=== PATIENT | female | born 1955 | race Hispanic/Latino ===

== ENCOUNTER 2017-06-04 07:06 | Emergency (ER) | payer MEDICAID, OTHER ==
[2017-06-04 07:12] VITALS: BMI 25.2
[2017-06-04 07:18] VITALS: BP 164/97; PULSE 54; RESP 18; TEMP 97.4; O2SAT 95
--- NOTE | 2017-06-04 09:49 | ED PDOC ---
Arrival/HPI - General Chief Complaint: ENT Problem Time Seen by Provider: 06/04/17 07:25 Historian: Patient - History of Present Illness Narrative History of Present Illness (Text): 06/04/17 09:41 A 61 year old female, whose past medical history includes diabetes, hypertension, hypercholesterolemia, HIV, optic tumor removed in 2003, and right glass eye, presents to the emergency department complaining of sinus infection. Patient reports she has sinus infection every year in the beginning of winter. Patient denies any fever, cough, chest pain, shortness of breath, or any other complaints. 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) - Renal Hx Renal Disorder: No - Endocrine/Metabolic Hx Endocrine Disorders: Yes Hx Diabetes Mellitus Type 2: Yes - Hematological/Oncological Hx Blood Disorders: Yes Other/Comment: HIV Dx'ed 1997 - Integumentary Hx Dermatological Disorder: No - Musculoskeletal/Rheumatological Hx Musculoskeletal Disorders: No - Gastrointestinal Hx Gastrointestinal Disorders: No - Genitourinary/Gynecological Hx Genitourinary Disorders: No - Psychiatric Hx Psychophysiologic Disorder: No Hx Substance Use: No - Surgical History Hx Cholecystectomy: Yes Hx Eye Surgery: Yes (right prosthetic eye) Hx Tubal Ligation: Yes - Anesthesia Hx Anesthesia: Yes Hx Anesthesia Reactions: No Hx Malignant Hyperthermia: No Family/Social History - Physician Review Nursing Documentation Reviewed: Yes Family/Social History: No Known Family HX Smoking Status: Heavy Smoker > 10 Cigarettes Daily Hx Alcohol Use: No Hx Substance Use: No Allergies/Home Meds Allergies/Adverse Reactions: Allergies enoxaparin sodium [From Lovenox] Allergy (Verified 06/04/17 07:19) unknown heparin Allergy (Verified 06/04/17 07:19) unknown Home Medications: Home Meds Medication Instructions Recorded Confirmed Atorvastatin [Lipitor] 40 mg PO DAILY 02/21/16 06/04/17 Insulin Aspart [Novolog] 7 units SC AC 02/21/16 06/04/17 Insulin Glargine, Recombina 30 units SC HS 02/21/16 06/04/17 [Lantus] Lisinopril [Zestril] 5 mg PO DAILY 02/21/16 06/04/17 Review of Systems - Physician Review All systems were reviewed & negative as marked: Yes - Review of Systems Constitutional: absent: Fevers ENT: Other (sinus infection) Respiratory: absent: SOB, Cough Cardiovascular: absent: Chest Pain Physical Exam Vital Signs Reviewed: Yes Vital Signs Temp Pulse Resp BP Pulse Ox 06/04/17 07:12 97.4 F L 54 L 18 164/97 H 95 06/04/17 07:07 97.4 F L 54 L 18 164/97 H 95 Temperature: Afebrile Blood Pressure: Normal Pulse: Regular Respiratory Rate: Normal Appearance: Positive for: Well-Appearing Pain Distress: None Mental Status: Positive for: Alert and Oriented X 3 - Systems Exam Head: Present: Tenderness (frontal maxillary tenderness) Pupils: Present: PERRL Extroacular Muscles: Present: EOMI Conjunctiva: Present: Normal Mouth: Present: Moist Mucous Membranes Pharnyx: Present: Normal, Other (no oral thrush) Nose (External): Present: Atraumatic (normal examination) Neck: Present: Normal Range of Motion Respiratory/Chest: Present: Clear to Auscultation, Good Air Exchange. No: Respiratory Distress, Accessory Muscle Use Cardiovascular: Present: Regular Rate and Rhythm, Normal S1, S2. No: Murmurs Abdomen: Present: Normal Bowel Sounds. No: Tenderness, Distention, Peritoneal Signs Back: Present: Normal Inspection Upper Extremity: Present: Normal Inspection. No: Cyanosis, Edema Lower Extremity: Present: Normal Inspection. No: Edema Neurological: Present: GCS=15, CN II-XII Intact, Speech Normal Skin: Present: Warm, Dry, Normal Color. No: Rashes Psychiatric: Present: Alert, Oriented x 3, Normal Insight, Normal Concentration Medical Decision Making ED Course and Treatment: 06/04/17 09:47 Impression: 61 year old female with complaint of sinus infection. Physical exam shows frontal maxillary tenderness; nose and throat negative; no oral thrush; everything else on exam is benign. Plan: -- Reassess and disposition Prior Visits: Notes and results from previous visits were reviewed. Patient was last seen in the emergency department on 03/07/2016 for headache and pressure on both sides of her face. Progress Notes: - Scribe Statement The provider has reviewed the documentation as recorded by the Remedios Landers Provider Scribe Attestation: All medical record entries made by the Georgianaibgavin were at my direction and personally dictated by me. I have reviewed the chart and agree that the record accurately reflects my personal performance of the history, physical exam, medical decision making, and the department course for this patient. I have also personally directed, reviewed, and agree with the discharge instructions and disposition. Disposition/Present on Arrival - Present on Arrival Any Indicators Present on Arrival: No History of DVT/PE: No History of Uncontrolled Diabetes: No Urinary Catheter: No History of Decub. Ulcer: No History Surgical Site Infection Following: None - Disposition Have Diagnosis and Disposition been Completed?: Yes Diagnosis: Sinusitis Disposition: HOME/ ROUTINE Disposition Time: 07:40 Condition: GOOD Discharge Instructions (ExitCare): Sinusitis (ED) Additional Instructions: Thank you for letting us take care of you today. The emergency medical care you received today was directed at your acute symptoms. If you were prescribed any medication, please fill it and take as directed. It may take several days for your symptoms to resolve. Return to the Emergency Department if your symptoms worsen, do not improve, or if you have any other problems. Please contact your doctor or call one of the physicians/clinics you have been referred to that are listed on the Patient Visit Information form that is included in your discharge packet. Bring any paperwork you were given at discharge with you along with any medications you are taking to your follow up visit. Our treatment cannot replace ongoing medical care by a primary care provider (PCP) outside of the emergency department. Thank you for allowing the [facility] team to be part of your care today. Follow up with your doctor in 3-4 days for re-evaluation and further management. Prescriptions: Amoxicillin/Clavulanate [Augmentin 875 MG-125 MG] 1 tab PO Q12 #14 tab Fluticasone Propionate [Flonase] 1 spr NS BID #1 bottle [facility] - Follow up with primary Forms: [employer] (Bahamian)
== END 2017-06-04 07:58 | disposition home or self-care (01) ==
LOC: ED 07:06
DX: J32.9 Chronic sinusitis, unspecified (principal); I10 Essential (primary) hypertension; E11.9 Type 2 diabetes mellitus without complications; E78.00 Pure hypercholesterolemia, unspecified; F17.210 Nicotine dependence, cigarettes, uncomplicated; Z79.4 Long term (current) use of insulin; Z98.51 Tubal ligation status

== ENCOUNTER 2017-12-12 13:35 | Emergency (ER) | payer MEDICAID ==
[2017-12-12 13:36] VITALS: BMI 25.2
[2017-12-12 14:06] VITALS: RESP 18; TEMP 98
[2017-12-12] MEDS ORDERED: Oxycodone/Acetaminophen 5/325 mg Tab PO STA (14:11)
--- NOTE | 2017-12-12 14:21 | ED PDOC ---
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 sided rib pain in midaxxilary/subcostal region , described as a chest tightness, began when patient simply reached upward in a dark house region to grab something and heard an audible p"pop" at th time w/ pain and mild pelurisy since. Pt denies prodcutiv cough/thorne/sob/diaphoresisi/ exertional exacerbation , and since then ED chest xrays at [facility] were (-)( for airspace disease although the radiographers may have not been exmaining ossous detail thereto. 12/12/17 14:15 Time/Duration: < week Symptom Onset: Gradual Symptom Course: Unchanged Quality: Aching, Cramping 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) - Renal Hx Renal Disorder: No - Endocrine/Metabolic Hx Endocrine Disorders: Yes Hx Diabetes Mellitus Type 2: Yes - Hematological/Oncological Hx Blood Disorders: Yes Other/Comment: HIV Dx'ed 1997 - Integumentary Hx Dermatological Disorder: No - Musculoskeletal/Rheumatological Hx Musculoskeletal Disorders: No - Gastrointestinal Hx Gastrointestinal Disorders: No - Genitourinary/Gynecological Hx Genitourinary Disorders: No - Psychiatric Hx Psychophysiologic Disorder: No Hx Substance Use: No - Surgical History Hx Cholecystectomy: Yes Hx Eye Surgery: Yes (right prosthetic eye) Hx Tubal Ligation: Yes - Anesthesia Hx Anesthesia: Yes Hx Anesthesia Reactions: No Hx Malignant Hyperthermia: No Family/Social History - Physician Review Nursing Documentation Reviewed: Yes Family/Social History: No Known Family HX Smoking Status: Heavy Smoker > 10 Cigarettes Daily Hx Alcohol Use: No Hx Substance Use: No Allergies/Home Meds Allergies/Adverse Reactions: Allergies enoxaparin sodium [From Lovenox] Allergy (Verified 06/04/17 07:19) unknown heparin Allergy (Verified 06/04/17 07:19) unknown Home Medications: Home Meds Medication Instructions Recorded Confirmed Atorvastatin [Lipitor] 40 mg PO DAILY 02/21/16 06/04/17 Insulin Aspart [Novolog] 7 units SC AC 02/21/16 06/04/17 Insulin Glargine, Recombina 30 units SC HS 02/21/16 06/04/17 [Lantus] Lisinopril [Zestril] 5 mg PO DAILY 02/21/16 06/04/17 Review of Systems - Physician Review All systems were reviewed & negative as marked: Yes - Review of Systems Constitutional: Normal Eyes: Normal ENT: Normal Respiratory: Normal, Cough Cardiovascular: Chest Pain Gastrointestinal: Normal Genitourinary Female: Normal Musculoskeletal: Normal Skin: Normal Neurological: Normal Endocrine: Normal Hemo/Lymphatic: Normal Psychiatric: Normal Physical Exam Vital Signs Reviewed: Yes Vital Signs Temp Pulse Resp BP Pulse Ox 12/12/17 13:36 98 F 95 H 18 153/108 H 99 Temperature: Afebrile Blood Pressure: Normal Pulse: Regular Respiratory Rate: Normal Appearance: Positive for: Well-Appearing, Non-Toxic, Comfortable Pain Distress: None Mental Status: Positive for: Alert and Oriented X 3 - Systems Exam Head: Present: Atraumatic, Normocephalic Pupils: Present: PERRL Extroacular Muscles: Present: EOMI Conjunctiva: Present: Normal Mouth: Present: Moist Mucous Membranes Neck: Present: Normal Range of Motion Respiratory/Chest: Present: Clear to Auscultation, Good Air Exchange, Other ( left sided midaxillary line rib ttp subcostally . ). No: Respiratory Distress, Accessory Muscle Use Cardiovascular: Present: Regular Rate and Rhythm, Normal S1, S2. No: Murmurs Abdomen: No: Tenderness, Distention, Peritoneal Signs Back: Present: Normal Inspection Upper Extremity: Present: Normal Inspection. No: Cyanosis, Edema Lower Extremity: Present: Normal Inspection. No: Edema Neurological: Present: GCS=15, CN II-XII Intact, Speech Normal Skin: Present: Warm, Dry, Normal Color. No: Rashes Psychiatric: Present: Alert, Oriented x 3, Normal Insight, Normal Concentration Medical Decision Making ED Course and Treatment: 62 y/o female p/w yvonne rib muscle strain/sprain rib series (-) for acute fracture or airspace disease pain palliated/ incentive spirometer educated. 12/12/17 15:13 Reassessment Condition: Re-examined, Improved - Lab Interpretations I have reviewed the lab results: Yes Interpretation: All labs normal - RAD Interpretation Radiology Orders: 12/12/17 14:10 RIBS LEFT & PA CHEST [RAD] Stat - Medication Orders Current Medication Orders: Discontinued Medications Oxycodone/Acetaminophen (Percocet 5/325 Mg Tab) 1 tab PO STAT STA Stop: 12/12/17 14:12 Last Admin: 12/12/17 14:21 Dose: 1 tab MAR Pain Assessment Document 12/12/17 14:21 LA (Rec: 12/12/17 14:23 LA [id number]) Pain Reassessment Is this a pain reassessment? No Sleep Is patient sleeping during reassessment? No Presence of Pain Presence of Pain Yes Pain Scale Used Pain Scale Used Numeric Location Left, Right or Bilateral Left Upper or Lower Lower Pain Location Body Site Abdomen Description Description Intermittent Intensity of Pain at present 10 Disposition/Present on Arrival - Present on Arrival Any Indicators Present on Arrival: No History of DVT/PE: No History of Uncontrolled Diabetes: No Urinary Catheter: No History of Decub. Ulcer: No History Surgical Site Infection Following: None - Disposition Have Diagnosis and Disposition been Completed?: Yes Diagnosis: Rib sprain Disposition: HOME/ ROUTINE Disposition Time: 15:24 Patient Plan: Discharge Condition: IMPROVED Discharge Instructions (ExitCare): Bruised Rib (DC), Muscle Strain Print Language: WOLOF Additional Instructions: Take th epain medicine judiciously and sparingly only if pain severe. Practice the incentive spirometer 15-20 minutes an episode 3-4 episodes daily to keep your lung open. Prescriptions: Ibuprofen [Motrin Tab] 800 mg PO Q8 PRN #40 tab PRN Reason: Pain, Moderate (4-7) Methocarbamol [Robaxin-750] 750 mg PO Q8 PRN #30 tablet PRN Reason: Pain, Moderate (4-7) Forms: [facility] (Slovenian)
[2017-12-12 16:17] VITALS: BP 151/91; PULSE 87; O2SAT 97
--- NOTE | 2017-12-12 16:34 | RAD ---
PROCEDURE: Radiographs of the Chest and Left Ribs. HISTORY: Chest muscle strain COMPARISON: None available. TECHNIQUE: Frontal radiograph of the chest and multiple oblique radiographs of the left ribs were obtained. FINDINGS: LEFT RIBS: No fracture or focal lesion visualized. LUNGS: No evidence of acute infiltrates. PLEURA: No pneumothorax or pleural fluid. CARDIOVASCULAR: Normal sized heart. No pulmonary vascular congestion. OTHER FINDINGS: None. IMPRESSION: Unremarkable radiographs of the chest and left ribs. No left rib fracture. If symptoms persist or occult fracture suspected clinically, consider followup on CT scan of the chest.
--- NOTE | 2017-12-13 23:02 | CARD ---
APPROVED REPORT EKG Measurement Heart [id number] <Conclusion> Normal sinus rhythm Normal ECG
== END 2017-12-12 16:17 | disposition home or self-care (01) ==
LOC: ED 13:35
DX: S23.41XA Sprain of ribs, initial encounter (principal); X50.0XXA Overexertion from strenuous movement or load, initial encounter; Y92.89 Other specified places as the place of occurrence of the external cause; I10 Essential (primary) hypertension; E78.5 Hyperlipidemia, unspecified; F17.210 Nicotine dependence, cigarettes, uncomplicated

== ENCOUNTER 2017-12-20 13:54 | Emergency (ER) | payer MEDICAID ==
[2017-12-20 13:55] VITALS: BMI 25.2
[2017-12-20 14:39] VITALS: RESP 18
--- NOTE | 2017-12-20 15:10 | ED PDOC ---
Arrival/HPI - General Chief Complaint: Upper Extremity Problem/Injury Time Seen by Provider: 12/20/17 14:32 Historian: Patient - History of Present Illness Narrative History of Present Illness (Text): 12/20/17 15:07 62 year old female, whose history includes blood clot in right arm in 2009, presents to the Emergency department complaining of pain and swelling to right underarm for a couple of days. Pain is worsened with movements and palpation. Patient admits to not getting a mammogram for numerous years. Patient denies any fever, chills, chest pain, shortness of breath, nausea, vomiting, diarrhea, urinary symptoms, back pain, neck pain, headache, dizziness or any other complaints. 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) - Renal Hx Renal Disorder: No - Endocrine/Metabolic Hx Endocrine Disorders: Yes Hx Diabetes Mellitus Type 2: Yes - Hematological/Oncological Hx Blood Disorders: Yes Other/Comment: HIV Dx'ed 1997 - Integumentary Hx Dermatological Disorder: No - Musculoskeletal/Rheumatological Hx Musculoskeletal Disorders: No - Gastrointestinal Hx Gastrointestinal Disorders: No - Genitourinary/Gynecological Hx Genitourinary Disorders: No - Psychiatric Hx Psychophysiologic Disorder: No Hx Substance Use: No - Surgical History Hx Cholecystectomy: Yes Hx Eye Surgery: Yes (right prosthetic eye) Hx Tubal Ligation: Yes - Anesthesia Hx Anesthesia: Yes Hx Anesthesia Reactions: No Hx Malignant Hyperthermia: No Family/Social History - Physician Review Nursing Documentation Reviewed: Yes Family/Social History: Unknown Family HX Smoking Status: Heavy Smoker > 10 Cigarettes Daily Hx Alcohol Use: No Hx Substance Use: No Allergies/Home Meds Allergies/Adverse Reactions: Allergies enoxaparin sodium [From Lovenox] Allergy (Verified 12/20/17 14:38) unknown heparin Allergy (Verified 12/20/17 14:38) unknown Home Medications: Home Meds Medication Instructions Recorded Confirmed Atorvastatin [Lipitor] 40 mg PO DAILY 02/21/16 12/20/17 Insulin Aspart [Novolog] 7 units SC AC 02/21/16 12/20/17 Insulin Glargine, Recombina 30 units SC HS 02/21/16 12/20/17 [Lantus] Lisinopril [Zestril] 5 mg PO DAILY 02/21/16 12/20/17 Elviteg/Cob/Emtri/Tenof Alafen 1 tab PO DAILY 12/20/17 12/20/17 [Genvoya Tablet] Review of Systems - Review of Systems Constitutional: absent: Fevers, Night Sweats Eyes: absent: Vision Changes ENT: absent: Rhinorrhea Respiratory: absent: SOB, Cough Cardiovascular: absent: Chest Pain, Palpitations, Edema, Calf Pain, RIVERA, Orthopnea, Syncope Gastrointestinal: absent: Constipation, Diarrhea, Nausea, Vomiting Genitourinary Female: absent: Dysuria Musculoskeletal: absent: Back Pain, Neck Pain Skin: absent: Rash Neurological: absent: Headache, Dizziness Endocrine: absent: Diaphoresis Hemo/Lymphatic: Adenopathy Psychiatric: absent: Anxiety, Depression Physical Exam Vital Signs Reviewed: Yes Vital Signs Temp Pulse Resp BP Pulse Ox 12/20/17 18:22 98.8 F 82 18 128/84 99 12/20/17 14:35 97.9 F 83 18 145/90 96 Temperature: Afebrile Blood Pressure: Normal Pulse: Regular Respiratory Rate: Normal Appearance: Positive for: Well-Appearing, Non-Toxic, Comfortable Pain Distress: None Mental Status: Positive for: Alert and Oriented X 3 - Systems Exam Head: Present: Atraumatic, Normocephalic Pupils: Present: PERRL Extroacular Muscles: Present: EOMI Conjunctiva: Present: Normal Mouth: Present: Moist Mucous Membranes Neck: Present: Normal Range of Motion Respiratory/Chest: Present: Clear to Auscultation, Good Air Exchange. No: Respiratory Distress, Accessory Muscle Use Cardiovascular: Present: Regular Rate and Rhythm, Normal S1, S2. No: Murmurs Abdomen: No: Tenderness, Distention, Peritoneal Signs Breast/Axillary: Present: Tender to Palpation (pinpoint area of tenderness under R axilla) Back: Present: Normal Inspection Upper Extremity: Present: Normal Inspection, NORMAL PULSES. No: Cyanosis, Edema Lower Extremity: Present: Normal Inspection. No: Edema Neurological: Present: GCS=15, CN II-XII Intact, Speech Normal Skin: Present: Warm, Dry, Normal Color. No: Rashes Lymphatic: No: Axillary Adenopathy Psychiatric: Present: Alert, Oriented x 3, Normal Insight, Normal Concentration Medical Decision Making ED Course and Treatment: 12/20/17 15:01 Impression: 62 year old female presents to the Emergency department complaining of pain and swelling to right underarm. I cannot palpate a mass under the R axilla, but patient reports that there is one there and is complaining of tenderness. Spoke to patient about possibility of early folliculitis vs lymphadenopathy. Plan: -- Chest xray -- Right upper extremity ultrasound -- Labs -- Ibuprofen -- Reassess and disposition Prior Visits: Notes and results from previous visits were reviewed. Patient was last seen in the emergency department on 12/12/17, was diagnosed with a rib sprain, and was discharged home. Progress Notes: 12/20/17 15:01 Discussed with the patient the importance of getting mammography as soon as possible. 12/20/2017 15:33:19 Chest PA and lateral FINDINGS: LUNGS: No active pulmonary disease. PLEURA: No significant pleural effusion identified. No pneumothorax apparent. CARDIOVASCULAR: Normal. OSSEOUS STRUCTURES: No significant abnormalities. VISUALIZED UPPER ABDOMEN: Normal. OTHER FINDINGS: None. IMPRESSION: No active disease. 12/20/17 16:51 Ultrasound shows negative DVT. 12/20/17 17:42 Hyperglycemic with no gap. Patient reports that she didn't take her insulin this morning and will take medication at home. 12/20/17 18:21 Patient is aware her sugar is elevated but she does not want treatment in the Emergency department; she would like to go home and take her own medication. Insulin order discontinued. Patient aware of the need for mammography KULWANT to evaluate for lymphadenopathy/lump under R axilla that patient palpated and also follow-up with PMD and gynecology. - Lab Interpretations Lab Results: 12/20/17 16:01 12/20/17 16:01 Lab Results 12/20/17 18:04: POC Glucose (mg/dL) 344 H 12/20/17 16:01: Sodium 140, Potassium 3.9, Chloride 102, Carbon Dioxide 27, Anion Gap 15, BUN 15, Creatinine 0.6 L, Est GFR ( Amer) > 60, Est GFR ( Non-Af Amer) > 60, Random Glucose 420 H*, Calcium 8.7, Total Bilirubin 0.6, AST 127 H, ALT 119 H, Alkaline Phosphatase 109, Total Protein 6.7, Albumin 3.4, Globulin 3.3, Albumin/Globulin Ratio 1.1 12/20/17 16:01: WBC 5.2, RBC 4.06, Hgb 13.2, Hct 38.7, MCV 95.3, MCH 32.5, MCHC 34.1, RDW 14.4, Plt Count 236, MPV 11.9 H, Gran % 64.1, Lymph % (Auto) 19.2 L, Ross % (Auto) 10.7 H, Eos % (Auto) 5.0, Baso % (Auto) 1.0, Gran # 3.34, Lymph # (Auto) 1.0 L, Ross # (Auto) 0.6, Eos # (Auto) 0.3, Baso # (Auto) 0.05 - RAD Interpretation Radiology Orders: 12/20/17 14:56 CHEST TWO VIEWS (PA/LAT) [RAD] Stat DUPLEX UPPER EXTRM VEIN RIGHT [US] Stat - Medication Orders Current Medication Orders: Discontinued Medications Ibuprofen (Motrin Tab) 400 mg PO STAT STA Stop: 12/20/17 15:00 Last Admin: 12/20/17 15:47 Dose: 400 mg [facility] Pain/Vitals Document 12/20/17 15:47 [facility] (Rec: 12/20/17 15:48 [facility] [id number]) Pain Reassessment Is This A Pain ReAssessment? No - Scribe Statement The provider has reviewed the documentation as recorded by the Scribe Julio Arroyo All medical record entries made by the Scribe were at my direction and personally dictated by me. I have reviewed the chart and agree that the record accurately reflects my personal performance of the history, physical exam, medical decision making, and the department course for this patient. I have also personally directed, reviewed, and agree with the discharge instructions and disposition. Disposition/Present on Arrival - Present on Arrival Any Indicators Present on Arrival: No History of DVT/PE: Yes History of Uncontrolled Diabetes: No Urinary Catheter: No History of Decub. Ulcer: No History Surgical Site Infection Following: None - Disposition Have Diagnosis and Disposition been Completed?: Yes Diagnosis: Hyperglycemia, Pain, axillary Disposition: HOME/ ROUTINE Disposition Time: 18:12 Patient Plan: Discharge Condition: GOOD Discharge Instructions (ExitCare): Hyperglycemia, Adult Additional Instructions: Follow-up with PMD within 2 days. You need mammography within 1 week and futher evaluation of swelling under R axilla. Return immediately with any worsening symptoms. Control your blood glucose Forms: [employer] (Divehi)
--- NOTE | 2017-12-20 15:35 | RAD ---
HISTORY: Pain in right axilla COMPARISON: No prior. TECHNIQUE: Chest PA and lateral FINDINGS: LUNGS: No active pulmonary disease. PLEURA: No significant pleural effusion identified. No pneumothorax apparent. CARDIOVASCULAR: Normal. OSSEOUS STRUCTURES: No significant abnormalities. VISUALIZED UPPER ABDOMEN: Normal. OTHER FINDINGS: None. IMPRESSION: No active disease.
[2017-12-20 16:06] LABS: BASO # 0.05 K/mm3 (0.0-2.0); EOS # 0.3 (0.0-0.7); GRAN # 3.34 (1.4-6.5); GRAN % 64.1 % (50.0-68.0); HEMOGLOBIN 13.2 g/dL (12.0-16.0); LYMPH % 19.2 % (22.0-35.0); MEAN CELL VOLUME 95.3 fl (80.0-105.0); MEAN CORPUSCULAR HEMOGLOBIN 32.5 pg (25.0-35.0); MEAN CORPUSCULAR HGB CONC 34.1 g/dl (31.0-37.0); MEAN PLATELET VOLUME 11.9 fl (7.0-11.0); MONO # 0.6 (0.1-0.6); MONO % 10.7 % (1.0-6.0); RBC 4.06 10^6/uL (3.5-6.1); RED CELL DISTRIBUTION WIDTH 14.4 % (11.5-14.5); WHITE BLOOD COUNT 5.2 10^3/ul (4.5-11.0)
[2017-12-20 16:29] LABS: ALB/GLOB RATIO 1.1 (1.1-1.8); ALBUMIN 3.4 g/dL (3.0-4.8); ALT/SGPT 119 U/L (7-56); AST/SGOT 127 U/L (14-36); BLOOD UREA NITROGEN 15 mg/dL (7-21); CALCIUM 8.7 mg/dL (8.4-10.5); GFR AFRICAN-AMERICAN > 60; GFR NON-AFRICAN AMERICAN > 60
[2017-12-20] MEDS ORDERED: Insulin Regular 1 UNITS/0.01 ML ML IV STA (16:31)
[2017-12-20 18:23] VITALS: BP 128/84; PULSE 82; TEMP 98.8; O2SAT 99
--- NOTE | 2017-12-20 21:09 | US ---
PROCEDURE: Right upper extremity venous US CLINICAL HISTORY: Arm pain and swelling Evaluate for deep venous thrombosis. PHYSICIAN(S): Jeffery Zuniga M.D FINDINGS: The visualized rightinternal jugular vein is sonographically normal and compressible. No evidence of obstruction or thrombus is seen. The visualized segments of the right subclavian vein are patent with normal waveforms. No sonographic evidence of obstruction or thrombosis is seen. The visualized deep venous system of the proximal right upper extremity is sonographically normal and compressible. IMPRESSION: 1. No sonographic evidence for deep venous thrombosis in the visualized segments of the right upper extremity.
== END 2017-12-20 18:22 | disposition home or self-care (01) ==
LOC: ED 13:54
DX: E11.65 Type 2 diabetes mellitus with hyperglycemia (principal); M79.621 Pain in right upper arm; I10 Essential (primary) hypertension; F17.210 Nicotine dependence, cigarettes, uncomplicated

== ENCOUNTER 2018-05-24 08:39 | Emergency (ER) | payer MEDICAID ==
[2018-05-24 08:47] VITALS: BMI 25.6
--- NOTE | 2018-05-24 09:03 | ED PDOC ---
Arrival/HPI - General Chief Complaint: Back Pain Time Seen by Provider: 05/24/18 08:41 Historian: Patient - History of Present Illness Time/Duration: Other (Yesterday) Symptom Onset: Sudden Symptom Course: Unchanged Quality: Aching Severity Level: Mild Associated Symptoms (Text): 05/24/18 09:00 Patient reports that yesterday she bent over to pick something up off of the floor and developed acute onset of left lower back pain. She had a similar episode last summer. There was no direct blow. No abdominal pain nausea vomiting or diarrhea. No genitourinary symptoms. No radiation. No numbness tingling or paresthesias. No weakness. She appears comfortable and in no distress. HIV positive. Pain is only with certain movements. 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) - Renal Hx Renal Disorder: No - Endocrine/Metabolic Hx Endocrine Disorders: Yes Hx Diabetes Mellitus Type 2: Yes - Hematological/Oncological Hx Blood Disorders: Yes Other/Comment: HIV Dx'ed 1997 - Integumentary Hx Dermatological Disorder: No - Musculoskeletal/Rheumatological Hx Musculoskeletal Disorders: No - Gastrointestinal Hx Gastrointestinal Disorders: No - Genitourinary/Gynecological Hx Genitourinary Disorders: No - Psychiatric Hx Psychophysiologic Disorder: No Hx Substance Use: No - Surgical History Hx Cholecystectomy: Yes Hx Eye Surgery: Yes (right prosthetic eye) Hx Tubal Ligation: Yes - Anesthesia Hx Anesthesia: Yes Hx Anesthesia Reactions: No Hx Malignant Hyperthermia: No Family/Social History - Physician Review Nursing Documentation Reviewed: Yes Family/Social History: Unknown Family HX Smoking Status: Heavy Smoker > 10 Cigarettes Daily Hx Alcohol Use: No Hx Substance Use: No Allergies/Home Meds Allergies/Adverse Reactions: Allergies enoxaparin sodium [From Lovenox] Allergy (Verified 12/20/17 14:38) unknown heparin Allergy (Verified 12/20/17 14:38) unknown Home Medications: Home Meds Medication Instructions Recorded Confirmed Atorvastatin [Lipitor] 40 mg PO DAILY 02/21/16 12/20/17 Insulin Aspart [Novolog] 7 units SC AC 02/21/16 12/20/17 Insulin Glargine, Recombina 30 units SC HS 02/21/16 12/20/17 [Lantus] Lisinopril [Zestril] 5 mg PO DAILY 02/21/16 12/20/17 Elviteg/Cob/Emtri/Tenof Alafen 1 tab PO DAILY 12/20/17 12/20/17 [Genvoya Tablet] Review of Systems - Physician Review All systems were reviewed & negative as marked: Yes - Review of Systems Constitutional: Normal Respiratory: Normal Cardiovascular: Normal Gastrointestinal: Normal Genitourinary Female: Normal Neurological: Normal Physical Exam Temperature: Afebrile Blood Pressure: Normal Pulse: Regular Respiratory Rate: Normal Appearance: Positive for: Well-Appearing, Non-Toxic, Comfortable Pain Distress: Mild Mental Status: Positive for: Alert and Oriented X 3 - Systems Exam Head: Present: Atraumatic, Normocephalic Neck: Present: Normal Range of Motion Respiratory/Chest: Present: Clear to Auscultation, Good Air Exchange. No: Respiratory Distress, Accessory Muscle Use Abdomen: No: Tenderness, Distention, Peritoneal Signs Back: Present: Normal Inspection. No: CVA Tenderness, Midline Tenderness, Paraspinal Tenderness, Pain with Leg Raise Lower Extremity: Present: Normal Inspection. No: Edema Neurological: Present: GCS=15, CN II-XII Intact, Speech Normal, Motor Func Grossly Intact Skin: Present: Warm, Dry, Normal Color. No: Rashes Psychiatric: Present: Alert, Oriented x 3, Normal Insight, Normal Concentration Medical Decision Making ED Course and Treatment: 05/24/18 09:02 Patient will be treated as muscle strain with anti-inflammatories and muscle relaxers. Follow-up with PMD. Follow up in ER as needed. Disposition/Present on Arrival - Present on Arrival Any Indicators Present on Arrival: No History of DVT/PE: No History of Uncontrolled Diabetes: No Urinary Catheter: No History of Decub. Ulcer: No History Surgical Site Infection Following: None - Disposition Have Diagnosis and Disposition been Completed?: Yes Diagnosis: Low back strain Disposition: HOME/ ROUTINE Disposition Time: 09:03 Patient Plan: Discharge Condition: GOOD Discharge Instructions (ExitCare): Muscle Strain, Low Back Pain (DC) Prescriptions: Cyclobenzaprine [Flexeril] 5 mg PO Q8 #15 tab Naproxen [Naprosyn] 500 mg PO BID #14 tab Forms: [employer] (French)
[2018-05-24 09:09] VITALS: BP 120/90; PULSE 80; RESP 18; TEMP 98.2; O2SAT 100
== END 2018-05-24 09:40 | disposition home or self-care (01) ==
LOC: ED 08:39
DX: S39.012A Strain of muscle, fascia and tendon of lower back, initial encounter (principal); X50.0XXA Overexertion from strenuous movement or load, initial encounter; Y92.9 Unspecified place or not applicable

== ENCOUNTER 2018-05-29 06:07 | Emergency (ER) | payer MEDICAID ==
[2018-05-29 06:07] VITALS: BMI 25.6
[2018-05-29 07:49] VITALS: BP 145/80; PULSE 82; RESP 18; TEMP 97.9; O2SAT 97
--- NOTE | 2018-05-29 09:43 | ED PDOC ---
Arrival/HPI - General Chief Complaint: Abnormal Skin Integrity Historian: Patient - History of Present Illness Narrative History of Present Illness (Text): 05/29/18 08:28 A 62 year old female, with no significant past medical history presents to the emergency department complaining of dry skin to right ear and lower legs. Patient reports having this problem in the past. States she did not use any creams to treat it. Patient has no other complaints. 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) Other/Comment: prosthetic R eye - Renal Hx Renal Disorder: No - Endocrine/Metabolic Hx Endocrine Disorders: Yes Hx Diabetes Mellitus Type 2: Yes - Hematological/Oncological Hx Blood Disorders: Yes Hx Hepatitis C: Yes Other/Comment: HIV Dx'ed 1997 - Integumentary Hx Dermatological Disorder: No - Musculoskeletal/Rheumatological Hx Musculoskeletal Disorders: No Hx Unsteady Gait: Yes - Gastrointestinal Hx Gastrointestinal Disorders: No - Genitourinary/Gynecological Hx Genitourinary Disorders: No - Psychiatric Hx Psychophysiologic Disorder: No Hx Substance Use: No - Surgical History Hx Cholecystectomy: Yes Hx Eye Surgery: Yes (right prosthetic eye) Hx Tubal Ligation: Yes - Anesthesia Hx Anesthesia: Yes Hx Anesthesia Reactions: No Hx Malignant Hyperthermia: No Family/Social History - Physician Review Nursing Documentation Reviewed: Yes Family/Social History: No Known Family HX Smoking Status: Heavy Smoker > 10 Cigarettes Daily Hx Alcohol Use: No Hx Substance Use: No Allergies/Home Meds Allergies/Adverse Reactions: Allergies enoxaparin sodium [From Lovenox] Allergy (Verified 12/20/17 14:38) unknown heparin Allergy (Verified 12/20/17 14:38) unknown Home Medications: Home Meds Medication Instructions Recorded Confirmed Atorvastatin [Lipitor] 40 mg PO DAILY 02/21/16 12/20/17 Insulin Aspart [Novolog] 7 units SC AC 02/21/16 12/20/17 Insulin Glargine, Recombina 30 units SC HS 02/21/16 12/20/17 [Lantus] Lisinopril [Zestril] 5 mg PO DAILY 02/21/16 12/20/17 Elviteg/Cob/Emtri/Tenof Alafen 1 tab PO DAILY 12/20/17 12/20/17 [Genvoya Tablet] Review of Systems - Physician Review All systems were reviewed & negative as marked: Yes - Review of Systems Musculoskeletal: absent: Myalgias Skin: Other (dry skin to right ear and lower legs.) Physical Exam Vital Signs Reviewed: Yes Vital Signs Temp Pulse Resp BP Pulse Ox 05/29/18 07:47 97.9 F 82 18 145/80 97 05/29/18 06:53 153/91 H 05/29/18 06:21 97.7 F 84 20 100 Temperature: Afebrile Pulse: Regular Respiratory Rate: Normal Appearance: Positive for: Well-Appearing, Non-Toxic, Comfortable Pain Distress: None Mental Status: Positive for: Alert and Oriented X 3 - Systems Exam Ears: Present: Other (minimal abrasion to right pinna, no active bleeding.) Medical Decision Making ED Course and Treatment: 05/29/18 08:30 Impression: 62 year old female with dry skin to right ear and lower legs. Physical exam shows minimal abrasion to right pinna, no active bleeding. Plan: -- Reassess and disposition Progress Notes: - Scribe Statement The provider has reviewed the documentation as recorded by the Remedios Landers Provider Scribe Attestation: All medical record entries made by the Scribe were at my direction and personally dictated by me. I have reviewed the chart and agree that the record accurately reflects my personal performance of the history, physical exam, medical decision making, and the department course for this patient. I have also personally directed, reviewed, and agree with the discharge instructions and disposition. Disposition/Present on Arrival - Present on Arrival Any Indicators Present on Arrival: No History of DVT/PE: No History of Uncontrolled Diabetes: No Urinary Catheter: No History of Decub. Ulcer: No History Surgical Site Infection Following: None - Disposition Have Diagnosis and Disposition been Completed?: Yes Diagnosis: Dry skin Disposition: HOME/ ROUTINE Disposition Time: 07:25 Condition: GOOD Discharge Instructions (ExitCare): Diabetes and Diet Additional Instructions: DEVI OLGUIN, thank you for letting us take care of you today. The emergency medical care you received today was directed at your acute symptoms. If you were prescribed any medication, please fill it and take as directed. It may take several days for your symptoms to resolve. Return to the Emergency Department if your symptoms worsen, do not improve, or if you have any other problems. Please contact your doctor or call one of the physicians/clinics you have been referred to that are listed on the Patient Visit Information form that is included in your discharge packet. Bring any paperwork you were given at discharge with you along with any medications you are taking to your follow up visit. Our treatment cannot replace ongoing medical care by a primary care provider outside of the emergency department. Thank you for allowing the [facility] team to be part of your care today. Consider moisturizing skin cream and a humidifier in your home. Follow up with your primary care doctor if you have any concerns. Forms: haku (Greek)
== END 2018-05-29 07:49 | disposition home or self-care (01) ==
LOC: ED 06:07
DX: L85.3 Xerosis cutis (principal)

== ENCOUNTER 2018-07-22 19:14 | Inpatient (IN) | payer MEDICAID ==
[2018-07-22 20:26] LABS: BASO # 0.02 K/mm3 (0.0-2.0); BASO % 0.1 % (0.0-3.0); GRAN # 23.86 (1.4-6.5); HEMOGLOBIN 15.6 g/dL (12.0-16.0); LYMPH # 1.4 (1.2-3.4); LYMPH % 5.5 % (22.0-35.0); MEAN CELL VOLUME 92.7 fl (80.0-105.0); MEAN CORPUSCULAR HEMOGLOBIN 30.8 pg (25.0-35.0); MEAN CORPUSCULAR HGB CONC 33.3 g/dl (31.0-37.0); MEAN PLATELET VOLUME 14.3 fl (7.0-11.0); MONO # 0.4 (0.1-0.6); MONO % 1.4 % (1.0-6.0); PLATELET COUNT 396 10^3/uL (120.0-450.0); RBC 5.06 10^6/uL (3.5-6.1); RED CELL DISTRIBUTION WIDTH 13.1 % (11.5-14.5)
[2018-07-22 20:30] LABS: WHITE BLOOD COUNT 25.7 10^3/uL (4.5-11.0)
[2018-07-22] MEDS ORDERED: Insulin Regular 1 UNITS/0.01 ML ML IVP STA (20:44)
[2018-07-22] MEDS ORDERED: Sodium Chloride 0.9% 1,000 ML IV STA (20:44)
[2018-07-22] MEDS ORDERED: Vancomycin 1gm in NS 250ml 1 GM/250 ML BAG IVPB STA (20:45)
[2018-07-22] MEDS ORDERED: Piperacillin/Tazobact 3.375 gm 100 ML IVPB STA (20:45)
[2018-07-22 20:49] LABS: TROPONIN I < 0.01 ng/mL
[2018-07-22 20:53] LABS: INR 1.02; PARTIAL THROMBOPLASTIN TIME 22.5 Seconds (25.1-36.5); PROTHROMBIN TIME 11.6 SECONDS (9.4-12.5)
[2018-07-22 20:54] LABS: ALB/GLOB RATIO 0.9 (1.1-1.8); ALBUMIN 3.3 g/dL (3.0-4.8); ALT/SGPT 14 U/L (7-56); AST/SGOT 25 U/L (14-36); BLOOD UREA NITROGEN 52 mg/dL (7-21); GFR NON-AFRICAN AMERICAN 50
[2018-07-22 21:06] LABS: URINE BILIRUBIN NEGATIVE (NEGATIVE); URINE BLOOD MODERATE (NEGATIVE); URINE GLUCOSE (UA) >=1000 mg/dL (NEGATIVE); URINE LEUKOCYTE ESTERASE SMALL Leu/uL (NEGATIVE); URINE PROTEIN NEGATIVE mg/dL (<30 mg/dL)
[2018-07-22 21:08] LABS: URINE APPEARANCE SL CLOUDY (CLEAR); URINE COLOR YELLOW (YELLOW)
[2018-07-22 21:36] LABS: VENOUS BLOOD GAS PO2 53 mm/Hg (30-55); VENOUS BLOOD PH 7.26 (7.32-7.43)
[2018-07-22 21:38] LABS: URINE WBC 25 - 30 /hpf (0-6)
[2018-07-22 21:39] LABS: URINE BACTERIA LARGE /hpf
--- NOTE | 2018-07-22 21:56 | ED PDOC ---
Arrival/HPI - General Chief Complaint: Altered Mental Status Time Seen by Provider: 07/22/18 19:40 Historian: Patient - History of Present Illness Narrative History of Present Illness (Text): 07/23/18 00:05 62yo female with pmhx of Diabetes, hypertension, and HIV(unknown viral load and CD4) bib the family members for complaint of generalized weakness and slurred speech. the son by the rebekah mendoza patient came to visit them on Wednesday from [place] and stated she wasn't feeling well. [facility] patient appeared weak with slurred speech this morning and again when he came back from work this evening and he brought her to the ED. states he is not sure patient is complaint with her medication. Patient was AAO x3 and reports mild pain around her sacral ulcer, which she said is chronic to her. She states she is complaint with her medication. Otherwise she denies any focal somatic complaint. Denies chest pain, SOB, nausea, vomiting, diarrhea, constipation, fever chills, cough, any other complaint. 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) Other/Comment: prosthetic R eye - Renal Hx Renal Disorder: No - Endocrine/Metabolic Hx Endocrine Disorders: Yes Hx Diabetes Mellitus Type 2: Yes - Hematological/Oncological Hx Blood Disorders: Yes Hx Hepatitis C: Yes Other/Comment: HIV Dx'ed 1997 - Integumentary Hx Dermatological Disorder: No - Musculoskeletal/Rheumatological Hx Musculoskeletal Disorders: No Hx Unsteady Gait: Yes - Gastrointestinal Hx Gastrointestinal Disorders: No - Genitourinary/Gynecological Hx Genitourinary Disorders: No - Psychiatric Hx Psychophysiologic Disorder: No Hx Substance Use: No - Surgical History Hx Cholecystectomy: Yes Hx Eye Surgery: Yes (right prosthetic eye) Hx Tubal Ligation: Yes - Anesthesia Hx Anesthesia: Yes Hx Anesthesia Reactions: No Hx Malignant Hyperthermia: No Family/Social History - Physician Review Nursing Documentation Reviewed: Yes Family/Social History: Unknown Family HX Smoking Status: Heavy Smoker > 10 Cigarettes Daily Hx Alcohol Use: No Hx Substance Use: No Allergies/Home Meds Allergies/Adverse Reactions: Allergies enoxaparin sodium [From Lovenox] Allergy (Verified 07/22/18 19:29) unknown heparin Allergy (Verified 07/22/18 19:29) unknown Home Medications: Home Meds Medication Instructions Recorded Confirmed Atorvastatin [Lipitor] 40 mg PO DAILY 02/21/16 12/20/17 Insulin Aspart [Novolog] 7 units SC AC 02/21/16 12/20/17 Insulin Glargine, Recombina 30 units SC HS 02/21/16 12/20/17 [Lantus] RX: Lisinopril [Zestril] 5 mg PO DAILY 02/21/16 12/20/17 Elviteg/Cob/Emtri/Tenof Alafen 1 tab PO DAILY 12/20/17 12/20/17 [Genvoya Tablet] Review of Systems - Physician Review All systems were reviewed & negative as marked: Yes - Review of Systems Constitutional: Fatigue Eyes: Normal ENT: Normal Respiratory: Normal Cardiovascular: Normal Gastrointestinal: Normal Genitourinary Female: Normal Musculoskeletal: Normal Skin: Normal Neurological: Normal Endocrine: Normal Hemo/Lymphatic: Normal Psychiatric: Normal Physical Exam Vital Signs Reviewed: Yes Vital Signs Temp Pulse Resp BP Pulse Ox 07/22/18 20:19 94.9 F L 07/22/18 19:30 102 H 15 135/76 100 Temperature: Hypothermic Blood Pressure: Normal Pulse: Tachycardic Respiratory Rate: Normal Appearance: Positive for: Non-Toxic, Comfortable, Ill-Appearing Pain Distress: None Mental Status: Positive for: Alert and Oriented X 3 Finger Stick Blood Glucose: 812 - Systems Exam Head: Present: Atraumatic, Normocephalic Pupils: Present: PERRL Extroacular Muscles: Present: EOMI Conjunctiva: Present: Normal Mouth: Present: Moist Mucous Membranes Neck: Present: Normal Range of Motion Respiratory/Chest: Present: Clear to Auscultation, Good Air Exchange. No: Respiratory Distress, Accessory Muscle Use, Wheezes, Decreased Breath Sounds, Rales, Retracting Cardiovascular: Present: Regular Rate and Rhythm, Normal S1, S2. No: Murmurs Abdomen: No: Tenderness, Distention, Peritoneal Signs Back: Present: Normal Inspection Upper Extremity: Present: Normal Inspection. No: Cyanosis, Edema Lower Extremity: Present: Normal Inspection. No: Edema Neurological: Present: GCS=15, CN II-XII Intact, Speech Normal, Motor Func Grossly Intact, Normal Sensory Function Skin: Present: Warm, Dry, Normal Color, Other (Unstageable sacral ulcer and right buttocks ulcer with eschar noted). No: Rashes Psychiatric: Present: Alert, Oriented x 3, Normal Insight, Normal Concentration Medical Decision Making ED Course and Treatment: 07/23/18 00:12 62yo female bib the family for generalized weakness and slurred speech Labs Chest xray EKG Blood culture VBG EKG sinus tachy @106bpm. LAD Pt's FS was >500 n ED . 1L NS Insulin ordered Lab was reviewed ant pt have leukocytosis, elevated VBG, hypothermic on arrival. Bear hugger placed and code sepsis was called. Vanco and Zosyn ordered Pt is also on DKA She was admitted to ICU Case was DW Dr. Soares who came and saw pt in ED and accepted pt for admission to the ICU - Critical Care Critical Care Minutes: 45 minutes - Lab Interpretations Lab Results: pO2 53 mm/Hg (30-55) 07/22/18 21:29 VBG pH 7.26 (7.32-7.43) L 07/22/18 21:29 VBG pCO2 50.0 (40-60) 07/22/18 21:29 VBG HCO3 22.4 mmol/l (21-28) 07/22/18 21:29 VBG Total CO2 23.9 mmol.L (22-28) 07/22/18 21:29 VBG O2 Sat (Calc) 89.8 % (40-65) H 07/22/18 21:29 VBG Base Excess -5.0 mmol/L (0.0-2.0) L 07/22/18 21:29 VBG Potassium 3.5 mmol/L (3.6-5.2) L 07/22/18 21:29 Sodium 142.0 mmol/L (132-148) 07/22/18 21: Chloride 98.0 mmol/L (98-107) 07/22/18 21: Glucose 722 mg/dl (65-105) H* 07/22/18 21:29 Lactate 4.0 mmol/L (0.7-2.1) H* 07/22/18 21:29 FiO2 21.0 % 07/22/18 21:29 PT 11.6 SECONDS (9.4-12.5) 07/22/18 20:10 INR 1.02 07/22/18 20:10 APTT 22.5 Seconds (25.1-36.5) L 07/22/18 20:10 Troponin I < 0.01 ng/mL 07/22/18 20:10 Total Bilirubin 1.5 mg/dL (0.2-1.3) H 07/22/18 20:10 AST 25 U/L (14-36) 07/22/18 20:10 ALT 14 U/L (7-56) 07/22/18 20:10 Alkaline Phosphatase 184 U/L (38-126) H D 07/22/18 20:10 Total Protein 7.2 g/dL (5.8-8.3) 07/22/18 20:10 Albumin 3.3 g/dL (3.0-4.8) 07/22/18 20:10 Globulin 3.9 gm/dL 07/22/18 20:10 Albumin/Globulin Ratio 0.9 (1.1-1.8) L 07/22/18 20:10 Urine Color Yellow (YELLOW) 07/22/18 20:44 Urine Appearance Sl cloudy (CLEAR) 07/22/18 20:44 Urine pH 6.0 (4.7-8.0) 07/22/18 20:44 Ur Specific [place] 1.010 (1.005-1.035) 07/22/18 20:44 Urine Protein Negative mg/dL (<30 mg/dL) 07/22/18 20:44 Urine Glucose (UA) >=1000 mg/dL (NEGATIVE) 07/22/18 20:44 Urine Ketones 15 mg/dL (NEGATIVE) H 07/22/18 20:44 Urine Blood Moderate (NEGATIVE) H 07/22/18 20:44 Urine Nitrate Negative (NEGATIVE) 07/22/18 20:44 Urine Bilirubin Negative (NEGATIVE) 07/22/18 20:44 Urine Urobilinogen 1.0 E.U./dL (<1 E.U./dL) H 07/22/18 20:44 Ur Leukocyte Esterase Small Marisa/uL (NEGATIVE) H 07/22/18 20:44 Urine RBC 5 - 10 /hpf (0-2) H 07/22/18 20:44 Urine WBC 25 - 30 /hpf (0-6) H 07/22/18 20:44 Ur Epithelial Cells 3 - 4 /hpf (0-5) 07/22/18 20:44 Urine Bacteria Large /hpf (NONE) 07/22/18 20:44 - RAD Interpretation Radiology Orders: 07/22/18 19:42 CHEST PORTABLE [RAD] Stat - Medication Orders Current Medication Orders: Vancomycin HCl (Vancomycin 1gm) 1 gm in 250 mls @ 167 mls/hr IVPB STAT STA; Protocol Stop: 07/22/18 22:14 Last Admin: 07/22/18 21:50 Dose: 167 mls/hr eMAR Start Stop Document 07/22/18 21:50 JOL (Rec: 07/22/18 21:51 JOL [id number]) Intravenous Solution Start Date 07/22/18 Start Time 21:51 End Date 07/22/18 End time 23:21 Total Infusion Time 90 Discontinued Medications Sodium Chloride (Sodium Chloride 0.9%) 1,000 mls @ 999 mls/hr IV .Q1H1M STA Stop: 07/22/18 21:44 Last Admin: 07/22/18 19:45 Dose: 999 mls/hr eMAR Start Stop Document 07/22/18 19:45 JOL (Rec: 07/22/18 21:00 JOL [id number]) Intravenous Solution Start Date 07/22/18 Start Time 19:50 End Date 07/22/18 End time 20:51 Total Infusion Time 61 Piperacillin Sod/Tazobactam Sod (Zosyn 3.375 In Ns 100ml) 100 mls @ 200 mls/hr IVPB STAT STA; Protocol Stop: 07/22/18 21:14 Last Admin: 07/22/18 21:00 Dose: 200 mls/hr eMAR Start Stop Document 07/22/18 21:00 JOL (Rec: 07/22/18 21:02 JOL [id number]) Intravenous Solution Start Date 07/22/18 Start Time 21:02 End Date 07/22/18 End time 21:32 Total Infusion Time 30 Insulin Human Regular (Humulin R) 12 units IVP ONCE STA Stop: 07/22/18 20:45 Last Admin: 07/22/18 21:00 Dose: 12 unit MAR Blood Glucose Document 07/22/18 21:00 JOL (Rec: 07/22/18 21:00 JOL [id number]) Blood Glucose Finger Stick Blood Glucose (70-120) 812 IVP Administration Document 07/22/18 21:00 JUAN C (Rec: 07/22/18 21:00 [id number]) Charges for Administration # of IVP Administrations 1 Disposition/Present on Arrival - Present on Arrival Any Indicators Present on Arrival: No History of DVT/PE: No History of Uncontrolled Diabetes: Yes Urinary Catheter: No History of Decub. Ulcer: No History Surgical Site Infection Following: None - Disposition Have Diagnosis and Disposition been Completed?: Yes Diagnosis: Sepsis, DKA (diabetic ketoacidoses), Hyperglycemia Disposition: HOSPITALIZED Disposition Time: 21:40 Patient Plan: Admission Patient Problems: Current Active Problems Problem Status Onset DKA (diabetic ketoacidoses) Acute Hyperglycemia Acute Sepsis Acute Condition: GUARDED
[2018-07-22 22:37] LABS: NEUTROPHIL 54 % (50.0-70.0)
[2018-07-22 22:40] LABS: BAND 38 % (0-2); EOSINOPHIL 1 % (0.0-3.0); LYMPHOCYTE 4 % (22.0-35.0); MONOCYTE 3 % (1.0-6.0)
[2018-07-22 22:41] LABS: PLATELET ESTIMATE NORMAL (NORMAL)
[2018-07-22] MEDS ORDERED: Sodium Chloride 0.9% 1,000 ML IV SCH (23:30)
[2018-07-22] MEDS ORDERED: Dextrose 50% SYRINGE Inj (50 ml) IV PRN (23:46)
[2018-07-22] MEDS ORDERED: Insulin Regular 100 UNITS in Sodium Chloride 0.9% 99 ML IV PRN (23:46)
[2018-07-23 00:41] LABS: VENOUS BLOOD GAS BASE EXCESS -1.7 mmol/L (0.0-2.0); VENOUS BLOOD GAS PO2 58 mm/Hg (30-55); VENOUS BLOOD PH 7.31 (7.32-7.43)
--- NOTE | 2018-07-23 02:06 | CP.PCM.CON ---
<Nabor Kearney - Last Filed: 07/23/18 05:53> History of Present Illness - History of Present Illness History of Present Illness: H&P for Hospitalist Dr. Rodger Kearney PGY2 CC: Slurred speech and weakness Patient is a 62 F with past medical history of HIV (unknown CD4 count), hepatitis, IDDM, past heroin abuse presenting with slurred speech and weakness found to be in HHS. HPI was provided by daughter of patient. As per daughter, patient came to visit from [place] on Wednesday. Since then it was noted that patient's behavior was slightly off, however patient stated she was sick. Yesterday morning when the daughter was going to work she noticed patient exhibited slurred speech and generalized weakness. This was around 6 am. As per daughter she waited until 6 pm when her brother came home and re-assessed patient. As per brother patient was exhibiting the same symptoms and seemed to be altered in comparison to her baseline and as a result decided it would be best to to bring the patient to the ED. During course of interview patient became more alert and awake. She stated that she takes insulin when she feels she needs it only and has not been taking it as prescribed in the past few weeks. She denies fevers, chills, headache, chest pain, shortness of breath, abdominal pain, nausea, vomiting, diarrhea, dysuria. PMD: [facility], can't recall name at the moment Pharmacy: [address] Social Hx: 1 ppd x 40 years, denies alcohol abuse, previous history of IV heroin use, lives at [facility] in [place], [place] Allergies: enoxaparin sodium, heparin Family HX: significant for alzheimer's disease and DM Review of Systems - Review of Systems All systems: reviewed and no additional remarkable complaints except (what is mentioned in HPI) 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 - RENAL Hx Chronic Kidney Disease: No - ENDOCRINE/METABOLIC Hx Endocrine Disorders: Yes Hx Diabetes Mellitus Type 2: Yes - HEMATOLOGICAL/ONCOLOGICAL Hx Blood Disorders: Yes Hx Hepatitis C: Yes Other/Comment: HIV Dx'ed 1997 - INTEGUMENTARY Hx Dermatological Problems: No - MUSCULOSKELETAL/RHEUMATOLOGICAL Hx Musculoskeletal Disorders: No Hx Unsteady Gait: Yes - GASTROINTESTINAL Hx Gastrointestinal Disorders: No - GENITOURINARY/GYNECOLOGICAL Hx Genitourinary Disorders: No - PSYCHIATRIC Hx Psychophysiologic Disorder: No Hx Substance Use: No - SURGICAL HISTORY Hx Cholecystectomy: Yes Hx Eye Surgery: Yes (right prosthetic eye) Hx Tubal Ligation: Yes - ANESTHESIA Hx Anesthesia: Yes Hx Anesthesia Reactions: No Hx Malignant Hyperthermia: No Meds Allergies/Adverse Reactions: Allergies Allergy/AdvReac Type Severity Reaction Status Date / Time enoxaparin sodium Allergy unknown Verified 07/22/18 19:29 [From Lovenox] heparin Allergy unknown Verified 07/22/18 19:29 - Medications Medications: Current Medications Dextrose (Dextrose 50% Inj) 0 ml IV STAT PRN; Protocol PRN Reason: Hypoglycemia Protocol Dextrose (Dextrose 5% In Water 1000 Ml) 1,000 mls @ 0 mls/hr IV .Q0M PRN; Protocol PRN Reason: Hypoglycemia Protocol Insulin Human Regular 100 (units/ Sodium Chloride) 100 mls @ 6 mls/hr IV .Q16H4 0M PRN; Protocol PRN Reason: TITRATE PER MD ORDER Last Titration: 07/23/18 00:57 Dose: 0 units/hr, 0 mls/hr Potassium Chloride (Potassium Chloride 10 Meq/100 Ml) 10 meq in 100 mls @ 50 mls/hr IVPB Q2H JOHN Stop: 07/23/18 08:59 Last Admin: 07/23/18 01:48 Dose: 50 mls/hr Potassium Chloride 60 meq/ (Sodium Chloride) 1,030 mls @ 150 mls/hr IV .Q6H52M [facility] Nystatin (Mycostatin Cream) 0 ea TOP TID JOHN Pantoprazole Sodium (Protonix Inj) 40 mg IVP DAILY [facility] Physical Exam - Head Exam Head Exam: ATRAUMATIC, NORMAL INSPECTION, NORMOCEPHALIC - Eye Exam Eye Exam: EOMI. absent: Normal appearance (artificial right eye) - ENT Exam ENT Exam: Mucous Membranes Dry - Respiratory Exam Respiratory Exam: Clear to Auscultation Bilateral, NORMAL BREATHING PATTERN - Cardiovascular Exam Cardiovascular Exam: REGULAR RHYTHM, +S1, +S2 - GI/Abdominal Exam GI & Abdominal Exam: Normal Bowel Sounds, Soft - Extremities Exam Extremities exam: Positive for: normal inspection - Back Exam Back exam: NORMAL INSPECTION - Neurological Exam Neurological exam: Alert, CN II-XII Intact, Oriented x3 - Psychiatric Exam Psychiatric exam: Normal Affect, Normal Mood - Skin Skin Exam: Intact, Normal Color, Warm Results - Vital Signs Recent Vital Signs: Last Vital Signs Temp 97.6 F 07/22/18 22:00 Pulse 110 H 07/22/18 22:00 Resp 14 07/22/18 22:00 BP 120/62 07/22/18 22:00 Pulse Ox 100 07/22/18 22:00 - Labs Result Diagrams: 07/22/18 20:10 07/23/18 02:15 Labs: Laboratory Results - last 24 hr 07/22/18 07/22/18 07/22/18 20:10 20:10 20:10 WBC 25.7 H* RBC 5.06 Hgb 15.6 D Hct 46.9 MCV 92.7 MCH 30.8 MCHC 33.3 RDW 13.1 Plt Count 396 MPV 14.3 H Gran % 93.0 H Lymph % (Auto) 5.5 L [place] % (Auto) 1.4 Eos % (Auto) 0.0 L Baso % (Auto) 0.1 Gran # 23.86 H Lymph # (Auto) 1.4 [place] # (Auto) 0.4 Eos # (Auto) 0.0 Baso # (Auto) 0.02 Neutrophils % (Manual) 54 Band Neutrophils % 38 H* Lymphocytes % (Manual) 4 L Monocytes % (Manual) 3 Eosinophils % (Manual) 1 Platelet Evaluation Normal PT 11.6 INR 1.02 APTT 22.5 L pO2 VBG pH VBG pCO2 VBG HCO3 VBG Total CO2 VBG O2 Sat (Calc) VBG Base Excess VBG Potassium Glucose Lactate FiO2 Sodium 138 Potassium 3.2 L Chloride 94 L Carbon Dioxide 21 Anion Gap 26 H BUN 52 H Creatinine 1.1 Est GFR ( Amer) > 60 Est GFR (Non-Af Amer) 50 POC Glucose (mg/dL) Random Glucose 811 H* D Calcium 10.0 Magnesium 2.6 H Total Bilirubin 1.5 H AST 25 ALT 14 Alkaline Phosphatase 184 H D Lactate Dehydrogenase 403 Total Creatine Kinase < 20 L Troponin I < 0.01 Total Protein 7.2 Albumin 3.3 Globulin 3.9 Albumin/Globulin Ratio 0.9 L TSH 3rd Generation Venous Blood Potassium Urine Color Urine Appearance Urine pH Ur Specific [place] Urine Protein Urine Glucose (UA) Urine Ketones Urine Blood Urine Nitrate Urine Bilirubin Urine Urobilinogen Ur Leukocyte Esterase Urine RBC Urine WBC Ur Epithelial Cells Urine Bacteria 07/22/18 07/22/18 07/22/18 20:44 21:29 23:35 WBC RBC Hgb Hct MCV MCH MCHC RDW Plt Count MPV Gran % Lymph % (Auto) [place] % (Auto) Eos % (Auto) Baso % (Auto) Gran # Lymph # (Auto) [place] # (Auto) Eos # (Auto) Baso # (Auto) Neutrophils % (Manual) Band Neutrophils % Lymphocytes % (Manual) Monocytes % (Manual) Eosinophils % (Manual) Platelet Evaluation PT INR APTT pO2 53 VBG pH 7.26 L VBG pCO2 50.0 VBG HCO3 22.4 VBG Total CO2 23.9 VBG O2 Sat (Calc) 89.8 H VBG Base Excess -5.0 L VBG Potassium 3.5 L Glucose 722 H* Lactate 4.0 H* FiO2 21.0 Sodium 142.0 Potassium Chloride 98.0 Carbon Dioxide Anion Gap BUN Creatinine Est GFR ( Amer) Est GFR (Non-Af Amer) POC Glucose (mg/dL) Random Glucose Calcium Magnesium Total Bilirubin AST ALT Alkaline Phosphatase Lactate Dehydrogenase Total Creatine Kinase Troponin I Total Protein Albumin Globulin Albumin/Globulin Ratio TSH 3rd Generation 0.37 L Venous Blood Potassium 3.5 L Urine Color Yellow Urine Appearance Sl cloudy Urine pH 6.0 Ur Specific [place] 1.010 Urine Protein Negative Urine Glucose (UA) >=1000 Urine Ketones 15 H Urine Blood Moderate H Urine Nitrate Negative Urine Bilirubin Negative Urine Urobilinogen 1.0 H Ur Leukocyte Esterase Small H Urine RBC 5 - 10 H Urine WBC 25 - 30 H Ur Epithelial Cells 3 - 4 Urine Bacteria Large 07/23/18 07/23/18 00:00 01:57 WBC RBC Hgb Hct MCV MCH MCHC RDW Plt Count MPV Gran % Lymph % (Auto) [place] % (Auto) Eos % (Auto) Baso % (Auto) Gran # Lymph # (Auto) [place] # (Auto) Eos # (Auto) Baso # (Auto) Neutrophils % (Manual) Band Neutrophils % Lymphocytes % (Manual) Monocytes % (Manual) Eosinophils % (Manual) Platelet Evaluation PT INR APTT pO2 58 H VBG pH 7.31 L VBG pCO2 50.0 VBG HCO3 25.2 VBG Total CO2 26.7 VBG O2 Sat (Calc) 93.2 H VBG Base Excess -1.7 L VBG Potassium 2.7 L Glucose 358 H Lactate 3.2 H FiO2 21.0 Sodium 146.0 Potassium Chloride 107.0 Carbon Dioxide Anion Gap BUN Creatinine Est GFR ( Amer) Est GFR (Non-Af Amer) POC Glucose (mg/dL) 319 H Random Glucose Calcium Magnesium Total Bilirubin AST ALT Alkaline Phosphatase Lactate Dehydrogenase Total Creatine Kinase Troponin I Total Protein Albumin Globulin Albumin/Globulin Ratio TSH 3rd Generation Venous Blood Potassium 2.7 L Urine Color Urine Appearance Urine pH Ur Specific [place] Urine Protein Urine Glucose (UA) Urine Ketones Urine Blood Urine Nitrate Urine Bilirubin Urine Urobilinogen Ur Leukocyte Esterase Urine RBC Urine WBC Ur Epithelial Cells Urine Bacteria Assessment & Plan - Assessment and Plan (Free Text) Assessment: 62 F with history of HIV, IDDM, hepatitis presenting with AMS secondary to HHS. Neurological/Psych -AAO x3 -Patient denies depressive mood/suicidal ideation Cardiovascular -Maintain Map >65 -Monitor troponins, negative x 2 -Keep normotensive Endocrine -HHS vs DKA, most likely HHS, bicarb is 29 -Replete potassium, maintain electrolytes -Received 12 units inuslin in ED -NPO -staff educator -HgA1C -Beta hydroxybutyrate -Maintain euglycemia, normothermia -Continue with fingersticks Infectious disease -Urine culture -Blood culture -Procalcitonin -CD4/CD8 count -Received Vanc and zosyn in the ED Renal -Replete electrolytes as needed -Currently on NS@150 infused with potassium chloride <Melissa Soares - Last Filed: 07/23/18 19:22> Meds - Medications Medications: Current Medications Dextrose (Dextrose 50% Inj) 0 ml IV STAT PRN; Protocol PRN Reason: Hypoglycemia Protocol Dextrose (Dextrose 5% In Water 1000 Ml) 1,000 mls @ 0 mls/hr IV .Q0M PRN; Protocol PRN Reason: Hypoglycemia Protocol Vancomycin HCl (Vancomycin 1gm) 1 gm in 250 mls @ 167 mls/hr IVPB Q12 JOHN; Protocol Last Admin: 07/23/18 10:12 Dose: 167 mls/hr Potassium Chloride 20 meq/ (Sodium Chloride) 1,010 mls @ 100 mls/hr IV .Q10H6M [facility] Last Admin: 07/23/18 12:01 Dose: 100 mls/hr Meropenem (Merrem Iv 1 Gm Premix) 1 gm in 50 mls @ 100 mls/hr IVPB Q8 [facility]; Protocol Stop: 08/01/18 16:02 Last Admin: 07/23/18 17:24 Dose: 100 mls/hr Metronidazole (Flagyl) 500 mg in 100 mls @ 100 mls/hr IVPB Q8 [facility]; Protocol Stop: 08/01/18 16:20 Last Admin: 07/23/18 17:24 Dose: 100 mls/hr Insulin Detemir (Levemir) 15 unit SC DAILY [facility] Insulin Human Regular (Humulin R High) 0 units SC ACHS [facility]; Protocol Last Admin: 07/23/18 17:21 Dose: Not Given Nystatin (Mycostatin Cream) 0 ea TOP TID [facility] Last Admin: 07/23/18 14:00 Dose: 2 g Pantoprazole Sodium (Protonix Inj) 40 mg IVP DAILY [facility] Last Admin: 07/23/18 10:12 Dose: 40 mg Results - Vital Signs Recent Vital Signs: Last Vital Signs Temp 97.5 F L 07/23/18 16:00 Pulse 97 H 07/23/18 18:50 Resp 16 07/23/18 18:50 BP 123/67 07/23/18 18:00 Pulse Ox 100 07/23/18 18:50 - Labs Result Diagrams: 07/23/18 05:00 07/23/18 16:15 Labs: Laboratory Results - last 24 hr 07/22/18 07/22/18 07/22/18 20:10 20:10 20:10 WBC 25.7 H* RBC 5.06 Hgb 15.6 D Hct 46.9 MCV 92.7 MCH 30.8 MCHC 33.3 RDW 13.1 Plt Count 396 MPV 14.3 H Gran % 93.0 H Lymph % (Auto) 5.5 L [place] % (Auto) 1.4 Eos % (Auto) 0.0 L Baso % (Auto) 0.1 Gran # 23.86 H Lymph # (Auto) 1.4 [place] # (Auto) 0.4 Eos # (Auto) 0.0 Baso # (Auto) 0.02 Neutrophils % (Manual) 54 Band Neutrophils % 38 H* Lymphocytes % (Manual) 4 L Monocytes % (Manual) 3 Eosinophils % (Manual) 1 Platelet Evaluation Normal PT 11.6 INR 1.02 APTT 22.5 L pO2 VBG pH VBG pCO2 VBG HCO3 VBG Total CO2 VBG O2 Sat (Calc) VBG Base Excess VBG Potassium Glucose Lactate FiO2 Sodium 138 Potassium 3.2 L Chloride 94 L Carbon Dioxide 21 Anion Gap 26 H BUN 52 H Creatinine 1.1 Est GFR ( Amer) > 60 Est GFR (Non-Af Amer) 50 POC Glucose (mg/dL) Random Glucose 811 H* D Serum Osmolality Calcium 10.0 Magnesium 2.6 H Total Bilirubin 1.5 H AST 25 ALT 14 Alkaline Phosphatase 184 H D Lactate Dehydrogenase 403 Total Creatine Kinase < 20 L Troponin I < 0.01 Total Protein 7.2 Albumin 3.3 Globulin 3.9 Albumin/Globulin Ratio 0.9 L Triglycerides Cholesterol LDL Cholesterol Direct HDL Cholesterol Vitamin B12 25-OH Vitamin D Total Procalcitonin TSH 3rd Generation Venous Blood Potassium Urine Color Urine Appearance Urine pH Ur Specific [place] Urine Protein Urine Glucose (UA) Urine Ketones Urine Blood Urine Nitrate Urine Bilirubin Urine Urobilinogen Ur Leukocyte Esterase Urine RBC Urine WBC Ur Epithelial Cells Urine Bacteria Urine Opiates Screen Urine Methadone Screen Ur Barbiturates Screen Ur Phencyclidine Scrn Ur Amphetamines Screen U Benzodiazepines Scrn U Oth Cocaine Metabols U Cannabinoids Screen B-Hydroxybutyrate 07/22/18 07/22/18 07/22/18 20:44 21:29 23:01 WBC RBC Hgb Hct MCV MCH MCHC RDW Plt Count MPV Gran % Lymph % (Auto) [place] % (Auto) Eos % (Auto) Baso % (Auto) Gran # Lymph # (Auto) [place] # (Auto) Eos # (Auto) Baso # (Auto) Neutrophils % (Manual) Band Neutrophils % Lymphocytes % (Manual) Monocytes % (Manual) Eosinophils % (Manual) Platelet Evaluation PT INR APTT pO2 53 VBG pH 7.26 L VBG pCO2 50.0 VBG HCO3 22.4 VBG Total CO2 23.9 VBG O2 Sat (Calc) 89.8 H VBG Base Excess -5.0 L VBG Potassium 3.5 L Glucose 722 H* Lactate 4.0 H* FiO2 21.0 Sodium 142.0 Potassium Chloride 98.0 Carbon Dioxide Anion Gap BUN Creatinine Est GFR ( Amer) Est GFR (Non-Af Amer) POC Glucose (mg/dL) 354 H Random Glucose Serum Osmolality Calcium Magnesium Total Bilirubin AST ALT Alkaline Phosphatase Lactate Dehydrogenase Total Creatine Kinase Troponin I Total Protein Albumin Globulin Albumin/Globulin Ratio Triglycerides Cholesterol LDL Cholesterol Direct HDL Cholesterol Vitamin B12 25-OH Vitamin D Total Procalcitonin TSH 3rd Generation Venous Blood Potassium 3.5 L Urine Color Yellow Urine Appearance Sl cloudy Urine pH 6.0 Ur Specific [place] 1.010 Urine Protein Negative Urine Glucose (UA) >=1000 Urine Ketones 15 H Urine Blood Moderate H Urine Nitrate Negative Urine Bilirubin Negative Urine Urobilinogen 1.0 H Ur Leukocyte Esterase Small H Urine RBC 5 - 10 H Urine WBC 25 - 30 H Ur Epithelial Cells 3 - 4 Urine Bacteria Large Urine Opiates Screen Urine Methadone Screen Ur Barbiturates Screen Ur Phencyclidine Scrn Ur Amphetamines Screen U Benzodiazepines Scrn U Oth Cocaine Metabols U Cannabinoids Screen B-Hydroxybutyrate 07/22/18 07/22/18 07/22/18 23:34 23:35 23:36 WBC RBC Hgb Hct MCV MCH MCHC RDW Plt Count MPV Gran % Lymph % (Auto) [place] % (Auto) Eos % (Auto) Baso % (Auto) Gran # Lymph # (Auto) [place] # (Auto) Eos # (Auto) Baso # (Auto) Neutrophils % (Manual) Band Neutrophils % Lymphocytes % (Manual) Monocytes % (Manual) Eosinophils % (Manual) Platelet Evaluation PT INR APTT pO2 VBG pH VBG pCO2 VBG HCO3 VBG Total CO2 VBG O2 Sat (Calc) VBG Base Excess VBG Potassium Glucose Lactate FiO2 Sodium Potassium Chloride Carbon Dioxide Anion Gap BUN Creatinine Est GFR ( Amer) Est GFR (Non-Af Amer) POC Glucose (mg/dL) Random Glucose Serum Osmolality Calcium Magnesium Total Bilirubin AST ALT Alkaline Phosphatase Lactate Dehydrogenase Total Creatine Kinase Troponin I Total Protein Albumin Globulin Albumin/Globulin Ratio Triglycerides Cholesterol LDL Cholesterol Direct HDL Cholesterol Vitamin B12 995 H 25-OH Vitamin D Total 28.2 L Procalcitonin TSH 3rd Generation 0.37 L Venous Blood Potassium Urine Color Urine Appearance Urine pH Ur Specific [place] Urine Protein Urine Glucose (UA) Urine Ketones Urine Blood Urine Nitrate Urine Bilirubin Urine Urobilinogen Ur Leukocyte Esterase Urine RBC Urine WBC Ur Epithelial Cells Urine Bacteria Urine Opiates Screen Urine Methadone Screen Ur Barbiturates Screen Ur Phencyclidine Scrn Ur Amphetamines Screen U Benzodiazepines Scrn U Oth Cocaine Metabols U Cannabinoids Screen B-Hydroxybutyrate 5.32 H 07/23/18 07/23/18 07/23/18 00:00 00:27 01:57 WBC RBC Hgb Hct MCV MCH MCHC RDW Plt Count MPV Gran % Lymph % (Auto) [place] % (Auto) Eos % (Auto) Baso % (Auto) Gran # Lymph # (Auto) [place] # (Auto) Eos # (Auto) Baso # (Auto) Neutrophils % (Manual) Band Neutrophils % Lymphocytes % (Manual) Monocytes % (Manual) Eosinophils % (Manual) Platelet Evaluation PT INR APTT pO2 58 H VBG pH 7.31 L VBG pCO2 50.0 VBG HCO3 25.2 VBG Total CO2 26.7 VBG O2 Sat (Calc) 93.2 H VBG Base Excess -1.7 L VBG Potassium 2.7 L Glucose 358 H Lactate 3.2 H FiO2 21.0 Sodium 146.0 Potassium Chloride 107.0 Carbon Dioxide Anion Gap BUN Creatinine Est GFR ( Amer) Est GFR (Non-Af Amer) POC Glucose (mg/dL) 331 H 319 H Random Glucose Serum Osmolality Calcium Magnesium Total Bilirubin AST ALT Alkaline Phosphatase Lactate Dehydrogenase Total Creatine Kinase Troponin I Total Protein Albumin Globulin Albumin/Globulin Ratio Triglycerides Cholesterol LDL Cholesterol Direct HDL Cholesterol Vitamin B12 25-OH Vitamin D Total Procalcitonin TSH 3rd Generation Venous Blood Potassium 2.7 L Urine Color Urine Appearance Urine pH Ur Specific [place] Urine Protein Urine Glucose (UA) Urine Ketones Urine Blood Urine Nitrate Urine Bilirubin Urine Urobilinogen Ur Leukocyte Esterase Urine RBC Urine WBC Ur Epithelial Cells Urine Bacteria Urine Opiates Screen Urine Methadone Screen Ur Barbiturates Screen Ur Phencyclidine Scrn Ur Amphetamines Screen U Benzodiazepines Scrn U Oth Cocaine Metabols U Cannabinoids Screen B-Hydroxybutyrate 07/23/18 07/23/18 07/23/18 02:00 02:00 02:00 WBC RBC Hgb Hct MCV MCH MCHC RDW Plt Count MPV Gran % Lymph % (Auto) [place] % (Auto) Eos % (Auto) Baso % (Auto) Gran # Lymph # (Auto) [place] # (Auto) Eos # (Auto) Baso # (Auto) Neutrophils % (Manual) Band Neutrophils % Lymphocytes % (Manual) Monocytes % (Manual) Eosinophils % (Manual) Platelet Evaluation PT INR APTT pO2 VBG pH VBG pCO2 VBG HCO3 VBG Total CO2 VBG O2 Sat (Calc) VBG Base Excess VBG Potassium Glucose Lactate FiO2 Sodium Potassium Chloride Carbon Dioxide Anion Gap BUN Creatinine Est GFR ( Amer) Est GFR (Non-Af Amer) POC Glucose (mg/dL) Random Glucose Serum Osmolality 330 H Calcium Magnesium Total Bilirubin AST ALT Alkaline Phosphatase Lactate Dehydrogenase Total Creatine Kinase Troponin I Total Protein Albumin Globulin Albumin/Globulin Ratio Triglycerides Cholesterol LDL Cholesterol Direct HDL Cholesterol Vitamin B12 25-OH Vitamin D Total Procalcitonin 1.15 H TSH 3rd Generation Venous Blood Potassium Urine Color Urine Appearance Urine pH Ur Specific [place] Urine Protein Urine Glucose (UA) Urine Ketones Urine Blood Urine Nitrate Urine Bilirubin Urine Urobilinogen Ur Leukocyte Esterase Urine RBC Urine WBC Ur Epithelial Cells Urine Bacteria Urine Opiates Screen Negative Urine Methadone Screen Negative Ur Barbiturates Screen Negative Ur Phencyclidine Scrn Negative Ur Amphetamines Screen Negative U Benzodiazepines Scrn Negative U Oth Cocaine Metabols Negative U Cannabinoids Screen Negative B-Hydroxybutyrate 07/23/18 07/23/18 07/23/18 02:15 02:51 05:00 WBC 22.5 H RBC 4.50 Hgb 13.4 D Hct 40.1 MCV 89.1 D MCH 29.8 MCHC 33.4 RDW 12.7 Plt Count 239 MPV 12.8 H Gran % Lymph % (Auto) [place] % (Auto) Eos % (Auto) Baso % (Auto) Gran # Lymph # (Auto) [place] # (Auto) Eos # (Auto) Baso # (Auto) Neutrophils % (Manual) Band Neutrophils % Lymphocytes % (Manual) Monocytes % (Manual) Eosinophils % (Manual) Platelet Evaluation PT INR APTT pO2 VBG pH VBG pCO2 VBG HCO3 VBG Total CO2 VBG O2 Sat (Calc) VBG Base Excess VBG Potassium Glucose Lactate FiO2 Sodium 145 Potassium 3.3 L Chloride 110 H Carbon Dioxide 29 Anion Gap 10 BUN 46 H Creatinine 0.8 Est GFR ( Amer) > 60 Est GFR (Non-Af Amer) > 60 POC Glucose (mg/dL) 326 H Random Glucose 290 H Serum Osmolality Calcium 8.5 Magnesium Total Bilirubin AST ALT Alkaline Phosphatase Lactate Dehydrogenase Total Creatine Kinase Troponin I Total Protein Albumin Globulin Albumin/Globulin Ratio Triglycerides Cholesterol LDL Cholesterol Direct HDL Cholesterol Vitamin B12 25-OH Vitamin D Total Procalcitonin TSH 3rd Generation Venous Blood Potassium Urine Color Urine Appearance Urine pH Ur Specific [place] Urine Protein Urine Glucose (UA) Urine Ketones Urine Blood Urine Nitrate Urine Bilirubin Urine Urobilinogen Ur Leukocyte Esterase Urine RBC Urine WBC Ur Epithelial Cells Urine Bacteria Urine Opiates Screen Urine Methadone Screen Ur Barbiturates Screen Ur Phencyclidine Scrn Ur Amphetamines Screen U Benzodiazepines Scrn U Oth Cocaine Metabols U Cannabinoids Screen B-Hydroxybutyrate 07/23/18 07/23/18 07/23/18 05:00 05:00 06:14 WBC RBC Hgb Hct MCV MCH MCHC RDW Plt Count MPV Gran % Lymph % (Auto) [place] % (Auto) Eos % (Auto) Baso % (Auto) Gran # Lymph # (Auto) [place] # (Auto) Eos # (Auto) Baso # (Auto) Neutrophils % (Manual) Band Neutrophils % Lymphocytes % (Manual) Monocytes % (Manual) Eosinophils % (Manual) Platelet Evaluation PT INR APTT pO2 VBG pH VBG pCO2 VBG HCO3 VBG Total CO2 VBG O2 Sat (Calc) VBG Base Excess VBG Potassium Glucose Lactate FiO2 Sodium Potassium Chloride Carbon Dioxide Anion Gap BUN Creatinine Est GFR ( Amer) Est GFR (Non-Af Amer) POC Glucose (mg/dL) 383 H Random Glucose Serum Osmolality Calcium Magnesium Total Bilirubin AST ALT Alkaline Phosphatase Lactate Dehydrogenase Total Creatine Kinase Troponin I < 0.01 Total Protein Albumin Globulin Albumin/Globulin Ratio Triglycerides 173 H Cholesterol 86 L LDL Cholesterol Direct 57 HDL Cholesterol 13 L Vitamin B12 25-OH Vitamin D Total Procalcitonin TSH 3rd Generation Venous Blood Potassium Urine Color Urine Appearance Urine pH Ur Specific [place] Urine Protein Urine Glucose (UA) Urine Ketones Urine Blood Urine Nitrate Urine Bilirubin Urine Urobilinogen Ur Leukocyte Esterase Urine RBC Urine WBC Ur Epithelial Cells Urine Bacteria Urine Opiates Screen Urine Methadone Screen Ur Barbiturates Screen Ur Phencyclidine Scrn Ur Amphetamines Screen U Benzodiazepines Scrn U Oth Cocaine Metabols U Cannabinoids Screen B-Hydroxybutyrate 07/23/18 07/23/18 07/23/18 10:15 16:15 16:23 WBC RBC Hgb Hct MCV MCH MCHC RDW Plt Count MPV Gran % Lymph % (Auto) [place] % (Auto) Eos % (Auto) Baso % (Auto) Gran # Lymph # (Auto) [place] # (Auto) Eos # (Auto) Baso # (Auto) Neutrophils % (Manual) Band Neutrophils % Lymphocytes % (Manual) Monocytes % (Manual) Eosinophils % (Manual) Platelet Evaluation PT INR APTT pO2 VBG pH VBG pCO2 VBG HCO3 VBG Total CO2 VBG O2 Sat (Calc) VBG Base Excess VBG Potassium Glucose Lactate FiO2 Sodium 144 Potassium 4.6 Chloride 118 H Carbon Dioxide 24 Anion Gap 7 L BUN 28 H Creatinine 0.6 L Est GFR ( Amer) > 60 Est GFR (Non-Af Amer) > 60 POC Glucose (mg/dL) 321 H 71 Random Glucose 91 Serum Osmolality Calcium 8.8 Magnesium Total Bilirubin AST ALT Alkaline Phosphatase Lactate Dehydrogenase Total Creatine Kinase Troponin I Total Protein Albumin Globulin Albumin/Globulin Ratio Triglycerides Cholesterol LDL Cholesterol Direct HDL Cholesterol Vitamin B12 25-OH Vitamin D Total Procalcitonin TSH 3rd Generation Venous Blood Potassium Urine Color Urine Appearance Urine pH Ur Specific [place] Urine Protein Urine Glucose (UA) Urine Ketones Urine Blood Urine Nitrate Urine Bilirubin Urine Urobilinogen Ur Leukocyte Esterase Urine RBC Urine WBC Ur Epithelial Cells Urine Bacteria Urine Opiates Screen Urine Methadone Screen Ur Barbiturates Screen Ur Phencyclidine Scrn Ur Amphetamines Screen U Benzodiazepines Scrn U Oth Cocaine Metabols U Cannabinoids Screen B-Hydroxybutyrate Attending/Attestation - Attestation I have personally seen and examined this patient.: Yes I have fully participated in the care of the patient.: Yes I have reviewed all pertinent clinical information: Yes Notes (Text): 07/23/18 19:20 Slurred speech per family CTH B12, Vit D and TSH Reevaluate Nonstageable wound on buttocks wound care ID consult Vancomycin, zosyn Cover prophylactically with zithromax and Bactrim DS until CD4 result obtained
[2018-07-23 02:25] VITALS: BMI 22.7
[2018-07-23 02:47] LABS: BLOOD UREA NITROGEN 46 mg/dL (7-21); CALCIUM 8.5 mg/dL (8.4-10.5); GFR NON-AFRICAN AMERICAN > 60
[2018-07-23 02:52] LABS: BARBITURATES, UR NEGATIVE (NEGATIVE); BENZODIAZEPINES, UR NEGATIVE (NEGATIVE); OPIATES, UR NEGATIVE (NEGATIVE); PHENCYCLIDINE, UR NEGATIVE (NEGATIVE)
--- NOTE | 2018-07-23 03:32 | PCM.SEPTIC ---
<Hiro Manning - Last Filed: 07/23/18 03:44> Sepsis Progress Note - Reassessment Type Date of Evaluation: 07/23/18 Time of Evaluation: 03:45 Reassessment Type: Non-invasive reassessment - Non Invasive Reassessment Were the most recent vital sign reviewed: Yes Vital Sign (Latest): Temp Pulse Resp BP Pulse Ox 98.7 F 105 H 25 H 127/70 99 07/23/18 02:07 07/23/18 02:30 07/23/18 02:30 07/23/18 01:20 07/23/18 02:30 Cardiovascular: Yes: Tachycardia Respiratory: Yes: Normal Breath Sounds Capillary Refill: Normal (Less than 2 sec) Pulses: Normal Radial, Normal Dorsalis Pedis, Normal Posterior Tibialis Skin: Normal Color, Warm, Dry <Melissa Soares - Last Filed: 07/23/18 19:23> Sepsis Progress Note - Non Invasive Reassessment Vital Sign (Latest): Temp Pulse Resp BP Pulse Ox 97.5 F L 97 H 16 123/67 100 07/23/18 16:00 07/23/18 18:50 07/23/18 18:50 07/23/18 18:00 07/23/18 18:50 Attending/Attestation - Attestation I have personally seen and examined this patient.: Yes I have fully participated in the care of the patient.: Yes I have reviewed all pertinent clinical information, including history, physical exam and plan: Yes
[2018-07-23 05:51] LABS: HDL CHOLESTEROL 13 mg/dL (29-60)
[2018-07-23 05:56] LABS: HEMOGLOBIN 13.4 g/dL (12.0-16.0); MEAN CELL VOLUME 89.1 fl (80.0-105.0); MEAN CORPUSCULAR HEMOGLOBIN 29.8 pg (25.0-35.0); MEAN CORPUSCULAR HGB CONC 33.4 g/dl (31.0-37.0); MEAN PLATELET VOLUME 12.8 fl (7.0-11.0); RBC 4.5 10^6/uL (3.5-6.1); RED CELL DISTRIBUTION WIDTH 12.7 % (11.5-14.5); WHITE BLOOD COUNT 22.5 10^3/uL (4.5-11.0)
[2018-07-23 06:02] LABS: LDL CHOLESTEROL 57 mg/dL (0-129)
[2018-07-23] MEDS ORDERED: Dextrose 50% SYRINGE Inj (50 ml) IV PRN (06:32)
[2018-07-23] MEDS ORDERED: Piperacillin/Tazobact 3.375 gm 100 ML IVPB SCH ×2 (06:45→14:00)
--- NOTE | 2018-07-23 07:01 | CP.PCM.HP ---
<Nbaor Kearney - Last Filed: 07/23/18 07:02> History of Present Illness - History of Present Illness History of Present Illness: H&P for Hospitalist Dr. Rodger Kearney PGY2 CC: Slurred speech and weakness Patient is a 62 F with past medical history of HIV (unknown CD4 count), hepatitis, IDDM, past heroin abuse presenting with slurred speech and weakness found to be in HHS. HPI was provided by daughter of patient. As per daughter, patient came to visit from [place] on Wednesday. Since then it was noted that patient's behavior was slightly off, however patient stated she was sick. Yesterday morning when the daughter was going to work she noticed patient exhibited slurred speech and generalized weakness. This was around 6 am. As per daughter she waited until 6 pm when her brother came home and re-assessed patient. As per brother patient was exhibiting the same symptoms and seemed to be altered in comparison to her baseline and as a result decided it would be best to to bring the patient to the ED. During course of interview patient became more alert and awake. She stated that she takes insulin when she feels she needs it only and has not been taking it as prescribed in the past few weeks. She denies fevers, chills, headache, chest pain, shortness of breath, abdominal pain, nausea, vomiting, diarrhea, dysuria. PMD: [facility], can't recall name at the moment Pharmacy: [address] Social Hx: 1 ppd x 40 years, denies alcohol abuse, previous history of IV heroin use, lives at [facility] in [place], [place] Allergies: enoxaparin sodium, heparin Family HX: significant for alzheimer's disease and DM Review of Systems - Review of Systems All systems: reviewed and no additional remarkable complaints except (what is mentioned in HPI) 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 - RENAL Hx Chronic Kidney Disease: No - ENDOCRINE/METABOLIC Hx Endocrine Disorders: Yes Hx Diabetes Mellitus Type 2: Yes - HEMATOLOGICAL/ONCOLOGICAL Hx Blood Disorders: Yes Hx Hepatitis C: Yes Other/Comment: HIV Dx'ed 1998 - INTEGUMENTARY Hx Dermatological Problems: No - MUSCULOSKELETAL/RHEUMATOLOGICAL Hx Musculoskeletal Disorders: No Hx Unsteady Gait: Yes - GASTROINTESTINAL Hx Gastrointestinal Disorders: No - GENITOURINARY/GYNECOLOGICAL Hx Genitourinary Disorders: No - PSYCHIATRIC Hx Psychophysiologic Disorder: No Hx Substance Use: No - SURGICAL HISTORY Hx Cholecystectomy: Yes Hx Eye Surgery: Yes (right prosthetic eye) Hx Tubal Ligation: Yes - ANESTHESIA Hx Anesthesia: Yes Hx Anesthesia Reactions: No Hx Malignant Hyperthermia: No Physical Exam - Head Exam Head Exam: ATRAUMATIC, NORMAL INSPECTION, NORMOCEPHALIC - Eye Exam Eye Exam: EOMI. absent: Normal appearance (artificial right eye) - ENT Exam ENT Exam: Mucous Membranes Dry - Respiratory Exam Respiratory Exam: Clear to Auscultation Bilateral, NORMAL BREATHING PATTERN - Cardiovascular Exam Cardiovascular Exam: REGULAR RHYTHM, +S1, +S2 - GI/Abdominal Exam GI & Abdominal Exam: Normal Bowel Sounds, Soft - Extremities Exam Extremities exam: Positive for: normal inspection - Back Exam Back exam: NORMAL INSPECTION - Neurological Exam Neurological exam: Alert, CN II-XII Intact, Oriented x3 - Psychiatric Exam Psychiatric exam: Normal Affect, Normal Mood - Skin Skin Exam: 3 unstageable sacral wound; one specifically on gluteal cleft each with eschar. 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 - RENAL Hx Chronic Kidney Disease: No - ENDOCRINE/METABOLIC Hx Endocrine Disorders: Yes Hx Diabetes Mellitus Type 2: Yes - HEMATOLOGICAL/ONCOLOGICAL Hx Blood Disorders: Yes Hx Hepatitis C: Yes Other/Comment: HIV Dx'ed 1997 - INTEGUMENTARY Hx Dermatological Problems: No - MUSCULOSKELETAL/RHEUMATOLOGICAL Hx Musculoskeletal Disorders: No Hx Unsteady Gait: Yes - GASTROINTESTINAL Hx Gastrointestinal Disorders: No - GENITOURINARY/GYNECOLOGICAL Hx Genitourinary Disorders: No - PSYCHIATRIC Hx Psychophysiologic Disorder: No Hx Substance Use: No - SURGICAL HISTORY Hx Cholecystectomy: Yes Hx Eye Surgery: Yes (right prosthetic eye) Hx Tubal Ligation: Yes - ANESTHESIA Hx Anesthesia: Yes Hx Anesthesia Reactions: No Hx Malignant Hyperthermia: No Meds Allergies/Adverse Reactions: Allergies Allergy/AdvReac Type Severity Reaction Status Date / Time enoxaparin sodium Allergy unknown Verified 07/22/18 19:29 [From Lovenox] heparin Allergy unknown Verified 07/22/18 19:29 Results - Vital Signs Recent Vital Signs: Last Vital Signs Temp 98.7 F 07/23/18 04:00 Pulse 99 H 07/23/18 06:20 Resp 21 07/23/18 06:20 BP 105/49 L 07/23/18 06:00 Pulse Ox 99 07/23/18 06:20 - Labs Result Diagrams: 07/23/18 05:00 07/23/18 02:15 Labs: Laboratory Results - last 24 hr 07/22/18 07/22/18 07/22/18 20:10 20:10 20:10 WBC 25.7 H* RBC 5.06 Hgb 15.6 D Hct 46.9 MCV 92.7 MCH 30.8 MCHC 33.3 RDW 13.1 Plt Count 396 MPV 14.3 H Gran % 93.0 H Lymph % (Auto) 5.5 L Union % (Auto) 1.4 Eos % (Auto) 0.0 L Baso % (Auto) 0.1 Gran # 23.86 H Lymph # (Auto) 1.4 Union # (Auto) 0.4 Eos # (Auto) 0.0 Baso # (Auto) 0.02 Neutrophils % (Manual) 54 Band Neutrophils % 38 H* Lymphocytes % (Manual) 4 L Monocytes % (Manual) 3 Eosinophils % (Manual) 1 Platelet Evaluation Normal PT 11.6 INR 1.02 APTT 22.5 L pO2 VBG pH VBG pCO2 VBG HCO3 VBG Total CO2 VBG O2 Sat (Calc) VBG Base Excess VBG Potassium Glucose Lactate FiO2 Sodium 138 Potassium 3.2 L Chloride 94 L Carbon Dioxide 21 Anion Gap 26 H BUN 52 H Creatinine 1.1 Est GFR ( Amer) > 60 Est GFR (Non-Af Amer) 50 POC Glucose (mg/dL) Random Glucose 811 H* D Serum Osmolality Calcium 10.0 Magnesium 2.6 H Total Bilirubin 1.5 H AST 25 ALT 14 Alkaline Phosphatase 184 H D Lactate Dehydrogenase 403 Total Creatine Kinase < 20 L Troponin I < 0.01 Total Protein 7.2 Albumin 3.3 Globulin 3.9 Albumin/Globulin Ratio 0.9 L Triglycerides Cholesterol LDL Cholesterol Direct HDL Cholesterol TSH 3rd Generation Venous Blood Potassium Urine Color Urine Appearance Urine pH Ur Specific [place] Urine Protein Urine Glucose (UA) Urine Ketones Urine Blood Urine Nitrate Urine Bilirubin Urine Urobilinogen Ur Leukocyte Esterase Urine RBC Urine WBC Ur Epithelial Cells Urine Bacteria Urine Opiates Screen Urine Methadone Screen Ur Barbiturates Screen Ur Phencyclidine Scrn Ur Amphetamines Screen U Benzodiazepines Scrn U Oth Cocaine Metabols U Cannabinoids Screen 07/22/18 07/22/18 07/22/18 20:44 21:29 23:35 WBC RBC Hgb Hct MCV MCH MCHC RDW Plt Count MPV Gran % Lymph % (Auto) Union % (Auto) Eos % (Auto) Baso % (Auto) Gran # Lymph # (Auto) Union # (Auto) Eos # (Auto) Baso # (Auto) Neutrophils % (Manual) Band Neutrophils % Lymphocytes % (Manual) Monocytes % (Manual) Eosinophils % (Manual) Platelet Evaluation PT INR APTT pO2 53 VBG pH 7.26 L VBG pCO2 50.0 VBG HCO3 22.4 VBG Total CO2 23.9 VBG O2 Sat (Calc) 89.8 H VBG Base Excess -5.0 L VBG Potassium 3.5 L Glucose 722 H* Lactate 4.0 H* FiO2 21.0 Sodium 142.0 Potassium Chloride 98.0 Carbon Dioxide Anion Gap BUN Creatinine Est GFR ( Amer) Est GFR (Non-Af Amer) POC Glucose (mg/dL) Random Glucose Serum Osmolality Calcium Magnesium Total Bilirubin AST ALT Alkaline Phosphatase Lactate Dehydrogenase Total Creatine Kinase Troponin I Total Protein Albumin Globulin Albumin/Globulin Ratio Triglycerides Cholesterol LDL Cholesterol Direct HDL Cholesterol TSH 3rd Generation 0.37 L Venous Blood Potassium 3.5 L Urine Color Yellow Urine Appearance Sl cloudy Urine pH 6.0 Ur Specific [place] 1.010 Urine Protein Negative Urine Glucose (UA) >=1000 Urine Ketones 15 H Urine Blood Moderate H Urine Nitrate Negative Urine Bilirubin Negative Urine Urobilinogen 1.0 H Ur Leukocyte Esterase Small H Urine RBC 5 - 10 H Urine WBC 25 - 30 H Ur Epithelial Cells 3 - 4 Urine Bacteria Large Urine Opiates Screen Urine Methadone Screen Ur Barbiturates Screen Ur Phencyclidine Scrn Ur Amphetamines Screen U Benzodiazepines Scrn U Oth Cocaine Metabols U Cannabinoids Screen 07/23/18 07/23/18 07/23/18 00:00 01:57 02:00 WBC RBC Hgb Hct MCV MCH MCHC RDW Plt Count MPV Gran % Lymph % (Auto) Union % (Auto) Eos % (Auto) Baso % (Auto) Gran # Lymph # (Auto) Union # (Auto) Eos # (Auto) Baso # (Auto) Neutrophils % (Manual) Band Neutrophils % Lymphocytes % (Manual) Monocytes % (Manual) Eosinophils % (Manual) Platelet Evaluation PT INR APTT pO2 58 H VBG pH 7.31 L VBG pCO2 50.0 VBG HCO3 25.2 VBG Total CO2 26.7 VBG O2 Sat (Calc) 93.2 H VBG Base Excess -1.7 L VBG Potassium 2.7 L Glucose 358 H Lactate 3.2 H FiO2 21.0 Sodium 146.0 Potassium Chloride 107.0 Carbon Dioxide Anion Gap BUN Creatinine Est GFR ( Amer) Est GFR (Non-Af Amer) POC Glucose (mg/dL) 319 H Random Glucose Serum Osmolality 330 H Calcium Magnesium Total Bilirubin AST ALT Alkaline Phosphatase Lactate Dehydrogenase Total Creatine Kinase Troponin I Total Protein Albumin Globulin Albumin/Globulin Ratio Triglycerides Cholesterol LDL Cholesterol Direct HDL Cholesterol TSH 3rd Generation Venous Blood Potassium 2.7 L Urine Color Urine Appearance Urine pH Ur Specific [place] Urine Protein Urine Glucose (UA) Urine Ketones Urine Blood Urine Nitrate Urine Bilirubin Urine Urobilinogen Ur Leukocyte Esterase Urine RBC Urine WBC Ur Epithelial Cells Urine Bacteria Urine Opiates Screen Urine Methadone Screen Ur Barbiturates Screen Ur Phencyclidine Scrn Ur Amphetamines Screen U Benzodiazepines Scrn U Oth Cocaine Metabols U Cannabinoids Screen 07/23/18 07/23/18 07/23/18 02:00 02:15 02:51 WBC RBC Hgb Hct MCV MCH MCHC RDW Plt Count MPV Gran % Lymph % (Auto) Union % (Auto) Eos % (Auto) Baso % (Auto) Gran # Lymph # (Auto) Union # (Auto) Eos # (Auto) Baso # (Auto) Neutrophils % (Manual) Band Neutrophils % Lymphocytes % (Manual) Monocytes % (Manual) Eosinophils % (Manual) Platelet Evaluation PT INR APTT pO2 VBG pH VBG pCO2 VBG HCO3 VBG Total CO2 VBG O2 Sat (Calc) VBG Base Excess VBG Potassium Glucose Lactate FiO2 Sodium 145 Potassium 3.3 L Chloride 110 H Carbon Dioxide 29 Anion Gap 10 BUN 46 H Creatinine 0.8 Est GFR ( Amer) > 60 Est GFR (Non-Af Amer) > 60 POC Glucose (mg/dL) 326 H Random Glucose 290 H Serum Osmolality Calcium 8.5 Magnesium Total Bilirubin AST ALT Alkaline Phosphatase Lactate Dehydrogenase Total Creatine Kinase Troponin I Total Protein Albumin Globulin Albumin/Globulin Ratio Triglycerides Cholesterol LDL Cholesterol Direct HDL Cholesterol TSH 3rd Generation Venous Blood Potassium Urine Color Urine Appearance Urine pH Ur Specific [place] Urine Protein Urine Glucose (UA) Urine Ketones Urine Blood Urine Nitrate Urine Bilirubin Urine Urobilinogen Ur Leukocyte Esterase Urine RBC Urine WBC Ur Epithelial Cells Urine Bacteria Urine Opiates Screen Negative Urine Methadone Screen Negative Ur Barbiturates Screen Negative Ur Phencyclidine Scrn Negative Ur Amphetamines Screen Negative U Benzodiazepines Scrn Negative U Oth Cocaine Metabols Negative U Cannabinoids Screen Negative 07/23/18 07/23/18 07/23/18 05:00 05:00 05:00 WBC 22.5 H RBC 4.50 Hgb 13.4 D Hct 40.1 MCV 89.1 D MCH 29.8 MCHC 33.4 RDW 12.7 Plt Count 239 MPV 12.8 H Gran % Lymph % (Auto) Union % (Auto) Eos % (Auto) Baso % (Auto) Gran # Lymph # (Auto) Union # (Auto) Eos # (Auto) Baso # (Auto) Neutrophils % (Manual) Band Neutrophils % Lymphocytes % (Manual) Monocytes % (Manual) Eosinophils % (Manual) Platelet Evaluation PT INR APTT pO2 VBG pH VBG pCO2 VBG HCO3 VBG Total CO2 VBG O2 Sat (Calc) VBG Base Excess VBG Potassium Glucose Lactate FiO2 Sodium Potassium Chloride Carbon Dioxide Anion Gap BUN Creatinine Est GFR ( Amer) Est GFR (Non-Af Amer) POC Glucose (mg/dL) Random Glucose Serum Osmolality Calcium Magnesium Total Bilirubin AST ALT Alkaline Phosphatase Lactate Dehydrogenase Total Creatine Kinase Troponin I < 0.01 Total Protein Albumin Globulin Albumin/Globulin Ratio Triglycerides 173 H Cholesterol 86 L LDL Cholesterol Direct 57 HDL Cholesterol 13 L TSH 3rd Generation Venous Blood Potassium Urine Color Urine Appearance Urine pH Ur Specific [place] Urine Protein Urine Glucose (UA) Urine Ketones Urine Blood Urine Nitrate Urine Bilirubin Urine Urobilinogen Ur Leukocyte Esterase Urine RBC Urine WBC Ur Epithelial Cells Urine Bacteria Urine Opiates Screen Urine Methadone Screen Ur Barbiturates Screen Ur Phencyclidine Scrn Ur Amphetamines Screen U Benzodiazepines Scrn U Oth Cocaine Metabols U Cannabinoids Screen 07/23/18 06:14 WBC RBC Hgb Hct MCV MCH MCHC RDW Plt Count MPV Gran % Lymph % (Auto) Union % (Auto) Eos % (Auto) Baso % (Auto) Gran # Lymph # (Auto) Union # (Auto) Eos # (Auto) Baso # (Auto) Neutrophils % (Manual) Band Neutrophils % Lymphocytes % (Manual) Monocytes % (Manual) Eosinophils % (Manual) Platelet Evaluation PT INR APTT pO2 VBG pH VBG pCO2 VBG HCO3 VBG Total CO2 VBG O2 Sat (Calc) VBG Base Excess VBG Potassium Glucose Lactate FiO2 Sodium Potassium Chloride Carbon Dioxide Anion Gap BUN Creatinine Est GFR ( Amer) Est GFR (Non-Af Amer) POC Glucose (mg/dL) 383 H Random Glucose Serum Osmolality Calcium Magnesium Total Bilirubin AST ALT Alkaline Phosphatase Lactate Dehydrogenase Total Creatine Kinase Troponin I Total Protein Albumin Globulin Albumin/Globulin Ratio Triglycerides Cholesterol LDL Cholesterol Direct HDL Cholesterol TSH 3rd Generation Venous Blood Potassium Urine Color Urine Appearance Urine pH Ur Specific [place] Urine Protein Urine Glucose (UA) Urine Ketones Urine Blood Urine Nitrate Urine Bilirubin Urine Urobilinogen Ur Leukocyte Esterase Urine RBC Urine WBC Ur Epithelial Cells Urine Bacteria Urine Opiates Screen Urine Methadone Screen Ur Barbiturates Screen Ur Phencyclidine Scrn Ur Amphetamines Screen U Benzodiazepines Scrn U Oth Cocaine Metabols U Cannabinoids Screen Assessment & Plan - Assessment and Plan (Free Text) Assessment: - Assessment and Plan (Free Text) Assessment: 62 F with history of HIV, IDDM, hepatitis presenting with AMS secondary to HHS. 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 -ISS-med, Levemir 10 U qHS Infectious disease -Urine culture -Blood culture -Procalcitonin -CD4/CD8 count -Received Vanc and zosyn in the ED Renal -Replete electrolytes as needed -Currently on NS@150 infused with potassium chloride Sacral wounds -Wound care consult <RodgerMajreema - Last Filed: 07/23/18 19:24> Results - Vital Signs Recent Vital Signs: Last Vital Signs Temp 97.5 F L 07/23/18 16:00 Pulse 97 H 07/23/18 18:50 Resp 16 07/23/18 18:50 BP 123/67 07/23/18 18:00 Pulse Ox 100 07/23/18 18:50 - Labs Result Diagrams: 07/23/18 05:00 07/23/18 16:15 Labs: Laboratory Results - last 24 hr 07/22/18 07/22/18 07/22/18 20:10 20:10 20:10 WBC 25.7 H* RBC 5.06 Hgb 15.6 D Hct 46.9 MCV 92.7 MCH 30.8 MCHC 33.3 RDW 13.1 Plt Count 396 MPV 14.3 H Gran % 93.0 H Lymph % (Auto) 5.5 L Union % (Auto) 1.4 Eos % (Auto) 0.0 L Baso % (Auto) 0.1 Gran # 23.86 H Lymph # (Auto) 1.4 Union # (Auto) 0.4 Eos # (Auto) 0.0 Baso # (Auto) 0.02 Neutrophils % (Manual) 54 Band Neutrophils % 38 H* Lymphocytes % (Manual) 4 L Monocytes % (Manual) 3 Eosinophils % (Manual) 1 Platelet Evaluation Normal PT 11.6 INR 1.02 APTT 22.5 L pO2 VBG pH VBG pCO2 VBG HCO3 VBG Total CO2 VBG O2 Sat (Calc) VBG Base Excess VBG Potassium Glucose Lactate FiO2 Sodium 138 Potassium 3.2 L Chloride 94 L Carbon Dioxide 21 Anion Gap 26 H BUN 52 H Creatinine 1.1 Est GFR ( Amer) > 60 Est GFR (Non-Af Amer) 50 POC Glucose (mg/dL) Random Glucose 811 H* D Serum Osmolality Calcium 10.0 Magnesium 2.6 H Total Bilirubin 1.5 H AST 25 ALT 14 Alkaline Phosphatase 184 H D Lactate Dehydrogenase 403 Total Creatine Kinase < 20 L Troponin I < 0.01 Total Protein 7.2 Albumin 3.3 Globulin 3.9 Albumin/Globulin Ratio 0.9 L Triglycerides Cholesterol LDL Cholesterol Direct HDL Cholesterol Vitamin B12 25-OH Vitamin D Total Procalcitonin TSH 3rd Generation Venous Blood Potassium Urine Color Urine Appearance Urine pH Ur Specific [place] Urine Protein Urine Glucose (UA) Urine Ketones Urine Blood Urine Nitrate Urine Bilirubin Urine Urobilinogen Ur Leukocyte Esterase Urine RBC Urine WBC Ur Epithelial Cells Urine Bacteria Urine Opiates Screen Urine Methadone Screen Ur Barbiturates Screen Ur Phencyclidine Scrn Ur Amphetamines Screen U Benzodiazepines Scrn U Oth Cocaine Metabols U Cannabinoids Screen B-Hydroxybutyrate 07/22/18 07/22/18 07/22/18 20:44 21:29 23:01 WBC RBC Hgb Hct MCV MCH MCHC RDW Plt Count MPV Gran % Lymph % (Auto) Union % (Auto) Eos % (Auto) Baso % (Auto) Gran # Lymph # (Auto) Union # (Auto) Eos # (Auto) Baso # (Auto) Neutrophils % (Manual) Band Neutrophils % Lymphocytes % (Manual) Monocytes % (Manual) Eosinophils % (Manual) Platelet Evaluation PT INR APTT pO2 53 VBG pH 7.26 L VBG pCO2 50.0 VBG HCO3 22.4 VBG Total CO2 23.9 VBG O2 Sat (Calc) 89.8 H VBG Base Excess -5.0 L VBG Potassium 3.5 L Glucose 722 H* Lactate 4.0 H* FiO2 21.0 Sodium 142.0 Potassium Chloride 98.0 Carbon Dioxide Anion Gap BUN Creatinine Est GFR ( Amer) Est GFR (Non-Af Amer) POC Glucose (mg/dL) 354 H Random Glucose Serum Osmolality Calcium Magnesium Total Bilirubin AST ALT Alkaline Phosphatase Lactate Dehydrogenase Total Creatine Kinase Troponin I Total Protein Albumin Globulin Albumin/Globulin Ratio Triglycerides Cholesterol LDL Cholesterol Direct HDL Cholesterol Vitamin B12 25-OH Vitamin D Total Procalcitonin TSH 3rd Generation Venous Blood Potassium 3.5 L Urine Color Yellow Urine Appearance Sl cloudy Urine pH 6.0 Ur Specific [place] 1.010 Urine Protein Negative Urine Glucose (UA) >=1000 Urine Ketones 15 H Urine Blood Moderate H Urine Nitrate Negative Urine Bilirubin Negative Urine Urobilinogen 1.0 H Ur Leukocyte Esterase Small H Urine RBC 5 - 10 H Urine WBC 25 - 30 H Ur Epithelial Cells 3 - 4 Urine Bacteria Large Urine Opiates Screen Urine Methadone Screen Ur Barbiturates Screen Ur Phencyclidine Scrn Ur Amphetamines Screen U Benzodiazepines Scrn U Oth Cocaine Metabols U Cannabinoids Screen B-Hydroxybutyrate 07/22/18 07/22/18 07/22/18 23:34 23:35 23:36 WBC RBC Hgb Hct MCV MCH MCHC RDW Plt Count MPV Gran % Lymph % (Auto) Union % (Auto) Eos % (Auto) Baso % (Auto) Gran # Lymph # (Auto) Union # (Auto) Eos # (Auto) Baso # (Auto) Neutrophils % (Manual) Band Neutrophils % Lymphocytes % (Manual) Monocytes % (Manual) Eosinophils % (Manual) Platelet Evaluation PT INR APTT pO2 VBG pH VBG pCO2 VBG HCO3 VBG Total CO2 VBG O2 Sat (Calc) VBG Base Excess VBG Potassium Glucose Lactate FiO2 Sodium Potassium Chloride Carbon Dioxide Anion Gap BUN Creatinine Est GFR ( Amer) Est GFR (Non-Af Amer) POC Glucose (mg/dL) Random Glucose Serum Osmolality Calcium Magnesium Total Bilirubin AST ALT Alkaline Phosphatase Lactate Dehydrogenase Total Creatine Kinase Troponin I Total Protein Albumin Globulin Albumin/Globulin Ratio Triglycerides Cholesterol LDL Cholesterol Direct HDL Cholesterol Vitamin B12 995 H 25-OH Vitamin D Total 28.2 L Procalcitonin TSH 3rd Generation 0.37 L Venous Blood Potassium Urine Color Urine Appearance Urine pH Ur Specific [place] Urine Protein Urine Glucose (UA) Urine Ketones Urine Blood Urine Nitrate Urine Bilirubin Urine Urobilinogen Ur Leukocyte Esterase Urine RBC Urine WBC Ur Epithelial Cells Urine Bacteria Urine Opiates Screen Urine Methadone Screen Ur Barbiturates Screen Ur Phencyclidine Scrn Ur Amphetamines Screen U Benzodiazepines Scrn U Oth Cocaine Metabols U Cannabinoids Screen B-Hydroxybutyrate 5.32 H 07/23/18 07/23/18 07/23/18 00:00 00:27 01:57 WBC RBC Hgb Hct MCV MCH MCHC RDW Plt Count MPV Gran % Lymph % (Auto) Union % (Auto) Eos % (Auto) Baso % (Auto) Gran # Lymph # (Auto) Union # (Auto) Eos # (Auto) Baso # (Auto) Neutrophils % (Manual) Band Neutrophils % Lymphocytes % (Manual) Monocytes % (Manual) Eosinophils % (Manual) Platelet Evaluation PT INR APTT pO2 58 H VBG pH 7.31 L VBG pCO2 50.0 VBG HCO3 25.2 VBG Total CO2 26.7 VBG O2 Sat (Calc) 93.2 H VBG Base Excess -1.7 L VBG Potassium 2.7 L Glucose 358 H Lactate 3.2 H FiO2 21.0 Sodium 146.0 Potassium Chloride 107.0 Carbon Dioxide Anion Gap BUN Creatinine Est GFR ( Amer) Est GFR (Non-Af Amer) POC Glucose (mg/dL) 331 H 319 H Random Glucose Serum Osmolality Calcium Magnesium Total Bilirubin AST ALT Alkaline Phosphatase Lactate Dehydrogenase Total Creatine Kinase Troponin I Total Protein Albumin Globulin Albumin/Globulin Ratio Triglycerides Cholesterol LDL Cholesterol Direct HDL Cholesterol Vitamin B12 25-OH Vitamin D Total Procalcitonin TSH 3rd Generation Venous Blood Potassium 2.7 L Urine Color Urine Appearance Urine pH Ur Specific [place] Urine Protein Urine Glucose (UA) Urine Ketones Urine Blood Urine Nitrate Urine Bilirubin Urine Urobilinogen Ur Leukocyte Esterase Urine RBC Urine WBC Ur Epithelial Cells Urine Bacteria Urine Opiates Screen Urine Methadone Screen Ur Barbiturates Screen Ur Phencyclidine Scrn Ur Amphetamines Screen U Benzodiazepines Scrn U Oth Cocaine Metabols U Cannabinoids Screen B-Hydroxybutyrate 07/23/18 07/23/18 07/23/18 02:00 02:00 02:00 WBC RBC Hgb Hct MCV MCH MCHC RDW Plt Count MPV Gran % Lymph % (Auto) Union % (Auto) Eos % (Auto) Baso % (Auto) Gran # Lymph # (Auto) [place] # (Auto) Eos # (Auto) Baso # (Auto) Neutrophils % (Manual) Band Neutrophils % Lymphocytes % (Manual) Monocytes % (Manual) Eosinophils % (Manual) Platelet Evaluation PT INR APTT pO2 VBG pH VBG pCO2 VBG HCO3 VBG Total CO2 VBG O2 Sat (Calc) VBG Base Excess VBG Potassium Glucose Lactate FiO2 Sodium Potassium Chloride Carbon Dioxide Anion Gap BUN Creatinine Est GFR ( Amer) Est GFR (Non-Af Amer) POC Glucose (mg/dL) Random Glucose Serum Osmolality 330 H Calcium Magnesium Total Bilirubin AST ALT Alkaline Phosphatase Lactate Dehydrogenase Total Creatine Kinase Troponin I Total Protein Albumin Globulin Albumin/Globulin Ratio Triglycerides Cholesterol LDL Cholesterol Direct HDL Cholesterol Vitamin B12 25-OH Vitamin D Total Procalcitonin 1.15 H TSH 3rd Generation Venous Blood Potassium Urine Color Urine Appearance Urine pH Ur Specific [place] Urine Protein Urine Glucose (UA) Urine Ketones Urine Blood Urine Nitrate Urine Bilirubin Urine Urobilinogen Ur Leukocyte Esterase Urine RBC Urine WBC Ur Epithelial Cells Urine Bacteria Urine Opiates Screen Negative Urine Methadone Screen Negative Ur Barbiturates Screen Negative Ur Phencyclidine Scrn Negative Ur Amphetamines Screen Negative U Benzodiazepines Scrn Negative U Oth Cocaine Metabols Negative U Cannabinoids Screen Negative B-Hydroxybutyrate 07/23/18 07/23/18 07/23/18 02:15 02:51 05:00 WBC 22.5 H RBC 4.50 Hgb 13.4 D Hct 40.1 MCV 89.1 D MCH 29.8 MCHC 33.4 RDW 12.7 Plt Count 239 MPV 12.8 H Gran % Lymph % (Auto) [place] % (Auto) Eos % (Auto) Baso % (Auto) Gran # Lymph # (Auto) [place] # (Auto) Eos # (Auto) Baso # (Auto) Neutrophils % (Manual) Band Neutrophils % Lymphocytes % (Manual) Monocytes % (Manual) Eosinophils % (Manual) Platelet Evaluation PT INR APTT pO2 VBG pH VBG pCO2 VBG HCO3 VBG Total CO2 VBG O2 Sat (Calc) VBG Base Excess VBG Potassium Glucose Lactate FiO2 Sodium 145 Potassium 3.3 L Chloride 110 H Carbon Dioxide 29 Anion Gap 10 BUN 46 H Creatinine 0.8 Est GFR ( Amer) > 60 Est GFR (Non-Af Amer) > 60 POC Glucose (mg/dL) 326 H Random Glucose 290 H Serum Osmolality Calcium 8.5 Magnesium Total Bilirubin AST ALT Alkaline Phosphatase Lactate Dehydrogenase Total Creatine Kinase Troponin I Total Protein Albumin Globulin Albumin/Globulin Ratio Triglycerides Cholesterol LDL Cholesterol Direct HDL Cholesterol Vitamin B12 25-OH Vitamin D Total Procalcitonin TSH 3rd Generation Venous Blood Potassium Urine Color Urine Appearance Urine pH Ur Specific [place] Urine Protein Urine Glucose (UA) Urine Ketones Urine Blood Urine Nitrate Urine Bilirubin Urine Urobilinogen Ur Leukocyte Esterase Urine RBC Urine WBC Ur Epithelial Cells Urine Bacteria Urine Opiates Screen Urine Methadone Screen Ur Barbiturates Screen Ur Phencyclidine Scrn Ur Amphetamines Screen U Benzodiazepines Scrn U Oth Cocaine Metabols U Cannabinoids Screen B-Hydroxybutyrate 07/23/18 07/23/18 07/23/18 05:00 05:00 06:14 WBC RBC Hgb Hct MCV MCH MCHC RDW Plt Count MPV Gran % Lymph % (Auto) [place] % (Auto) Eos % (Auto) Baso % (Auto) Gran # Lymph # (Auto) [place] # (Auto) Eos # (Auto) Baso # (Auto) Neutrophils % (Manual) Band Neutrophils % Lymphocytes % (Manual) Monocytes % (Manual) Eosinophils % (Manual) Platelet Evaluation PT INR APTT pO2 VBG pH VBG pCO2 VBG HCO3 VBG Total CO2 VBG O2 Sat (Calc) VBG Base Excess VBG Potassium Glucose Lactate FiO2 Sodium Potassium Chloride Carbon Dioxide Anion Gap BUN Creatinine Est GFR ( Amer) Est GFR (Non-Af Amer) POC Glucose (mg/dL) 383 H Random Glucose Serum Osmolality Calcium Magnesium Total Bilirubin AST ALT Alkaline Phosphatase Lactate Dehydrogenase Total Creatine Kinase Troponin I < 0.01 Total Protein Albumin Globulin Albumin/Globulin Ratio Triglycerides 173 H Cholesterol 86 L LDL Cholesterol Direct 57 HDL Cholesterol 13 L Vitamin B12 25-OH Vitamin D Total Procalcitonin TSH 3rd Generation Venous Blood Potassium Urine Color Urine Appearance Urine pH Ur Specific [place] Urine Protein Urine Glucose (UA) Urine Ketones Urine Blood Urine Nitrate Urine Bilirubin Urine Urobilinogen Ur Leukocyte Esterase Urine RBC Urine WBC Ur Epithelial Cells Urine Bacteria Urine Opiates Screen Urine Methadone Screen Ur Barbiturates Screen Ur Phencyclidine Scrn Ur Amphetamines Screen U Benzodiazepines Scrn U Oth Cocaine Metabols U Cannabinoids Screen B-Hydroxybutyrate 07/23/18 07/23/18 07/23/18 10:15 16:15 16:23 WBC RBC Hgb Hct MCV MCH MCHC RDW Plt Count MPV Gran % Lymph % (Auto) [place] % (Auto) Eos % (Auto) Baso % (Auto) Gran # Lymph # (Auto) [place] # (Auto) Eos # (Auto) Baso # (Auto) Neutrophils % (Manual) Band Neutrophils % Lymphocytes % (Manual) Monocytes % (Manual) Eosinophils % (Manual) Platelet Evaluation PT INR APTT pO2 VBG pH VBG pCO2 VBG HCO3 VBG Total CO2 VBG O2 Sat (Calc) VBG Base Excess VBG Potassium Glucose Lactate FiO2 Sodium 144 Potassium 4.6 Chloride 118 H Carbon Dioxide 24 Anion Gap 7 L BUN 28 H Creatinine 0.6 L Est GFR ( Amer) > 60 Est GFR (Non-Af Amer) > 60 POC Glucose (mg/dL) 321 H 71 Random Glucose 91 Serum Osmolality Calcium 8.8 Magnesium Total Bilirubin AST ALT Alkaline Phosphatase Lactate Dehydrogenase Total Creatine Kinase Troponin I Total Protein Albumin Globulin Albumin/Globulin Ratio Triglycerides Cholesterol LDL Cholesterol Direct HDL Cholesterol Vitamin B12 25-OH Vitamin D Total Procalcitonin TSH 3rd Generation Venous Blood Potassium Urine Color Urine Appearance Urine pH Ur Specific [place] Urine Protein Urine Glucose (UA) Urine Ketones Urine Blood Urine Nitrate Urine Bilirubin Urine Urobilinogen Ur Leukocyte Esterase Urine RBC Urine WBC Ur Epithelial Cells Urine Bacteria Urine Opiates Screen Urine Methadone Screen Ur Barbiturates Screen Ur Phencyclidine Scrn Ur Amphetamines Screen U Benzodiazepines Scrn U Oth Cocaine Metabols U Cannabinoids Screen B-Hydroxybutyrate Attending/Attestation - Attestation I have personally seen and examined this patient.: Yes I have fully participated in the care of the patient.: Yes I have reviewed all pertinent clinical information: Yes
[2018-07-23] MEDS: Insulin Detemir 100 units/ml Vial (Levemir) SC SCH ×2 (07:30→10:09)
[2018-07-23] MEDS ORDERED: Insulin Reg-MEDIUM-Coverage SC SCH (07:30)
--- NOTE | 2018-07-23 08:56 | CP.CCUPN ---
<Nasir Cueto - Last Filed: 07/23/18 12:38> CCU Subjective - Physician Review Subjective (Free Text): Nasir Cueto PGY-1 Progress Note for ICU Patient seen and evaluated at bedside. Patient remains confused, but that may be her baseline. Responds appropriately to questioning and denies chest pain, palpitations, shortness of breath, abdominal pain, dysuria, back pain, dizziness headaches and confusion. CCU Objective - Vital Signs / Intake & Output Vital Signs (Last 4 hours): Vital Signs Pulse Resp BP Pulse Ox 07/23/18 08:30 112 H 17 100 07/23/18 08:20 109 H 19 100 07/23/18 08:10 104 H 14 100 07/23/18 08:00 97 H 19 115/53 L 100 07/23/18 07:50 98 H 16 100 07/23/18 07:40 102 H 16 99 07/23/18 07:30 99 H 23 100 07/23/18 07:20 101 H 23 99 07/23/18 07:10 101 H 21 98 07/23/18 07:00 99 H 17 128/69 99 07/23/18 06:50 98 H 25 H 99 07/23/18 06:40 96 H 21 99 07/23/18 06:30 97 H 22 100 07/23/18 06:20 99 H 21 99 07/23/18 06:10 98 H 20 100 07/23/18 06:00 103 H 20 105/49 L 100 07/23/18 05:50 101 H 22 100 07/23/18 05:40 103 H 23 99 07/23/18 05:30 101 H 15 100 07/23/18 05:20 100 H 21 100 07/23/18 05:10 101 H 22 100 07/23/18 05:00 103 H 19 133/73 99 Intake and Output (Last 8hrs): Intake & Output 07/22/18 07/23/18 07/23/18 22:59 06:59 14:59 Intake Total 3404 Output Total 225 Balance 3179 Weight 65.771 kg 56.291 kg Intake: IV 3404 Right Antecubital 3400 Output: Urine 225 Urine, Voided 225 Other: # Bowel Movements 0 - Physical Exam Head: Positive for: Atraumatic, Normocephalic Pupils: Positive for: PERRL. Negative for: Pinpoint Extroacular Muscles: Positive for: EOMI Conjunctiva: Positive for: Normal Mouth: Positive for: Moist Mucous Membranes Neck: Positive for: Normal Range of Motion Respiratory/Chest: Positive for: Clear to Auscultation, Good Air Exchange. Nega tive for: Respiratory Distress, Accessory Muscle Use, Wheezes, Decreased Breath Sounds, Rales, Retracting Cardiovascular: Positive for: Regular Rate and Rhythm, Normal S1, S2. Negative for: Murmurs Abdomen: Negative for: Tenderness, Distention, Peritoneal Signs, Rebound, Guarding Back: Positive for: Decubitus Ulcer (3 unstageable sacral wound; one specifically on gluteal cleft each with eschar. ). Negative for: Normal Inspection Upper Extremity: Positive for: Normal Inspection. Negative for: Cyanosis, Edema Lower Extremity: Positive for: Normal Inspection. Negative for: Edema Neurological: Positive for: GCS=15, CN II-XII Intact, Speech Normal, Motor Func Grossly Intact, Normal Sensory Function Skin: Positive for: Warm, Dry, Normal Color, Other. Negative for: Rashes Psychiatric: Positive for: Alert. Negative for: Oriented x 3 (x2), Normal Insight (delayed ), Normal Concentration - Medications Active Medications: Active Medications Generic Name Dose Route Start Last Admin Trade Name Freq PRN Reason Stop Dose Admin Dextrose 0 ml 07/22/18 23:46 Dextrose 50% Inj IV STAT PRN Hypoglycemia Protocol Protocol Dextrose 0 ml 07/23/18 06:32 Dextrose 50% Inj IV STAT PRN Hypoglycemia Protocol Protocol Dextrose 1,000 mls @ 0 mls/hr 07/22/18 23:46 Dextrose 5% In Water 1000 Ml IV .Q0M PRN Hypoglycemia Protocol Protocol Per Protocol Potassium Chloride 10 meq in 100 mls @ 50 mls/hr 07/23/18 01:00 07/23/18 07:37 Potassium Chloride 10 Meq/100 Ml IVPB 07/23/18 08:59 50 mls/hr Q2H JOHN Administration Potassium Chloride 60 meq/ 1,030 mls @ 150 mls/hr 07/23/18 00:51 07/23/18 01:48 Sodium Chloride IV 150 mls/hr .[id number] JOHN Administration Dextrose 1,000 mls @ 0 mls/hr 07/23/18 06:32 Dextrose 5% In Water 1000 Ml IV .Q0M PRN Hypoglycemia Protocol Protocol Per Protocol Piperacillin Sod/Tazobactam Sod 100 mls @ 25 mls/hr 07/23/18 06:45 Zosyn 3.375 In Ns 100ml IVPB 07/23/18 17:59 Q8 JOHN Protocol Vancomycin HCl 1 gm in 250 mls @ 167 mls/hr 07/23/18 10:00 Vancomycin 1gm IVPB Q12 JOHN Protocol Insulin Detemir 15 unit 07/23/18 07:15 07/23/18 07:30 Levemir SC 15 unit Q12 JOHN Administration Insulin Human Regular 0 units 07/23/18 07:30 07/23/18 07:34 Humulin R Med SC 8 unit ACHS JOHN Administration Protocol Nystatin 0 ea 07/23/18 10:00 Mycostatin Cream TOP TID JOHN Pantoprazole Sodium 40 mg 07/23/18 10:00 Protonix Inj IVP DAILY JOHN - Patient Studies Lab Studies: Lab Studies 07/23/18 07/23/18 07/23/18 Range/Units 06:14 05:00 05:00 WBC (4.5-11.0) 10^3/uL RBC (3.5-6.1) 10^6/uL Hgb (12.0-16.0) g/dL Hct (36.0-48.0) % MCV (80.0-105.0) fl MCH (25.0-35.0) pg MCHC (31.0-37.0) g/dl RDW (11.5-14.5) % Plt Count (120.0-450.0) 10^3/uL MPV (7.0-11.0) fl Gran % (50.0-68.0) % Lymph % (Auto) (22.0-35.0) % [place] % (Auto) (1.0-6.0) % Eos % (Auto) (1.5-5.0) % Baso % (Auto) (0.0-3.0) % Gran # (1.4-6.5) Lymph # (Auto) (1.2-3.4) [place] # (Auto) (0.1-0.6) Eos # (Auto) (0.0-0.7) Baso # (Auto) (0.0-2.0) K/mm3 Neutrophils % (Manual) (50.0-70.0) % Band Neutrophils % (0-2) % Lymphocytes % (Manual) (22.0-35.0) % Monocytes % (Manual) (1.0-6.0) % Eosinophils % (Manual) (0.0-3.0) % Platelet Evaluation (NORMAL) PT (9.4-12.5) SECONDS INR APTT (25.1-36.5) Seconds pO2 (30-55) mm/Hg VBG pH (7.32-7.43) VBG pCO2 (40-60) VBG HCO3 (21-28) mmol/l VBG Total CO2 (22-28) mmol.L VBG O2 Sat (Calc) (40-65) % VBG Base Excess (0.0-2.0) mmol/L VBG Potassium (3.6-5.2) mmol/L Glucose (65-105) mg/dl Lactate (0.7-2.1) mmol/L FiO2 % Sodium (132-148) mmol/L Potassium (3.6-5.0) mmol/L Chloride (98-107) mmol/L Carbon Dioxide (21-33) mmol/L Anion Gap (10-20) BUN (7-21) mg/dL Creatinine (0.7-1.2) mg/dl Est GFR ( Amer) Est GFR (Non-Af Amer) POC Glucose (mg/dL) 383 H (65-110) mg/dL Random Glucose (70-110) mg/dL Serum Osmolality (272-300) mosm/kg Calcium (8.4-10.5) mg/dL Magnesium (1.7-2.2) mg/dL Total Bilirubin (0.2-1.3) mg/dL AST (14-36) U/L ALT (7-56) U/L Alkaline Phosphatase (38-126) U/L Lactate Dehydrogenase (333-699) U/L Total Creatine Kinase (35-230) U/L Troponin I < 0.01 ng/mL Total Protein (5.8-8.3) g/dL Albumin (3.0-4.8) g/dL Globulin gm/dL Albumin/Globulin Ratio (1.1-1.8) Triglycerides 173 H (35-160) mg/dL Cholesterol 86 L (130-200) mg/dL LDL Cholesterol Direct 57 (0-129) mg/dL HDL Cholesterol 13 L (29-60) mg/dL TSH 3rd Generation (0.46-4.68) mIU/mL Venous Blood Potassium (3.6-5.2) mmol/L Urine Color (YELLOW) Urine Appearance (CLEAR) Urine pH (4.7-8.0) Ur Specific [place] (1.005-1.035) Urine Protein (<30 mg/dL) mg/dL Urine Glucose (UA) (NEGATIVE) mg/dL Urine Ketones (NEGATIVE) mg/dL Urine Blood (NEGATIVE) Urine Nitrate (NEGATIVE) Urine Bilirubin (NEGATIVE) Urine Urobilinogen (<1 E.U./dL) E.U./dL Ur Leukocyte Esterase (NEGATIVE) Marisa/uL Urine RBC (0-2) /hpf Urine WBC (0-6) /hpf Ur Epithelial Cells (0-5) /hpf Urine Bacteria (NONE) /hpf Urine Opiates Screen (NEGATIVE) Urine Methadone Screen (NEGATIVE) Ur Barbiturates Screen (NEGATIVE) Ur Phencyclidine Scrn (NEGATIVE) Ur Amphetamines Screen (NEGATIVE) U Benzodiazepines Scrn (NEGATIVE) U Oth Cocaine Metabols (NEGATIVE) U Cannabinoids Screen (NEGATIVE) 07/23/18 07/23/18 07/23/18 Range/Units 05:00 02:51 02:15 WBC 22.5 H (4.5-11.0) 10^3/uL RBC 4.50 (3.5-6.1) 10^6/uL Hgb 13.4 D (12.0-16.0) g/dL Hct 40.1 (36.0-48.0) % MCV 89.1 D (80.0-105.0) fl MCH 29.8 (25.0-35.0) pg MCHC 33.4 (31.0-37.0) g/dl RDW 12.7 (11.5-14.5) % Plt Count 239 (120.0-450.0) 10^3/uL MPV 12.8 H (7.0-11.0) fl Gran % (50.0-68.0) % Lymph % (Auto) (22.0-35.0) % [place] % (Auto) (1.0-6.0) % Eos % (Auto) (1.5-5.0) % Baso % (Auto) (0.0-3.0) % Gran # (1.4-6.5) Lymph # (Auto) (1.2-3.4) [place] # (Auto) (0.1-0.6) Eos # (Auto) (0.0-0.7) Baso # (Auto) (0.0-2.0) K/mm3 Neutrophils % (Manual) (50.0-70.0) % Band Neutrophils % (0-2) % Lymphocytes % (Manual) (22.0-35.0) % Monocytes % (Manual) (1.0-6.0) % Eosinophils % (Manual) (0.0-3.0) % Platelet Evaluation (NORMAL) PT (9.4-12.5) SECONDS INR APTT (25.1-36.5) Seconds pO2 (30-55) mm/Hg VBG pH (7.32-7.43) VBG pCO2 (40-60) VBG HCO3 (21-28) mmol/l VBG Total CO2 (22-28) mmol.L VBG O2 Sat (Calc) (40-65) % VBG Base Excess (0.0-2.0) mmol/L VBG Potassium (3.6-5.2) mmol/L Glucose (65-105) mg/dl Lactate (0.7-2.1) mmol/L FiO2 % Sodium 145 (132-148) mmol/L Potassium 3.3 L (3.6-5.0) mmol/L Chloride 110 H (98-107) mmol/L Carbon Dioxide 29 (21-33) mmol/L Anion Gap 10 (10-20) BUN 46 H (7-21) mg/dL Creatinine 0.8 (0.7-1.2) mg/dl Est GFR ( Amer) > 60 Est GFR (Non-Af Amer) > 60 POC Glucose (mg/dL) 326 H (65-110) mg/dL Random Glucose 290 H (70-110) mg/dL Serum Osmolality (272-300) mosm/kg Calcium 8.5 (8.4-10.5) mg/dL Magnesium (1.7-2.2) mg/dL Total Bilirubin (0.2-1.3) mg/dL AST (14-36) U/L ALT (7-56) U/L Alkaline Phosphatase (38-126) U/L Lactate Dehydrogenase (333-699) U/L Total Creatine Kinase (35-230) U/L Troponin I ng/mL Total Protein (5.8-8.3) g/dL Albumin (3.0-4.8) g/dL Globulin gm/dL Albumin/Globulin Ratio (1.1-1.8) Triglycerides (35-160) mg/dL Cholesterol (130-200) mg/dL LDL Cholesterol Direct (0-129) mg/dL HDL Cholesterol (29-60) mg/dL TSH 3rd Generation (0.46-4.68) mIU/mL Venous Blood Potassium (3.6-5.2) mmol/L Urine Color (YELLOW) Urine Appearance (CLEAR) Urine pH (4.7-8.0) Ur Specific [place] (1.005-1.035) Urine Protein (<30 mg/dL) mg/dL Urine Glucose (UA) (NEGATIVE) mg/dL Urine Ketones (NEGATIVE) mg/dL Urine Blood (NEGATIVE) Urine Nitrate (NEGATIVE) Urine Bilirubin (NEGATIVE) Urine Urobilinogen (<1 E.U./dL) E.U./dL Ur Leukocyte Esterase (NEGATIVE) Marisa/uL Urine RBC (0-2) /hpf Urine WBC (0-6) /hpf Ur Epithelial Cells (0-5) /hpf Urine Bacteria (NONE) /hpf Urine Opiates Screen (NEGATIVE) Urine Methadone Screen (NEGATIVE) Ur Barbiturates Screen (NEGATIVE) Ur Phencyclidine Scrn (NEGATIVE) Ur Amphetamines Screen (NEGATIVE) U Benzodiazepines Scrn (NEGATIVE) U Oth Cocaine Metabols (NEGATIVE) U Cannabinoids Screen (NEGATIVE) 07/23/18 07/23/18 07/23/18 Range/Units 02:00 02:00 01:57 WBC (4.5-11.0) 10^3/uL RBC (3.5-6.1) 10^6/uL Hgb (12.0-16.0) g/dL Hct (36.0-48.0) % MCV (80.0-105.0) fl MCH (25.0-35.0) pg MCHC (31.0-37.0) g/dl RDW (11.5-14.5) % Plt Count (120.0-450.0) 10^3/uL MPV (7.0-11.0) fl Gran % (50.0-68.0) % Lymph % (Auto) (22.0-35.0) % [place] % (Auto) (1.0-6.0) % Eos % (Auto) (1.5-5.0) % Baso % (Auto) (0.0-3.0) % Gran # (1.4-6.5) Lymph # (Auto) (1.2-3.4) [place] # (Auto) (0.1-0.6) Eos # (Auto) (0.0-0.7) Baso # (Auto) (0.0-2.0) K/mm3 Neutrophils % (Manual) (50.0-70.0) % Band Neutrophils % (0-2) % Lymphocytes % (Manual) (22.0-35.0) % Monocytes % (Manual) (1.0-6.0) % Eosinophils % (Manual) (0.0-3.0) % Platelet Evaluation (NORMAL) PT (9.4-12.5) SECONDS INR APTT (25.1-36.5) Seconds pO2 (30-55) mm/Hg VBG pH (7.32-7.43) VBG pCO2 (40-60) VBG HCO3 (21-28) mmol/l VBG Total CO2 (22-28) mmol.L VBG O2 Sat (Calc) (40-65) % VBG Base Excess (0.0-2.0) mmol/L VBG Potassium (3.6-5.2) mmol/L Glucose (65-105) mg/dl Lactate (0.7-2.1) mmol/L FiO2 % Sodium (132-148) mmol/L Potassium (3.6-5.0) mmol/L Chloride (98-107) mmol/L Carbon Dioxide (21-33) mmol/L Anion Gap (10-20) BUN (7-21) mg/dL Creatinine (0.7-1.2) mg/dl Est GFR ( Amer) Est GFR (Non-Af Amer) POC Glucose (mg/dL) 319 H (65-110) mg/dL Random Glucose (70-110) mg/dL Serum Osmolality 330 H (272-300) mosm/kg Calcium (8.4-10.5) mg/dL Magnesium (1.7-2.2) mg/dL Total Bilirubin (0.2-1.3) mg/dL AST (14-36) U/L ALT (7-56) U/L Alkaline Phosphatase (38-126) U/L Lactate Dehydrogenase (333-699) U/L Total Creatine Kinase (35-230) U/L Troponin I ng/mL Total Protein (5.8-8.3) g/dL Albumin (3.0-4.8) g/dL Globulin gm/dL Albumin/Globulin Ratio (1.1-1.8) Triglycerides (35-160) mg/dL Cholesterol (130-200) mg/dL LDL Cholesterol Direct (0-129) mg/dL HDL Cholesterol (29-60) mg/dL TSH 3rd Generation (0.46-4.68) mIU/mL Venous Blood Potassium (3.6-5.2) mmol/L Urine Color (YELLOW) Urine Appearance (CLEAR) Urine pH (4.7-8.0) Ur Specific [place] (1.005-1.035) Urine Protein (<30 mg/dL) mg/dL Urine Glucose (UA) (NEGATIVE) mg/dL Urine Ketones (NEGATIVE) mg/dL Urine Blood (NEGATIVE) Urine Nitrate (NEGATIVE) Urine Bilirubin (NEGATIVE) Urine Urobilinogen (<1 E.U./dL) E.U./dL Ur Leukocyte Esterase (NEGATIVE) Marisa/uL Urine RBC (0-2) /hpf Urine WBC (0-6) /hpf Ur Epithelial Cells (0-5) /hpf Urine Bacteria (NONE) /hpf Urine Opiates Screen Negative (NEGATIVE) Urine Methadone Screen Negative (NEGATIVE) Ur Barbiturates Screen Negative (NEGATIVE) Ur Phencyclidine Scrn Negative (NEGATIVE) Ur Amphetamines Screen Negative (NEGATIVE) U Benzodiazepines Scrn Negative (NEGATIVE) U Oth Cocaine Metabols Negative (NEGATIVE) U Cannabinoids Screen Negative (NEGATIVE) 07/23/18 07/23/18 07/22/18 Range/Units 00:27 00:00 23:35 WBC (4.5-11.0) 10^3/uL RBC (3.5-6.1) 10^6/uL Hgb (12.0-16.0) g/dL Hct (36.0-48.0) % MCV (80.0-105.0) fl MCH (25.0-35.0) pg MCHC (31.0-37.0) g/dl RDW (11.5-14.5) % Plt Count (120.0-450.0) 10^3/uL MPV (7.0-11.0) fl Gran % (50.0-68.0) % Lymph % (Auto) (22.0-35.0) % [place] % (Auto) (1.0-6.0) % Eos % (Auto) (1.5-5.0) % Baso % (Auto) (0.0-3.0) % Gran # (1.4-6.5) Lymph # (Auto) (1.2-3.4) [place] # (Auto) (0.1-0.6) Eos # (Auto) (0.0-0.7) Baso # (Auto) (0.0-2.0) K/mm3 Neutrophils % (Manual) (50.0-70.0) % Band Neutrophils % (0-2) % Lymphocytes % (Manual) (22.0-35.0) % Monocytes % (Manual) (1.0-6.0) % Eosinophils % (Manual) (0.0-3.0) % Platelet Evaluation (NORMAL) PT (9.4-12.5) SECONDS INR APTT (25.1-36.5) Seconds pO2 58 H (30-55) mm/Hg VBG pH 7.31 L (7.32-7.43) VBG pCO2 50.0 (40-60) VBG HCO3 25.2 (21-28) mmol/l VBG Total CO2 26.7 (22-28) mmol.L VBG O2 Sat (Calc) 93.2 H (40-65) % VBG Base Excess -1.7 L (0.0-2.0) mmol/L VBG Potassium 2.7 L (3.6-5.2) mmol/L Glucose 358 H (65-105) mg/dl Lactate 3.2 H (0.7-2.1) mmol/L FiO2 21.0 % Sodium 146.0 (132-148) mmol/L Potassium (3.6-5.0) mmol/L Chloride 107.0 (98-107) mmol/L Carbon Dioxide (21-33) mmol/L Anion Gap (10-20) BUN (7-21) mg/dL Creatinine (0.7-1.2) mg/dl Est GFR ( Amer) Est GFR (Non-Af Amer) POC Glucose (mg/dL) 331 H (65-110) mg/dL Random Glucose (70-110) mg/dL Serum Osmolality (272-300) mosm/kg Calcium (8.4-10.5) mg/dL Magnesium (1.7-2.2) mg/dL Total Bilirubin (0.2-1.3) mg/dL AST (14-36) U/L ALT (7-56) U/L Alkaline Phosphatase (38-126) U/L Lactate Dehydrogenase (333-699) U/L Total Creatine Kinase (35-230) U/L Troponin I ng/mL Total Protein (5.8-8.3) g/dL Albumin (3.0-4.8) g/dL Globulin gm/dL Albumin/Globulin Ratio (1.1-1.8) Triglycerides (35-160) mg/dL Cholesterol (130-200) mg/dL LDL Cholesterol Direct (0-129) mg/dL HDL Cholesterol (29-60) mg/dL TSH 3rd Generation 0.37 L (0.46-4.68) mIU/mL Venous Blood Potassium 2.7 L (3.6-5.2) mmol/L Urine Color (YELLOW) Urine Appearance (CLEAR) Urine pH (4.7-8.0) Ur Specific [place] (1.005-1.035) Urine Protein (<30 mg/dL) mg/dL Urine Glucose (UA) (NEGATIVE) mg/dL Urine Ketones (NEGATIVE) mg/dL Urine Blood (NEGATIVE) Urine Nitrate (NEGATIVE) Urine Bilirubin (NEGATIVE) Urine Urobilinogen (<1 E.U./dL) E.U./dL Ur Leukocyte Esterase (NEGATIVE) Marisa/uL Urine RBC (0-2) /hpf Urine WBC (0-6) /hpf Ur Epithelial Cells (0-5) /hpf Urine Bacteria (NONE) /hpf Urine Opiates Screen (NEGATIVE) Urine Methadone Screen (NEGATIVE) Ur Barbiturates Screen (NEGATIVE) Ur Phencyclidine Scrn (NEGATIVE) Ur Amphetamines Screen (NEGATIVE) U Benzodiazepines Scrn (NEGATIVE) U Oth Cocaine Metabols (NEGATIVE) U Cannabinoids Screen (NEGATIVE) 07/22/18 07/22/18 07/22/18 Range/Units 23:01 21:29 20:44 WBC (4.5-11.0) 10^3/uL RBC (3.5-6.1) 10^6/uL Hgb (12.0-16.0) g/dL Hct (36.0-48.0) % MCV (80.0-105.0) fl MCH (25.0-35.0) pg MCHC (31.0-37.0) g/dl RDW (11.5-14.5) % Plt Count (120.0-450.0) 10^3/uL MPV (7.0-11.0) fl Gran % (50.0-68.0) % Lymph % (Auto) (22.0-35.0) % [place] % (Auto) (1.0-6.0) % Eos % (Auto) (1.5-5.0) % Baso % (Auto) (0.0-3.0) % Gran # (1.4-6.5) Lymph # (Auto) (1.2-3.4) [place] # (Auto) (0.1-0.6) Eos # (Auto) (0.0-0.7) Baso # (Auto) (0.0-2.0) K/mm3 Neutrophils % (Manual) (50.0-70.0) % Band Neutrophils % (0-2) % Lymphocytes % (Manual) (22.0-35.0) % Monocytes % (Manual) (1.0-6.0) % Eosinophils % (Manual) (0.0-3.0) % Platelet Evaluation (NORMAL) PT (9.4-12.5) SECONDS INR APTT (25.1-36.5) Seconds pO2 53 (30-55) mm/Hg VBG pH 7.26 L (7.32-7.43) VBG pCO2 50.0 (40-60) VBG HCO3 22.4 (21-28) mmol/l VBG Total CO2 23.9 (22-28) mmol.L VBG O2 Sat (Calc) 89.8 H (40-65) % VBG Base Excess -5.0 L (0.0-2.0) mmol/L VBG Potassium 3.5 L (3.6-5.2) mmol/L Glucose 722 H* (65-105) mg/dl Lactate 4.0 H* (0.7-2.1) mmol/L FiO2 21.0 % Sodium 142.0 (132-148) mmol/L Potassium (3.6-5.0) mmol/L Chloride 98.0 (98-107) mmol/L Carbon Dioxide (21-33) mmol/L Anion Gap (10-20) BUN (7-21) mg/dL Creatinine (0.7-1.2) mg/dl Est GFR ( Amer) Est GFR (Non-Af Amer) POC Glucose (mg/dL) 354 H (65-110) mg/dL Random Glucose (70-110) mg/dL Serum Osmolality (272-300) mosm/kg Calcium (8.4-10.5) mg/dL Magnesium (1.7-2.2) mg/dL Total Bilirubin (0.2-1.3) mg/dL AST (14-36) U/L ALT (7-56) U/L Alkaline Phosphatase (38-126) U/L Lactate Dehydrogenase (333-699) U/L Total Creatine Kinase (35-230) U/L Troponin I ng/mL Total Protein (5.8-8.3) g/dL Albumin (3.0-4.8) g/dL Globulin gm/dL Albumin/Globulin Ratio (1.1-1.8) Triglycerides (35-160) mg/dL Cholesterol (130-200) mg/dL LDL Cholesterol Direct (0-129) mg/dL HDL Cholesterol (29-60) mg/dL TSH 3rd Generation (0.46-4.68) mIU/mL Venous Blood Potassium 3.5 L (3.6-5.2) mmol/L Urine Color Yellow (YELLOW) Urine Appearance Sl cloudy (CLEAR) Urine pH 6.0 (4.7-8.0) Ur Specific [place] 1.010 (1.005-1.035) Urine Protein Negative (<30 mg/dL) mg/dL Urine Glucose (UA) >=1000 (NEGATIVE) mg/dL Urine Ketones 15 H (NEGATIVE) mg/dL Urine Blood Moderate H (NEGATIVE) Urine Nitrate Negative (NEGATIVE) Urine Bilirubin Negative (NEGATIVE) Urine Urobilinogen 1.0 H (<1 E.U./dL) E.U./dL Ur Leukocyte Esterase Small H (NEGATIVE) Marisa/uL Urine RBC 5 - 10 H (0-2) /hpf Urine WBC 25 - 30 H (0-6) /hpf Ur Epithelial Cells 3 - 4 (0-5) /hpf Urine Bacteria Large (NONE) /hpf Urine Opiates Screen (NEGATIVE) Urine Methadone Screen (NEGATIVE) Ur Barbiturates Screen (NEGATIVE) Ur Phencyclidine Scrn (NEGATIVE) Ur Amphetamines Screen (NEGATIVE) U Benzodiazepines Scrn (NEGATIVE) U Oth Cocaine Metabols (NEGATIVE) U Cannabinoids Screen (NEGATIVE) 07/22/18 07/22/18 07/22/18 Range/Units 20:10 20:10 20:10 WBC 25.7 H* (4.5-11.0) 10^3/uL RBC 5.06 (3.5-6.1) 10^6/uL Hgb 15.6 D (12.0-16.0) g/dL Hct 46.9 (36.0-48.0) % MCV 92.7 (80.0-105.0) fl MCH 30.8 (25.0-35.0) pg MCHC 33.3 (31.0-37.0) g/dl RDW 13.1 (11.5-14.5) % Plt Count 396 (120.0-450.0) 10^3/uL MPV 14.3 H (7.0-11.0) fl Gran % 93.0 H (50.0-68.0) % Lymph % (Auto) 5.5 L (22.0-35.0) % [place] % (Auto) 1.4 (1.0-6.0) % Eos % (Auto) 0.0 L (1.5-5.0) % Baso % (Auto) 0.1 (0.0-3.0) % Gran # 23.86 H (1.4-6.5) Lymph # (Auto) 1.4 (1.2-3.4) [place] # (Auto) 0.4 (0.1-0.6) Eos # (Auto) 0.0 (0.0-0.7) Baso # (Auto) 0.02 (0.0-2.0) K/mm3 Neutrophils % (Manual) 54 (50.0-70.0) % Band Neutrophils % 38 H* (0-2) % Lymphocytes % (Manual) 4 L (22.0-35.0) % Monocytes % (Manual) 3 (1.0-6.0) % Eosinophils % (Manual) 1 (0.0-3.0) % Platelet Evaluation Normal (NORMAL) PT 11.6 (9.4-12.5) SECONDS INR 1.02 APTT 22.5 L (25.1-36.5) Seconds pO2 (30-55) mm/Hg VBG pH (7.32-7.43) VBG pCO2 (40-60) VBG HCO3 (21-28) mmol/l VBG Total CO2 (22-28) mmol.L VBG O2 Sat (Calc) (40-65) % VBG Base Excess (0.0-2.0) mmol/L VBG Potassium (3.6-5.2) mmol/L Glucose (65-105) mg/dl Lactate (0.7-2.1) mmol/L FiO2 % Sodium 138 (132-148) mmol/L Potassium 3.2 L (3.6-5.0) mmol/L Chloride 94 L (98-107) mmol/L Carbon Dioxide 21 (21-33) mmol/L Anion Gap 26 H (10-20) BUN 52 H (7-21) mg/dL Creatinine 1.1 (0.7-1.2) mg/dl Est GFR ( Amer) > 60 Est GFR (Non-Af Amer) 50 POC Glucose (mg/dL) (65-110) mg/dL Random Glucose 811 H* D (70-110) mg/dL Serum Osmolality (272-300) mosm/kg Calcium 10.0 (8.4-10.5) mg/dL Magnesium 2.6 H (1.7-2.2) mg/dL Total Bilirubin 1.5 H (0.2-1.3) mg/dL AST 25 (14-36) U/L ALT 14 (7-56) U/L Alkaline Phosphatase 184 H D (38-126) U/L Lactate Dehydrogenase 403 (333-699) U/L Total Creatine Kinase < 20 L (35-230) U/L Troponin I < 0.01 ng/mL Total Protein 7.2 (5.8-8.3) g/dL Albumin 3.3 (3.0-4.8) g/dL Globulin 3.9 gm/dL Albumin/Globulin Ratio 0.9 L (1.1-1.8) Triglycerides (35-160) mg/dL Cholesterol (130-200) mg/dL LDL Cholesterol Direct (0-129) mg/dL HDL Cholesterol (29-60) mg/dL TSH 3rd Generation (0.46-4.68) mIU/mL Venous Blood Potassium (3.6-5.2) mmol/L Urine Color (YELLOW) Urine Appearance (CLEAR) Urine pH (4.7-8.0) Ur Specific [place] (1.005-1.035) Urine Protein (<30 mg/dL) mg/dL Urine Glucose (UA) (NEGATIVE) mg/dL Urine Ketones (NEGATIVE) mg/dL Urine Blood (NEGATIVE) Urine Nitrate (NEGATIVE) Urine Bilirubin (NEGATIVE) Urine Urobilinogen (<1 E.U./dL) E.U./dL Ur Leukocyte Esterase (NEGATIVE) Marisa/uL Urine RBC (0-2) /hpf Urine WBC (0-6) /hpf Ur Epithelial Cells (0-5) /hpf Urine Bacteria (NONE) /hpf Urine Opiates Screen (NEGATIVE) Urine Methadone Screen (NEGATIVE) Ur Barbiturates Screen (NEGATIVE) Ur Phencyclidine Scrn (NEGATIVE) Ur Amphetamines Screen (NEGATIVE) U Benzodiazepines Scrn (NEGATIVE) U Oth Cocaine Metabols (NEGATIVE) U Cannabinoids Screen (NEGATIVE) Laboratory Results - last 24 hr 07/22/18 07/22/18 07/22/18 20:10 20:10 20:10 WBC 25.7 H* RBC 5.06 Hgb 15.6 D Hct 46.9 MCV 92.7 MCH 30.8 MCHC 33.3 RDW 13.1 Plt Count 396 MPV 14.3 H Gran % 93.0 H Lymph % (Auto) 5.5 L [place] % (Auto) 1.4 Eos % (Auto) 0.0 L Baso % (Auto) 0.1 Gran # 23.86 H Lymph # (Auto) 1.4 [place] # (Auto) 0.4 Eos # (Auto) 0.0 Baso # (Auto) 0.02 Neutrophils % (Manual) 54 Band Neutrophils % 38 H* Lymphocytes % (Manual) 4 L Monocytes % (Manual) 3 Eosinophils % (Manual) 1 Platelet Evaluation Normal PT 11.6 INR 1.02 APTT 22.5 L pO2 VBG pH VBG pCO2 VBG HCO3 VBG Total CO2 VBG O2 Sat (Calc) VBG Base Excess VBG Potassium Glucose Lactate FiO2 Sodium 138 Potassium 3.2 L Chloride 94 L Carbon Dioxide 21 Anion Gap 26 H BUN 52 H Creatinine 1.1 Est GFR ( Amer) > 60 Est GFR (Non-Af Amer) 50 POC Glucose (mg/dL) Random Glucose 811 H* D Serum Osmolality Calcium 10.0 Magnesium 2.6 H Total Bilirubin 1.5 H AST 25 ALT 14 Alkaline Phosphatase 184 H D Lactate Dehydrogenase 403 Total Creatine Kinase < 20 L Troponin I < 0.01 Total Protein 7.2 Albumin 3.3 Globulin 3.9 Albumin/Globulin Ratio 0.9 L Triglycerides Cholesterol LDL Cholesterol Direct HDL Cholesterol TSH 3rd Generation Venous Blood Potassium Urine Color Urine Appearance Urine pH Ur Specific [place] Urine Protein Urine Glucose (UA) Urine Ketones Urine Blood Urine Nitrate Urine Bilirubin Urine Urobilinogen Ur Leukocyte Esterase Urine RBC Urine WBC Ur Epithelial Cells Urine Bacteria Urine Opiates Screen Urine Methadone Screen Ur Barbiturates Screen Ur Phencyclidine Scrn Ur Amphetamines Screen U Benzodiazepines Scrn U Oth Cocaine Metabols U Cannabinoids Screen 07/22/18 07/22/18 07/22/18 20:44 21:29 23:01 WBC RBC Hgb Hct MCV MCH MCHC RDW Plt Count MPV Gran % Lymph % (Auto) [place] % (Auto) Eos % (Auto) Baso % (Auto) Gran # Lymph # (Auto) [place] # (Auto) Eos # (Auto) Baso # (Auto) Neutrophils % (Manual) Band Neutrophils % Lymphocytes % (Manual) Monocytes % (Manual) Eosinophils % (Manual) Platelet Evaluation PT INR APTT pO2 53 VBG pH 7.26 L VBG pCO2 50.0 VBG HCO3 22.4 VBG Total CO2 23.9 VBG O2 Sat (Calc) 89.8 H VBG Base Excess -5.0 L VBG Potassium 3.5 L Glucose 722 H* Lactate 4.0 H* FiO2 21.0 Sodium 142.0 Potassium Chloride 98.0 Carbon Dioxide Anion Gap BUN Creatinine Est GFR ( Amer) Est GFR (Non-Af Amer) POC Glucose (mg/dL) 354 H Random Glucose Serum Osmolality Calcium Magnesium Total Bilirubin AST ALT Alkaline Phosphatase Lactate Dehydrogenase Total Creatine Kinase Troponin I Total Protein Albumin Globulin Albumin/Globulin Ratio Triglycerides Cholesterol LDL Cholesterol Direct HDL Cholesterol TSH 3rd Generation Venous Blood Potassium 3.5 L Urine Color Yellow Urine Appearance Sl cloudy Urine pH 6.0 Ur Specific [place] 1.010 Urine Protein Negative Urine Glucose (UA) >=1000 Urine Ketones 15 H Urine Blood Moderate H Urine Nitrate Negative Urine Bilirubin Negative Urine Urobilinogen 1.0 H Ur Leukocyte Esterase Small H Urine RBC 5 - 10 H Urine WBC 25 - 30 H Ur Epithelial Cells 3 - 4 Urine Bacteria Large Urine Opiates Screen Urine Methadone Screen Ur Barbiturates Screen Ur Phencyclidine Scrn Ur Amphetamines Screen U Benzodiazepines Scrn U Oth Cocaine Metabols U Cannabinoids Screen 07/22/18 07/23/18 07/23/18 23:35 00:00 00:27 WBC RBC Hgb Hct MCV MCH MCHC RDW Plt Count MPV Gran % Lymph % (Auto) [place] % (Auto) Eos % (Auto) Baso % (Auto) Gran # Lymph # (Auto) [place] # (Auto) Eos # (Auto) Baso # (Auto) Neutrophils % (Manual) Band Neutrophils % Lymphocytes % (Manual) Monocytes % (Manual) Eosinophils % (Manual) Platelet Evaluation PT INR APTT pO2 58 H VBG pH 7.31 L VBG pCO2 50.0 VBG HCO3 25.2 VBG Total CO2 26.7 VBG O2 Sat (Calc) 93.2 H VBG Base Excess -1.7 L VBG Potassium 2.7 L Glucose 358 H Lactate 3.2 H FiO2 21.0 Sodium 146.0 Potassium Chloride 107.0 Carbon Dioxide Anion Gap BUN Creatinine Est GFR ( Amer) Est GFR (Non-Af Amer) POC Glucose (mg/dL) 331 H Random Glucose Serum Osmolality Calcium Magnesium Total Bilirubin AST ALT Alkaline Phosphatase Lactate Dehydrogenase Total Creatine Kinase Troponin I Total Protein Albumin Globulin Albumin/Globulin Ratio Triglycerides Cholesterol LDL Cholesterol Direct HDL Cholesterol TSH 3rd Generation 0.37 L Venous Blood Potassium 2.7 L Urine Color Urine Appearance Urine pH Ur Specific [place] Urine Protein Urine Glucose (UA) Urine Ketones Urine Blood Urine Nitrate Urine Bilirubin Urine Urobilinogen Ur Leukocyte Esterase Urine RBC Urine WBC Ur Epithelial Cells Urine Bacteria Urine Opiates Screen Urine Methadone Screen Ur Barbiturates Screen Ur Phencyclidine Scrn Ur Amphetamines Screen U Benzodiazepines Scrn U Oth Cocaine Metabols U Cannabinoids Screen 07/23/18 07/23/18 07/23/18 01:57 02:00 02:00 WBC RBC Hgb Hct MCV MCH MCHC RDW Plt Count MPV Gran % Lymph % (Auto) [place] % (Auto) Eos % (Auto) Baso % (Auto) Gran # Lymph # (Auto) [place] # (Auto) Eos # (Auto) Baso # (Auto) Neutrophils % (Manual) Band Neutrophils % Lymphocytes % (Manual) Monocytes % (Manual) Eosinophils % (Manual) Platelet Evaluation PT INR APTT pO2 VBG pH VBG pCO2 VBG HCO3 VBG Total CO2 VBG O2 Sat (Calc) VBG Base Excess VBG Potassium Glucose Lactate FiO2 Sodium Potassium Chloride Carbon Dioxide Anion Gap BUN Creatinine Est GFR ( Amer) Est GFR (Non-Af Amer) POC Glucose (mg/dL) 319 H Random Glucose Serum Osmolality 330 H Calcium Magnesium Total Bilirubin AST ALT Alkaline Phosphatase Lactate Dehydrogenase Total Creatine Kinase Troponin I Total Protein Albumin Globulin Albumin/Globulin Ratio Triglycerides Cholesterol LDL Cholesterol Direct HDL Cholesterol TSH 3rd Generation Venous Blood Potassium Urine Color Urine Appearance Urine pH Ur Specific [place] Urine Protein Urine Glucose (UA) Urine Ketones Urine Blood Urine Nitrate Urine Bilirubin Urine Urobilinogen Ur Leukocyte Esterase Urine RBC Urine WBC Ur Epithelial Cells Urine Bacteria Urine Opiates Screen Negative Urine Methadone Screen Negative Ur Barbiturates Screen Negative Ur Phencyclidine Scrn Negative Ur Amphetamines Screen Negative U Benzodiazepines Scrn Negative U Oth Cocaine Metabols Negative U Cannabinoids Screen Negative 07/23/18 07/23/18 07/23/18 02:15 02:51 05:00 WBC 22.5 H RBC 4.50 Hgb 13.4 D Hct 40.1 MCV 89.1 D MCH 29.8 MCHC 33.4 RDW 12.7 Plt Count 239 MPV 12.8 H Gran % Lymph % (Auto) [place] % (Auto) Eos % (Auto) Baso % (Auto) Gran # Lymph # (Auto) [place] # (Auto) Eos # (Auto) Baso # (Auto) Neutrophils % (Manual) Band Neutrophils % Lymphocytes % (Manual) Monocytes % (Manual) Eosinophils % (Manual) Platelet Evaluation PT INR APTT pO2 VBG pH VBG pCO2 VBG HCO3 VBG Total CO2 VBG O2 Sat (Calc) VBG Base Excess VBG Potassium Glucose Lactate FiO2 Sodium 145 Potassium 3.3 L Chloride 110 H Carbon Dioxide 29 Anion Gap 10 BUN 46 H Creatinine 0.8 Est GFR ( Amer) > 60 Est GFR (Non-Af Amer) > 60 POC Glucose (mg/dL) 326 H Random Glucose 290 H Serum Osmolality Calcium 8.5 Magnesium Total Bilirubin AST ALT Alkaline Phosphatase Lactate Dehydrogenase Total Creatine Kinase Troponin I Total Protein Albumin Globulin Albumin/Globulin Ratio Triglycerides Cholesterol LDL Cholesterol Direct HDL Cholesterol TSH 3rd Generation Venous Blood Potassium Urine Color Urine Appearance Urine pH Ur Specific [place] Urine Protein Urine Glucose (UA) Urine Ketones Urine Blood Urine Nitrate Urine Bilirubin Urine Urobilinogen Ur Leukocyte Esterase Urine RBC Urine WBC Ur Epithelial Cells Urine Bacteria Urine Opiates Screen Urine Methadone Screen Ur Barbiturates Screen Ur Phencyclidine Scrn Ur Amphetamines Screen U Benzodiazepines Scrn U Oth Cocaine Metabols U Cannabinoids Screen 07/23/18 07/23/18 07/23/18 05:00 05:00 06:14 WBC RBC Hgb Hct MCV MCH MCHC RDW Plt Count MPV Gran % Lymph % (Auto) [place] % (Auto) Eos % (Auto) Baso % (Auto) Gran # Lymph # (Auto) [place] # (Auto) Eos # (Auto) Baso # (Auto) Neutrophils % (Manual) Band Neutrophils % Lymphocytes % (Manual) Monocytes % (Manual) Eosinophils % (Manual) Platelet Evaluation PT INR APTT pO2 VBG pH VBG pCO2 VBG HCO3 VBG Total CO2 VBG O2 Sat (Calc) VBG Base Excess VBG Potassium Glucose Lactate FiO2 Sodium Potassium Chloride Carbon Dioxide Anion Gap BUN Creatinine Est GFR ( Amer) Est GFR (Non-Af Amer) POC Glucose (mg/dL) 383 H Random Glucose Serum Osmolality Calcium Magnesium Total Bilirubin AST ALT Alkaline Phosphatase Lactate Dehydrogenase Total Creatine Kinase Troponin I < 0.01 Total Protein Albumin Globulin Albumin/Globulin Ratio Triglycerides 173 H Cholesterol 86 L LDL Cholesterol Direct 57 HDL Cholesterol 13 L TSH 3rd Generation Venous Blood Potassium Urine Color Urine Appearance Urine pH Ur Specific [place] Urine Protein Urine Glucose (UA) Urine Ketones Urine Blood Urine Nitrate Urine Bilirubin Urine Urobilinogen Ur Leukocyte Esterase Urine RBC Urine WBC Ur Epithelial Cells Urine Bacteria Urine Opiates Screen Urine Methadone Screen Ur Barbiturates Screen Ur Phencyclidine Scrn Ur Amphetamines Screen U Benzodiazepines Scrn U Oth Cocaine Metabols U Cannabinoids Screen EKG/Cardiology Studies: Cardiology / EKG Studies 07/22/18 19:42 ELECTROCARDIOGRAM Stat Comment: Reason For Exam: r/o dysrhytmia 07/22/18 23:49 EKG [ELECTROCARDIOGRAM] Stat Comment: Reason For Exam: dka Fingerstick Blood Sugar Results: 383 Review of Systems - Review of Systems Review of Systems: 12 point ROS completed and negativ except as described in HPI. Critical Care Progress Note - Nutrition Nutrition: Nutrition Category Date Time Status Heart Healthy Diet [DIET] Diets 07/23/18 Breakfast Active Assessment/Plan - Assessment and Plan (Free Text) Assessment: 62 F with history of HIV, IDDM, hepatitis presenting with AMS, likely secondary to HHS. Patient remains confused. Neuro -AAOx2, no FND, moving extremities past midline. -F/U head CT for AMS -Monitor neuro status. -Reorient patient as necessary. -Patient denies depressive mood/suicidal ideation Cardiovascular -Troponins negative x 2 -RRR, normotensive, no signs of HD compromise -Maintain MAP > 65. -Monitor for S/S, HD compromise. Endocrine -HHS, lactic acidosis, bicarb is 29 -Replete potassium, maintain electrolytes, BMP q4 -Received 12 units insulin in ED. Plan to give Levemir 15 units daily, f/u accuchecks -Most recent accucheck for 358 with Lactate 3.2 -HHD -breastfeeding educator -HgA1C, Vit B12, Vit D levels, lipid panel pending -F/U Beta hydroxybutyrate -Maintain euglycemia, normothermia -ISS-high Infectious disease -ID consult - Dr. Pappas- recs appreciated. F/u CT head and CT abdomen/pelvis -Leukocytosis 22.5 -f/u Urine culture, Blood culture -Procalcitonin pending -CD4/CD8 count pending -Vanc and Zosyn Heme/Onc: -H/H stable at 13.4 -No signs of HD compromise. -Continue monitoring H/H Renal -Replete electrolytes as needed -Currently on NS@100 infused with potassium chloride, KCL 40 mEq PO, f/u repeat BMP Sacral wounds - Unstageable, on Nystatin cream - Wound care consult - PT recs appreciated for deconditioning DVT ppx: SCDs GI PPX: Protonix 40 mg IVP Patient seen, case reviewed and plan approved by Dr. Martell. Nasir Cueto, PGY-1 <Mariusz Martell - Last Filed: 07/23/18 13:09> CCU Objective - Vital Signs / Intake & Output Vital Signs (Last 4 hours): Vital Signs Pulse Resp BP Pulse Ox 07/23/18 12:10 86 22 99 07/23/18 12:04 94 H 21 144/83 100 07/23/18 12:01 94 H 19 206/118 H 100 07/23/18 12:00 94 H 23 100 07/23/18 11:50 92 H 24 99 07/23/18 11:40 88 14 100 07/23/18 11:30 98 H 20 100 07/23/18 11:20 89 19 99 07/23/18 11:10 107 H 19 100 07/23/18 11:00 94 H 21 131/68 99 07/23/18 10:50 95 H 24 99 07/23/18 10:40 94 H 24 98 07/23/18 10:30 96 H 15 100 07/23/18 10:22 103 H 15 132/75 100 07/23/18 10:20 103 H 17 100 07/23/18 10:10 103 H 20 99 07/23/18 10:00 103 H 98 07/23/18 09:50 104 H 24 99 07/23/18 09:40 105 H 100 07/23/18 09:30 104 H 16 100 07/23/18 09:20 103 H 17 99 07/23/18 09:10 110 H 29 H 99 Intake and Output (Last 8hrs): Intake & Output 07/22/18 07/23/18 07/23/18 22:59 06:59 14:59 Intake Total 3404 Output Total 225 Balance 3179 Weight 145 lb 124 lb 1.6 oz Intake: IV 3404 Right Antecubital 3400 Output: Urine 225 Urine, Voided 225 Other: # Bowel Movements 0 - Medications Active Medications: Active Medications Generic Name Dose Route Start Last Admin Trade Name Freq PRN Reason Stop Dose Admin Dextrose 0 ml 01/12/19 06:32 Dextrose 50% Inj IV STAT PRN Hypoglycemia Protocol Protocol Dextrose 1,000 mls @ 0 mls/hr 07/23/18 06:32 Dextrose 5% In Water 1000 Ml IV .Q0M PRN Hypoglycemia Protocol Protocol Per Protocol Vancomycin HCl 1 gm in 250 mls @ 167 mls/hr 07/23/18 10:00 07/23/18 10:12 Vancomycin 1gm IVPB 167 mls/hr Q12 JOHN Administration Protocol Piperacillin Sod/Tazobactam Sod 100 mls @ 25 mls/hr 07/23/18 14:00 Zosyn 3.375 In Ns 100ml IVPB 07/29/18 14:01 Q8 JOHN Protocol Potassium Chloride 20 meq/ 1,010 mls @ 100 mls/hr 07/23/18 11:00 07/23/18 12:01 Sodium Chloride IV 100 mls/hr .[id number] JOHN Administration Insulin Detemir 15 unit 07/24/18 10:00 Levemir SC DAILY JOHN Insulin Human Regular 0 units 07/23/18 11:30 07/23/18 12:02 Humulin R High SC 4 unit ACHS JOHN Administration Protocol Nystatin 0 ea 07/23/18 10:00 07/23/18 11:56 Mycostatin Cream TOP 2 g TID JOHN Administration Pantoprazole Sodium 40 mg 07/23/18 10:00 07/23/18 10:12 Protonix Inj IVP 40 mg DAILY JOHN Administration - Patient Studies Lab Studies: Lab Studies 07/23/18 07/23/18 07/23/18 Range/Units 10:15 06:14 05:00 WBC (4.5-11.0) 10^3/uL RBC (3.5-6.1) 10^6/uL Hgb (12.0-16.0) g/dL Hct (36.0-48.0) % MCV (80.0-105.0) fl MCH (25.0-35.0) pg MCHC (31.0-37.0) g/dl RDW (11.5-14.5) % Plt Count (120.0-450.0) 10^3/uL MPV (7.0-11.0) fl Gran % (50.0-68.0) % Lymph % (Auto) (22.0-35.0) % [place] % (Auto) (1.0-6.0) % Eos % (Auto) (1.5-5.0) % Baso % (Auto) (0.0-3.0) % Gran # (1.4-6.5) Lymph # (Auto) (1.2-3.4) [place] # (Auto) (0.1-0.6) Eos # (Auto) (0.0-0.7) Baso # (Auto) (0.0-2.0) K/mm3 Neutrophils % (Manual) (50.0-70.0) % Band Neutrophils % (0-2) % Lymphocytes % (Manual) (22.0-35.0) % Monocytes % (Manual) (1.0-6.0) % Eosinophils % (Manual) (0.0-3.0) % Platelet Evaluation (NORMAL) PT (9.4-12.5) SECONDS INR APTT (25.1-36.5) Seconds pO2 (30-55) mm/Hg VBG pH (7.32-7.43) VBG pCO2 (40-60) VBG HCO3 (21-28) mmol/l VBG Total CO2 (22-28) mmol.L VBG O2 Sat (Calc) (40-65) % VBG Base Excess (0.0-2.0) mmol/L VBG Potassium (3.6-5.2) mmol/L Glucose (65-105) mg/dl Lactate (0.7-2.1) mmol/L FiO2 % Sodium (132-148) mmol/L Potassium (3.6-5.0) mmol/L Chloride (98-107) mmol/L Carbon Dioxide (21-33) mmol/L Anion Gap (10-20) BUN (7-21) mg/dL Creatinine (0.7-1.2) mg/dl Est GFR ( Amer) Est GFR (Non-Af Amer) POC Glucose (mg/dL) 321 H 383 H (65-110) mg/dL Random Glucose (70-110) mg/dL Serum Osmolality (272-300) mosm/kg Calcium (8.4-10.5) mg/dL Magnesium (1.7-2.2) mg/dL Total Bilirubin (0.2-1.3) mg/dL AST (14-36) U/L ALT (7-56) U/L Alkaline Phosphatase (38-126) U/L Lactate Dehydrogenase (333-699) U/L Total Creatine Kinase (35-230) U/L Troponin I < 0.01 ng/mL Total Protein (5.8-8.3) g/dL Albumin (3.0-4.8) g/dL Globulin gm/dL Albumin/Globulin Ratio (1.1-1.8) Triglycerides (35-160) mg/dL Cholesterol (130-200) mg/dL LDL Cholesterol Direct (0-129) mg/dL HDL Cholesterol (29-60) mg/dL Vitamin B12 (239-931) pg/mL 25-OH Vitamin D Total (30.0-100.0) NG/ML Procalcitonin (0.19-0.49) NG/ML TSH 3rd Generation (0.46-4.68) mIU/mL Venous Blood Potassium (3.6-5.2) mmol/L Urine Color (YELLOW) Urine Appearance (CLEAR) Urine pH (4.7-8.0) Ur Specific [place] (1.005-1.035) Urine Protein (<30 mg/dL) mg/dL Urine Glucose (UA) (NEGATIVE) mg/dL Urine Ketones (NEGATIVE) mg/dL Urine Blood (NEGATIVE) Urine Nitrate (NEGATIVE) Urine Bilirubin (NEGATIVE) Urine Urobilinogen (<1 E.U./dL) E.U./dL Ur Leukocyte Esterase (NEGATIVE) Marisa/uL Urine RBC (0-2) /hpf Urine WBC (0-6) /hpf Ur Epithelial Cells (0-5) /hpf Urine Bacteria (NONE) /hpf Urine Opiates Screen (NEGATIVE) Urine Methadone Screen (NEGATIVE) Ur Barbiturates Screen (NEGATIVE) Ur Phencyclidine Scrn (NEGATIVE) Ur Amphetamines Screen (NEGATIVE) U Benzodiazepines Scrn (NEGATIVE) U Oth Cocaine Metabols (NEGATIVE) U Cannabinoids Screen (NEGATIVE) B-Hydroxybutyrate (0.02-0.27) mM 07/23/18 07/23/18 07/23/18 Range/Units 05:00 05:00 02:51 WBC 22.5 H (4.5-11.0) 10^3/uL RBC 4.50 (3.5-6.1) 10^6/uL Hgb 13.4 D (12.0-16.0) g/dL Hct 40.1 (36.0-48.0) % MCV 89.1 D (80.0-105.0) fl MCH 29.8 (25.0-35.0) pg MCHC 33.4 (31.0-37.0) g/dl RDW 12.7 (11.5-14.5) % Plt Count 239 (120.0-450.0) 10^3/uL MPV 12.8 H (7.0-11.0) fl Gran % (50.0-68.0) % Lymph % (Auto) (22.0-35.0) % [place] % (Auto) (1.0-6.0) % Eos % (Auto) (1.5-5.0) % Baso % (Auto) (0.0-3.0) % Gran # (1.4-6.5) Lymph # (Auto) (1.2-3.4) [place] # (Auto) (0.1-0.6) Eos # (Auto) (0.0-0.7) Baso # (Auto) (0.0-2.0) K/mm3 Neutrophils % (Manual) (50.0-70.0) % Band Neutrophils % (0-2) % Lymphocytes % (Manual) (22.0-35.0) % Monocytes % (Manual) (1.0-6.0) % Eosinophils % (Manual) (0.0-3.0) % Platelet Evaluation (NORMAL) PT (9.4-12.5) SECONDS INR APTT (25.1-36.5) Seconds pO2 (30-55) mm/Hg VBG pH (7.32-7.43) VBG pCO2 (40-60) VBG HCO3 (21-28) mmol/l VBG Total CO2 (22-28) mmol.L VBG O2 Sat (Calc) (40-65) % VBG Base Excess (0.0-2.0) mmol/L VBG Potassium (3.6-5.2) mmol/L Glucose (65-105) mg/dl Lactate (0.7-2.1) mmol/L FiO2 % Sodium (132-148) mmol/L Potassium (3.6-5.0) mmol/L Chloride (98-107) mmol/L Carbon Dioxide (21-33) mmol/L Anion Gap (10-20) BUN (7-21) mg/dL Creatinine (0.7-1.2) mg/dl Est GFR ( Amer) Est GFR (Non-Af Amer) POC Glucose (mg/dL) 326 H (65-110) mg/dL Random Glucose (70-110) mg/dL Serum Osmolality (272-300) mosm/kg Calcium (8.4-10.5) mg/dL Magnesium (1.7-2.2) mg/dL Total Bilirubin (0.2-1.3) mg/dL AST (14-36) U/L ALT (7-56) U/L Alkaline Phosphatase (38-126) U/L Lactate Dehydrogenase (333-699) U/L Total Creatine Kinase (35-230) U/L Troponin I ng/mL Total Protein (5.8-8.3) g/dL Albumin (3.0-4.8) g/dL Globulin gm/dL Albumin/Globulin Ratio (1.1-1.8) Triglycerides 173 H (35-160) mg/dL Cholesterol 86 L (130-200) mg/dL LDL Cholesterol Direct 57 (0-129) mg/dL HDL Cholesterol 13 L (29-60) mg/dL Vitamin B12 (239-931) pg/mL 25-OH Vitamin D Total (30.0-100.0) NG/ML Procalcitonin (0.19-0.49) NG/ML TSH 3rd Generation (0.46-4.68) mIU/mL Venous Blood Potassium (3.6-5.2) mmol/L Urine Color (YELLOW) Urine Appearance (CLEAR) Urine pH (4.7-8.0) Ur Specific [place] (1.005-1.035) Urine Protein (<30 mg/dL) mg/dL Urine Glucose (UA) (NEGATIVE) mg/dL Urine Ketones (NEGATIVE) mg/dL Urine Blood (NEGATIVE) Urine Nitrate (NEGATIVE) Urine Bilirubin (NEGATIVE) Urine Urobilinogen (<1 E.U./dL) E.U./dL Ur Leukocyte Esterase (NEGATIVE) Marisa/uL Urine RBC (0-2) /hpf Urine WBC (0-6) /hpf Ur Epithelial Cells (0-5) /hpf Urine Bacteria (NONE) /hpf Urine Opiates Screen (NEGATIVE) Urine Methadone Screen (NEGATIVE) Ur Barbiturates Screen (NEGATIVE) Ur Phencyclidine Scrn (NEGATIVE) Ur Amphetamines Screen (NEGATIVE) U Benzodiazepines Scrn (NEGATIVE) U Oth Cocaine Metabols (NEGATIVE) U Cannabinoids Screen (NEGATIVE) B-Hydroxybutyrate (0.02-0.27) mM 07/23/18 07/23/18 07/23/18 Range/Units 02:15 02:00 02:00 WBC (4.5-11.0) 10^3/uL RBC (3.5-6.1) 10^6/uL Hgb (12.0-16.0) g/dL Hct (36.0-48.0) % MCV (80.0-105.0) fl MCH (25.0-35.0) pg MCHC (31.0-37.0) g/dl RDW (11.5-14.5) % Plt Count (120.0-450.0) 10^3/uL MPV (7.0-11.0) fl Gran % (50.0-68.0) % Lymph % (Auto) (22.0-35.0) % [place] % (Auto) (1.0-6.0) % Eos % (Auto) (1.5-5.0) % Baso % (Auto) (0.0-3.0) % Gran # (1.4-6.5) Lymph # (Auto) (1.2-3.4) [place] # (Auto) (0.1-0.6) Eos # (Auto) (0.0-0.7) Baso # (Auto) (0.0-2.0) K/mm3 Neutrophils % (Manual) (50.0-70.0) % Band Neutrophils % (0-2) % Lymphocytes % (Manual) (22.0-35.0) % Monocytes % (Manual) (1.0-6.0) % Eosinophils % (Manual) (0.0-3.0) % Platelet Evaluation (NORMAL) PT (9.4-12.5) SECONDS INR APTT (25.1-36.5) Seconds pO2 (30-55) mm/Hg VBG pH (7.32-7.43) VBG pCO2 (40-60) VBG HCO3 (21-28) mmol/l VBG Total CO2 (22-28) mmol.L VBG O2 Sat (Calc) (40-65) % VBG Base Excess (0.0-2.0) mmol/L VBG Potassium (3.6-5.2) mmol/L Glucose (65-105) mg/dl Lactate (0.7-2.1) mmol/L FiO2 % Sodium 145 (132-148) mmol/L Potassium 3.3 L (3.6-5.0) mmol/L Chloride 110 H (98-107) mmol/L Carbon Dioxide 29 (21-33) mmol/L Anion Gap 10 (10-20) BUN 46 H (7-21) mg/dL Creatinine 0.8 (0.7-1.2) mg/dl Est GFR ( Amer) > 60 Est GFR (Non-Af Amer) > 60 POC Glucose (mg/dL) (65-110) mg/dL Random Glucose 290 H (70-110) mg/dL Serum Osmolality 330 H (272-300) mosm/kg Calcium 8.5 (8.4-10.5) mg/dL Magnesium (1.7-2.2) mg/dL Total Bilirubin (0.2-1.3) mg/dL AST (14-36) U/L ALT (7-56) U/L Alkaline Phosphatase (38-126) U/L Lactate Dehydrogenase (333-699) U/L Total Creatine Kinase (35-230) U/L Troponin I ng/mL Total Protein (5.8-8.3) g/dL Albumin (3.0-4.8) g/dL Globulin gm/dL Albumin/Globulin Ratio (1.1-1.8) Triglycerides (35-160) mg/dL Cholesterol (130-200) mg/dL LDL Cholesterol Direct (0-129) mg/dL HDL Cholesterol (29-60) mg/dL Vitamin B12 (239-931) pg/mL 25-OH Vitamin D Total (30.0-100.0) NG/ML Procalcitonin (0.19-0.49) NG/ML TSH 3rd Generation (0.46-4.68) mIU/mL Venous Blood Potassium (3.6-5.2) mmol/L Urine Color (YELLOW) Urine Appearance (CLEAR) Urine pH (4.7-8.0) Ur Specific [place] (1.005-1.035) Urine Protein (<30 mg/dL) mg/dL Urine Glucose (UA) (NEGATIVE) mg/dL Urine Ketones (NEGATIVE) mg/dL Urine Blood (NEGATIVE) Urine Nitrate (NEGATIVE) Urine Bilirubin (NEGATIVE) Urine Urobilinogen (<1 E.U./dL) E.U./dL Ur Leukocyte Esterase (NEGATIVE) Marisa/uL Urine RBC (0-2) /hpf Urine WBC (0-6) /hpf Ur Epithelial Cells (0-5) /hpf Urine Bacteria (NONE) /hpf Urine Opiates Screen Negative (NEGATIVE) Urine Methadone Screen Negative (NEGATIVE) Ur Barbiturates Screen Negative (NEGATIVE) Ur Phencyclidine Scrn Negative (NEGATIVE) Ur Amphetamines Screen Negative (NEGATIVE) U Benzodiazepines Scrn Negative (NEGATIVE) U Oth Cocaine Metabols Negative (NEGATIVE) U Cannabinoids Screen Negative (NEGATIVE) B-Hydroxybutyrate (0.02-0.27) mM 07/23/18 07/23/18 07/23/18 Range/Units 02:00 01:57 00:27 WBC (4.5-11.0) 10^3/uL RBC (3.5-6.1) 10^6/uL Hgb (12.0-16.0) g/dL Hct (36.0-48.0) % MCV (80.0-105.0) fl MCH (25.0-35.0) pg MCHC (31.0-37.0) g/dl RDW (11.5-14.5) % Plt Count (120.0-450.0) 10^3/uL MPV (7.0-11.0) fl Gran % (50.0-68.0) % Lymph % (Auto) (22.0-35.0) % [place] % (Auto) (1.0-6.0) % Eos % (Auto) (1.5-5.0) % Baso % (Auto) (0.0-3.0) % Gran # (1.4-6.5) Lymph # (Auto) (1.2-3.4) [place] # (Auto) (0.1-0.6) Eos # (Auto) (0.0-0.7) Baso # (Auto) (0.0-2.0) K/mm3 Neutrophils % (Manual) (50.0-70.0) % Band Neutrophils % (0-2) % Lymphocytes % (Manual) (22.0-35.0) % Monocytes % (Manual) (1.0-6.0) % Eosinophils % (Manual) (0.0-3.0) % Platelet Evaluation (NORMAL) PT (9.4-12.5) SECONDS INR APTT (25.1-36.5) Seconds pO2 (30-55) mm/Hg VBG pH (7.32-7.43) VBG pCO2 (40-60) VBG HCO3 (21-28) mmol/l VBG Total CO2 (22-28) mmol.L VBG O2 Sat (Calc) (40-65) % VBG Base Excess (0.0-2.0) mmol/L VBG Potassium (3.6-5.2) mmol/L Glucose (65-105) mg/dl Lactate (0.7-2.1) mmol/L FiO2 % Sodium (132-148) mmol/L Potassium (3.6-5.0) mmol/L Chloride (98-107) mmol/L Carbon Dioxide (21-33) mmol/L Anion Gap (10-20) BUN (7-21) mg/dL Creatinine (0.7-1.2) mg/dl Est GFR ( Amer) Est GFR (Non-Af Amer) POC Glucose (mg/dL) 319 H 331 H (65-110) mg/dL Random Glucose (70-110) mg/dL Serum Osmolality (272-300) mosm/kg Calcium (8.4-10.5) mg/dL Magnesium (1.7-2.2) mg/dL Total Bilirubin (0.2-1.3) mg/dL AST (14-36) U/L ALT (7-56) U/L Alkaline Phosphatase (38-126) U/L Lactate Dehydrogenase (333-699) U/L Total Creatine Kinase (35-230) U/L Troponin I ng/mL Total Protein (5.8-8.3) g/dL Albumin (3.0-4.8) g/dL Globulin gm/dL Albumin/Globulin Ratio (1.1-1.8) Triglycerides (35-160) mg/dL Cholesterol (130-200) mg/dL LDL Cholesterol Direct (0-129) mg/dL HDL Cholesterol (29-60) mg/dL Vitamin B12 (239-931) pg/mL 25-OH Vitamin D Total (30.0-100.0) NG/ML Procalcitonin 1.15 H (0.19-0.49) NG/ML TSH 3rd Generation (0.46-4.68) mIU/mL Venous Blood Potassium (3.6-5.2) mmol/L Urine Color (YELLOW) Urine Appearance (CLEAR) Urine pH (4.7-8.0) Ur Specific [place] (1.005-1.035) Urine Protein (<30 mg/dL) mg/dL Urine Glucose (UA) (NEGATIVE) mg/dL Urine Ketones (NEGATIVE) mg/dL Urine Blood (NEGATIVE) Urine Nitrate (NEGATIVE) Urine Bilirubin (NEGATIVE) Urine Urobilinogen (<1 E.U./dL) E.U./dL Ur Leukocyte Esterase (NEGATIVE) Marisa/uL Urine RBC (0-2) /hpf Urine WBC (0-6) /hpf Ur Epithelial Cells (0-5) /hpf Urine Bacteria (NONE) /hpf Urine Opiates Screen (NEGATIVE) Urine Methadone Screen (NEGATIVE) Ur Barbiturates Screen (NEGATIVE) Ur Phencyclidine Scrn (NEGATIVE) Ur Amphetamines Screen (NEGATIVE) U Benzodiazepines Scrn (NEGATIVE) U Oth Cocaine Metabols (NEGATIVE) U Cannabinoids Screen (NEGATIVE) B-Hydroxybutyrate (0.02-0.27) mM 07/23/18 07/22/18 07/22/18 Range/Units 00:00 23:36 23:35 WBC (4.5-11.0) 10^3/uL RBC (3.5-6.1) 10^6/uL Hgb (12.0-16.0) g/dL Hct (36.0-48.0) % MCV (80.0-105.0) fl MCH (25.0-35.0) pg MCHC (31.0-37.0) g/dl RDW (11.5-14.5) % Plt Count (120.0-450.0) 10^3/uL MPV (7.0-11.0) fl Gran % (50.0-68.0) % Lymph % (Auto) (22.0-35.0) % [place] % (Auto) (1.0-6.0) % Eos % (Auto) (1.5-5.0) % Baso % (Auto) (0.0-3.0) % Gran # (1.4-6.5) Lymph # (Auto) (1.2-3.4) [place] # (Auto) (0.1-0.6) Eos # (Auto) (0.0-0.7) Baso # (Auto) (0.0-2.0) K/mm3 Neutrophils % (Manual) (50.0-70.0) % Band Neutrophils % (0-2) % Lymphocytes % (Manual) (22.0-35.0) % Monocytes % (Manual) (1.0-6.0) % Eosinophils % (Manual) (0.0-3.0) % Platelet Evaluation (NORMAL) PT (9.4-12.5) SECONDS INR APTT (25.1-36.5) Seconds pO2 58 H (30-55) mm/Hg VBG pH 7.31 L (7.32-7.43) VBG pCO2 50.0 (40-60) VBG HCO3 25.2 (21-28) mmol/l VBG Total CO2 26.7 (22-28) mmol.L VBG O2 Sat (Calc) 93.2 H (40-65) % VBG Base Excess -1.7 L (0.0-2.0) mmol/L VBG Potassium 2.7 L (3.6-5.2) mmol/L Glucose 358 H (65-105) mg/dl Lactate 3.2 H (0.7-2.1) mmol/L FiO2 21.0 % Sodium 146.0 (132-148) mmol/L Potassium (3.6-5.0) mmol/L Chloride 107.0 (98-107) mmol/L Carbon Dioxide (21-33) mmol/L Anion Gap (10-20) BUN (7-21) mg/dL Creatinine (0.7-1.2) mg/dl Est GFR ( Amer) Est GFR (Non-Af Amer) POC Glucose (mg/dL) (65-110) mg/dL Random Glucose (70-110) mg/dL Serum Osmolality (272-300) mosm/kg Calcium (8.4-10.5) mg/dL Magnesium (1.7-2.2) mg/dL Total Bilirubin (0.2-1.3) mg/dL AST (14-36) U/L ALT (7-56) U/L Alkaline Phosphatase (38-126) U/L Lactate Dehydrogenase (333-699) U/L Total Creatine Kinase (35-230) U/L Troponin I ng/mL Total Protein (5.8-8.3) g/dL Albumin (3.0-4.8) g/dL Globulin gm/dL Albumin/Globulin Ratio (1.1-1.8) Triglycerides (35-160) mg/dL Cholesterol (130-200) mg/dL LDL Cholesterol Direct (0-129) mg/dL HDL Cholesterol (29-60) mg/dL Vitamin B12 (239-931) pg/mL 25-OH Vitamin D Total 28.2 L (30.0-100.0) NG/ML Procalcitonin (0.19-0.49) NG/ML TSH 3rd Generation 0.37 L (0.46-4.68) mIU/mL Venous Blood Potassium 2.7 L (3.6-5.2) mmol/L Urine Color (YELLOW) Urine Appearance (CLEAR) Urine pH (4.7-8.0) Ur Specific [place] (1.005-1.035) Urine Protein (<30 mg/dL) mg/dL Urine Glucose (UA) (NEGATIVE) mg/dL Urine Ketones (NEGATIVE) mg/dL Urine Blood (NEGATIVE) Urine Nitrate (NEGATIVE) Urine Bilirubin (NEGATIVE) Urine Urobilinogen (<1 E.U./dL) E.U./dL Ur Leukocyte Esterase (NEGATIVE) Marisa/uL Urine RBC (0-2) /hpf Urine WBC (0-6) /hpf Ur Epithelial Cells (0-5) /hpf Urine Bacteria (NONE) /hpf Urine Opiates Screen (NEGATIVE) Urine Methadone Screen (NEGATIVE) Ur Barbiturates Screen (NEGATIVE) Ur Phencyclidine Scrn (NEGATIVE) Ur Amphetamines Screen (NEGATIVE) U Benzodiazepines Scrn (NEGATIVE) U Oth Cocaine Metabols (NEGATIVE) U Cannabinoids Screen (NEGATIVE) B-Hydroxybutyrate (0.02-0.27) mM 07/22/18 07/22/18 07/22/18 Range/Units 23:34 23:01 21:29 WBC (4.5-11.0) 10^3/uL RBC (3.5-6.1) 10^6/uL Hgb (12.0-16.0) g/dL Hct (36.0-48.0) % MCV (80.0-105.0) fl MCH (25.0-35.0) pg MCHC (31.0-37.0) g/dl RDW (11.5-14.5) % Plt Count (120.0-450.0) 10^3/uL MPV (7.0-11.0) fl Gran % (50.0-68.0) % Lymph % (Auto) (22.0-35.0) % [place] % (Auto) (1.0-6.0) % Eos % (Auto) (1.5-5.0) % Baso % (Auto) (0.0-3.0) % Gran # (1.4-6.5) Lymph # (Auto) (1.2-3.4) [place] # (Auto) (0.1-0.6) Eos # (Auto) (0.0-0.7) Baso # (Auto) (0.0-2.0) K/mm3 Neutrophils % (Manual) (50.0-70.0) % Band Neutrophils % (0-2) % Lymphocytes % (Manual) (22.0-35.0) % Monocytes % (Manual) (1.0-6.0) % Eosinophils % (Manual) (0.0-3.0) % Platelet Evaluation (NORMAL) PT (9.4-12.5) SECONDS INR APTT (25.1-36.5) Seconds pO2 53 (30-55) mm/Hg VBG pH 7.26 L (7.32-7.43) VBG pCO2 50.0 (40-60) VBG HCO3 22.4 (21-28) mmol/l VBG Total CO2 23.9 (22-28) mmol.L VBG O2 Sat (Calc) 89.8 H (40-65) % VBG Base Excess -5.0 L (0.0-2.0) mmol/L VBG Potassium 3.5 L (3.6-5.2) mmol/L Glucose 722 H* (65-105) mg/dl Lactate 4.0 H* (0.7-2.1) mmol/L FiO2 21.0 % Sodium 142.0 (132-148) mmol/L Potassium (3.6-5.0) mmol/L Chloride 98.0 (98-107) mmol/L Carbon Dioxide (21-33) mmol/L Anion Gap (10-20) BUN (7-21) mg/dL Creatinine (0.7-1.2) mg/dl Est GFR ( Amer) Est GFR (Non-Af Amer) POC Glucose (mg/dL) 354 H (65-110) mg/dL Random Glucose (70-110) mg/dL Serum Osmolality (272-300) mosm/kg Calcium (8.4-10.5) mg/dL Magnesium (1.7-2.2) mg/dL Total Bilirubin (0.2-1.3) mg/dL AST (14-36) U/L ALT (7-56) U/L Alkaline Phosphatase (38-126) U/L Lactate Dehydrogenase (333-699) U/L Total Creatine Kinase (35-230) U/L Troponin I ng/mL Total Protein (5.8-8.3) g/dL Albumin (3.0-4.8) g/dL Globulin gm/dL Albumin/Globulin Ratio (1.1-1.8) Triglycerides (35-160) mg/dL Cholesterol (130-200) mg/dL LDL Cholesterol Direct (0-129) mg/dL HDL Cholesterol (29-60) mg/dL Vitamin B12 995 H (239-931) pg/mL 25-OH Vitamin D Total (30.0-100.0) NG/ML Procalcitonin (0.19-0.49) NG/ML TSH 3rd Generation (0.46-4.68) mIU/mL Venous Blood Potassium 3.5 L (3.6-5.2) mmol/L Urine Color (YELLOW) Urine Appearance (CLEAR) Urine pH (4.7-8.0) Ur Specific [place] (1.005-1.035) Urine Protein (<30 mg/dL) mg/dL Urine Glucose (UA) (NEGATIVE) mg/dL Urine Ketones (NEGATIVE) mg/dL Urine Blood (NEGATIVE) Urine Nitrate (NEGATIVE) Urine Bilirubin (NEGATIVE) Urine Urobilinogen (<1 E.U./dL) E.U./dL Ur Leukocyte Esterase (NEGATIVE) Marisa/uL Urine RBC (0-2) /hpf Urine WBC (0-6) /hpf Ur Epithelial Cells (0-5) /hpf Urine Bacteria (NONE) /hpf Urine Opiates Screen (NEGATIVE) Urine Methadone Screen (NEGATIVE) Ur Barbiturates Screen (NEGATIVE) Ur Phencyclidine Scrn (NEGATIVE) Ur Amphetamines Screen (NEGATIVE) U Benzodiazepines Scrn (NEGATIVE) U Oth Cocaine Metabols (NEGATIVE) U Cannabinoids Screen (NEGATIVE) B-Hydroxybutyrate 5.32 H (0.02-0.27) mM 07/22/18 07/22/18 07/22/18 Range/Units 20:44 20:10 20:10 WBC (4.5-11.0) 10^3/uL RBC (3.5-6.1) 10^6/uL Hgb (12.0-16.0) g/dL Hct (36.0-48.0) % MCV (80.0-105.0) fl MCH (25.0-35.0) pg MCHC (31.0-37.0) g/dl RDW (11.5-14.5) % Plt Count (120.0-450.0) 10^3/uL MPV (7.0-11.0) fl Gran % (50.0-68.0) % Lymph % (Auto) (22.0-35.0) % [place] % (Auto) (1.0-6.0) % Eos % (Auto) (1.5-5.0) % Baso % (Auto) (0.0-3.0) % Gran # (1.4-6.5) Lymph # (Auto) (1.2-3.4) [place] # (Auto) (0.1-0.6) Eos # (Auto) (0.0-0.7) Baso # (Auto) (0.0-2.0) K/mm3 Neutrophils % (Manual) (50.0-70.0) % Band Neutrophils % (0-2) % Lymphocytes % (Manual) (22.0-35.0) % Monocytes % (Manual) (1.0-6.0) % Eosinophils % (Manual) (0.0-3.0) % Platelet Evaluation (NORMAL) PT 11.6 (9.4-12.5) SECONDS INR 1.02 APTT 22.5 L (25.1-36.5) Seconds pO2 (30-55) mm/Hg VBG pH (7.32-7.43) VBG pCO2 (40-60) VBG HCO3 (21-28) mmol/l VBG Total CO2 (22-28) mmol.L VBG O2 Sat (Calc) (40-65) % VBG Base Excess (0.0-2.0) mmol/L VBG Potassium (3.6-5.2) mmol/L Glucose (65-105) mg/dl Lactate (0.7-2.1) mmol/L FiO2 % Sodium 138 (132-148) mmol/L Potassium 3.2 L (3.6-5.0) mmol/L Chloride 94 L (98-107) mmol/L Carbon Dioxide 21 (21-33) mmol/L Anion Gap 26 H (10-20) BUN 52 H (7-21) mg/dL Creatinine 1.1 (0.7-1.2) mg/dl Est GFR ( Amer) > 60 Est GFR (Non-Af Amer) 50 POC Glucose (mg/dL) (65-110) mg/dL Random Glucose 811 H* D (70-110) mg/dL Serum Osmolality (272-300) mosm/kg Calcium 10.0 (8.4-10.5) mg/dL Magnesium 2.6 H (1.7-2.2) mg/dL Total Bilirubin 1.5 H (0.2-1.3) mg/dL AST 25 (14-36) U/L ALT 14 (7-56) U/L Alkaline Phosphatase 184 H D (38-126) U/L Lactate Dehydrogenase 403 (333-699) U/L Total Creatine Kinase < 20 L (35-230) U/L Troponin I < 0.01 ng/mL Total Protein 7.2 (5.8-8.3) g/dL Albumin 3.3 (3.0-4.8) g/dL Globulin 3.9 gm/dL Albumin/Globulin Ratio 0.9 L (1.1-1.8) Triglycerides (35-160) mg/dL Cholesterol (130-200) mg/dL LDL Cholesterol Direct (0-129) mg/dL HDL Cholesterol (29-60) mg/dL Vitamin B12 (239-931) pg/mL 25-OH Vitamin D Total (30.0-100.0) NG/ML Procalcitonin (0.19-0.49) NG/ML TSH 3rd Generation (0.46-4.68) mIU/mL Venous Blood Potassium (3.6-5.2) mmol/L Urine Color Yellow (YELLOW) Urine Appearance Sl cloudy (CLEAR) Urine pH 6.0 (4.7-8.0) Ur Specific [place] 1.010 (1.005-1.035) Urine Protein Negative (<30 mg/dL) mg/dL Urine Glucose (UA) >=1000 (NEGATIVE) mg/dL Urine Ketones 15 H (NEGATIVE) mg/dL Urine Blood Moderate H (NEGATIVE) Urine Nitrate Negative (NEGATIVE) Urine Bilirubin Negative (NEGATIVE) Urine Urobilinogen 1.0 H (<1 E.U./dL) E.U./dL Ur Leukocyte Esterase Small H (NEGATIVE) Marisa/uL Urine RBC 5 - 10 H (0-2) /hpf Urine WBC 25 - 30 H (0-6) /hpf Ur Epithelial Cells 3 - 4 (0-5) /hpf Urine Bacteria Large (NONE) /hpf Urine Opiates Screen (NEGATIVE) Urine Methadone Screen (NEGATIVE) Ur Barbiturates Screen (NEGATIVE) Ur Phencyclidine Scrn (NEGATIVE) Ur Amphetamines Screen (NEGATIVE) U Benzodiazepines Scrn (NEGATIVE) U Oth Cocaine Metabols (NEGATIVE) U Cannabinoids Screen (NEGATIVE) B-Hydroxybutyrate (0.02-0.27) mM 07/22/18 Range/Units 20:10 WBC 25.7 H* (4.5-11.0) 10^3/uL RBC 5.06 (3.5-6.1) 10^6/uL Hgb 15.6 D (12.0-16.0) g/dL Hct 46.9 (36.0-48.0) % MCV 92.7 (80.0-105.0) fl MCH 30.8 (25.0-35.0) pg MCHC 33.3 (31.0-37.0) g/dl RDW 13.1 (11.5-14.5) % Plt Count 396 (120.0-450.0) 10^3/uL MPV 14.3 H (7.0-11.0) fl Gran % 93.0 H (50.0-68.0) % Lymph % (Auto) 5.5 L (22.0-35.0) % [place] % (Auto) 1.4 (1.0-6.0) % Eos % (Auto) 0.0 L (1.5-5.0) % Baso % (Auto) 0.1 (0.0-3.0) % Gran # 23.86 H (1.4-6.5) Lymph # (Auto) 1.4 (1.2-3.4) [place] # (Auto) 0.4 (0.1-0.6) Eos # (Auto) 0.0 (0.0-0.7) Baso # (Auto) 0.02 (0.0-2.0) K/mm3 Neutrophils % (Manual) 54 (50.0-70.0) % Band Neutrophils % 38 H* (0-2) % Lymphocytes % (Manual) 4 L (22.0-35.0) % Monocytes % (Manual) 3 (1.0-6.0) % Eosinophils % (Manual) 1 (0.0-3.0) % Platelet Evaluation Normal (NORMAL) PT (9.4-12.5) SECONDS INR APTT (25.1-36.5) Seconds pO2 (30-55) mm/Hg VBG pH (7.32-7.43) VBG pCO2 (40-60) VBG HCO3 (21-28) mmol/l VBG Total CO2 (22-28) mmol.L VBG O2 Sat (Calc) (40-65) % VBG Base Excess (0.0-2.0) mmol/L VBG Potassium (3.6-5.2) mmol/L Glucose (65-105) mg/dl Lactate (0.7-2.1) mmol/L FiO2 % Sodium (132-148) mmol/L Potassium (3.6-5.0) mmol/L Chloride (98-107) mmol/L Carbon Dioxide (21-33) mmol/L Anion Gap (10-20) BUN (7-21) mg/dL Creatinine (0.7-1.2) mg/dl Est GFR ( Amer) Est GFR (Non-Af Amer) POC Glucose (mg/dL) (65-110) mg/dL Random Glucose (70-110) mg/dL Serum Osmolality (272-300) mosm/kg Calcium (8.4-10.5) mg/dL Magnesium (1.7-2.2) mg/dL Total Bilirubin (0.2-1.3) mg/dL AST (14-36) U/L ALT (7-56) U/L Alkaline Phosphatase (38-126) U/L Lactate Dehydrogenase (333-699) U/L Total Creatine Kinase (35-230) U/L Troponin I ng/mL Total Protein (5.8-8.3) g/dL Albumin (3.0-4.8) g/dL Globulin gm/dL Albumin/Globulin Ratio (1.1-1.8) Triglycerides (35-160) mg/dL Cholesterol (130-200) mg/dL LDL Cholesterol Direct (0-129) mg/dL HDL Cholesterol (29-60) mg/dL Vitamin B12 (239-931) pg/mL 25-OH Vitamin D Total (30.0-100.0) NG/ML Procalcitonin (0.19-0.49) NG/ML TSH 3rd Generation (0.46-4.68) mIU/mL Venous Blood Potassium (3.6-5.2) mmol/L Urine Color (YELLOW) Urine Appearance (CLEAR) Urine pH (4.7-8.0) Ur Specific [place] (1.005-1.035) Urine Protein (<30 mg/dL) mg/dL Urine Glucose (UA) (NEGATIVE) mg/dL Urine Ketones (NEGATIVE) mg/dL Urine Blood (NEGATIVE) Urine Nitrate (NEGATIVE) Urine Bilirubin (NEGATIVE) Urine Urobilinogen (<1 E.U./dL) E.U./dL Ur Leukocyte Esterase (NEGATIVE) Marisa/uL Urine RBC (0-2) /hpf Urine WBC (0-6) /hpf Ur Epithelial Cells (0-5) /hpf Urine Bacteria (NONE) /hpf Urine Opiates Screen (NEGATIVE) Urine Methadone Screen (NEGATIVE) Ur Barbiturates Screen (NEGATIVE) Ur Phencyclidine Scrn (NEGATIVE) Ur Amphetamines Screen (NEGATIVE) U Benzodiazepines Scrn (NEGATIVE) U Oth Cocaine Metabols (NEGATIVE) U Cannabinoids Screen (NEGATIVE) B-Hydroxybutyrate (0.02-0.27) mM Laboratory Results - last 24 hr 07/22/18 07/22/18 07/22/18 20:10 20:10 20:10 WBC 25.7 H* RBC 5.06 Hgb 15.6 D Hct 46.9 MCV 92.7 MCH 30.8 MCHC 33.3 RDW 13.1 Plt Count 396 MPV 14.3 H Gran % 93.0 H Lymph % (Auto) 5.5 L [place] % (Auto) 1.4 Eos % (Auto) 0.0 L Baso % (Auto) 0.1 Gran # 23.86 H Lymph # (Auto) 1.4 [place] # (Auto) 0.4 Eos # (Auto) 0.0 Baso # (Auto) 0.02 Neutrophils % (Manual) 54 Band Neutrophils % 38 H* Lymphocytes % (Manual) 4 L Monocytes % (Manual) 3 Eosinophils % (Manual) 1 Platelet Evaluation Normal PT 11.6 INR 1.02 APTT 22.5 L pO2 VBG pH VBG pCO2 VBG HCO3 VBG Total CO2 VBG O2 Sat (Calc) VBG Base Excess VBG Potassium Glucose Lactate FiO2 Sodium 138 Potassium 3.2 L Chloride 94 L Carbon Dioxide 21 Anion Gap 26 H BUN 52 H Creatinine 1.1 Est GFR ( Amer) > 60 Est GFR (Non-Af Amer) 50 POC Glucose (mg/dL) Random Glucose 811 H* D Serum Osmolality Calcium 10.0 Magnesium 2.6 H Total Bilirubin 1.5 H AST 25 ALT 14 Alkaline Phosphatase 184 H D Lactate Dehydrogenase 403 Total Creatine Kinase < 20 L Troponin I < 0.01 Total Protein 7.2 Albumin 3.3 Globulin 3.9 Albumin/Globulin Ratio 0.9 L Triglycerides Cholesterol LDL Cholesterol Direct HDL Cholesterol Vitamin B12 25-OH Vitamin D Total Procalcitonin TSH 3rd Generation Venous Blood Potassium Urine Color Urine Appearance Urine pH Ur Specific [place] Urine Protein Urine Glucose (UA) Urine Ketones Urine Blood Urine Nitrate Urine Bilirubin Urine Urobilinogen Ur Leukocyte Esterase Urine RBC Urine WBC Ur Epithelial Cells Urine Bacteria Urine Opiates Screen Urine Methadone Screen Ur Barbiturates Screen Ur Phencyclidine Scrn Ur Amphetamines Screen U Benzodiazepines Scrn U Oth Cocaine Metabols U Cannabinoids Screen B-Hydroxybutyrate 07/22/18 07/22/18 07/22/18 20:44 21:29 23:01 WBC RBC Hgb Hct MCV MCH MCHC RDW Plt Count MPV Gran % Lymph % (Auto) [place] % (Auto) Eos % (Auto) Baso % (Auto) Gran # Lymph # (Auto) [place] # (Auto) Eos # (Auto) Baso # (Auto) Neutrophils % (Manual) Band Neutrophils % Lymphocytes % (Manual) Monocytes % (Manual) Eosinophils % (Manual) Platelet Evaluation PT INR APTT pO2 53 VBG pH 7.26 L VBG pCO2 50.0 VBG HCO3 22.4 VBG Total CO2 23.9 VBG O2 Sat (Calc) 89.8 H VBG Base Excess -5.0 L VBG Potassium 3.5 L Glucose 722 H* Lactate 4.0 H* FiO2 21.0 Sodium 142.0 Potassium Chloride 98.0 Carbon Dioxide Anion Gap BUN Creatinine Est GFR ( Amer) Est GFR (Non-Af Amer) POC Glucose (mg/dL) 354 H Random Glucose Serum Osmolality Calcium Magnesium Total Bilirubin AST ALT Alkaline Phosphatase Lactate Dehydrogenase Total Creatine Kinase Troponin I Total Protein Albumin Globulin Albumin/Globulin Ratio Triglycerides Cholesterol LDL Cholesterol Direct HDL Cholesterol Vitamin B12 25-OH Vitamin D Total Procalcitonin TSH 3rd Generation Venous Blood Potassium 3.5 L Urine Color Yellow Urine Appearance Sl cloudy Urine pH 6.0 Ur Specific [place] 1.010 Urine Protein Negative Urine Glucose (UA) >=1000 Urine Ketones 15 H Urine Blood Moderate H Urine Nitrate Negative Urine Bilirubin Negative Urine Urobilinogen 1.0 H Ur Leukocyte Esterase Small H Urine RBC 5 - 10 H Urine WBC 25 - 30 H Ur Epithelial Cells 3 - 4 Urine Bacteria Large Urine Opiates Screen Urine Methadone Screen Ur Barbiturates Screen Ur Phencyclidine Scrn Ur Amphetamines Screen U Benzodiazepines Scrn U Oth Cocaine Metabols U Cannabinoids Screen B-Hydroxybutyrate 07/22/18 07/22/1807/22/19 23:34 23:35 23:36 WBC RBC Hgb Hct MCV MCH MCHC RDW Plt Count MPV Gran % Lymph % (Auto) [place] % (Auto) Eos % (Auto) Baso % (Auto) Gran # Lymph # (Auto) [place] # (Auto) Eos # (Auto) Baso # (Auto) Neutrophils % (Manual) Band Neutrophils % Lymphocytes % (Manual) Monocytes % (Manual) Eosinophils % (Manual) Platelet Evaluation PT INR APTT pO2 VBG pH VBG pCO2 VBG HCO3 VBG Total CO2 VBG O2 Sat (Calc) VBG Base Excess VBG Potassium Glucose Lactate FiO2 Sodium Potassium Chloride Carbon Dioxide Anion Gap BUN Creatinine Est GFR ( Amer) Est GFR (Non-Af Amer) POC Glucose (mg/dL) Random Glucose Serum Osmolality Calcium Magnesium Total Bilirubin AST ALT Alkaline Phosphatase Lactate Dehydrogenase Total Creatine Kinase Troponin I Total Protein Albumin Globulin Albumin/Globulin Ratio Triglycerides Cholesterol LDL Cholesterol Direct HDL Cholesterol Vitamin B12 995 H 25-OH Vitamin D Total 28.2 L Procalcitonin TSH 3rd Generation 0.37 L Venous Blood Potassium Urine Color Urine Appearance Urine pH Ur Specific [place] Urine Protein Urine Glucose (UA) Urine Ketones Urine Blood Urine Nitrate Urine Bilirubin Urine Urobilinogen Ur Leukocyte Esterase Urine RBC Urine WBC Ur Epithelial Cells Urine Bacteria Urine Opiates Screen Urine Methadone Screen Ur Barbiturates Screen Ur Phencyclidine Scrn Ur Amphetamines Screen U Benzodiazepines Scrn U Oth Cocaine Metabols U Cannabinoids Screen B-Hydroxybutyrate 5.32 H 07/23/18 07/23/18 07/23/18 00:00 00:27 01:57 WBC RBC Hgb Hct MCV MCH MCHC RDW Plt Count MPV Gran % Lymph % (Auto) [place] % (Auto) Eos % (Auto) Baso % (Auto) Gran # Lymph # (Auto) [place] # (Auto) Eos # (Auto) Baso # (Auto) Neutrophils % (Manual) Band Neutrophils % Lymphocytes % (Manual) Monocytes % (Manual) Eosinophils % (Manual) Platelet Evaluation PT INR APTT pO2 58 H VBG pH 7.31 L VBG pCO2 50.0 VBG HCO3 25.2 VBG Total CO2 26.7 VBG O2 Sat (Calc) 93.2 H VBG Base Excess -1.7 L VBG Potassium 2.7 L Glucose 358 H Lactate 3.2 H FiO2 21.0 Sodium 146.0 Potassium Chloride 107.0 Carbon Dioxide Anion Gap BUN Creatinine Est GFR ( Amer) Est GFR (Non-Af Amer) POC Glucose (mg/dL) 331 H 319 H Random Glucose Serum Osmolality Calcium Magnesium Total Bilirubin AST ALT Alkaline Phosphatase Lactate Dehydrogenase Total Creatine Kinase Troponin I Total Protein Albumin Globulin Albumin/Globulin Ratio Triglycerides Cholesterol LDL Cholesterol Direct HDL Cholesterol Vitamin B12 25-OH Vitamin D Total Procalcitonin TSH 3rd Generation Venous Blood Potassium 2.7 L Urine Color Urine Appearance Urine pH Ur Specific [place] Urine Protein Urine Glucose (UA) Urine Ketones Urine Blood Urine Nitrate Urine Bilirubin Urine Urobilinogen Ur Leukocyte Esterase Urine RBC Urine WBC Ur Epithelial Cells Urine Bacteria Urine Opiates Screen Urine Methadone Screen Ur Barbiturates Screen Ur Phencyclidine Scrn Ur Amphetamines Screen U Benzodiazepines Scrn U Oth Cocaine Metabols U Cannabinoids Screen B-Hydroxybutyrate 07/23/18 07/23/18 07/23/18 02:00 02:00 02:00 WBC RBC Hgb Hct MCV MCH MCHC RDW Plt Count MPV Gran % Lymph % (Auto) [place] % (Auto) Eos % (Auto) Baso % (Auto) Gran # Lymph # (Auto) [place] # (Auto) Eos # (Auto) Baso # (Auto) Neutrophils % (Manual) Band Neutrophils % Lymphocytes % (Manual) Monocytes % (Manual) Eosinophils % (Manual) Platelet Evaluation PT INR APTT pO2 VBG pH VBG pCO2 VBG HCO3 VBG Total CO2 VBG O2 Sat (Calc) VBG Base Excess VBG Potassium Glucose Lactate FiO2 Sodium Potassium Chloride Carbon Dioxide Anion Gap BUN Creatinine Est GFR ( Amer) Est GFR (Non-Af Amer) POC Glucose (mg/dL) Random Glucose Serum Osmolality 330 H Calcium Magnesium Total Bilirubin AST ALT Alkaline Phosphatase Lactate Dehydrogenase Total Creatine Kinase Troponin I Total Protein Albumin Globulin Albumin/Globulin Ratio Triglycerides Cholesterol LDL Cholesterol Direct HDL Cholesterol Vitamin B12 25-OH Vitamin D Total Procalcitonin 1.15 H TSH 3rd Generation Venous Blood Potassium Urine Color Urine Appearance Urine pH Ur Specific [place] Urine Protein Urine Glucose (UA) Urine Ketones Urine Blood Urine Nitrate Urine Bilirubin Urine Urobilinogen Ur Leukocyte Esterase Urine RBC Urine WBC Ur Epithelial Cells Urine Bacteria Urine Opiates Screen Negative Urine Methadone Screen Negative Ur Barbiturates Screen Negative Ur Phencyclidine Scrn Negative Ur Amphetamines Screen Negative U Benzodiazepines Scrn Negative U Oth Cocaine Metabols Negative U Cannabinoids Screen Negative B-Hydroxybutyrate 07/23/18 07/23/18 07/23/18 02:15 02:51 05:00 WBC 22.5 H RBC 4.50 Hgb 13.4 D Hct 40.1 MCV 89.1 D MCH 29.8 MCHC 33.4 RDW 12.7 Plt Count 239 MPV 12.8 H Gran % Lymph % (Auto) [place] % (Auto) Eos % (Auto) Baso % (Auto) Gran # Lymph # (Auto) [place] # (Auto) Eos # (Auto) Baso # (Auto) Neutrophils % (Manual) Band Neutrophils % Lymphocytes % (Manual) Monocytes % (Manual) Eosinophils % (Manual) Platelet Evaluation PT INR APTT pO2 VBG pH VBG pCO2 VBG HCO3 VBG Total CO2 VBG O2 Sat (Calc) VBG Base Excess VBG Potassium Glucose Lactate FiO2 Sodium 145 Potassium 3.3 L Chloride 110 H Carbon Dioxide 29 Anion Gap 10 BUN 46 H Creatinine 0.8 Est GFR ( Amer) > 60 Est GFR (Non-Af Amer) > 60 POC Glucose (mg/dL) 326 H Random Glucose 290 H Serum Osmolality Calcium 8.5 Magnesium Total Bilirubin AST ALT Alkaline Phosphatase Lactate Dehydrogenase Total Creatine Kinase Troponin I Total Protein Albumin Globulin Albumin/Globulin Ratio Triglycerides Cholesterol LDL Cholesterol Direct HDL Cholesterol Vitamin B12 25-OH Vitamin D Total Procalcitonin TSH 3rd Generation Venous Blood Potassium Urine Color Urine Appearance Urine pH Ur Specific [place] Urine Protein Urine Glucose (UA) Urine Ketones Urine Blood Urine Nitrate Urine Bilirubin Urine Urobilinogen Ur Leukocyte Esterase Urine RBC Urine WBC Ur Epithelial Cells Urine Bacteria Urine Opiates Screen Urine Methadone Screen Ur Barbiturates Screen Ur Phencyclidine Scrn Ur Amphetamines Screen U Benzodiazepines Scrn U Oth Cocaine Metabols U Cannabinoids Screen B-Hydroxybutyrate 07/23/18 07/23/18 07/23/18 05:00 05:00 06:14 WBC RBC Hgb Hct MCV MCH MCHC RDW Plt Count MPV Gran % Lymph % (Auto) [place] % (Auto) Eos % (Auto) Baso % (Auto) Gran # Lymph # (Auto) [place] # (Auto) Eos # (Auto) Baso # (Auto) Neutrophils % (Manual) Band Neutrophils % Lymphocytes % (Manual) Monocytes % (Manual) Eosinophils % (Manual) Platelet Evaluation PT INR APTT pO2 VBG pH VBG pCO2 VBG HCO3 VBG Total CO2 VBG O2 Sat (Calc) VBG Base Excess VBG Potassium Glucose Lactate FiO2 Sodium Potassium Chloride Carbon Dioxide Anion Gap BUN Creatinine Est GFR ( Amer) Est GFR (Non-Af Amer) POC Glucose (mg/dL) 383 H Random Glucose Serum Osmolality Calcium Magnesium Total Bilirubin AST ALT Alkaline Phosphatase Lactate Dehydrogenase Total Creatine Kinase Troponin I < 0.01 Total Protein Albumin Globulin Albumin/Globulin Ratio Triglycerides 173 H Cholesterol 86 L LDL Cholesterol Direct 57 HDL Cholesterol 13 L Vitamin B12 25-OH Vitamin D Total Procalcitonin TSH 3rd Generation Venous Blood Potassium Urine Color Urine Appearance Urine pH Ur Specific [place] Urine Protein Urine Glucose (UA) Urine Ketones Urine Blood Urine Nitrate Urine Bilirubin Urine Urobilinogen Ur Leukocyte Esterase Urine RBC Urine WBC Ur Epithelial Cells Urine Bacteria Urine Opiates Screen Urine Methadone Screen Ur Barbiturates Screen Ur Phencyclidine Scrn Ur Amphetamines Screen U Benzodiazepines Scrn U Oth Cocaine Metabols U Cannabinoids Screen B-Hydroxybutyrate 07/23/18 10:15 WBC RBC Hgb Hct MCV MCH MCHC RDW Plt Count MPV Gran % Lymph % (Auto) [place] % (Auto) Eos % (Auto) Baso % (Auto) Gran # Lymph # (Auto) [place] # (Auto) Eos # (Auto) Baso # (Auto) Neutrophils % (Manual) Band Neutrophils % Lymphocytes % (Manual) Monocytes % (Manual) Eosinophils % (Manual) Platelet Evaluation PT INR APTT pO2 VBG pH VBG pCO2 VBG HCO3 VBG Total CO2 VBG O2 Sat (Calc) VBG Base Excess VBG Potassium Glucose Lactate FiO2 Sodium Potassium Chloride Carbon Dioxide Anion Gap BUN Creatinine Est GFR ( Amer) Est GFR (Non-Af Amer) POC Glucose (mg/dL) 321 H Random Glucose Serum Osmolality Calcium Magnesium Total Bilirubin AST ALT Alkaline Phosphatase Lactate Dehydrogenase Total Creatine Kinase Troponin I Total Protein Albumin Globulin Albumin/Globulin Ratio Triglycerides Cholesterol LDL Cholesterol Direct HDL Cholesterol Vitamin B12 25-OH Vitamin D Total Procalcitonin TSH 3rd Generation Venous Blood Potassium Urine Color Urine Appearance Urine pH Ur Specific [place] Urine Protein Urine Glucose (UA) Urine Ketones Urine Blood Urine Nitrate Urine Bilirubin Urine Urobilinogen Ur Leukocyte Esterase Urine RBC Urine WBC Ur Epithelial Cells Urine Bacteria Urine Opiates Screen Urine Methadone Screen Ur Barbiturates Screen Ur Phencyclidine Scrn Ur Amphetamines Screen U Benzodiazepines Scrn U Oth Cocaine Metabols U Cannabinoids Screen B-Hydroxybutyrate Radiology Impressions: Radiology Impressions Chest X-Ray 07/22/18 19:42 IMPRESSION: No active disease. No significant interval change compared to the prior examination(s). EKG/Cardiology Studies: Cardiology / EKG Studies 07/22/18 19:42 ELECTROCARDIOGRAM Stat Comment: Reason For Exam: r/o dysrhytmia 07/22/18 23:49 EKG [ELECTROCARDIOGRAM] Stat Comment: Reason For Exam: dka Critical Care Progress Note - Nutrition Nutrition: Nutrition Category Date Time Status Heart Healthy Diet [DIET] Diets 07/23/18 Breakfast Active Assessment/Plan - Assessment and Plan (Free Text) Assessment: Patient seen and examined on rounds, with resident, agree with note with following additions/exceptions: Patient is 62yo female with PMhx of ?Hep C, HIV ?on HAART, DM, non compliant with meds presented with HHS/HONK, and severe sepsis, with AMS Currently afebrile, BP stable, comfortable in NAD, AAOX2, appropriate CT head, CHest, A/P pelvis pending Patients FS much better controlled currently 200-250 No evidence of acidemia on labs, ketones minimal on UA, bicarb 29 Troponin negative x 2 HHS/HONK HIV rule out Hep C DM Hypokalemia AMS Recommend: - cont with supp o2 as needed, duonebs PRN - Panculture, UCx, BCx - Broad spectrum abx, Vanco, Zosyn - CT head - CT C/A/P evaluate source of infection - check HIV viral load, CD4 count - check HgbA1C, lipid panel, Thyroid panel - Insulin sliding scal - Levmir 15u QHS - IVF - replete K - GI ppx - DVT ppx - monitor in MICU
--- NOTE | 2018-07-23 09:47 | RAD ---
Date of service: 07/22/2018 HISTORY: admission COMPARISON: 12/20/2017 FINDINGS: LUNGS: No active pulmonary disease. PLEURA: No significant pleural effusion identified, no pneumothorax apparent. CARDIOVASCULAR: No atherosclerotic calcification present No radiographic findings to suggest acute or significant cardiovascular disease. OSSEOUS STRUCTURES: No significant abnormalities. VISUALIZED UPPER ABDOMEN: Normal. OTHER FINDINGS: None. IMPRESSION: No active disease. No significant interval change compared to the prior examination(s).
[2018-07-23] MEDS ORDERED: Vancomycin 1gm in NS 250ml 1 GM/250 ML BAG IVPB SCH (10:00)
[2018-07-23] MEDS ORDERED: Insulin Detemir 100 units/ml Vial (Levemir) SC SCH ×2 (10:00→22:00)
[2018-07-23] MEDS: Vancomycin 1gm in NS 250ml 1 GM/250 ML BAG IVPB SCH ×2 (10:12→22:41)
[2018-07-23] MEDS ORDERED: Iohexol 240 (50 ml) ONE (10:34)
[2018-07-23] MEDS ORDERED: Potassium Chloride 20 mEq ER Tab PO STA (10:53)
[2018-07-23] MEDS: Nystatin 100,000 Units/gm Cream(15 gm) TOP SCH ×3 (11:56→19:42)
[2018-07-23] MEDS: Insulin Reg-HIGH-Coverage SC SCH ×3 (12:02→22:30)
--- NOTE | 2018-07-23 14:49 | CT ---
Date of service: 07/23/2018 PROCEDURE: CT HEAD WITHOUT CONTRAST. HISTORY: ams COMPARISON: None available. TECHNIQUE: Axial computed tomography images were obtained through the head/brain without intravenous contrast. Supplemental Coronal and Sagittal projections created and reviewed. Radiation dose: Total exam DLP = 806.95 mGy-cm. This CT exam was performed using one or more of the following dose reduction techniques: Automated exposure control, adjustment of the mA and/or kV according to patient size, and/or use of iterative reconstruction technique. FINDINGS: HEMORRHAGE: No intracranial hemorrhage. BRAIN: No mass effect or edema. No atrophy or chronic microvascular ischemic changes. VENTRICLES: Unremarkable. No hydrocephalus. CALVARIUM: Unremarkable. PARANASAL SINUSES: Unremarkable as visualized. No significant inflammatory changes. MASTOID AIR CELLS: Unremarkable as visualized. No inflammatory changes. OTHER FINDINGS: Unilateral, right ocular prosthesis. IMPRESSION: No acute intracranial abnormalities. No significant findings to account for the clinical presentation.
--- NOTE | 2018-07-23 14:57 | CT ---
Date of service: 07/23/2018 PROCEDURE: CT Abdomen and Pelvis with contrast HISTORY: inc wbc COMPARISON: None. TECHNIQUE: Oral contrast only. Radiation dose: Total exam DLP = 371.76 mGy-cm. This CT exam was performed using one or more of the following dose reduction techniques: Automated exposure control, adjustment of the mA and/or kV according to patient size, and/or use of iterative reconstruction technique. FINDINGS: LOWER THORAX: Unremarkable. LIVER: Unremarkable. No gross lesion or ductal dilatation. GALLBLADDER AND BILE DUCTS: Unremarkable. PANCREAS: Unremarkable. No gross lesion or ductal dilatation. SPLEEN: Unremarkable. ADRENALS: Unremarkable. No mass. KIDNEYS AND URETERS: Bilateral nonobstructing renal calculi none larger than 3.5 mm. 2.4 cm cyst left kidney. VASCULATURE: Unremarkable. No aortic aneurysm. No atherosclerotic calcification or mural plaque present. BOWEL: Severe enteritis primarily affecting the mid and distal small bowel without evidence of mechanical obstruction. The colon and ileocecal valve region are spared. APPENDIX: Normal appendix. PERITONEUM: Unremarkable. No free fluid. No free air. LYMPH NODES: Unremarkable. No enlarged lymph nodes. BLADDER: Unremarkable. REPRODUCTIVE: Unremarkable. BONES: No acute fracture. OTHER FINDINGS: Marked edema affecting dependent soft tissues incompletely visualized right hemipelvis. The findings include the perineum and introitus on the right. There is evidence of air in the perineal region extending anteriorly without discrete, drainable collection. IMPRESSION: Evidence of enteritis/ileitis without mechanical obstruction. Severe edematous and inflammatory changes extending from the external genitalia anteriorly to the introitus. More posteriorly air identified within perineal tissues. Marked edema of the area and visible right lower extremity. No discrete, drainable collection. There is not appear to be entry into the peritoneum.
--- NOTE | 2018-07-23 16:44 | CP.PCM.CON ---
History of Present Illness - History of Present Illness History of Present Illness: General Surgery Consult For Dr. Schwab This is a 62F with a PMH of HIV, HCV, IDDM, IVDA, who [place] [facility] [place] and confusion. She was found to have HHS and was admitted to [place] [facility] [place]. She reports that she just felt funny. She reports pain on her bottom and on her right groin. She denies abdominal pain, she denies any fevers or chills at home, she denies urinary changes and denies any past similar episodes. PMH: HIV, HCV, IDDM, IVDA PSH: Eye surgery, Social Hx: 1 ppd x 40 years, IVDA Allergies: enoxaparin sodium, heparin Family HX: significant for alzheimer's disease and DM Review of Systems - Review of Systems Review of Systems: 12 point review of symptoms negative except for pain in herright groin, thigh and glute 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 - RENAL Hx Chronic Kidney Disease: No - ENDOCRINE/METABOLIC Hx Endocrine Disorders: Yes Hx Diabetes Mellitus Type 2: Yes - HEMATOLOGICAL/ONCOLOGICAL Hx Blood Disorders: Yes Hx Hepatitis C: Yes Other/Comment: HIV Dx'ed 1997 - INTEGUMENTARY Hx Dermatological Problems: No - MUSCULOSKELETAL/RHEUMATOLOGICAL Hx Musculoskeletal Disorders: No Hx Unsteady Gait: Yes - GASTROINTESTINAL Hx Gastrointestinal Disorders: No - GENITOURINARY/GYNECOLOGICAL Hx Genitourinary Disorders: No - PSYCHIATRIC Hx Psychophysiologic Disorder: No Hx Substance Use: No - SURGICAL HISTORY Hx Cholecystectomy: Yes Hx Eye Surgery: Yes (right prosthetic eye) Hx Tubal Ligation: Yes - ANESTHESIA Hx Anesthesia: Yes Hx Anesthesia Reactions: No Hx Malignant Hyperthermia: No Meds Allergies/Adverse Reactions: Allergies Allergy/AdvReac Type Severity Reaction Status Date / Time enoxaparin sodium Allergy unknown Verified 07/22/18 19:29 [From Lovenox] heparin Allergy unknown Verified 07/22/18 19:29 - Medications Medications: Current Medications Dextrose (Dextrose 50% Inj) 0 ml IV STAT PRN; Protocol PRN Reason: Hypoglycemia Protocol Dextrose (Dextrose 5% In Water 1000 Ml) 1,000 mls @ 0 mls/hr IV .Q0M PRN; Protocol PRN Reason: Hypoglycemia Protocol Vancomycin HCl (Vancomycin 1gm) 1 gm in 250 mls @ 167 mls/hr IVPB Q12 JOHN; P rotocol Last Admin: 07/23/18 10:12 Dose: 167 mls/hr Potassium Chloride 20 meq/ (Sodium Chloride) 1,010 mls @ 100 mls/hr IV .Q10H6M [facility] Last Admin: 07/23/18 12:01 Dose: 100 mls/hr Meropenem (Merrem Iv 1 Gm Premix) 1 gm in 50 mls @ 100 mls/hr IVPB Q8 JOHN; Protocol Stop: 08/01/18 16:02 Metronidazole (Flagyl) 500 mg in 100 mls @ 100 mls/hr IVPB Q8 JOHN; Protocol Stop: 08/01/18 16:20 Insulin Detemir (Levemir) 15 unit SC DAILY [facility] Insulin Human Regular (Humulin R High) 0 units SC ACHS [facility]; Protocol Last Admin: 07/23/18 12:02 Dose: 4 unit Nystatin (Mycostatin Cream) 0 ea TOP TID [facility] Last Admin: 07/23/18 11:56 Dose: 2 g Pantoprazole Sodium (Protonix Inj) 40 mg IVP DAILY [facility] Last Admin: 07/23/18 10:12 Dose: 40 mg Physical Exam - Constitutional Appears: Non-toxic, No Acute Distress - Head Exam Head Exam: ATRAUMATIC, NORMOCEPHALIC - Eye Exam Eye Exam: EOMI - ENT Exam ENT Exam: Mucous Membranes Moist - Respiratory Exam Respiratory Exam: NORMAL BREATHING PATTERN - Cardiovascular Exam Cardiovascular Exam: +S1, +S2 - GI/Abdominal Exam GI & Abdominal Exam: Soft. absent: Distended, Firm, Guarding, Rebound, Rigid, Tenderness - Exam Additional comments: Tenderness and erythema of the right labia majora - Back Exam Additional comments: Right wet necrotic leasion on the rigfht sided gluteal fold. - Neurological Exam Neurological exam: Alert - Psychiatric Exam Psychiatric exam: Normal Affect, Normal Mood - Skin Skin Exam: Dry, Intact Results - Vital Signs Recent Vital Signs: Last Vital Signs Temp 98 F 07/23/18 08:00 Pulse 86 07/23/18 12:10 Resp 22 07/23/18 12:10 BP 144/83 07/23/18 12:04 Pulse Ox 99 07/23/18 12:10 - Labs Result Diagrams: 07/23/18 05:00 07/23/18 20:04 Labs: Laboratory Results - last 24 hr 07/22/18 07/22/18 07/22/18 20:10 20:10 20:10 WBC 25.7 H* RBC 5.06 Hgb 15.6 D Hct 46.9 MCV 92.7 MCH 30.8 MCHC 33.3 RDW 13.1 Plt Count 396 MPV 14.3 H Gran % 93.0 H Lymph % (Auto) 5.5 L [place] % (Auto) 1.4 Eos % (Auto) 0.0 L Baso % (Auto) 0.1 Gran # 23.86 H Lymph # (Auto) 1.4 [place] # (Auto) 0.4 Eos # (Auto) 0.0 Baso # (Auto) 0.02 Neutrophils % (Manual) 54 Band Neutrophils % 38 H* Lymphocytes % (Manual) 4 L Monocytes % (Manual) 3 Eosinophils % (Manual) 1 Platelet Evaluation Normal PT 11.6 INR 1.02 APTT 22.5 L pO2 VBG pH VBG pCO2 VBG HCO3 VBG Total CO2 VBG O2 Sat (Calc) VBG Base Excess VBG Potassium Glucose Lactate FiO2 Sodium 138 Potassium 3.2 L Chloride 94 L Carbon Dioxide 21 Anion Gap 26 H BUN 52 H Creatinine 1.1 Est GFR ( Amer) > 60 Est GFR (Non-Af Amer) 50 POC Glucose (mg/dL) Random Glucose 811 H* D Serum Osmolality Calcium 10.0 Magnesium 2.6 H Total Bilirubin 1.5 H AST 25 ALT 14 Alkaline Phosphatase 184 H D Lactate Dehydrogenase 403 Total Creatine Kinase < 20 L Troponin I < 0.01 Total Protein 7.2 Albumin 3.3 Globulin 3.9 Albumin/Globulin Ratio 0.9 L Triglycerides Cholesterol LDL Cholesterol Direct HDL Cholesterol Vitamin B12 25-OH Vitamin D Total Procalcitonin TSH 3rd Generation Venous Blood Potassium Urine Color Urine Appearance Urine pH Ur Specific [place] Urine Protein Urine Glucose (UA) Urine Ketones Urine Blood Urine Nitrate Urine Bilirubin Urine Urobilinogen Ur Leukocyte Esterase Urine RBC Urine WBC Ur Epithelial Cells Urine Bacteria Urine Opiates Screen Urine Methadone Screen Ur Barbiturates Screen Ur Phencyclidine Scrn Ur Amphetamines Screen U Benzodiazepines Scrn U Oth Cocaine Metabols U Cannabinoids Screen B-Hydroxybutyrate 07/22/18 07/22/18 07/22/18 20:44 21:29 23:01 WBC RBC Hgb Hct MCV MCH MCHC RDW Plt Count MPV Gran % Lymph % (Auto) [place] % (Auto) Eos % (Auto) Baso % (Auto) Gran # Lymph # (Auto) [place] # (Auto) Eos # (Auto) Baso # (Auto) Neutrophils % (Manual) Band Neutrophils % Lymphocytes % (Manual) Monocytes % (Manual) Eosinophils % (Manual) Platelet Evaluation PT INR APTT pO2 53 VBG pH 7.26 L VBG pCO2 50.0 VBG HCO3 22.4 VBG Total CO2 23.9 VBG O2 Sat (Calc) 89.8 H VBG Base Excess -5.0 L VBG Potassium 3.5 L Glucose 722 H* Lactate 4.0 H* FiO2 21.0 Sodium 142.0 Potassium Chloride 98.0 Carbon Dioxide Anion Gap BUN Creatinine Est GFR ( Amer) Est GFR (Non-Af Amer) POC Glucose (mg/dL) 354 H Random Glucose Serum Osmolality Calcium Magnesium Total Bilirubin AST ALT Alkaline Phosphatase Lactate Dehydrogenase Total Creatine Kinase Troponin I Total Protein Albumin Globulin Albumin/Globulin Ratio Triglycerides Cholesterol LDL Cholesterol Direct HDL Cholesterol Vitamin B12 25-OH Vitamin D Total Procalcitonin TSH 3rd Generation Venous Blood Potassium 3.5 L Urine Color Yellow Urine Appearance Sl cloudy Urine pH 6.0 Ur Specific [place] 1.010 Urine Protein Negative Urine Glucose (UA) >=1000 Urine Ketones 15 H Urine Blood Moderate H Urine Nitrate Negative Urine Bilirubin Negative Urine Urobilinogen 1.0 H Ur Leukocyte Esterase Small H Urine RBC 5 - 10 H Urine WBC 25 - 30 H Ur Epithelial Cells 3 - 4 Urine Bacteria Large Urine Opiates Screen Urine Methadone Screen Ur Barbiturates Screen Ur Phencyclidine Scrn Ur Amphetamines Screen U Benzodiazepines Scrn U Oth Cocaine Metabols U Cannabinoids Screen B-Hydroxybutyrate 07/22/18 07/22/18 07/22/18 23:34 23:35 23:36 WBC RBC Hgb Hct MCV MCH MCHC RDW Plt Count MPV Gran % Lymph % (Auto) [place] % (Auto) Eos % (Auto) Baso % (Auto) Gran # Lymph # (Auto) [place] # (Auto) Eos # (Auto) Baso # (Auto) Neutrophils % (Manual) Band Neutrophils % Lymphocytes % (Manual) Monocytes % (Manual) Eosinophils % (Manual) Platelet Evaluation PT INR APTT pO2 VBG pH VBG pCO2 VBG HCO3 VBG Total CO2 VBG O2 Sat (Calc) VBG Base Excess VBG Potassium Glucose Lactate FiO2 Sodium Potassium Chloride Carbon Dioxide Anion Gap BUN Creatinine Est GFR ( Amer) Est GFR (Non-Af Amer) POC Glucose (mg/dL) Random Glucose Serum Osmolality Calcium Magnesium Total Bilirubin AST ALT Alkaline Phosphatase Lactate Dehydrogenase Total Creatine Kinase Troponin I Total Protein Albumin Globulin Albumin/Globulin Ratio Triglycerides Cholesterol LDL Cholesterol Direct HDL Cholesterol Vitamin B12 995 H 25-OH Vitamin D Total 28.2 L Procalcitonin TSH 3rd Generation 0.37 L Venous Blood Potassium Urine Color Urine Appearance Urine pH Ur Specific [place] Urine Protein Urine Glucose (UA) Urine Ketones Urine Blood Urine Nitrate Urine Bilirubin Urine Urobilinogen Ur Leukocyte Esterase Urine RBC Urine WBC Ur Epithelial Cells Urine Bacteria Urine Opiates Screen Urine Methadone Screen Ur Barbiturates Screen Ur Phencyclidine Scrn Ur Amphetamines Screen U Benzodiazepines Scrn U Oth Cocaine Metabols U Cannabinoids Screen B-Hydroxybutyrate 5.32 H 07/23/18 07/23/18 07/23/18 00:00 00:27 01:57 WBC RBC Hgb Hct MCV MCH MCHC RDW Plt Count MPV Gran % Lymph % (Auto) [place] % (Auto) Eos % (Auto) Baso % (Auto) Gran # Lymph # (Auto) [place] # (Auto) Eos # (Auto) Baso # (Auto) Neutrophils % (Manual) Band Neutrophils % Lymphocytes % (Manual) Monocytes % (Manual) Eosinophils % (Manual) Platelet Evaluation PT INR APTT pO2 58 H VBG pH 7.31 L VBG pCO2 50.0 VBG HCO3 25.2 VBG Total CO2 26.7 VBG O2 Sat (Calc) 93.2 H VBG Base Excess -1.7 L VBG Potassium 2.7 L Glucose 358 H Lactate 3.2 H FiO2 21.0 Sodium 146.0 Potassium Chloride 107.0 Carbon Dioxide Anion Gap BUN Creatinine Est GFR ( Amer) Est GFR (Non-Af Amer) POC Glucose (mg/dL) 331 H 319 H Random Glucose Serum Osmolality Calcium Magnesium Total Bilirubin AST ALT Alkaline Phosphatase Lactate Dehydrogenase Total Creatine Kinase Troponin I Total Protein Albumin Globulin Albumin/Globulin Ratio Triglycerides Cholesterol LDL Cholesterol Direct HDL Cholesterol Vitamin B12 25-OH Vitamin D Total Procalcitonin TSH 3rd Generation Venous Blood Potassium 2.7 L Urine Color Urine Appearance Urine pH Ur Specific [place] Urine Protein Urine Glucose (UA) Urine Ketones Urine Blood Urine Nitrate Urine Bilirubin Urine Urobilinogen Ur Leukocyte Esterase Urine RBC Urine WBC Ur Epithelial Cells Urine Bacteria Urine Opiates Screen Urine Methadone Screen Ur Barbiturates Screen Ur Phencyclidine Scrn Ur Amphetamines Screen U Benzodiazepines Scrn U Oth Cocaine Metabols U Cannabinoids Screen B-Hydroxybutyrate 07/23/18 07/23/18 07/23/18 02:00 02:00 02:00 WBC RBC Hgb Hct MCV MCH MCHC RDW Plt Count MPV Gran % Lymph % (Auto) [place] % (Auto) Eos % (Auto) Baso % (Auto) Gran # Lymph # (Auto) [place] # (Auto) Eos # (Auto) Baso # (Auto) Neutrophils % (Manual) Band Neutrophils % Lymphocytes % (Manual) Monocytes % (Manual) Eosinophils % (Manual) Platelet Evaluation PT INR APTT pO2 VBG pH VBG pCO2 VBG HCO3 VBG Total CO2 VBG O2 Sat (Calc) VBG Base Excess VBG Potassium Glucose Lactate FiO2 Sodium Potassium Chloride Carbon Dioxide Anion Gap BUN Creatinine Est GFR ( Amer) Est GFR (Non-Af Amer) POC Glucose (mg/dL) Random Glucose Serum Osmolality 330 H Calcium Magnesium Total Bilirubin AST ALT Alkaline Phosphatase Lactate Dehydrogenase Total Creatine Kinase Troponin I Total Protein Albumin Globulin Albumin/Globulin Ratio Triglycerides Cholesterol LDL Cholesterol Direct HDL Cholesterol Vitamin B12 25-OH Vitamin D Total Procalcitonin 1.15 H TSH 3rd Generation Venous Blood Potassium Urine Color Urine Appearance Urine pH Ur Specific [place] Urine Protein Urine Glucose (UA) Urine Ketones Urine Blood Urine Nitrate Urine Bilirubin Urine Urobilinogen Ur Leukocyte Esterase Urine RBC Urine WBC Ur Epithelial Cells Urine Bacteria Urine Opiates Screen Negative Urine Methadone Screen Negative Ur Barbiturates Screen Negative Ur Phencyclidine Scrn Negative Ur Amphetamines Screen Negative U Benzodiazepines Scrn Negative U Oth Cocaine Metabols Negative U Cannabinoids Screen Negative B-Hydroxybutyrate 07/23/18 07/23/18 07/23/18 02:15 02:51 05:00 WBC 22.5 H RBC 4.50 Hgb 13.4 D Hct 40.1 MCV 89.1 D MCH 29.8 MCHC 33.4 RDW 12.7 Plt Count 239 MPV 12.8 H Gran % Lymph % (Auto) [place] % (Auto) Eos % (Auto) Baso % (Auto) Gran # Lymph # (Auto) [place] # (Auto) Eos # (Auto) Baso # (Auto) Neutrophils % (Manual) Band Neutrophils % Lymphocytes % (Manual) Monocytes % (Manual) Eosinophils % (Manual) Platelet Evaluation PT INR APTT pO2 VBG pH VBG pCO2 VBG HCO3 VBG Total CO2 VBG O2 Sat (Calc) VBG Base Excess VBG Potassium Glucose Lactate FiO2 Sodium 145 Potassium 3.3 L Chloride 110 H Carbon Dioxide 29 Anion Gap 10 BUN 46 H Creatinine 0.8 Est GFR ( Amer) > 60 Est GFR (Non-Af Amer) > 60 POC Glucose (mg/dL) 326 H Random Glucose 290 H Serum Osmolality Calcium 8.5 Magnesium Total Bilirubin AST ALT Alkaline Phosphatase Lactate Dehydrogenase Total Creatine Kinase Troponin I Total Protein Albumin Globulin Albumin/Globulin Ratio Triglycerides Cholesterol LDL Cholesterol Direct HDL Cholesterol Vitamin B12 25-OH Vitamin D Total Procalcitonin TSH 3rd Generation Venous Blood Potassium Urine Color Urine Appearance Urine pH Ur Specific [place] Urine Protein Urine Glucose (UA) Urine Ketones Urine Blood Urine Nitrate Urine Bilirubin Urine Urobilinogen Ur Leukocyte Esterase Urine RBC Urine WBC Ur Epithelial Cells Urine Bacteria Urine Opiates Screen Urine Methadone Screen Ur Barbiturates Screen Ur Phencyclidine Scrn Ur Amphetamines Screen U Benzodiazepines Scrn U Oth Cocaine Metabols U Cannabinoids Screen B-Hydroxybutyrate 07/23/18 07/23/18 07/23/18 05:00 05:00 06:14 WBC RBC Hgb Hct MCV MCH MCHC RDW Plt Count MPV Gran % Lymph % (Auto) [place] % (Auto) Eos % (Auto) Baso % (Auto) Gran # Lymph # (Auto) [place] # (Auto) Eos # (Auto) Baso # (Auto) Neutrophils % (Manual) Band Neutrophils % Lymphocytes % (Manual) Monocytes % (Manual) Eosinophils % (Manual) Platelet Evaluation PT INR APTT pO2 VBG pH VBG pCO2 VBG HCO3 VBG Total CO2 VBG O2 Sat (Calc) VBG Base Excess VBG Potassium Glucose Lactate FiO2 Sodium Potassium Chloride Carbon Dioxide Anion Gap BUN Creatinine Est GFR ( Amer) Est GFR (Non-Af Amer) POC Glucose (mg/dL) 383 H Random Glucose Serum Osmolality Calcium Magnesium Total Bilirubin AST ALT Alkaline Phosphatase Lactate Dehydrogenase Total Creatine Kinase Troponin I < 0.01 Total Protein Albumin Globulin Albumin/Globulin Ratio Triglycerides 173 H Cholesterol 86 L LDL Cholesterol Direct 57 HDL Cholesterol 13 L Vitamin B12 25-OH Vitamin D Total Procalcitonin TSH 3rd Generation Venous Blood Potassium Urine Color Urine Appearance Urine pH Ur Specific [place] Urine Protein Urine Glucose (UA) Urine Ketones Urine Blood Urine Nitrate Urine Bilirubin Urine Urobilinogen Ur Leukocyte Esterase Urine RBC Urine WBC Ur Epithelial Cells Urine Bacteria Urine Opiates Screen Urine Methadone Screen Ur Barbiturates Screen Ur Phencyclidine Scrn Ur Amphetamines Screen U Benzodiazepines Scrn U Oth Cocaine Metabols U Cannabinoids Screen B-Hydroxybutyrate 07/23/18 10:15 WBC RBC Hgb Hct MCV MCH MCHC RDW Plt Count MPV Gran % Lymph % (Auto) [place] % (Auto) Eos % (Auto) Baso % (Auto) Gran # Lymph # (Auto) [place] # (Auto) Eos # (Auto) Baso # (Auto) Neutrophils % (Manual) Band Neutrophils % Lymphocytes % (Manual) Monocytes % (Manual) Eosinophils % (Manual) Platelet Evaluation PT INR APTT pO2 VBG pH VBG pCO2 VBG HCO3 VBG Total CO2 VBG O2 Sat (Calc) VBG Base Excess VBG Potassium Glucose Lactate FiO2 Sodium Potassium Chloride Carbon Dioxide Anion Gap BUN Creatinine Est GFR ( Amer) Est GFR (Non-Af Amer) POC Glucose (mg/dL) 321 H Random Glucose Serum Osmolality Calcium Magnesium Total Bilirubin AST ALT Alkaline Phosphatase Lactate Dehydrogenase Total Creatine Kinase Troponin I Total Protein Albumin Globulin Albumin/Globulin Ratio Triglycerides Cholesterol LDL Cholesterol Direct HDL Cholesterol Vitamin B12 25-OH Vitamin D Total Procalcitonin TSH 3rd Generation Venous Blood Potassium Urine Color Urine Appearance Urine pH Ur Specific [place] Urine Protein Urine Glucose (UA) Urine Ketones Urine Blood Urine Nitrate Urine Bilirubin Urine Urobilinogen Ur Leukocyte Esterase Urine RBC Urine WBC Ur Epithelial Cells Urine Bacteria Urine Opiates Screen Urine Methadone Screen Ur Barbiturates Screen Ur Phencyclidine Scrn Ur Amphetamines Screen U Benzodiazepines Scrn U Oth Cocaine Metabols U Cannabinoids Screen B-Hydroxybutyrate - Imaging and Cardiology CT scan - pelvis Status: Image reviewed by me, Report reviewed by me Assessment & Plan - Assessment and Plan (Free Text) Assessment: 62F with necrotic abscess NPO Debridement in OR Continue abx per ID Tight glucose control D/W. Dr. Schwab
[2018-07-23 17:00] LABS: BLOOD UREA NITROGEN 28 mg/dL (7-21); CALCIUM 8.8 mg/dL (8.4-10.5); GFR NON-AFRICAN AMERICAN > 60
[2018-07-23] MEDS: Meropenem IV 1 gm in NS 1 GM/50 ML BAG IVPB SCH ×2 (17:24→22:43)
[2018-07-23] MEDS: metroNIDAZOLE IV 500 mg/100 ml 500 MG/100 ML BAG IVPB SCH ×2 (17:24→22:41)
--- NOTE | 2018-07-23 19:57 | CON ---
DATE: 07/23/2018 LOCATION: The patient was seen earlier today in the ICU. CHIEF COMPLAINT: Weakness from several days. HISTORY OF PRESENT ILLNESS: This is a 62-year-old female with past medical history of positive HIV, hypertension, high cholesterol and hepatitis C, who was admitted with weakness and change of mental status, not feeling well, and noncompliant for medications. REVIEW OF SYSTEMS: Has been low-grade fevers. PAST MEDICAL HISTORY: Significant for diabetes, high cholesterol, hypertension, HIV and AIDS, hepatitis C. PAST SURGICAL HISTORY: Significant for cholecystectomy and tubal ligation. ALLERGIES: THE PATIENT'S ALLERGIES ARE NOTED TO BE HEPARIN AND ENOXAPARIN. PHYSICAL EXAMINATION: GENERAL: The patient is in bed. VITAL SIGNS: With a temperature of 94, respiratory rate of 22, blood pressure is 140/80, heart rate of 94. HEENT: Unremarkable. NECK: Supple. LUNGS: Have decreased breath sounds. HEART: Normal S1 and S2. ABDOMEN: Soft. SKIN: Examination of wound is eczematous with edema in the buttocks and in the perineal area. LABORATORY EXAMINATION: Reveals the patient's white count of 25,000 with 38% bandemia, and the platelets are normal. The coagulation is noted. Chemistries are noted; creatinine is 0.8 and random glucose is 290. Urinalysis is noted; 25 to 30 wbc's. The patient's bicarb is 29. IMAGING: I had ordered a CAT scan of the abdomen and pelvis earlier when I saw the patient, which is available at this time and shows marked edema, soft tissue in the right hemipelvis. ASSESSMENT AND PLAN: This is a 62-year-old female with sepsis with multiple necrotizing fasciitis with bandemia. We will treat with vancomycin, meropenem, Flagyl. Discussed with the surgical team. The patient is possible for OR today, and we will follow with you. Paco Pappas MD
[2018-07-23 20:16] LABS: BLOOD UREA NITROGEN 25 mg/dL (7-21); CALCIUM 8.8 mg/dL (8.4-10.5); GFR NON-AFRICAN AMERICAN > 60
[2018-07-23] MEDS ORDERED: Propofol 10 mg/ml Inj (20 ML) ONE ×2 (20:36→21:01)
[2018-07-23] MEDS ORDERED: Oxychlorosene Topical 2 gm Packet TOP ONE (20:41)
--- NOTE | 2018-07-23 20:50 | CARD ---
APPROVED REPORT Date of service: 07/22/2018 EKG Measurement Heart [id number] <Conclusion> Sinus tachycardia Left axis deviation Nonspecific ST abnormality Abnormal ECG
--- NOTE | 2018-07-23 21:39 | PCM.SURG1 ---
Surgeon's Initial Post Op Note - Surgeon's Notes Surgeon: Dr. Schwab Assembler Clip On Sunglasses: Dr. Munoz Type of Anesthesia: General Endo Anesthesia Administered By: Dr. Magdaleno Pre-Operative Diagnosis: Necrotic RLE Ulcer Operative Findings: Large necrotic gluteal abscess Post-Operative Diagnosis: Necrotic abscess Operation Performed: Debridment of abscess Specimen/Specimens Removed: Pus and necrotic tissue Estimated Blood Loss: EBL {In ML}: 1 Blood Products Given: N/A Drains Used: Dora Post-Op Condition: Good Date of Surgery/Procedure: 07/23/18 Time of Surgery/Procedure: 21:38
[2018-07-23] MEDS ORDERED: Dextrose 50% SYRINGE Inj (50 ml) IVP ONE (23:13)
[2018-07-24 00:56] LABS: BLOOD UREA NITROGEN 21 mg/dL (7-21); CALCIUM 8.7 mg/dL (8.4-10.5); GFR NON-AFRICAN AMERICAN > 60
[2018-07-24 06:10] LABS: BLOOD UREA NITROGEN 17 mg/dL (7-21); CALCIUM 8.7 mg/dL (8.4-10.5); GFR NON-AFRICAN AMERICAN > 60
[2018-07-24 06:22] LABS: HEMOGLOBIN 12.6 g/dL (12.0-16.0); MEAN CELL VOLUME 91.4 fl (80.0-105.0); MEAN CORPUSCULAR HEMOGLOBIN 29.9 pg (25.0-35.0); MEAN CORPUSCULAR HGB CONC 32.7 g/dl (31.0-37.0); MEAN PLATELET VOLUME 13.3 fl (7.0-11.0); RBC 4.21 10^6/uL (3.5-6.1); RED CELL DISTRIBUTION WIDTH 13.1 % (11.5-14.5); WHITE BLOOD COUNT 13.3 10^3/uL (4.5-11.0)
[2018-07-24] MEDS: Meropenem IV 1 gm in NS 1 GM/50 ML BAG IVPB SCH ×3 (06:55→22:25)
[2018-07-24] MEDS: metroNIDAZOLE IV 500 mg/100 ml 500 MG/100 ML BAG IVPB SCH ×3 (06:56→22:24)
--- NOTE | 2018-07-24 07:28 | CP.PCM.PN ---
Subjective - Date & Time of Evaluation Date of Evaluation: 07/24/18 Time of Evaluation: 07:21 - Subjective Subjective: General Surgery Progress Note for Dr. Schwab This 62F was seen and examined this A at bedside no acute events overnight. She reports lower extremity pain. Denies any fevers chills chest pain SOB or any new or concerning symptoms. Objective - Vital Signs/Intake and Output Vital Signs (last 24 hours): Temp Pulse Resp BP Pulse Ox 100.5 F H 104 H 24 121/61 99 07/24/18 07:00 07/24/18 04:49 07/24/18 02:40 07/24/18 02:00 07/24/18 02:40 Intake and Output: 07/24/18 07/24/18 06:59 18:59 Intake Total 1700 Output Total 300 Balance 1400 - Medications Medications: Current Medications Acetaminophen (Tylenol 325mg Tab) 650 mg PO Q6H PRN PRN Reason: Fever >100.4 F Last Admin: 07/24/18 07:00 Dose: 650 mg Dextrose (Dextrose 50% Inj) 0 ml IV STAT PRN; Protocol PRN Reason: Hypoglycemia Protocol Dextrose (Dextrose 5% In Water 1000 Ml) 1,000 mls @ 0 mls/hr IV .Q0M PRN; Protocol PRN Reason: Hypoglycemia Protocol Vancomycin HCl (Vancomycin 1gm) 1 gm in 250 mls @ 167 mls/hr IVPB Q12 [facility]; Protocol Last Admin: 07/23/18 22:41 Dose: 167 mls/hr Potassium Chloride 20 meq/ (Sodium Chloride) 1,010 mls @ 100 mls/hr IV .Q10H6M JOHN Last Admin: 07/24/18 03:53 Dose: 100 mls/hr Meropenem (Merrem Iv 1 Gm Premix) 1 gm in 50 mls @ 100 mls/hr IVPB Q8 [facility]; Protocol Stop: 08/01/18 16:02 Last Admin: 07/24/18 06:55 Dose: 100 mls/hr Metronidazole (Flagyl) 500 mg in 100 mls @ 100 mls/hr IVPB Q8 [facility]; Protocol Stop: 08/01/18 16:20 Last Admin: 07/24/18 06:56 Dose: 100 mls/hr Insulin Detemir (Levemir) 15 unit SC DAILY [facility] Insulin Human Regular (Humulin R High) 0 units SC ACHS [facility]; Protocol Last Admin: 07/23/18 22:30 Dose: Not Given Nystatin (Mycostatin Cream) 0 ea TOP TID [facility] Last Admin: 07/23/18 19:42 Dose: Not Given Pantoprazole Sodium (Protonix Inj) 40 mg IVP DAILY [facility] Last Admin: 07/23/18 10:12 Dose: 40 mg - Labs Labs: 07/24/18 05:45 07/24/18 05:45 PT 11.6 SECONDS (9.4-12.5) 07/22/18 20:10 INR 1.02 07/22/18 20:10 APTT 22.5 Seconds (25.1-36.5) L 07/22/18 20:10 - Constitutional Appears: Non-toxic, No Acute Distress - Head Exam Head Exam: ATRAUMATIC, NORMOCEPHALIC - Eye Exam Eye Exam: EOMI - ENT Exam ENT Exam: Mucous Membranes Moist - Respiratory Exam Respiratory Exam: NORMAL BREATHING PATTERN - Cardiovascular Exam Cardiovascular Exam: +S1, +S2 - GI/Abdominal Exam GI & Abdominal Exam: Soft. absent: Firm, Guarding, Rigid, Tenderness - Neurological Exam Neurological Exam: Alert, Awake - Psychiatric Exam Psychiatric exam: Normal Affect, Normal Mood - Skin Skin Exam: Dry. absent: Intact Additional comments: Multiple micheal drains in place draining purulent fluid Assessment and Plan - Assessment and Plan (Free Text) Assessment: 62F with HIV, HCV DM with resolving HHS POD#1 s/p necrotic abscess debridemnet COntinue ABX COntinue tught glucose controle Followup labs COntinue medical managment per primary team D/W Dr. Zaheer Munoz PGY3
--- NOTE | 2018-07-24 08:23 | CP.PCM.PN ---
<Klaus Iglesias - Last Filed: 07/24/18 10:08> Subjective - Date & Time of Evaluation Date of Evaluation: 07/24/18 Time of Evaluation: 08:23 - Subjective Subjective: PGY1 Medicine Progress Note for Dr. Vazquez Patient was seen and evaluated at bedside. Patient currently denies chest pain, palpitations, shortness of breath, abdominal pain, dysuria, back pain, dizziness headaches, confusion, fever and/or chills. Of note, Patient is POD 1 status-post necrotic abscess debridement with Dr. Schwab. Drains x5 placed by Surgery team are clean, dry, and in tact Objective - Vital Signs/Intake and Output Vital Signs (last 24 hours): Temp Pulse Resp BP Pulse Ox 100.5 F H 104 H 24 121/61 99 07/24/18 07:00 07/24/18 04:49 07/24/18 02:40 07/24/18 02:00 07/24/18 02:40 Intake and Output: 07/24/18 07/24/18 06:59 18:59 Intake Total 3000 Output Total 900 Balance 2100 - Medications Medications: Current Medications Acetaminophen (Tylenol 325mg Tab) 650 mg PO Q6H PRN PRN Reason: Fever >100.4 F Last Admin: 07/24/18 07:00 Dose: 650 mg Dextrose (Dextrose 50% Inj) 0 ml IV STAT PRN; Protocol PRN Reason: Hypoglycemia Protocol Dextrose (Dextrose 5% In Water 1000 Ml) 1,000 mls @ 0 mls/hr IV .Q0M PRN; Protocol PRN Reason: Hypoglycemia Protocol Vancomycin HCl (Vancomycin 1gm) 1 gm in 250 mls @ 167 mls/hr IVPB Q12 [facility]; Protocol Last Admin: 07/23/18 22:41 Dose: 167 mls/hr Potassium Chloride 20 meq/ (Sodium Chloride) 1,010 mls @ 100 mls/hr IV .Q10H6M [facility] Last Admin: 07/24/18 03:53 Dose: 100 mls/hr Meropenem (Merrem Iv 1 Gm Premix) 1 gm in 50 mls @ 100 mls/hr IVPB Q8 [facility]; Protocol Stop: 08/01/18 16:02 Last Admin: 07/24/18 06:55 Dose: 100 mls/hr Metronidazole (Flagyl) 500 mg in 100 mls @ 100 mls/hr IVPB Q8 [facility]; Protocol Stop: 08/01/18 16:20 Last Admin: 07/24/18 06:56 Dose: 100 mls/hr Insulin Detemir (Levemir) 15 unit SC DAILY [facility] Insulin Human Regular (Humulin R High) 0 units SC ACHS [facility]; Protocol Last Admin: 07/23/18 22:30 Dose: Not Given Morphine Sulfate (Morphine) 1 mg IVP Q6H PRN PRN Reason: Pain, severe (8-10) Nystatin (Mycostatin Cream) 0 ea TOP TID [facility] Last Admin: 07/23/18 19:42 Dose: Not Given Pantoprazole Sodium (Protonix Inj) 40 mg IVP DAILY [facility] Last Admin: 07/23/18 10:12 Dose: 40 mg - Labs Labs: 07/24/18 05:45 07/24/18 05:45 PT 11.6 SECONDS (9.4-12.5) 07/22/18 20:10 INR 1.02 07/22/18 20:10 APTT 22.5 Seconds (25.1-36.5) L 07/22/18 20:10 - Additional Findings Additional findings: Physical Exam Head: Positive for: Atraumatic, Normocephalic Pupils: Positive for: PERRL. Negative for: Pinpoint Extroacular Muscles: Positive for: EOMI Conjunctiva: Positive for: Normal Mouth: Positive for: Moist Mucous Membranes Neck: Positive for: Normal Range of Motion Respiratory/Chest: Positive for: Clear to Auscultation, Good Air Exchange. Negative for: Respiratory Distress, Accessory Muscle Use, Wheezes, Decreased Breath Sounds, Rales, Retracting Cardiovascular: Positive for: Regular Rate and Rhythm, Normal S1, S2. Negative for: Murmurs Abdomen: Negative for: Tenderness, Distention, Peritoneal Signs, Rebound, Guarding Back: Positive for: Decubitus Ulcer (3 unstageable sacral wound) 5 drains are clean, dry, and intact. Upper Extremity: Positive for: Normal Inspection. Negative for: Cyanosis, Edema Lower Extremity: Positive for: Normal Inspection. Negative for: Edema Neurological: Positive for: GCS=15, CN II-XII Intact, Speech Normal, Motor Func Grossly Intact, Normal Sensory Function Skin: Positive for: Warm, Dry, Normal Color, Other. Negative for: Rashes Psychiatric: Positive for: Alert. Negative for: Oriented x 3 (x2), Normal Insight (delayed ), Normal Concentration Assessment and Plan - Assessment and Plan (Free Text) Assessment: This is a 62-year-old Female with history of HIV, IDDM, hepatitis presenting with AMS secondary to HHS Neurological/Psych - AAO x3 - Patient denies depressive mood/suicidal ideation - 07/23/18: CT head without contrast: negative for acute intracranial abnormalities Cardiovascular - Maintain Map > 65 - Monitor troponins, negative x 2 - Keep normotensive Endocrine - Patient has HHS - DKA ruled out due to bicarb is 29 - HgA1C ordered - Replete potassium and magnesium as needed, maintain electrolytes - Patient is on HHD diet with low carb - Beta hydroxybutyrate=5.32 on 07/22/18 - ISS-med, Levemir 10 U qHS - Continue with ACCUChecks - 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 * Severe edematous and inflammatory changes extending from the external * genitalia anteriorly to the introitus. More posteriorly air * identified within perineal tissues. Marked edema of the area and * visible right lower extremity. No discrete, drainable collection. * There is not appear to be entry into the peritoneum. - Patient is POD 1 status-post necrotic abscess debridement with Dr. Schwab - Drains x5 placed by Surgery team: clean, dry, and in tact - Recommends tight glucose control and continued antibiotics - Patient afebrile - Leukocytosis improving - Urine Cx obtained - Blood Cx pending - Stool culture pending - Stool Ova/Parasite: pending - Procalcitonin - CD4/CD8 count pending - Antibiotics: on Metronidazole, Meropenem, Vancomycin Renal - Replete electrolytes as needed - IVF: decreased to NS@100 - Monitor Sacral wounds, likely stage 3 - Wound care consulted PPx: - GI: Protonix - DVT: SCD Patient seen and case discussed in detail with Dr. Taylor Iglesias PGY1 <Tracy Vazquez - Last Filed: 07/24/18 11:51> Objective - Vital Signs/Intake and Output Vital Signs (last 24 hours): Temp Pulse Resp BP Pulse Ox 98.8 F 86 19 105/60 98 07/24/18 08:00 07/24/18 08:30 07/24/18 08:30 07/24/18 08:00 07/24/18 08:30 Intake and Output: 07/24/18 07/24/18 06:59 18:59 Intake Total 3000 Output Total 900 Balance 2100 - Medications Medications: Current Medications Acetaminophen (Tylenol 325mg Tab) 650 mg PO Q6H PRN PRN Reason: Fever >100.4 F Last Admin: 07/24/18 07:00 Dose: 650 mg Dextrose (Dextrose 50% Inj) 0 ml IV STAT PRN; Protocol PRN Reason: Hypoglycemia Protocol Dextrose (Dextrose 5% In Water 1000 Ml) 1,000 mls @ 0 mls/hr IV .Q0M PRN; Protocol PRN Reason: Hypoglycemia Protocol Vancomycin HCl (Vancomycin 1gm) 1 gm in 250 mls @ 167 mls/hr IVPB Q12 [facility]; P rotocol Last Admin: 07/24/18 10:13 Dose: 167 mls/hr Meropenem (Merrem Iv 1 Gm Premix) 1 gm in 50 mls @ 100 mls/hr IVPB Q8 [facility]; Protocol Stop: 08/01/18 16:02 Last Admin: 07/24/18 06:55 Dose: 100 mls/hr Metronidazole (Flagyl) 500 mg in 100 mls @ 100 mls/hr IVPB Q8 [facility]; Protocol Stop: 08/01/18 16:20 Last Admin: 07/24/18 06:56 Dose: 100 mls/hr Sodium Chloride (Sodium Chloride 0.9%) 1,000 mls @ 100 mls/hr IV .Q10H [facility] Last Admin: 07/24/18 10:14 Dose: 100 mls/hr Insulin Detemir (Levemir) 15 unit SC DAILY [facility] Last Admin: 07/24/18 10:10 Dose: Not Given Insulin Human Regular (Humulin R High) 0 units SC ACHS [facility]; Protocol Last Admin: 07/24/18 08:34 Dose: Not Given Morphine Sulfate (Morphine) 1 mg IVP Q6H PRN PRN Reason: Pain, severe (8-10) Last Admin: 07/24/18 10:16 Dose: 1 mg Nystatin (Mycostatin Cream) 0 ea TOP TID [facility] Last Admin: 07/24/18 10:11 Dose: 2 g Pantoprazole Sodium (Protonix Inj) 40 mg IVP DAILY [facility] Last Admin: 07/24/18 10:12 Dose: 40 mg - Labs Labs: 07/24/18 05:45 07/24/18 08:00 PT 11.6 SECONDS (9.4-12.5) 07/22/18 20:10 INR 1.02 07/22/18 20:10 APTT 22.5 Seconds (25.1-36.5) L 07/22/18 20:10 Attending/Attestation - Attestation I have personally seen and examined this patient.: Yes I have fully participated in the care of the patient.: Yes I have reviewed all pertinent clinical information, including history, physical exam and plan: Yes Notes (Text): 07/24/18 11:44 Attending note; Patient seen and examined with resident in ICU. Patient is alert and awake. Denies any fevers, chills. Denies any nausea, vomiting. Denies any chest pain, shortness of breath. Complaining of pain in the back. Status post debridement of the decubitus wound yesterday in the OR. Patient is a 62-year-old Female with past medical history of HIV, on compliance with medication, IDDM, hepatitis C is admitted for altered mental status and hyperosmolar state. 1. DKA/hyperosmolar state; treated with insulin. Currently fingerstick is stable. Patient is noncompliance with taking insulin at home. Continue Levemir and insulin sliding scale. Dietary education given. Diabetic nurse education evaluation requested. 2. Large necrotic gluteal abscess; status post debridement in the OR. Culture is sent. Patient has multiple drains in place. Continue IV vancomycin, meropenem. ID evaluation appreciated. Surgery evaluation appreciated. Continue dressing for surgery. 3. Pain Management with IV morphine when necessary. 4. History of HIV; noncompliance with medication. CD4 count is not known. Labs CD4 count. ID evaluation appreciated. 5. History of hep C; not treated. Needs close outpatient follow-up. DVT/GI prophylaxis. Out of bed to chair as tolerated. Patient is visiting from [place]. Currently staying with her daughter. Will discuss with child welfare caseworker for discharge planning. Upon discharge the patient will follow-up with PMD in [place]. The diagnosis, treatment options and follow-up plan discussed with patient in detail.
[2018-07-24 08:24] LABS: BLOOD UREA NITROGEN 16 mg/dL (7-21); CALCIUM 8.2 mg/dL (8.4-10.5); GFR NON-AFRICAN AMERICAN > 60
[2018-07-24] MEDS: Insulin Reg-HIGH-Coverage SC SCH ×4 (08:34→22:23)
--- NOTE | 2018-07-24 09:06 | CP.CCUPN ---
<Nasir Cueto - Last Filed: 07/24/18 11:28> CCU Subjective - Physician Review Subjective (Free Text): Nasir Cueto PGY-1 Progress Note for ICU Patient seen and evaluated at bedside. Patient lethargic but responds appropriately s/p I&D of necrotic abscess last night in OR. Febrile overnight Tmax 100.5 but currently afebrile. Currently denies chest pain, palpitations, shortness of breath, abdominal pain, dysuria, lower back pain, dizziness, headaches, and confusion. CCU Objective - Vital Signs / Intake & Output Vital Signs (Last 4 hours): Vital Signs Temp Pulse Resp BP Pulse Ox 07/24/18 08:30 86 19 98 07/24/18 08:20 86 19 98 07/24/18 08:10 91 H 15 99 07/24/18 08:00 98.8 F 85 20 105/60 98 07/24/18 07:50 91 H 23 98 07/24/18 07:40 92 H 28 H 99 07/24/18 07:30 94 H 22 97 07/24/18 07:20 95 H 25 H 98 07/24/18 07:10 101 H 24 100 07/24/18 07:00 100.5 F H 97 H 21 161/86 H 98 07/24/18 06:59 98 H 25 H 141/75 100 07/24/18 06:50 91 H 23 99 07/24/18 06:40 92 H 20 99 07/24/18 06:30 93 H 22 100 07/24/18 06:20 92 H 29 H 100 07/24/18 06:10 93 H 32 H 99 07/24/18 06:00 107 H 13 100 07/24/18 05:50 96 H 25 H 99 07/24/18 05:40 96 H 24 97 07/24/18 05:30 106 H 25 H 98 07/24/18 05:20 106 H 98 07/24/18 05:10 103 H 18 97 Intake and Output (Last 8hrs): Intake & Output 07/23/18 07/24/18 07/24/18 22:59 06:59 14:59 Intake Total 1700 1300 Output Total 300 600 Balance 1400 700 Weight 56.245 kg 56.245 kg Intake: IV 1200 1300 Left Hand 1300 Right Antecubital 1200 Oral 500 Output: Urine 300 600 Urethral (Leiva) 300 600 Other: # Voids Urine, Voided 2 # Bowel Movements 1 - Physical Exam Head: Positive for: Atraumatic, Normocephalic Pupils: Positive for: PERRL. Negative for: Pinpoint Extroacular Muscles: Positive for: EOMI Conjunctiva: Positive for: Normal Mouth: Positive for: Moist Mucous Membranes Neck: Positive for: Normal Range of Motion Respiratory/Chest: Positive for: Clear to Auscultation, Good Air Exchange. Negative for: Respiratory Distress, Accessory Muscle Use, Wheezes, Decreased Breath Sounds, Rales, Retracting Cardiovascular: Positive for: Regular Rate and Rhythm, Normal S1, S2. Negative for: Murmurs Abdomen: Negative for: Tenderness, Distention, Peritoneal Signs, Rebound, Guarding Back: Positive for: Decubitus Ulcer (3 unstageable sacral wound; one specifically on gluteal cleft each with eschar. ). Negative for: Normal Inspection Upper Extremity: Positive for: Normal Inspection. Negative for: Cyanosis, Edema Lower Extremity: Positive for: Normal Inspection. Negative for: Edema Neurological: Positive for: GCS=15, CN II-XII Intact, Speech Normal, Motor Func Grossly Intact, Normal Sensory Function Skin: Positive for: Warm, Dry, Normal Color, Other. Negative for: Rashes Psychiatric: Positive for: Alert. Negative for: Oriented x 3 (x2), Normal Insight (delayed ), Normal Concentration - Medications Active Medications: Active Medications Generic Name Dose Route Start Last Admin Trade Name Freq PRN Reason Stop Dose Admin Acetaminophen 650 mg 07/24/18 05:06 07/24/18 07:00 Tylenol 325mg Tab PO 650 mg Q6H PRN Administration Fever >100.4 F Dextrose 0 ml 07/23/18 06:32 Dextrose 50% Inj IV STAT PRN Hypoglycemia Protocol Protocol Dextrose 1,000 mls @ 0 mls/hr 07/23/18 06:32 Dextrose 5% In Water 1000 Ml IV .Q0M PRN Hypoglycemia Protocol Protocol Per Protocol Vancomycin HCl 1 gm in 250 mls @ 167 mls/hr 07/23/18 10:00 07/23/18 22:41 Vancomycin 1gm IVPB 167 mls/hr Q12 JOHN Administration Protocol Potassium Chloride 20 meq/ 1,010 mls @ 100 mls/hr 07/23/18 11:00 07/24/18 03:53 Sodium Chloride IV 100 mls/hr .Q10H6M JOHN Administration Meropenem 1 gm in 50 mls @ 100 mls/hr 07/23/18 16:01 07/24/18 06:55 Merrem Iv 1 Gm Premix IVPB 08/01/18 16:02 100 mls/hr Q8 JOHN Administration Protocol Metronidazole 500 mg in 100 mls @ 100 mls/hr 07/23/18 16:19 07/24/18 06:56 Flagyl IVPB 08/01/18 16:20 100 mls/hr Q8 [facility] Administration Protocol Insulin Detemir 15 unit 07/24/18 10:00 Levemir SC DAILY [facility] Insulin Human Regular 0 units 07/23/18 11:30 07/24/18 08:34 Humulin R High SC Not Given ACHS [facility] Protocol Morphine Sulfate 1 mg 07/24/18 07:47 Morphine IVP Q6H PRN Pain, severe (8-10) Nystatin 0 ea 07/23/18 10:00 07/23/18 19:42 Mycostatin Cream TOP Not Given TID [facility] Pantoprazole Sodium 40 mg 07/23/18 10:00 07/23/18 10:12 Protonix Inj IVP 40 mg DAILY JOHN Administration - Patient Studies Lab Studies: Microbiology Studies 07/22/18 20:00 Blood Culture - Preliminary Blood-Venous NO GROWTH AFTER 24 HOURS 07/22/18 20:20 Blood Culture - Preliminary Blood-Venous NO GROWTH AFTER 24 HOURS Lab Studies 07/24/18 07/24/18 07/24/18 Range/Units 08:00 07:34 05:55 WBC (4.5-11.0) 10^3/uL RBC (3.5-6.1) 10^6/uL Hgb (12.0-16.0) g/dL Hct (36.0-48.0) % MCV (80.0-105.0) fl MCH (25.0-35.0) pg MCHC (31.0-37.0) g/dl RDW (11.5-14.5) % Plt Count (120.0-450.0) 10^3/uL MPV (7.0-11.0) fl Sodium 144 (132-148) mmol/L Potassium 3.9 (3.6-5.0) mmol/L Chloride 119 H (98-107) mmol/L Carbon Dioxide 25 (21-33) mmol/L Anion Gap 4 L (10-20) BUN 16 (7-21) mg/dL Creatinine 0.5 L (0.7-1.2) mg/dl Est GFR ( Amer) > 60 Est GFR (Non-Af Amer) > 60 POC Glucose (mg/dL) 138 H 106 (65-110) mg/dL Random Glucose 125 H (70-110) mg/dL Calcium 8.2 L (8.4-10.5) mg/dL Vitamin B12 (239-931) pg/mL 25-OH Vitamin D Total (30.0-100.0) NG/ML Procalcitonin (0.19-0.49) NG/ML B-Hydroxybutyrate (0.02-0.27) mM 07/24/18 07/24/18 07/24/18 Range/Units 05:45 05:45 00:30 WBC 13.3 H D (4.5-11.0) 10^3/uL RBC 4.21 (3.5-6.1) 10^6/uL Hgb 12.6 (12.0-16.0) g/dL Hct 38.5 (36.0-48.0) % MCV 91.4 (80.0-105.0) fl MCH 29.9 (25.0-35.0) pg MCHC 32.7 (31.0-37.0) g/dl RDW 13.1 (11.5-14.5) % Plt Count 157 (120.0-450.0) 10^3/uL MPV 13.3 H (7.0-11.0) fl Sodium 147 144 (132-148) mmol/L Potassium 4.0 4.2 (3.6-5.0) mmol/L Chloride 118 H 118 H (98-107) mmol/L Carbon Dioxide 26 23 (21-33) mmol/L Anion Gap 7 L 8 L (10-20) BUN 17 21 (7-21) mg/dL Creatinine 0.6 L 0.5 L (0.7-1.2) mg/dl Est GFR ( Amer) > 60 > 60 Est GFR (Non-Af Amer) > 60 > 60 POC Glucose (mg/dL) (65-110) mg/dL Random Glucose 100 113 H (70-110) mg/dL Calcium 8.7 8.7 (8.4-10.5) mg/dL Vitamin B12 (239-931) pg/mL 25-OH Vitamin D Total (30.0-100.0) NG/ML Procalcitonin (0.19-0.49) NG/ML B-Hydroxybutyrate (0.02-0.27) mM 07/23/18 07/23/18 07/23/18 Range/Units 20:04 19:30 16:23 WBC (4.5-11.0) 10^3/uL RBC (3.5-6.1) 10^6/uL Hgb (12.0-16.0) g/dL Hct (36.0-48.0) % MCV (80.0-105.0) fl MCH (25.0-35.0) pg MCHC (31.0-37.0) g/dl RDW (11.5-14.5) % Plt Count (120.0-450.0) 10^3/uL MPV (7.0-11.0) fl Sodium 147 (132-148) mmol/L Potassium 4.5 (3.6-5.0) mmol/L Chloride 118 H (98-107) mmol/L Carbon Dioxide 25 (21-33) mmol/L Anion Gap 9 L (10-20) BUN 25 H (7-21) mg/dL Creatinine 0.5 L (0.7-1.2) mg/dl Est GFR ( Amer) > 60 Est GFR (Non-Af Amer) > 60 POC Glucose (mg/dL) 70 71 (65-110) mg/dL Random Glucose 72 (70-110) mg/dL Calcium 8.8 (8.4-10.5) mg/dL Vitamin B12 (239-931) pg/mL 25-OH Vitamin D Total (30.0-100.0) NG/ML Procalcitonin (0.19-0.49) NG/ML B-Hydroxybutyrate (0.02-0.27) mM 07/23/18 07/23/18 07/23/18 Range/Units 16:15 11:45 10:15 WBC (4.5-11.0) 10^3/uL RBC (3.5-6.1) 10^6/uL Hgb (12.0-16.0) g/dL Hct (36.0-48.0) % MCV (80.0-105.0) fl MCH (25.0-35.0) pg MCHC (31.0-37.0) g/dl RDW (11.5-14.5) % Plt Count (120.0-450.0) 10^3/uL MPV (7.0-11.0) fl Sodium 144 (132-148) mmol/L Potassium 4.6 (3.6-5.0) mmol/L Chloride 118 H (98-107) mmol/L Carbon Dioxide 24 (21-33) mmol/L Anion Gap 7 L (10-20) BUN 28 H (7-21) mg/dL Creatinine 0.6 L (0.7-1.2) mg/dl Est GFR ( Amer) > 60 Est GFR (Non-Af Amer) > 60 POC Glucose (mg/dL) 206 H 321 H (65-110) mg/dL Random Glucose 91 (70-110) mg/dL Calcium 8.8 (8.4-10.5) mg/dL Vitamin B12 (239-931) pg/mL 25-OH Vitamin D Total (30.0-100.0) NG/ML Procalcitonin (0.19-0.49) NG/ML B-Hydroxybutyrate (0.02-0.27) mM 07/23/18 07/22/18 07/22/18 Range/Units 02:00 23:36 23:34 WBC (4.5-11.0) 10^3/uL RBC (3.5-6.1) 10^6/uL Hgb (12.0-16.0) g/dL Hct (36.0-48.0) % MCV (80.0-105.0) fl MCH (25.0-35.0) pg MCHC (31.0-37.0) g/dl RDW (11.5-14.5) % Plt Count (120.0-450.0) 10^3/uL MPV (7.0-11.0) fl Sodium (132-148) mmol/L Potassium (3.6-5.0) mmol/L Chloride (98-107) mmol/L Carbon Dioxide (21-33) mmol/L Anion Gap (10-20) BUN (7-21) mg/dL Creatinine (0.7-1.2) mg/dl Est GFR ( Amer) Est GFR (Non-Af Amer) POC Glucose (mg/dL) (65-110) mg/dL Random Glucose (70-110) mg/dL Calcium (8.4-10.5) mg/dL Vitamin B12 995 H (239-931) pg/mL 25-OH Vitamin D Total 28.2 L (30.0-100.0) NG/ML Procalcitonin 1.15 H (0.19-0.49) NG/ML B-Hydroxybutyrate 5.32 H (0.02-0.27) mM Laboratory Results - last 24 hr 07/22/18 07/22/18 07/23/18 23:34 23:36 02:00 WBC RBC Hgb Hct MCV MCH MCHC RDW Plt Count MPV Sodium Potassium Chloride Carbon Dioxide Anion Gap BUN Creatinine Est GFR ( Amer) Est GFR (Non-Af Amer) POC Glucose (mg/dL) Random Glucose Calcium Vitamin B12 995 H 25-OH Vitamin D Total 28.2 L Procalcitonin 1.15 H B-Hydroxybutyrate 5.32 H 07/23/18 07/23/18 07/23/18 10:15 11:45 16:15 WBC RBC Hgb Hct MCV MCH MCHC RDW Plt Count MPV Sodium 144 Potassium 4.6 Chloride 118 H Carbon Dioxide 24 Anion Gap 7 L BUN 28 H Creatinine 0.6 L Est GFR ( Amer) > 60 Est GFR (Non-Af Amer) > 60 POC Glucose (mg/dL) 321 H 206 H Random Glucose 91 Calcium 8.8 Vitamin B12 25-OH Vitamin D Total Procalcitonin B-Hydroxybutyrate 07/23/18 07/23/18 07/23/18 16:23 19:30 20:04 WBC RBC Hgb Hct MCV MCH MCHC RDW Plt Count MPV Sodium 147 Potassium 4.5 Chloride 118 H Carbon Dioxide 25 Anion Gap 9 L BUN 25 H Creatinine 0.5 L Est GFR ( Amer) > 60 Est GFR (Non-Af Amer) > 60 POC Glucose (mg/dL) 71 70 Random Glucose 72 Calcium 8.8 Vitamin B12 25-OH Vitamin D Total Procalcitonin B-Hydroxybutyrate 07/24/18 07/24/18 07/24/18 00:30 05:45 05:45 WBC 13.3 H D RBC 4.21 Hgb 12.6 Hct 38.5 MCV 91.4 MCH 29.9 MCHC 32.7 RDW 13.1 Plt Count 157 MPV 13.3 H Sodium 144 147 Potassium 4.2 4.0 Chloride 118 H 118 H Carbon Dioxide 23 26 Anion Gap 8 L 7 L BUN 21 17 Creatinine 0.5 L 0.6 L Est GFR ( Amer) > 60 > 60 Est GFR (Non-Af Amer) > 60 > 60 POC Glucose (mg/dL) Random Glucose 113 H 100 Calcium 8.7 8.7 Vitamin B12 25-OH Vitamin D Total Procalcitonin B-Hydroxybutyrate 07/24/18 07/24/18 07/24/18 05:55 07:34 08:00 WBC RBC Hgb Hct MCV MCH MCHC RDW Plt Count MPV Sodium 144 Potassium 3.9 Chloride 119 H Carbon Dioxide 25 Anion Gap 4 L BUN 16 Creatinine 0.5 L Est GFR ( Amer) > 60 Est GFR (Non-Af Amer) > 60 POC Glucose (mg/dL) 106 138 H Random Glucose 125 H Calcium 8.2 L Vitamin B12 25-OH Vitamin D Total Procalcitonin B-Hydroxybutyrate Radiology Impressions: Radiology Impressions Chest X-Ray 07/22/18 19:42 IMPRESSION: No active disease. No significant interval change compared to the prior examination(s). Head CT 07/23/18 08:00 IMPRESSION: No acute intracranial abnormalities. No significant findings to account for the clinical presentation. Abdomen/Pelvis CT 07/23/18 09:59 IMPRESSION: Evidence of enteritis/ileitis without mechanical obstruction. Severe edematous and inflammatory changes extending from the external genitalia anteriorly to the introitus. More posteriorly air identified within perineal tissues. Marked edema of the area and visible right lower extremity. No discrete, drainable collection. There is not appear to be entry into the peritoneum. Fingerstick Blood Sugar Results: 138 Review of Systems - Review of Systems Review of Systems: 12 point ROS completed and negative except as described in HPI. Critical Care Progress Note - Nutrition Nutrition: Nutrition Category Date Time Status Heart Healthy Diet [DIET] Diets 07/24/18 Breakfast Active Assessment/Plan - Assessment and Plan (Free Text) Assessment: 62 F with history of HIV, IDDM, hepatitis presenting with AMS, likely secondary to HHS. Patient POD#1 necrotic abscess debridement in OR. Febrile overnight. Hemodynamically stable. Neuro -AAOx2, no FND, moving extremities past midline. -Head CT negative for acute findings -Monitor neuro status. -Reorient patient as necessary. -Patient denies depressive mood/suicidal ideation Cardiovascular -Troponins negative x 2 -RRR, normotensive, no signs of HD compromise -Maintain MAP > 65. -Monitor for S/S, HD compromise. 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 Pappas- recs appreciated. 18 CT abdomen/pelvis - Evidence of enteritis/ileitis without mechanical obstruction. Severe edematous and inflammatory changes extending from the external genitalia anteriorly to the introitus. More posteriorly air identified within perineal tissues. Marked edema of the area and visible right lower extremity. No discrete, drainable collection. There is not appear to be entry into the peritoneum. General Surgery consulted - Dr. Schwab - POD#1 s/p necrotic abscess debridement -Resolved Leukocytosis 13.3, Febrile overnight Tmax 100.5, Tylenol PRN for fever -Continue Vanc 1 g BID, Merrem q8 and Metronidazole q8 per ID -f/u Urine culture -Blood culture neg x2 after 24 hours -Procalcitonin 1.15 -CD4/CD8 count pending Heme/Onc: -H/H stable at 13.4 -No signs of HD compromise. -Continue monitoring H/H Renal -Replete electrolytes as needed -Currently on NS@100, Hypokalemia resolved DVT ppx: SCDs GI PPX: Protonix 40 mg IVP Patient seen, case reviewed and plan approved by Dr. Martell. Nasir Cueto, PGY-1 <Mariusz Martell - Last Filed: 07/24/18 12:03> CCU Objective - Vital Signs / Intake & Output Vital Signs (Last 4 hours): Vital Signs Pulse Resp Pulse Ox 07/24/18 08:30 86 19 98 07/24/18 08:20 86 19 98 07/24/18 08:10 91 H 15 99 Intake and Output (Last 8hrs): Intake & Output 07/23/18 07/24/18 07/24/18 22:59 06:59 14:59 Intake Total 1700 1300 Output Total 300 600 Balance 1400 700 Weight 124 lb 124 lb Intake: IV 1200 1300 Left Hand 1300 Right Antecubital 1200 Oral 500 Output: Urine 300 600 Urethral (Leiva) 300 600 Other: # Voids Urine, Voided 2 # Bowel Movements 1 - Medications Active Medications: Active Medications Generic Name Dose Route Start Last Admin Trade Name Freq PRN Reason Stop Dose Admin Acetaminophen 650 mg 07/24/18 05:06 07/24/18 07:00 Tylenol 325mg Tab PO 650 mg Q6H PRN Administration Fever >100.4 F Dextrose 0 ml 07/23/18 06:32 Dextrose 50% Inj IV STAT PRN Hypoglycemia Protocol Protocol Enoxaparin Sodium 30 mg 07/24/18 12:00 Lovenox SC DAILY JOHN Protocol Dextrose 1,000 mls @ 0 mls/hr 07/23/18 06:32 Dextrose 5% In Water 1000 Ml IV .Q0M PRN Hypoglycemia Protocol Protocol Per Protocol Vancomycin HCl 1 gm in 250 mls @ 167 mls/hr 07/23/18 10:00 07/24/18 10:13 Vancomycin 1gm IVPB 167 mls/hr Q12 JOHN Administration Protocol Meropenem 1 gm in 50 mls @ 100 mls/hr 07/23/18 16:01 07/24/18 06:55 Merrem Iv 1 Gm Premix IVPB 08/01/18 16:02 100 mls/hr Q8 JOHN Administration Protocol Metronidazole 500 mg in 100 mls @ 100 mls/hr 07/23/18 16:19 07/24/18 06:56 Flagyl IVPB 08/01/18 16:20 100 mls/hr Q8 JOHN Administration Protocol Sodium Chloride 1,000 mls @ 100 mls/hr 07/24/18 09:30 07/24/18 10:14 Sodium Chloride 0.9% IV 100 mls/hr .Q10H JOHN Administration Insulin Detemir 15 unit 07/24/18 10:00 07/24/18 10:10 Levemir SC Not Given DAILY JOHN Insulin Human Regular 0 units 07/23/18 11:30 07/24/18 08:34 Humulin R High SC Not Given ACHS [facility] Protocol Morphine Sulfate 1 mg 07/24/18 07:47 07/24/18 10:16 Morphine IVP 1 mg Q6H PRN Administration Pain, severe (8-10) Nystatin 0 ea 07/23/18 10:00 07/24/18 10:11 Mycostatin Cream TOP 2 g TID JOHN Administration Pantoprazole Sodium 40 mg 07/23/18 10:00 07/24/18 10:12 Protonix Inj IVP 40 mg DAILY JOHN Administration - Patient Studies Lab Studies: Microbiology Studies 07/23/18 02:00 MRSA Culture (Admit) - Final Nose MRSA NOT DETECTED 07/22/18 20:00 Blood Culture - Preliminary Blood-Venous NO GROWTH AFTER 24 HOURS 07/22/18 20:20 Blood Culture - Preliminary Blood-Venous NO GROWTH AFTER 24 HOURS Lab Studies 07/24/18 07/24/18 07/24/18 Range/Units 11:30 08:00 08:00 WBC (4.5-11.0) 10^3/uL RBC (3.5-6.1) 10^6/uL Hgb (12.0-16.0) g/dL Hct (36.0-48.0) % MCV (80.0-105.0) fl MCH (25.0-35.0) pg MCHC (31.0-37.0) g/dl RDW (11.5-14.5) % Plt Count (120.0-450.0) 10^3/uL MPV (7.0-11.0) fl Sodium 144 (132-148) mmol/L Potassium 3.9 (3.6-5.0) mmol/L Chloride 119 H (98-107) mmol/L Carbon Dioxide 25 (21-33) mmol/L Anion Gap 4 L (10-20) BUN 16 (7-21) mg/dL Creatinine 0.5 L (0.7-1.2) mg/dl Est GFR ( Amer) > 60 Est GFR (Non-Af Amer) > 60 POC Glucose (mg/dL) 141 H (65-110) mg/dL Random Glucose 125 H (70-110) mg/dL Hemoglobin A1c 12.2 H (4.2-6.5) % Calcium 8.2 L (8.4-10.5) mg/dL Vitamin B12 (239-931) pg/mL 07/24/18 07/24/18 07/24/18 Range/Units 07:34 05:55 05:45 WBC 13.3 H D (4.5-11.0) 10^3/uL RBC 4.21 (3.5-6.1) 10^6/uL Hgb 12.6 (12.0-16.0) g/dL Hct 38.5 (36.0-48.0) % MCV 91.4 (80.0-105.0) fl MCH 29.9 (25.0-35.0) pg MCHC 32.7 (31.0-37.0) g/dl RDW 13.1 (11.5-14.5) % Plt Count 157 (120.0-450.0) 10^3/uL MPV 13.3 H (7.0-11.0) fl Sodium (132-148) mmol/L Potassium (3.6-5.0) mmol/L Chloride (98-107) mmol/L Carbon Dioxide (21-33) mmol/L Anion Gap (10-20) BUN (7-21) mg/dL Creatinine (0.7-1.2) mg/dl Est GFR ( Amer) Est GFR (Non-Af Amer) POC Glucose (mg/dL) 138 H 106 (65-110) mg/dL Random Glucose (70-110) mg/dL Hemoglobin A1c (4.2-6.5) % Calcium (8.4-10.5) mg/dL Vitamin B12 (239-931) pg/mL 07/24/18 07/24/18 07/23/18 Range/Units 05:45 00:30 21:48 WBC (4.5-11.0) 10^3/uL RBC (3.5-6.1) 10^6/uL Hgb (12.0-16.0) g/dL Hct (36.0-48.0) % MCV (80.0-105.0) fl MCH (25.0-35.0) pg MCHC (31.0-37.0) g/dl RDW (11.5-14.5) % Plt Count (120.0-450.0) 10^3/uL MPV (7.0-11.0) fl Sodium 147 144 (132-148) mmol/L Potassium 4.0 4.2 (3.6-5.0) mmol/L Chloride 118 H 118 H (98-107) mmol/L Carbon Dioxide 26 23 (21-33) mmol/L Anion Gap 7 L 8 L (10-20) BUN 17 21 (7-21) mg/dL Creatinine 0.6 L 0.5 L (0.7-1.2) mg/dl Est GFR ( Amer) > 60 > 60 Est GFR (Non-Af Amer) > 60 > 60 POC Glucose (mg/dL) 64 L (65-110) mg/dL Random Glucose 100 113 H (70-110) mg/dL Hemoglobin A1c (4.2-6.5) % Calcium 8.7 8.7 (8.4-10.5) mg/dL Vitamin B12 (239-931) pg/mL 07/23/18 07/23/18 07/23/18 Range/Units 20:04 19:30 16:23 WBC (4.5-11.0) 10^3/uL RBC (3.5-6.1) 10^6/uL Hgb (12.0-16.0) g/dL Hct (36.0-48.0) % MCV (80.0-105.0) fl MCH (25.0-35.0) pg MCHC (31.0-37.0) g/dl RDW (11.5-14.5) % Plt Count (120.0-450.0) 10^3/uL MPV (7.0-11.0) fl Sodium 147 (132-148) mmol/L Potassium 4.5 (3.6-5.0) mmol/L Chloride 118 H (98-107) mmol/L Carbon Dioxide 25 (21-33) mmol/L Anion Gap 9 L (10-20) BUN 25 H (7-21) mg/dL Creatinine 0.5 L (0.7-1.2) mg/dl Est GFR ( Amer) > 60 Est GFR (Non-Af Amer) > 60 POC Glucose (mg/dL) 70 71 (65-110) mg/dL Random Glucose 72 (70-110) mg/dL Hemoglobin A1c (4.2-6.5) % Calcium 8.8 (8.4-10.5) mg/dL Vitamin B12 (239-931) pg/mL 07/23/18 07/23/18 07/22/18 Range/Units 16:15 11:45 23:34 WBC (4.5-11.0) 10^3/uL RBC (3.5-6.1) 10^6/uL Hgb (12.0-16.0) g/dL Hct (36.0-48.0) % MCV (80.0-105.0) fl MCH (25.0-35.0) pg MCHC (31.0-37.0) g/dl RDW (11.5-14.5) % Plt Count (120.0-450.0) 10^3/uL MPV (7.0-11.0) fl Sodium 144 (132-148) mmol/L Potassium 4.6 (3.6-5.0) mmol/L Chloride 118 H (98-107) mmol/L Carbon Dioxide 24 (21-33) mmol/L Anion Gap 7 L (10-20) BUN 28 H (7-21) mg/dL Creatinine 0.6 L (0.7-1.2) mg/dl Est GFR ( Amer) > 60 Est GFR (Non-Af Amer) > 60 POC Glucose (mg/dL) 206 H (65-110) mg/dL Random Glucose 91 (70-110) mg/dL Hemoglobin A1c (4.2-6.5) % Calcium 8.8 (8.4-10.5) mg/dL Vitamin B12 995 H (239-931) pg/mL Laboratory Results - last 24 hr 07/22/18 07/23/18 07/23/18 23:34 11:45 16:15 WBC RBC Hgb Hct MCV MCH MCHC RDW Plt Count MPV Sodium 144 Potassium 4.6 Chloride 118 H Carbon Dioxide 24 Anion Gap 7 L BUN 28 H Creatinine 0.6 L Est GFR ( Amer) > 60 Est GFR (Non-Af Amer) > 60 POC Glucose (mg/dL) 206 H Random Glucose 91 Hemoglobin A1c Calcium 8.8 Vitamin B12 995 H 07/23/18 07/23/18 07/23/18 16:23 19:30 20:04 WBC RBC Hgb Hct MCV MCH MCHC RDW Plt Count MPV Sodium 147 Potassium 4.5 Chloride 118 H Carbon Dioxide 25 Anion Gap 9 L BUN 25 H Creatinine 0.5 L Est GFR ( Amer) > 60 Est GFR (Non-Af Amer) > 60 POC Glucose (mg/dL) 71 70 Random Glucose 72 Hemoglobin A1c Calcium 8.8 Vitamin B12 07/23/18 07/24/18 07/24/18 21:48 00:30 05:45 WBC RBC Hgb Hct MCV MCH MCHC RDW Plt Count MPV Sodium 144 147 Potassium 4.2 4.0 Chloride 118 H 118 H Carbon Dioxide 23 26 Anion Gap 8 L 7 L BUN 21 17 Creatinine 0.5 L 0.6 L Est GFR ( Amer) > 60 > 60 Est GFR (Non-Af Amer) > 60 > 60 POC Glucose (mg/dL) 64 L Random Glucose 113 H 100 Hemoglobin A1c Calcium 8.7 8.7 Vitamin B12 07/24/18 07/24/18 07/24/18 05:45 05:55 07:34 WBC 13.3 H D RBC 4.21 Hgb 12.6 Hct 38.5 MCV 91.4 MCH 29.9 MCHC 32.7 RDW 13.1 Plt Count 157 MPV 13.3 H Sodium Potassium Chloride Carbon Dioxide Anion Gap BUN Creatinine Est GFR ( Amer) Est GFR (Non-Af Amer) POC Glucose (mg/dL) 106 138 H Random Glucose Hemoglobin A1c Calcium Vitamin B12 07/24/18 07/24/18 07/24/18 08:00 08:00 11:30 WBC RBC Hgb Hct MCV MCH MCHC RDW Plt Count MPV Sodium 144 Potassium 3.9 Chloride 119 H Carbon Dioxide 25 Anion Gap 4 L BUN 16 Creatinine 0.5 L Est GFR ( Amer) > 60 Est GFR (Non-Af Amer) > 60 POC Glucose (mg/dL) 141 H Random Glucose 125 H Hemoglobin A1c 12.2 H Calcium 8.2 L Vitamin B12 Radiology Impressions: Radiology Impressions Head CT 07/23/18 08:00 IMPRESSION: No acute intracranial abnormalities. No significant findings to account for the clinical presentation. Abdomen/Pelvis CT 07/23/18 09:59 IMPRESSION: Evidence of enteritis/ileitis without mechanical obstruction. Severe edematous and inflammatory changes extending from the external genitalia anteriorly to the introitus. More posteriorly air identified within perineal tissues. Marked edema of the area and visible right lower extremity. No discrete, drainable collection. There is not appear to be entry into the peritoneum. Critical Care Progress Note - Nutrition Nutrition: Nutrition Category Date Time Status Heart Healthy Diet [DIET] Diets 07/24/18 Breakfast Active Assessment/Plan - Assessment and Plan (Free Text) Assessment: Patient seen and examined on rounds, with resident, agree with note with following additions/exceptions: Patient is 62yo female with PMhx of ?Hep C, HIV ?on HAART, DM, non compliant with meds presented with HHS/HONK, and severe sepsis, with AMS, which is resolved Pt found to have perineal abscess, taken to OR yesterday, s/p debridement Currently afebrile, BP stable, comfortable in NAD, AAOX2, appropriate Patients FS much better controlled currently 100-150 Troponin negative x 2 HHS/HONK HIV rule out Hep C DM Hypokalemia AMS Perineum/Sacral Abscess Recommend: - cont with supp o2 as needed, duonebs PRN - Panculture, UCx, BCx - Broad spectrum abx, Merrem, Flagyl, Vanco IV - check HIV viral load, CD4 count - check HgbA1C, lipid panel, Thyroid panel - Insulin sliding scal - Levmir 15u QHS - IVF - replete K - GI ppx - DVT ppx - stable, transfer to med surg
[2018-07-24] MEDS: Insulin Detemir 100 units/ml Vial (Levemir) SC SCH (10:10)
[2018-07-24] MEDS: Nystatin 100,000 Units/gm Cream(15 gm) TOP SCH ×3 (10:11→19:00)
[2018-07-24] MEDS: Vancomycin 1gm in NS 250ml 1 GM/250 ML BAG IVPB SCH ×2 (10:13→22:25)
[2018-07-24] MEDS: Sodium Chloride 0.9% 1,000 ML IV SCH ×2 (10:14)
[2018-07-24] MEDS: Morphine 2 mg/ml ISec IVP PRN (10:16)
--- NOTE | 2018-07-24 10:29 | PN ---
DATE: 07/24/2018 SUBJECTIVE: The patient is seen earlier today. She is awake. She is responsive doing much better. PHYSICAL EXAMINATION: VITAL SIGNS: Temperature is 98, T-max is 100.5, blood pressure is 105/60, respiratory rate 20, heart rate of 91. HEENT: Unremarkable. NECK: Supple. LUNGS: Have decreased breath sounds. HEART: Normal S1, S2. ABDOMEN: Soft, nontender. LABORATORY EXAMINATION: Reveals a white count of 13,300 and hemoglobin of 12. BUN of 16, creatinine of 0.6 and the urinalysis is noted and microbiology reveals the blood cultures are negative and the patient was taken to the OR yesterday, had a debridement of tissue and significant amount of necrotic pus and debridement of abscess is noted. ASSESSMENT AND PLAN: This is a 62-year-old female with sepsis, with Hilaria's, with multiple necrotizing fasciitis and bandemia on vancomycin, meropenem, Flagyl, status post drainage and debridement, purulent material appeared. Hilaria's in a diabetic with microbiology thus far the blood cultures are negative. We will check on the wound cultures. We will make further recommendations based on culture results and local wound care. Paco Pappas MD
[2018-07-24] MEDS ORDERED: Enoxaparin 30 mg Syringe SC SCH (12:00)
[2018-07-25] MEDS: Morphine 2 mg/ml ISec IVP PRN ×2 (03:48→21:31)
[2018-07-25] MEDS: Meropenem IV 1 gm in NS 1 GM/50 ML BAG IVPB SCH ×3 (05:27→22:42)
[2018-07-25] MEDS: Pantoprazole 40 mg EC Tab PO SCH (05:28)
[2018-07-25] MEDS: metroNIDAZOLE IV 500 mg/100 ml 500 MG/100 ML BAG IVPB SCH ×3 (05:28→21:31)
[2018-07-25 07:17] LABS: BLOOD UREA NITROGEN 11 mg/dL (7-21); CALCIUM 7.8 mg/dL (8.4-10.5); GFR NON-AFRICAN AMERICAN > 60
[2018-07-25 07:52] LABS: HEMOGLOBIN 12.3 g/dL (12.0-16.0); MEAN CELL VOLUME 92.1 fl (80.0-105.0); MEAN CORPUSCULAR HEMOGLOBIN 29.6 pg (25.0-35.0); MEAN CORPUSCULAR HGB CONC 32.1 g/dl (31.0-37.0); MEAN PLATELET VOLUME 13.3 fl (7.0-11.0); RBC 4.16 10^6/uL (3.5-6.1); RED CELL DISTRIBUTION WIDTH 12.9 % (11.5-14.5); WHITE BLOOD COUNT 7.3 10^3/uL (4.5-11.0)
--- NOTE | 2018-07-25 08:45 | CP.PCM.PN ---
Subjective - Date & Time of Evaluation Date of Evaluation: 07/25/18 Time of Evaluation: 08:43 - Subjective Subjective: Surgery PT seen and exaqmined. dressing soiled. CHanged. Denies acute events. Objective - Vital Signs/Intake and Output Vital Signs (last 24 hours): Temp Pulse Resp BP Pulse Ox 98.2 F 84 20 142/73 98 07/25/18 04:00 07/25/18 04:20 07/25/18 04:20 07/25/18 04:00 07/25/18 04:20 Intake and Output: 07/25/18 07/25/18 06:59 18:59 Intake Total 1989 Output Total 650 Balance 1340 - Medications Medications: Current Medications Acetaminophen (Tylenol 325mg Tab) 650 mg PO Q6H PRN PRN Reason: Fever >100.4 F Last Admin: 07/24/18 07:00 Dose: 650 mg Dextrose (Dextrose 50% Inj) 0 ml IV STAT PRN; Protocol PRN Reason: Hypoglycemia Protocol Dextrose (Dextrose 5% In Water 1000 Ml) 1,000 mls @ 0 mls/hr IV .Q0M PRN; Protocol PRN Reason: Hypoglycemia Protocol Vancomycin HCl (Vancomycin 1gm) 1 gm in 250 mls @ 167 mls/hr IVPB Q12 JOHN; Protocol Last Admin: 07/24/18 22:25 Dose: 167 mls/hr Meropenem (Merrem Iv 1 Gm Premix) 1 gm in 50 mls @ 100 mls/hr IVPB Q8 JOHN; Protocol Stop: 08/01/18 16:02 Last Admin: 07/25/18 05:27 Dose: 100 mls/hr Metronidazole (Flagyl) 500 mg in 100 mls @ 100 mls/hr IVPB Q8 JOHN; Protocol Stop: 08/01/18 16:20 Last Admin: 07/25/18 05:28 Dose: 100 mls/hr Sodium Chloride (Sodium Chloride 0.9%) 1,000 mls @ 100 mls/hr IV .Q10H JOHN Last Admin: 07/24/18 10:14 Dose: 100 mls/hr Insulin Detemir (Levemir) 15 unit SC DAILY JOHN Last Admin: 07/24/18 10:10 Dose: Not Given Insulin Human Regular (Humulin R High) 0 units SC ACHS JOHN; Protocol Last Admin: 07/24/18 22:23 Dose: Not Given Morphine Sulfate (Morphine) 1 mg IVP Q6H PRN PRN Reason: Pain, severe (8-10) Last Admin: 07/25/18 03:48 Dose: 1 mg Nystatin (Mycostatin Cream) 0 ea TOP TID [facility] Last Admin: 07/24/18 19:00 Dose: 1 g Pantoprazole Sodium (Protonix Ec Tab) 40 mg PO 0600 [facility] Last Admin: 07/25/18 05:28 Dose: 40 mg - Labs Labs: 07/25/18 07:30 07/25/18 05:40 PT 11.6 SECONDS (9.4-12.5) 07/22/18 20:10 INR 1.02 07/22/18 20:10 APTT 22.5 Seconds (25.1-36.5) L 07/22/18 20:10 - Constitutional Appears: No Acute Distress - Head Exam Head Exam: ATRAUMATIC, NORMAL INSPECTION, NORMOCEPHALIC - Eye Exam Eye Exam: EOMI, Normal appearance, PERRL Pupil Exam: NORMAL ACCOMODATION, PERRL - ENT Exam ENT Exam: Mucous Membranes Moist, Normal Exam - Neck Exam Neck Exam: Full ROM - Respiratory Exam Respiratory Exam: NORMAL BREATHING PATTERN - Cardiovascular Exam Cardiovascular Exam: REGULAR RHYTHM - GI/Abdominal Exam GI & Abdominal Exam: Soft. absent: Tenderness - Extremities Exam Extremities Exam: Full ROM - Neurological Exam Neurological Exam: Alert, Awake, CN II-XII Intact, Oriented x3 - Skin Skin Exam: Erythema, Warm. absent: Dry, Intact Additional comments: multiple open wound with drains. Assessment and Plan - Assessment and Plan (Free Text) Assessment: 62F with HIV, HCV DM with resolving HHS POD#2 s/p necrotic abscess debridemnet COntinue ABX COntinue glucose controle Followup labs COntinue medical managment per primary team Will D/W Dr. Schwab
[2018-07-25] MEDS: Insulin Reg-HIGH-Coverage SC SCH (09:50)
[2018-07-25] MEDS: Insulin Detemir 100 units/ml Vial (Levemir) SC SCH ×2 (09:50→21:41)
[2018-07-25] MEDS: Nystatin 100,000 Units/gm Cream(15 gm) TOP SCH ×2 (09:51→17:50)
[2018-07-25] MEDS: Vancomycin 1gm in NS 250ml 1 GM/250 ML BAG IVPB SCH ×2 (09:52→23:56)
[2018-07-25] MEDS ORDERED: Cholecalciferol 400 Intl Units Tab PO SCH (12:00)
--- NOTE | 2018-07-25 12:37 | CP.PCM.PN ---
Subjective - Date & Time of Evaluation Date of Evaluation: 07/25/18 Time of Evaluation: 08:55 - Subjective Subjective: Not in distress, non-toxic, no fevers. Objective - Vital Signs/Intake and Output Vital Signs (last 24 hours): Temp Pulse Resp BP Pulse Ox 98.8 F 90 22 135/74 100 07/24/18 08:00 07/24/18 18:30 07/24/18 18:30 07/24/18 18:00 07/24/18 18:30 Intake and Output: 07/24/18 07/25/18 18:59 06:59 Intake Total 1600 Output Total 460 Balance 1140 - Medications Medications: Current Medications Acetaminophen (Tylenol 325mg Tab) 650 mg PO Q6H PRN PRN Reason: Fever >100.4 F Last Admin: 07/24/18 07:00 Dose: 650 mg Dextrose (Dextrose 50% Inj) 0 ml IV STAT PRN; Protocol PRN Reason: Hypoglycemia Protocol Dextrose (Dextrose 5% In Water 1000 Ml) 1,000 mls @ 0 mls/hr IV .Q0M PRN; Protocol PRN Reason: Hypoglycemia Protocol Vancomycin HCl (Vancomycin 1gm) 1 gm in 250 mls @ 167 mls/hr IVPB Q12 JOHN; Protocol Last Admin: 07/24/18 10:13 Dose: 167 mls/hr Meropenem (Merrem Iv 1 Gm Premix) 1 gm in 50 mls @ 100 mls/hr IVPB Q8 JOHN; Protocol Stop: 08/01/18 16:02 Last Admin: 07/24/18 14:15 Dose: 100 mls/hr Metronidazole (Flagyl) 500 mg in 100 mls @ 100 mls/hr IVPB Q8 JOHN; Protocol Stop: 08/01/18 16:20 Last Admin: 07/24/18 14:15 Dose: 100 mls/hr Sodium Chloride (Sodium Chloride 0.9%) 1,000 mls @ 100 mls/hr IV .Q10H JOHN Last Admin: 07/24/18 10:14 Dose: 100 mls/hr Insulin Detemir (Levemir) 15 unit SC DAILY [facility] Last Admin: 07/24/18 10:10 Dose: Not Given Insulin Human Regular (Humulin R High) 0 units SC ACHS JOHN; Protocol Last Admin: 07/24/18 17:05 Dose: 4 unit Morphine Sulfate (Morphine) 1 mg IVP Q6H PRN PRN Reason: Pain, severe (8-10) Last Admin: 07/24/18 10:16 Dose: 1 mg Nystatin (Mycostatin Cream) 0 ea TOP TID [facility] Last Admin: 07/24/18 14:16 Dose: 2 g Pantoprazole Sodium (Protonix Inj) 40 mg IVP DAILY [facility] Last Admin: 07/24/18 10:12 Dose: 40 mg - Labs Labs: 07/24/18 05:45 07/24/18 08:00 PT 11.6 SECONDS (9.4-12.5) 07/22/18 20:10 INR 1.02 07/22/18 20:10 APTT 22.5 Seconds (25.1-36.5) L 07/22/18 20:10 - Constitutional Appears: Chronically Ill - Head Exam Head Exam: NORMAL INSPECTION - ENT Exam ENT Exam: Mucous Membranes Moist - Neck Exam Neck Exam: absent: Meningismus - Respiratory Exam Respiratory Exam: Decreased Breath Sounds - Cardiovascular Exam Cardiovascular Exam: +S1, +S2 - GI/Abdominal Exam GI & Abdominal Exam: Soft. 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
--- NOTE | 2018-07-25 13:33 | CP.PCM.PN ---
<Jose Manuel Silver - Last Filed: 07/25/18 16:38> Subjective - Date & Time of Evaluation Date of Evaluation: 07/25/18 Time of Evaluation: 13:30 - Subjective Subjective: INTERNAL MEDICINE PROGRESS NOTE FOR HOSPITALIST TEAM- DR. MIKE Silver PGY1 Pt seen and examined at bedside. Pt transferred out of ICU today. She is POD2 s/p necrotic abscess debridement. No acute nursing events overnight. Pt denies acute complaints. She is tolerating her diet. She is AxOx3 and conversing well. 12 point ROS is negative Objective - Vital Signs/Intake and Output Vital Signs (last 24 hours): Temp Pulse Resp BP Pulse Ox 98.2 F 84 20 142/73 98 07/25/18 04:00 07/25/18 04:20 07/25/18 04:20 07/25/18 04:00 07/25/18 04:20 Intake and Output: 07/25/18 07/25/18 06:59 18:59 Intake Total 1990 Output Total 650 Balance 1340 - Medications Medications: Current Medications Acetaminophen (Tylenol 325mg Tab) 650 mg PO Q6H PRN PRN Reason: Fever >100.4 F Last Admin: 07/24/18 07:00 Dose: 650 mg Cyanocobalamin (Vitamin B12 1000 Mcg Tab) 2,000 mcg PO DAILY JOHN Dextrose (Dextrose 50% Inj) 0 ml IV STAT PRN; Protocol PRN Reason: Hypoglycemia Protocol Dextrose (Dextrose 5% In Water 1000 Ml) 1,000 mls @ 0 mls/hr IV .Q0M PRN; Protocol PRN Reason: Hypoglycemia Protocol Vancomycin HCl (Vancomycin 1gm) 1 gm in 250 mls @ 167 mls/hr IVPB Q12 JOHN; Protocol Last Admin: 07/25/18 09:52 Dose: 167 mls/hr Meropenem (Merrem Iv 1 Gm Premix) 1 gm in 50 mls @ 100 mls/hr IVPB Q8 JOHN; Protocol Stop: 08/01/18 16:02 Last Admin: 07/25/18 05:27 Dose: 100 mls/hr Metronidazole (Flagyl) 500 mg in 100 mls @ 100 mls/hr IVPB Q8 JOHN; Protocol Stop: 08/01/18 16:20 Last Admin: 07/25/18 05:28 Dose: 100 mls/hr Insulin Detemir (Levemir) 24 unit SC HS JOHN Insulin Human Lispro (Humalog Low) 0 units SC ACHS JOHN; Protocol Insulin Human Lispro (Humalog) 8 units SC AC JOHN Morphine Sulfate (Morphine) 1 mg IVP Q6H PRN PRN Reason: Pain, severe (8-10) Last Admin: 07/25/18 03:48 Dose: 1 mg Nystatin (Mycostatin Cream) 0 ea TOP TID [facility] Last Admin: 07/25/18 09:51 Dose: 2 g Pantoprazole Sodium (Protonix Ec Tab) 40 mg PO 0600 [facility] Last Admin: 07/25/18 05:28 Dose: 40 mg - Labs Labs: 07/25/18 07:30 07/25/18 05:40 PT 11.6 SECONDS (9.4-12.5) 07/22/18 20:10 INR 1.02 07/22/18 20:10 APTT 22.5 Seconds (25.1-36.5) L 07/22/18 20:10 - Constitutional Appears: Well, Non-toxic, No Acute Distress - Head Exam Head Exam: NORMAL INSPECTION, NORMOCEPHALIC - Eye Exam Eye Exam: EOMI, Normal appearance - ENT Exam ENT Exam: Mucous Membranes Moist, Normal Exam - Neck Exam Neck Exam: Normal Inspection - Respiratory Exam Respiratory Exam: Clear to Ausculation Bilateral, NORMAL BREATHING PATTERN - Cardiovascular Exam Cardiovascular Exam: REGULAR RHYTHM, +S1, +S2 - GI/Abdominal Exam GI & Abdominal Exam: Soft, Normal Bowel Sounds. absent: Tenderness - Extremities Exam Extremities Exam: Normal Inspection. absent: Calf Tenderness - Back Exam Back Exam: NORMAL INSPECTION - Neurological Exam Neurological Exam: Alert, Awake, Oriented x3 - Psychiatric Exam Psychiatric exam: Normal Affect, Normal Mood - Skin Skin Exam: Warm Additional comments: micheal drain in place in R lower buttock Assessment and Plan - Assessment and Plan (Free Text) Assessment: 62-year-old Female with past medical history of HIV, on compliance with medication, IDDM, hepatitis C is admitted for altered mental status and hyperosmolar state. She is s/p debridement of necrotic gluteal abscess. Plan: DKA/hyperosmolar state; treated with insulin. Currently fingerstick is stable. Patient is noncompliance with taking insulin at home. Continue Levemir 24uSC and Lispro 8u AC per endo recs. Continue SS Discontinue NS Dietary education given. Diabetic nurse education evaluation requested Large necrotic gluteal abscess; status post debridement in the OR. Culture is sent. Patient has multiple drains in place. Continue IV vancomycin, meropenem. f/u cultures ID evaluation appreciated. Surgery evaluation appreciated. Continue dressing for surgery. Pain Management with IV morphine when necessary. Enteritis/Ileitis Seen on CT Abd Continue flagyl f/u cultures Thrombocytopenia f/u manual platelets count Fibrinogen level mildly elevated May be 2/2 meropenem f/u ID recs History of HIV noncompliance with medication. CD4 count is not known. f/u cd4/cd8 count. ID evaluation appreciated. History of hep C Not treated. Needs close outpatient follow-up Hypovitaminosis D Start vitamin d 3000 IU daily DVT/GI: SCD/PTX Dispo: Patient is visiting from [place]. Currently staying with her daughter. Will discuss with community case manager for discharge planning. Upon discharge the patient will follow-up with PMD in [place]. Case seen, examined and discussed with attending physician, Dr. Manning <Alejandra Manning - Last Filed: 07/26/18 07:37> Objective - Vital Signs/Intake and Output Vital Signs (last 24 hours): Temp Pulse Resp BP Pulse Ox 98.3 F 92 H 18 136/71 96 07/26/18 00:00 07/26/18 00:00 07/26/18 00:00 07/26/18 00:00 07/26/18 00:00 - Medications Medications: Current Medications Acetaminophen (Tylenol 325mg Tab) 650 mg PO Q6H PRN PRN Reason: Fever >100.4 F Last Admin: 07/24/18 07:00 Dose: 650 mg Cholecalciferol (Vitamin D) 2,000 intlu PO DAILY JOHN Dextrose (Dextrose 50% Inj) 0 ml IV STAT PRN; Protocol PRN Reason: Hypoglycemia Protocol Dextrose (Dextrose 5% In Water 1000 Ml) 1,000 mls @ 0 mls/hr IV .Q0M PRN; Pr otocol PRN Reason: Hypoglycemia Protocol Vancomycin HCl (Vancomycin 1gm) 1 gm in 250 mls @ 167 mls/hr IVPB Q12 JOHN; Protocol Last Admin: 07/25/18 23:56 Dose: 167 mls/hr Meropenem (Merrem Iv 1 Gm Premix) 1 gm in 50 mls @ 100 mls/hr IVPB Q8 JOHN; Protocol Stop: 08/01/18 16:02 Last Admin: 07/26/18 06:41 Dose: 100 mls/hr Metronidazole (Flagyl) 500 mg in 100 mls @ 100 mls/hr IVPB Q8 JOHN; Protocol Stop: 08/01/18 16:20 Last Admin: 07/26/18 05:14 Dose: 100 mls/hr Insulin Detemir (Levemir) 24 unit SC HS [facility] Last Admin: 07/25/18 21:41 Dose: 24 u Insulin Human Lispro (Humalog) 8 units SC AC JOHN Last Admin: 07/25/18 17:43 Dose: 8 units Insulin Human Lispro (Humalog Low) 0 units SC ACHS [facility]; Protocol Last Admin: 07/25/18 22:20 Dose: Not Given Morphine Sulfate (Morphine) 1 mg IVP Q6H PRN PRN Reason: Pain, severe (8-10) Last Admin: 07/25/18 21:31 Dose: 1 mg Nystatin (Mycostatin Cream) 0 ea TOP TID [facility] Last Admin: 07/25/18 17:50 Dose: 1 g Pantoprazole Sodium (Protonix Ec Tab) 40 mg PO 0600 [facility] Last Admin: 07/26/18 05:13 Dose: 40 mg - Labs Labs: 07/25/18 07:30 07/25/18 05:40 PT 11.6 SECONDS (9.4-12.5) 07/22/18 20:10 INR 1.02 07/22/18 20:10 APTT 22.5 Seconds (25.1-36.5) L 07/22/18 20:10 Attending/Attestation - Attestation I have personally seen and examined this patient.: Yes I have fully participated in the care of the patient.: Yes I have reviewed all pertinent clinical information, including history, physical exam and plan: Yes Notes (Text): Patient seen and examined by me with resident at 11:45AM on 07/25/18. Case including HPI, physical exam, and assessment and plan discussed with resident. Agree with above with following additions/corrections. Patient is a 62-year-old female with past medical history significant for HIV, hepatitis, insulin-dependent type 2 diabetes, and drug abuse that presented to the emergency room with slurred speech and weakness. Patient states that she feels better today. Patient is tolerating diet. Patient is AAOx3. States that she has not ambulated yet and does not want her timmons catheter removed. Discussed wtih patient that having timmons catheter can cause infections. Patient denies chest pain and palpitations. No shortness of breath. No headaches or dizziness. No fevers or chills. No nausea, vomiting, or abdominal pain. No dysuria. Physical exam: General: Awake and alert sitting up in bed in no acute distress HEENT: Normocephalic, atraumatic. Extraocular muscles intact, pupils equal and reactive, no scleral icterus. Oropharynx is pink and moist. No pharyngeal erythema or exudate appreciated. Neck is supple. Cardiovascular: Regular rhythm. Normal S1 and S2. No murmurs, rubs, or gallops appreciated Pulmonary: Normal respiratory effort. No rhonchi, rales, or wheezing appreciated. Gastrointestinal: Soft, nondistended. Nontender. Positive bowel sounds all 4 quadrants. No guarding. Musculoskeletal: Moves all extremities. No calf tenderness. Central nervous system: AAOx3, CN 2-12 grossly intact. Dermatologic: Skin warm and dry. Gluteal dressing clean, dry, and intact. Assessment and plan: Patient is a 62-year-old female with past medical history significant for HIV, hepatitis, insulin-dependent type 2 diabetes, and drug abuse that presented to the emergency room with slurred speech and weakness. 1. Toxic metabolic encephalopathy. Likely secondary to HHS and infection. Patient now AAOx3. Continue supportive care. Head CT per radiologist showed no acute intracranial abnormalities, no significant findings to account for the clinical presentation. 2. HHS. Likely secondary to noncompliance of medications at home. Per patient, she stopped taking her insulin. Off insulin drip. Blood sugars better controlled. Hgb A1C 12.2. Continue Levemir and insulin sliding scale. Continue to monitor accuchecks. Endocrinology consulted, follow up recommendations. Patient counseled at length on compliance with medications at home. 3. Large necrotic gluteal abscess. S/P debridement 07/23/18. Surgery following, recommendations appreciated. ID following, recommendations appreciated. Temp of 100.5 yesterday. Afebrile so far today. Leukocytosis downtrending. Procalcitonin 1.15. Continue Vancomycin, flagyl, and merrem per ID. Blood culture with no growth. Wound culture growing gram negative rods. CT abdomen and pelvis per radi ology showed evidence of enteritis/ileitis without mechanical obstruction; severe edematous and inflammatory changes extending from the external genitalia anteriorly to the introitus; more posteriorly air identified within perineal tissues; marked edema of the area and visible right lower extremity; no discrete drainable collection; there does not appear to be entry into the peritoneum. 4. UTI. Urine culture positive for E. Coli and Beta hemolytic Strep Group B. Continue above antibiotics 5. Enteritis/ileitis. Continue Flagyl. 6. Thrombocytopenia. May be secondary to antibiotics vs infection. Follow up manual count. 7. History of HIV. Pending CD4 count. Noncompliant with medications. ID mack alvarez 8. History of Hepatitis C. Not treated. Patient will need to follow up outpatient for treatment. 9. Vitamin D Deficiency. Placed on Vitamin D 2000IU daily. 10. GI/DVT prophylaxis. Protonix/SCDs Case was discussed in detail with the patient regarding current diagnosis and treatment plan. All questions answered.
[2018-07-25] MEDS ORDERED: Insulin Lispro (humaLOG) LOW Coverage SC SCH ×2 (13:35→16:30)
[2018-07-25] MEDS: Insulin Lispro (humaLOG) LOW Coverage SC SCH ×3 (13:58→22:20)
--- NOTE | 2018-07-25 14:04 | CP.PCM.CON ---
History of Present Illness - History of Present Illness History of Present Illness: Palliative consult requested by Dr Tunde Vazquez Reason: Advance care planning 62 year old female wit history of Hep C, HIV who presented to E on 07/22 with weakness and altered mental status. She denied abdominal pain, chest pain, shor tness of breath, fever, chills, nausea, vomiting,headache, diarrhea or dysuria. Las 07/23: WBC 25.7, Hgb 15.6, Plt 390, NA 138, K 3.2, BUN 26, Baggage Agent 1.1, Glucose 811, Mg 2.6,T bili 1.5, AST 25, ALT 14, LDH 403.B Hydroxybutyrate 5.2. U/A large bacteria, mod blood. Wound Culture Gram negative rods. Urine culture + E Coli, Beta Hemolytic Strep B. Blood cultures negative. Chest x ray 07/23: No active disease. CT of Head 07/23: No acute intracranial findings CT of abdomen: Marked edema affecting dependent soft tissue incompletely visualized in right kevin pelvis. Evidence of air in the perineal region extending anteriorly without discrete, drain able collection. PMHx: HTN, IV drug use,Hep C, HIV, DM, HLD PSHx: tubal ligation, cholecystectomy,eye surgery Social History: Smoker, past IV drug use, denies alcohol abuse. , lives independently. Family History: Alzheimer's disease and DM. Advance Care Planning: The patient does not have an Advanced Directive. Review of Systems: Discomfort in right groin,thigh and buttock, 12 point review otherwise negative. 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 - RENAL Hx Chronic Kidney Disease: No - ENDOCRINE/METABOLIC Hx Diabetes Mellitus Type 1: Yes - HEMATOLOGICAL/ONCOLOGICAL Hx Blood Disorders: Yes Hx Hepatitis C: Yes Other/Comment: HIV Dx'ed 1997 - INTEGUMENTARY Hx Dermatological Problems: No - MUSCULOSKELETAL/RHEUMATOLOGICAL Hx Musculoskeletal Disorders: No Hx Unsteady Gait: Yes - GASTROINTESTINAL Hx Gastrointestinal Disorders: No - GENITOURINARY/GYNECOLOGICAL Hx Genitourinary Disorders: No - PSYCHIATRIC Hx Psychophysiologic Disorder: No Hx Substance Use: No - SURGICAL HISTORY Hx Cholecystectomy: Yes Hx Eye Surgery: Yes (right prosthetic eye) Hx Tubal Ligation: Yes - ANESTHESIA Hx Anesthesia: Yes Hx Anesthesia Reactions: No Hx Malignant Hyperthermia: No Meds Allergies/Adverse Reactions: Allergies Allergy/AdvReac Type Severity Reaction Status Date / Time enoxaparin sodium Allergy unknown Verified 07/22/18 19:29 [From Lovenox] heparin Allergy unknown Verified 07/22/18 19:29 - Medications Medications: Current Medications Acetaminophen (Tylenol 325mg Tab) 650 mg PO Q6H PRN PRN Reason: Fever >100.4 F Last Admin: 07/24/18 07:00 Dose: 650 mg Cyanocobalamin (Vitamin B12 1000 Mcg Tab) 2,000 mcg PO DAILY JOHN Dextrose (Dextrose 50% Inj) 0 ml IV STAT PRN; Protocol PRN Reason: Hypoglycemia Protocol Dextrose (Dextrose 5% In Water 1000 Ml) 1,000 mls @ 0 mls/hr IV .Q0M PRN; Protocol PRN Reason: Hypoglycemia Protocol Vancomycin HCl (Vancomycin 1gm) 1 gm in 250 mls @ 167 mls/hr IVPB Q12 JOHN; Protocol Last Admin: 07/25/18 09:52 Dose: 167 mls/hr Meropenem (Merrem Iv 1 Gm Premix) 1 gm in 50 mls @ 100 mls/hr IVPB Q8 JOHN; Protocol Stop: 08/01/18 16:02 Last Admin: 07/25/18 05:27 Dose: 100 mls/hr Metronidazole (Flagyl) 500 mg in 100 mls @ 100 mls/hr IVPB Q8 JOHN; Protocol Stop: 08/01/18 16:20 Last Admin: 07/25/18 05:28 Dose: 100 mls/hr Insulin Detemir (Levemir) 24 unit SC HS JOHN Insulin Human Lispro (Humalog) 8 units SC AC JOHN Insulin Human Lispro (Humalog Low) 0 units SC ACHS JOHN; Protocol Morphine Sulfate (Morphine) 1 mg IVP Q6H PRN PRN Reason: Pain, severe (8-10) Last Admin: 07/25/18 03:48 Dose: 1 mg Nystatin (Mycostatin Cream) 0 ea TOP TID JOHN Last Admin: 07/25/18 09:51 Dose: 2 g Pantoprazole Sodium (Protonix Ec Tab) 40 mg PO 0600 JOHN Last Admin: 07/25/18 05:28 Dose: 40 mg Physical Exam - Constitutional Appears: No Acute Distress - Head Exam Head Exam: NORMOCEPHALIC - Eye Exam Eye Exam: Normal appearance, PERRL - ENT Exam ENT Exam: Mucous Membranes Moist, Normal Oropharynx - Neck Exam Neck exam: Positive for: Normal Inspection - Respiratory Exam Respiratory Exam: Clear to Auscultation Bilateral, NORMAL BREATHING PATTERN - Cardiovascular Exam Cardiovascular Exam: REGULAR RHYTHM, +S1, +S2 - GI/Abdominal Exam GI & Abdominal Exam: Normal Bowel Sounds, Soft - Extremities Exam Extremities exam: Positive for: normal inspection, pedal pulses present - Back Exam Additional comments: micheal drains right buttock intact - Neurological Exam Neurological exam: Alert, Oriented x3 - Skin Skin Exam: Dry Results - Vital Signs Recent Vital Signs: Last Vital Signs Temp 98.2 F 07/25/18 04:00 Pulse 84 07/25/18 04:20 Resp 20 07/25/18 04:20 BP 142/73 07/25/18 04:00 Pulse Ox 98 07/25/18 04:20 - Labs Result Diagrams: 07/25/18 07:30 07/25/18 05:40 Labs: Laboratory Results - last 24 hr 07/25/18 07/25/18 07/25/18 05:40 07:30 08:42 WBC 7.3 D RBC 4.16 Hgb 12.3 Hct 38.3 MCV 92.1 MCH 29.6 MCHC 32.1 RDW 12.9 Plt Count 80 L MPV 13.3 H Fibrinogen Sodium 141 Potassium 3.7 Chloride 113 H Carbon Dioxide 24 Anion Gap 7 L BUN 11 Creatinine 0.5 L Est GFR ( Amer) > 60 Est GFR (Non-Af Amer) > 60 POC Glucose (mg/dL) 237 H Random Glucose 255 H Calcium 7.8 L 07/25/18 07/25/18 10:00 10:50 WBC RBC Hgb Hct MCV MCH MCHC RDW Plt Count MPV Fibrinogen 595 H Sodium Potassium Chloride Carbon Dioxide Anion Gap BUN Creatinine Est GFR ( Amer) Est GFR (Non-Af Amer) POC Glucose (mg/dL) 335 H Random Glucose Calcium Assessment & Plan - Assessment and Plan (Free Text) Assessment: 62 year old female with history of HTN, HLD, Hep C, HIV, DM,IV drug use who is admitted with hyperglycemia,sepsis,necrotizing fascitis in right groin,perineum and buttock. She is s/p debridement of right lower buttock of abscess and necrotic tissue The patient is alert and oriented. States she is feeling much better. Has mild discomfort in right perineum, buttock. She lives in [place] but states that she will go back to her daughters home in [place] when discharged. She is , her ex lives in same building as daughter. Mrs Kurtz understands her diagnosis and reason for admission. She does not have and advanced directive. She states that she will likely name her ex as POA. She has two daughters, feels that they may not be in agreement with her wishes. She understands the benefits and burdens of CPR. She states she does not want to be resuscitated with these measures. Encouraged to have this discussion with her family. POLST directive explained, she is not ready to imitate today. Time spent with patient in goals of care and advance care planning, 30 minutes. Plan: Advance Care Planning Sepsis: ID notes reviewed. Continue Flagyl,Vancomycin and Merrem. DM: Levemir HS, fingersticks ACHS >Humalog as ordered Wound Care: Surgery follow s/p debridement. Morphine 1 mg as needed for pain
[2018-07-25] MEDS: Insulin Lispro 1 UNITS/0.01 ML SC SCH (17:43)
--- NOTE | 2018-07-26 01:00 | CON ---
DATE OF CONSULTATION: 07/26/2018 LOCATION: Room 561. HISTORY OF PRESENT ILLNESS: This is a 62-year-old female admitted with sudden onset of slurred speech and generalized body weakness with supervening marked hyperglycemic accelerations and is now being referred for diabetic evaluation and management. History of type 2 insulin-requiring diabetes, on a combination of Lantus taken as 30 units subcu at bedtime daily with NovoLog given as 7 units t.i.d. before meals. History of hypertension and dyslipidemia. History of known HIV condition with underlying C. History of polysubstance abuse with previous heroin abuse and lives at the [facility] in [place], [place]. FAMILY HISTORY: Positive for hypertension and diabetes. SOCIAL HISTORY: The patient admits to nicotine dependence for the last 40 years with significant IV heroin abuse and currently in drug rehabilitation. REVIEW OF SYSTEMS: As mentioned above. Admits to generalized body weakness with episodic dizziness and lightheadedness, worse on the day of admission. No chest pains or palpitations or PND. However, the patient was found by the family to have slurred speech and generalized weakness, which apparently was temporary and the patient recovered and was able to be more responsive and communicative at that time. Her oral intake has been variable with nausea and dyspepsia and also admits to episodic nocturia and polyuria. PHYSICAL EXAMINATION: GENERAL: This is an average built female in no apparent distress. VITAL SIGNS: Blood pressure of 140/80, pulse of 100 beats per minute and regular, temperature 98, respirations 20, height is 5 feet 2 inches, weight is 134 pounds. HEENT: Head normocephalic. Eyes anicteric with pink conjunctivae. Funduscopy not possible at this time. Ears, nose and throat otherwise normal. NECK: Supple. Thyroid gland is normal in size. No carotid bruits or cervical adenopathy. CARDIOPULMONARY: Some adynamic precordium. S1, S2 is rapid and regular. Lungs are clear to auscultation. ABDOMEN: Flat, soft with positive bowel sounds. EXTREMITIES: No peripheral edema. Pulses are +2 bilaterally. LABORATORY DATA: The chemistries showed a BUN of 11, sodium 141, potassium 3.7, chloride 113, CO2 of 24, glucose 255, and creatinine 0.5. Her A1c is 12.2%, which is quite elevated and indicative of suboptimal metabolic control thereof even prior to this admission. ASSESSMENT: This is a 62-year-old female with uncontrolled and decompensated type 2 insulin-requiring diabetes, presenting here with hyperosmolar hyperglycemic state and marked hyperglycemic accelerations with a transient bout of a possible transient ischemic attack as noted thereof. PLAN OF MANAGEMENT: We will initiate a basal and bolus insulin drug combination to optimize metabolic control and detailed orders have been given. We will add Humalog given as 8 units t.i.d. before meals as ordered. We will also add basal insulin with Levemir given as 24 units subcu at bedtime daily as given. We will modify the coverage scale to obviate hypoglycemia and detailed orders have been given. We will obtain serial chemistries and supplement accordingly as needed. We will follow and advise accordingly. Kassi Savage MD
[2018-07-26] MEDS: Pantoprazole 40 mg EC Tab PO SCH (05:13)
[2018-07-26] MEDS: metroNIDAZOLE IV 500 mg/100 ml 500 MG/100 ML BAG IVPB SCH ×2 (05:14→16:04)
[2018-07-26] MEDS: Meropenem IV 1 gm in NS 1 GM/50 ML BAG IVPB SCH ×2 (06:41→14:04)
[2018-07-26] MEDS: Insulin Lispro (humaLOG) LOW Coverage SC SCH ×3 (07:23→17:00)
--- NOTE | 2018-07-26 07:39 | CP.PCM.PN ---
Subjective - Date & Time of Evaluation Date of Evaluation: 07/26/18 Time of Evaluation: 07:37 - Subjective Subjective: Surgery Pt seen and examined. No acute events. Denies fever, nausea, vomiting. Dressing changed this AM. Objective - Vital Signs/Intake and Output Vital Signs (last 24 hours): Temp Pulse Resp BP Pulse Ox 98.3 F 92 H 18 136/71 96 07/26/18 00:00 07/26/18 00:00 07/26/18 00:00 07/26/18 00:00 07/26/18 00:00 - Medications Medications: Current Medications Acetaminophen (Tylenol 325mg Tab) 650 mg PO Q6H PRN PRN Reason: Fever >100.4 F Last Admin: 07/24/18 07:00 Dose: 650 mg Cholecalciferol (Vitamin D) 2,000 intlu PO DAILY JOHN Dextrose (Dextrose 50% Inj) 0 ml IV STAT PRN; Protocol PRN Reason: Hypoglycemia Protocol Dextrose (Dextrose 5% In Water 1000 Ml) 1,000 mls @ 0 mls/hr IV .Q0M PRN; Josh col PRN Reason: Hypoglycemia Protocol Vancomycin HCl (Vancomycin 1gm) 1 gm in 250 mls @ 167 mls/hr IVPB Q12 JOHN; Protocol Last Admin: 07/25/18 23:56 Dose: 167 mls/hr Meropenem (Merrem Iv 1 Gm Premix) 1 gm in 50 mls @ 100 mls/hr IVPB Q8 JOHN; Protocol Stop: 08/01/18 16:02 Last Admin: 07/26/18 06:41 Dose: 100 mls/hr Metronidazole (Flagyl) 500 mg in 100 mls @ 100 mls/hr IVPB Q8 JOHN; Protocol Stop: 08/01/18 16:20 Last Admin: 07/26/18 05:14 Dose: 100 mls/hr Insulin Detemir (Levemir) 24 unit SC HS JOHN Last Admin: 07/25/18 21:41 Dose: 24 u Insulin Human Lispro (Humalog) 8 units SC AC JOHN Last Admin: 07/25/18 17:43 Dose: 8 units Insulin Human Lispro (Humalog Low) 0 units SC ACHS JOHN; Protocol Last Admin: 07/25/18 22:20 Dose: Not Given Morphine Sulfate (Morphine) 1 mg IVP Q6H PRN PRN Reason: Pain, severe (8-10) Last Admin: 07/25/18 21:31 Dose: 1 mg Nystatin (Mycostatin Cream) 0 ea TOP TID [facility] Last Admin: 07/25/18 17:50 Dose: 1 g Pantoprazole Sodium (Protonix Ec Tab) 40 mg PO 0600 [facility] Last Admin: 07/26/18 05:13 Dose: 40 mg - Labs Labs: 07/25/18 07:30 07/25/18 05:40 PT 11.6 SECONDS (9.4-12.5) 07/22/18 20:10 INR 1.02 07/22/18 20:10 APTT 22.5 Seconds (25.1-36.5) L 07/22/18 20:10 - Constitutional Appears: No Acute Distress - Head Exam Head Exam: ATRAUMATIC, NORMAL INSPECTION, NORMOCEPHALIC - Eye Exam Eye Exam: EOMI, Normal appearance, PERRL Pupil Exam: NORMAL ACCOMODATION, PERRL - ENT Exam ENT Exam: Mucous Membranes Moist - Neck Exam Neck Exam: Normal Inspection - Respiratory Exam Respiratory Exam: NORMAL BREATHING PATTERN - Cardiovascular Exam Cardiovascular Exam: REGULAR RHYTHM - GI/Abdominal Exam GI & Abdominal Exam: Soft. absent: Tenderness - Rectal Exam Rectal Exam: absent: NORMAL INSPECTION Additional comments: 4 penroses, soild/ - Extremities Exam Extremities Exam: Full ROM - Back Exam Back Exam: NORMAL INSPECTION - Neurological Exam Neurological Exam: Alert, Awake, CN II-XII Intact, Normal Gait, Oriented x3 - Psychiatric Exam Psychiatric exam: Normal Affect, Normal Mood - Skin Skin Exam: Erythema, Warm. absent: Dry, Intact, Normal Color Assessment and Plan - Assessment and Plan (Free Text) Assessment: 62F with HIV, HCV DM with resolving HHS POD#3 s/p necrotic abscess debridemnet leukocytosis resolved Wound cx GNR Urine cx Ecoli, GBS COntinue ABX COntinue glucose controle COntinue medical managment per primary team Will D/W Dr. Schwab
[2018-07-26 08:13] LABS: HEMOGLOBIN 12.5 g/dL (12.0-16.0); MEAN CELL VOLUME 89.8 fl (80.0-105.0); MEAN CORPUSCULAR HEMOGLOBIN 29.6 pg (25.0-35.0); MEAN CORPUSCULAR HGB CONC 32.9 g/dl (31.0-37.0); RBC 4.23 10^6/uL (3.5-6.1); RED CELL DISTRIBUTION WIDTH 12.7 % (11.5-14.5); WHITE BLOOD COUNT 8.6 10^3/uL (4.5-11.0)
[2018-07-26 08:22] LABS: BLOOD UREA NITROGEN 8 mg/dL (7-21); CALCIUM 7.8 mg/dL (8.4-10.5); GFR NON-AFRICAN AMERICAN > 60
[2018-07-26] MEDS ORDERED: Potassium Chloride 20 mEq ER Tab PO STA (08:38)
[2018-07-26] MEDS: Insulin Lispro 1 UNITS/0.01 ML SC SCH ×3 (09:28→17:00)
[2018-07-26] MEDS: Cholecalciferol 1,000 INTLU TAB PO SCH (09:29)
[2018-07-26] MEDS: Vancomycin 1gm in NS 250ml 1 GM/250 ML BAG IVPB SCH (09:29)
--- NOTE | 2018-07-26 13:17 | CP.PCM.PN ---
Subjective - Date & Time of Evaluation Date of Evaluation: 07/26/18 Time of Evaluation: 13:00 - Subjective Subjective: Alert, oriented , no complaints Objective - Vital Signs/Intake and Output Vital Signs (last 24 hours): Temp Pulse Resp BP Pulse Ox 97.6 F 82 20 148/89 98 07/26/18 06:00 07/26/18 06:00 07/26/18 06:00 07/26/18 06:00 07/26/18 06:00 Intake and Output: 07/26/18 07/26/18 06:59 18:59 Output Total 1000 Balance -1000 - Medications Medications: Current Medications Acetaminophen (Tylenol 325mg Tab) 650 mg PO Q6H PRN PRN Reason: Fever >100.4 F Last Admin: 07/24/18 07:00 Dose: 650 mg Cholecalciferol (Vitamin D) 2,000 intlu PO DAILY JOHN Last Admin: 07/26/18 09:29 Dose: 2,000 intlu Dextrose (Dextrose 50% Inj) 0 ml IV STAT PRN; Protocol PRN Reason: Hypoglycemia Protocol Dextrose (Dextrose 5% In Water 1000 Ml) 1,000 mls @ 0 mls/hr IV .Q0M PRN; Protocol PRN Reason: Hypoglycemia Protocol Meropenem (Merrem Iv 1 Gm Premix) 1 gm in 50 mls @ 100 mls/hr IVPB Q8 JOHN; Protocol Stop: 08/01/18 16:02 Last Admin: 07/26/18 06:41 Dose: 100 mls/hr Metronidazole (Flagyl) 500 mg in 100 mls @ 100 mls/hr IVPB Q8 JOHN; Protocol Stop: 08/01/18 16:20 Last Admin: 07/26/18 05:14 Dose: 100 mls/hr Insulin Detemir (Levemir) 24 unit SC HS JOHN Last Admin: 07/25/18 21:41 Dose: 24 u Insulin Human Lispro (Humalog) 8 units SC AC JOHN Last Admin: 07/26/18 09:28 Dose: 8 units Insulin Human Lispro (Humalog Low) 0 units SC ACHS [facility]; Protocol Last Admin: 07/26/18 07:23 Dose: Not Given Morphine Sulfate (Morphine) 1 mg IVP Q6H PRN PRN Reason: Pain, severe (8-10) Last Admin: 07/25/18 21:31 Dose: 1 mg Nystatin (Mycostatin Cream) 0 ea TOP TID [facility] Last Admin: 07/25/18 17:50 Dose: 1 g Pantoprazole Sodium (Protonix Ec Tab) 40 mg PO 0600 [facility] Last Admin: 07/26/18 05:13 Dose: 40 mg - Labs Labs: 07/26/18 07:45 07/26/18 07:45 PT 11.6 SECONDS (9.4-12.5) 07/22/18 20:10 INR 1.02 07/22/18 20:10 APTT 22.5 Seconds (25.1-36.5) L 07/22/18 20:10 - Constitutional Appears: No Acute Distress - Head Exam Head Exam: NORMOCEPHALIC - Eye Exam Eye Exam: Normal appearance, PERRL - ENT Exam ENT Exam: Mucous Membranes Moist - Respiratory Exam Respiratory Exam: Clear to Ausculation Bilateral, NORMAL BREATHING PATTERN - Cardiovascular Exam Cardiovascular Exam: REGULAR RHYTHM, +S1, +S2 - GI/Abdominal Exam GI & Abdominal Exam: Soft - Extremities Exam Extremities Exam: Normal Inspection - Back Exam Back Exam: NORMAL INSPECTION - Neurological Exam Neurological Exam: Alert - Skin Skin Exam: Dry, Warm Assessment and Plan - Assessment and Plan (Free Text) Assessment: 62 year old female with history of HIV, Hep C, HTN, DM who is admitted with sepsis, s/p debridement of necrotic right gluteal abscess, hyperglycemia, UTI. The patient is alert and oriented. Advance care planning discussion continued. The patient affirms that she does not want, CPR, intubation, dialysis or PEG. She has agreed to initiating an AD. After much deliberation, she has decided not to appoint a healthcare POA. POLST: DNR/DNI directive completed. A copy is placed in the chart Time spent with patient in Advance Care planning, 20 minutes Plan: Advance care planning: POLST DNR/DNI Abcess:Surgery following, daily dressing change. Continue antibiotics UTI: continue Abx DM: Levemir HS, fingersticks ACHS Humalog as ordered
--- NOTE | 2018-07-26 14:30 | CP.PCM.PN ---
<Jose Manuel Silver - Last Filed: 07/26/18 15:35> Subjective - Date & Time of Evaluation Date of Evaluation: 07/26/18 Time of Evaluation: 14:27 - Subjective Subjective: INTERNAL MEDICINE PROGRESS NOTE FOR DR. MIKE Silver PGY1 Pt seen and examined at bedside this am. No acute nursing events overnight. Pt tolerating diet and medications. She otherwise denies 12 point ROS. Objective - Vital Signs/Intake and Output Vital Signs (last 24 hours): Temp Pulse Resp BP Pulse Ox 97.6 F 82 20 148/89 98 07/26/18 06:00 07/26/18 06:00 07/26/18 06:00 07/26/18 06:00 07/26/18 06:00 Intake and Output: 07/26/18 07/26/18 06:59 18:59 Output Total 1000 Balance -1000 - Medications Medications: Current Medications Acetaminophen (Tylenol 325mg Tab) 650 mg PO Q6H PRN PRN Reason: Fever >100.4 F Last Admin: 07/24/18 07:00 Dose: 650 mg Cholecalciferol (Vitamin D) 2,000 intlu PO DAILY [facility] Last Admin: 07/26/18 09:29 Dose: 2,000 intlu Dextrose (Dextrose 50% Inj) 0 ml IV STAT PRN; Protocol PRN Reason: Hypoglycemia Protocol Dextrose (Dextrose 5% In Water 1000 Ml) 1,000 mls @ 0 mls/hr IV .Q0M PRN; Protocol PRN Reason: Hypoglycemia Protocol Meropenem (Merrem Iv 1 Gm Premix) 1 gm in 50 mls @ 100 mls/hr IVPB Q8 [facility]; Protocol Stop: 08/01/18 16:02 Last Admin: 07/26/18 06:41 Dose: 100 mls/hr Metronidazole (Flagyl) 500 mg in 100 mls @ 100 mls/hr IVPB Q8 [facility]; Protocol Stop: 08/01/18 16:20 Last Admin: 07/26/18 05:14 Dose: 100 mls/hr Insulin Detemir (Levemir) 24 unit SC HS [facility] Last Admin: 07/25/18 21:41 Dose: 24 u Insulin Human Lispro (Humalog) 8 units SC AC [facility] Last Admin: 07/26/18 09:28 Dose: 8 units Insulin Human Lispro (Humalog Low) 0 units SC ACHS [facility]; Protocol Last Admin: 07/26/18 07:23 Dose: Not Given Morphine Sulfate (Morphine) 1 mg IVP Q6H PRN PRN Reason: Pain, severe (8-10) Last Admin: 07/25/18 21:31 Dose: 1 mg Nystatin (Mycostatin Cream) 0 ea TOP TID [facility] Last Admin: 07/25/18 17:50 Dose: 1 g Pantoprazole Sodium (Protonix Ec Tab) 40 mg PO 0600 [facility] Last Admin: 07/26/18 05:13 Dose: 40 mg - Labs Labs: 07/26/18 07:45 07/26/18 07:45 PT 11.6 SECONDS (9.4-12.5) 07/22/18 20:10 INR 1.02 07/22/18 20:10 APTT 22.5 Seconds (25.1-36.5) L 07/22/18 20:10 - Constitutional Appears: Well, Non-toxic, No Acute Distress - Eye Exam Eye Exam: EOMI, Normal appearance - ENT Exam ENT Exam: Mucous Membranes Moist, Normal Exam - Neck Exam Neck Exam: Normal Inspection. absent: Meningismus - Respiratory Exam Respiratory Exam: Clear to Ausculation Bilateral, NORMAL BREATHING PATTERN - Cardiovascular Exam Cardiovascular Exam: REGULAR RHYTHM, +S1, +S2 - GI/Abdominal Exam GI & Abdominal Exam: Soft, Normal Bowel Sounds - Extremities Exam Extremities Exam: Normal Inspection. absent: Calf Tenderness - Back Exam Back Exam: NORMAL INSPECTION - Neurological Exam Neurological Exam: Alert, Awake, Oriented x3 - Psychiatric Exam Psychiatric exam: Normal Affect, Normal Mood - Skin Skin Exam: Dry, Intact, Warm Assessment and Plan - Assessment and Plan (Free Text) Assessment: 62-year-old Female with past medical history of HIV, on compliance with medication, IDDM, hepatitis C is admitted for altered mental status and hyperosmolar state. She is s/p debridement of necrotic gluteal abscess Plan: DKA/hyperosmolar state; treated with insulin. Currently fingerstick is stable. Patient is noncompliant with taking insulin at home. Continue Levemir 24uSC and Lispro 8u AC per endo recs. Continue SS Endocrinology is on consult Discontinue NS Dietary education given. Diabetic nurse education evaluation requested Large necrotic gluteal abscess; status post debridement in the OR. Wound culture growing E. Coli, GBS Continue IV vancomycin. Obtain vancomycin trough in AM ID evaluation appreciated. Surgery evaluation appreciated. Continue dressing for surgery. Pain Management with IV morphine when necessary. Thrombocytopenia Per ID, may be secondary to Meropenem. Will place meropenem on hold Enteritis/Ileitis Seen on CT Abd Continue flagyl f/u cultures History of HIV noncompliance with medication. CD4 count is not known. f/u cd4/cd8 count. ID evaluation appreciated. History of hep C Not treated. Needs close outpatient follow-up Hypovitaminosis D Start vitamin d 3000 IU daily DVT/GI: SCD/PTX Dispo: PT Eval & Treat Patient is visiting from [place]. Currently staying with her daughter. Will discuss with complex case manager for discharge planning. Upon discharge the patient will follow-up with PMD in [place]. Case seen, examined and discussed with attending physician, Dr. Manning <Alejandra Manning R - Last Filed: 07/27/18 08:14> Objective - Vital Signs/Intake and Output Vital Signs (last 24 hours): Temp Pulse Resp BP Pulse Ox 98.9 F 81 19 149/81 97 07/27/18 06:00 07/27/18 06:00 07/27/18 06:00 07/27/18 06:00 07/27/18 06:00 Intake and Output: 07/27/18 07/27/18 06:59 18:59 Intake Total 940 Output Total 300 Balance 640 - Medications Medications: Current Medications Acetaminophen (Tylenol 325mg Tab) 650 mg PO Q6H PRN PRN Reason: Fever >100.4 F Last Admin: 07/24/18 07:00 Dose: 650 mg Cholecalciferol (Vitamin D) 2,000 intlu PO DAILY [facility] Last Admin: 07/26/18 09:29 Dose: 2,000 intlu Dextrose (Dextrose 50% Inj) 0 ml IV STAT PRN; Protocol PRN Reason: Hypoglycemia Protocol Dextrose (Dextrose 5% In Water 1000 Ml) 1,000 mls @ 0 mls/hr IV .Q0M PRN; Pr otocol PRN Reason: Hypoglycemia Protocol Meropenem (Merrem Iv 1 Gm Premix) 1 gm in 50 mls @ 100 mls/hr IVPB Q8 [facility]; Protocol Stop: 08/01/18 16:02 Last Admin: 07/27/18 05:28 Dose: 100 mls/hr Vancomycin HCl (Vancomycin 1gm) 1 gm in 250 mls @ 167 mls/hr IVPB Q12H [facility]; Protocol Last Admin: 07/26/18 22:08 Dose: 167 mls/hr Insulin Detemir (Levemir) 24 unit SC HS [facility] Last Admin: 07/26/18 22:09 Dose: 24 u Insulin Human Lispro (Humalog Low) 0 units SC ACHS [facility]; Protocol Last Admin: 07/27/18 00:15 Dose: Not Given Insulin Human Lispro (Humalog) 6 units SC AC [facility] Morphine Sulfate (Morphine) 1 mg IVP Q6H PRN PRN Reason: Pain, severe (8-10) Last Admin: 07/26/18 21:55 Dose: 1 mg Nystatin (Mycostatin Cream) 0 ea TOP TID [facility] Last Admin: 07/26/18 17:00 Dose: 1 appl Pantoprazole Sodium (Protonix Ec Tab) 40 mg PO 0600 [facility] Last Admin: 07/27/18 05:28 Dose: 40 mg - Labs Labs: 07/27/18 06:10 07/27/18 06:10 PT 11.6 SECONDS (9.4-12.5) 07/22/18 20:10 INR 1.02 07/22/18 20:10 APTT 22.5 Seconds (25.1-36.5) L 07/22/18 20:10 Attending/Attestation - Attestation I have personally seen and examined this patient.: Yes I have fully participated in the care of the patient.: Yes I have reviewed all pertinent clinical information, including history, physical exam and plan: Yes Notes (Text): Patient seen and examined by me with resident at 11AM on 07/26/18. Case including HPI, physical exam, and assessment and plan discussed with resident. Agree with above with following additions/corrections. Patient is a 62-year-old female with past medical history significant for HIV, hepatitis, insulin-dependent type 2 diabetes, and drug abuse that presented to the emergency room with slurred speech and weakness. Patient states that she feeling ok. States she has some pain right lower abdomen/leg and sacral area where wound is. Pain worsened with movement. Patient is tolerating diet. Patient has not ambulated. Patient encouraged to work with physical therapy. Patient denies chest pain and palpitations. No shortness of breath. No headaches or dizziness. No fevers or chills. No nausea, vomiting, or abdominal pain. Physical exam: General: Awake and alert sitting up in bed in no acute distress HEENT: Normocephalic, atraumatic. Extraocular muscles intact, pupils equal and reactive, no scleral icterus. Oropharynx is pink and moist. No pharyngeal erythema or exudate appreciated. Neck is supple. Cardiovascular: Regular rhythm. Normal S1 and S2. No murmurs, rubs, or gallops appreciated Pulmonary: Normal respiratory effort. No rhonchi, rales, or wheezing appreciated. Gastrointestinal: Soft, nondistended. Nontender. Positive bowel sounds all 4 quadrants. No guarding. Musculoskeletal: Moves all extremities. No calf tenderness. No edema appreciated. Central nervous system: AAOx3, CN 2-12 grossly intact. Dermatologic: Skin warm and dry. Gluteal dressing clean, dry, and intact. Assessment and plan: Patient is a 62-year-old female with past medical history significant for HIV, hepatitis, insulin-dependent type 2 diabetes, and drug abuse that presented to the emergency room with slurred speech and weakness. 1. Toxic metabolic encephalopathy. Resolved. Patient is AAO x3. Likely secondary to HHS and infection. Continue supportive care. Head CT per radiologist showed no acute intracranial abnormalities, no significant findings to account for the clinical presentation. 2. HHS. Resolved. Likely secondary to noncompliance of medications at home. Per patient, she stopped taking her insulin. Hgb A1C 12.2. Continue Levemir, Lispro AC, and insulin sliding scale. Continue to monitor accuchecks. Endocrinology following, recommendations appreciated. Patient counseled at length on compliance with medications at home. 3. Large necrotic gluteal abscess. S/P debridement 07/23/18. Surgery following, recommendations appreciated. ID following, recommendations appreciated. Afebrile. Leukocytosis resolved. Procalcitonin 1.15. Continue Vancomycin, flagyl. Hold Merrem per discussion with ID Dr. Booker secondary to thrombocytopenia. Blood culture with no growth. Wound culture growing gram negative rods, final cultures pending. CT abdomen and pelvis per radiology showed evidence of enteritis/ileitis without mechanical obstruction; severe edematous and inflammatory changes extending from the external genitalia anteriorly to the introitus; more posteriorly air identified within perineal tissues; marked edema of the area and visible right lower extremity; no discrete drainable collection; there does not appear to be entry into the peritoneum. 4. UTI. Urine culture positive for E. Coli and Beta hemolytic Strep Group B. Continue above antibiotics 5. Enteritis/ileitis. Continue Flagyl. 6. Thrombocytopenia. May be secondary to antibiotics vs infection. Merrem held per ID. Follow up repeat labs in AM. 7. History of HIV. Pending CD4 count. Noncompliant with medications. ID following, recommendations appreciated 8. History of Hepatitis C. Not treated. Patient will need to follow up outpatient for treatment. 9. Vitamin D Deficiency. Continue Vitamin D 2000IU daily. 10. GI/DVT prophylaxis. Protonix/SCDs Case was discussed in detail with the patient regarding current diagnosis and treatment plan. All questions answered.
--- NOTE | 2018-07-26 16:12 | CP.PCM.PN ---
Subjective - Date & Time of Evaluation Date of Evaluation: 07/26/18 Time of Evaluation: 09:10 - Subjective Subjective: Comfortable in bed, no fevers, no nausea or diarrhea, less pain in the perineal area. Objective - Vital Signs/Intake and Output Vital Signs (last 24 hours): Temp Pulse Resp BP Pulse Ox 98.2 F 84 20 142/73 98 07/25/18 04:00 07/25/18 04:20 07/25/18 04:20 07/25/18 04:00 07/25/18 04:20 Intake and Output: 07/25/18 07/25/18 06:59 18:59 Intake Total 1990 Output Total 650 Balance 1340 - Medications Medications: Current Medications Acetaminophen (Tylenol 325mg Tab) 650 mg PO Q6H PRN PRN Reason: Fever >100.4 F Last Admin: 07/24/18 07:00 Dose: 650 mg Dextrose (Dextrose 50% Inj) 0 ml IV STAT PRN; Protocol PRN Reason: Hypoglycemia Protocol Dextrose (Dextrose 5% In Water 1000 Ml) 1,000 mls @ 0 mls/hr IV .Q0M PRN; Protocol PRN Reason: Hypoglycemia Protocol Vancomycin HCl (Vancomycin 1gm) 1 gm in 250 mls @ 167 mls/hr IVPB Q12 [facility]; Protocol Last Admin: 07/25/18 09:52 Dose: 167 mls/hr Meropenem (Merrem Iv 1 Gm Premix) 1 gm in 50 mls @ 100 mls/hr IVPB Q8 [facility]; Protocol Stop: 08/01/18 16:02 Last Admin: 07/25/18 05:27 Dose: 100 mls/hr Metronidazole (Flagyl) 500 mg in 100 mls @ 100 mls/hr IVPB Q8 [facility]; Protocol Stop: 08/01/18 16:20 Last Admin: 07/25/18 05:28 Dose: 100 mls/hr Insulin Detemir (Levemir) 24 unit SC HS [facility] Insulin Human Lispro (Humalog Low) 0 units SC ACHS [facility]; Protocol Insulin Human Lispro (Humalog) 8 units SC AC [facility] Morphine Sulfate (Morphine) 1 mg IVP Q6H PRN PRN Reason: Pain, severe (8-10) Last Admin: 07/25/18 03:48 Dose: 1 mg Nystatin (Mycostatin Cream) 0 ea TOP TID [facility] Last Admin: 07/25/18 09:51 Dose: 2 g Pantoprazole Sodium (Protonix Ec Tab) 40 mg PO 0600 [facility] Last Admin: 07/25/18 05:28 Dose: 40 mg Vitamin D (Vitamin D 400 Intl Units Tab) 400 intlu PO DAILY [facility] - Labs Labs: 07/25/18 07:30 07/25/18 05:40 PT 11.6 SECONDS (9.4-12.5) 07/22/18 20:10 INR 1.02 07/22/18 20:10 APTT 22.5 Seconds (25.1-36.5) L 07/22/18 20:10 - Constitutional Appears: Chronically Ill - Head Exam Head Exam: NORMAL INSPECTION - Neck Exam Neck Exam: absent: Meningismus - Respiratory Exam Respiratory Exam: Decreased Breath Sounds - Cardiovascular Exam Cardiovascular Exam: +S1, +S2 - GI/Abdominal Exam GI & Abdominal Exam: Soft. 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 coli and gram positive cocci chronic HIV infection (unknown CD4 count) hepatitis insulin-dependent diabetese mellitus history of heroin abuse Plan continue Merrem and follow up final OR cultures blood cx are negative so far follow up further plans of surgery follow up CD4 count and HIV virus load taken on this admission
[2018-07-26] MEDS: Nystatin 100,000 Units/gm Cream(15 gm) TOP SCH (17:00)
--- NOTE | 2018-07-26 19:01 | US ---
HISTORY: Arm pain and swelling. Evaluate for deep venous thrombosis. PHYSICIAN(S): Jeffery Zuniga MD. FINDINGS: The visualized internal jugular veins are sonographically normal and compressible. No evidence of obstruction or thrombus this is seen. The visualized segments of the subclavian veins are patent with normal waveforms. No sonographic evidence of obstruction or thrombosis is seen. The visualized deep venous systems of both upper extremities proximally are sonographically normal and compressible. There is segmental superficial thrombophlebitis in the left basilic vein above the elbow IMPRESSION: 1. No sonographic evidence for deep venous thrombosis in the visualized segments of both upper extremities. 2. Segmental superficial thrombophlebitis in the left basilic vein above the elbow
[2018-07-26] MEDS ORDERED: Vancomycin 1gm in NS 250ml 1 GM/250 ML BAG IVPB SCH (21:15)
[2018-07-26] MEDS: Morphine 2 mg/ml ISec IVP PRN (21:55)
[2018-07-26] MEDS: Insulin Detemir 100 units/ml Vial (Levemir) SC SCH (22:09)
[2018-07-27] MEDS: Insulin Lispro (humaLOG) LOW Coverage SC SCH ×5 (00:15→22:14)
[2018-07-27] MEDS: Meropenem IV 1 gm in NS 1 GM/50 ML BAG IVPB SCH ×3 (00:16→14:31)
[2018-07-27] MEDS: Pantoprazole 40 mg EC Tab PO SCH (05:28)
[2018-07-27 06:35] LABS: MEAN CORPUSCULAR HGB CONC 32.6 g/dl (31.0-37.0); MEAN PLATELET VOLUME 13.7 fl (7.0-11.0); RBC 3.62 10^6/uL (3.5-6.1); RED CELL DISTRIBUTION WIDTH 12.7 % (11.5-14.5); WHITE BLOOD COUNT 6.4 10^3/uL (4.5-11.0)
[2018-07-27 06:40] LABS: HEMOGLOBIN 10.5 g/dL (12.0-16.0)
[2018-07-27 07:06] LABS: BLOOD UREA NITROGEN 7 mg/dL (7-21); CALCIUM 7.6 mg/dL (8.4-10.5); GFR NON-AFRICAN AMERICAN > 60
[2018-07-27] MEDS ORDERED: Insulin Lispro 1 UNITS/0.01 ML SC SCH (07:30)
[2018-07-27] MEDS ORDERED: Potassium Chloride 20 mEq ER Tab PO STA (07:40)
--- NOTE | 2018-07-27 08:26 | PN ---
DATE: 07/26/2018 SUBJECTIVE: This is a 62-year-old female with recent uncontrolled type 2 insulin-requiring diabetes, presenting here with marked hyperglycemic accelerations and is now being followed closely for metabolic management. Her glycemic levels are fluctuating with the variability of her oral intake as noted with glucose levels today have ranged from 87-138 and to 88 with a low lower glucose of 57 at dinner time today as noted. Her chemistry showed a BUN of 8, sodium 138, potassium 3.2, chloride 109, CO2 23, glucose 103, creatinine 0.4. So at this time, we will modify her basal and bolus insulin regimen and lower the Humalog to 6 units t.i.d. before meals, and lower the prandial insulin with Humalog down to 6 units t.i.d. before meals as ordered. We will titrate incrementally as indicated to optimize metabolic control. We will also continue the basal insulin given as Levemir at 24 units subcu at bedtime daily as given. We will titrate incrementally as indicated to optimize metabolic control. We will obtain serial chemistries and supplement accordingly as needed. We will follow with you. Kassi Savage MD
[2018-07-27] MEDS: Cholecalciferol 1,000 INTLU TAB PO SCH (10:24)
[2018-07-27] MEDS: Nystatin 100,000 Units/gm Cream(15 gm) TOP SCH ×3 (10:25→18:08)
[2018-07-27] MEDS: Morphine 2 mg/ml ISec IVP PRN (10:49)
--- NOTE | 2018-07-27 11:03 | CP.PCM.PN ---
Subjective - Date & Time of Evaluation Date of Evaluation: 07/27/18 Time of Evaluation: 11:03 - Subjective Subjective: Resident Progress Note for Surgery: Dr. Schwab Patient examined at bedside. No acute events overnight. Patient is resting comfortably in bed in no acute distress. Patient admits to fecal incontinence. Denies fevers, chills, nausea, vomiting, abdominal pain. Objective - Vital Signs/Intake and Output Vital Signs (last 24 hours): Temp Pulse Resp BP Pulse Ox 98.9 F 81 19 149/81 97 07/27/18 06:00 07/27/18 06:00 07/27/18 06:00 07/27/18 06:00 07/27/18 06:00 Intake and Output: 07/27/18 07/27/18 06:59 18:59 Intake Total 940 Output Total 300 Balance 640 - Medications Medications: Current Medications Acetaminophen (Tylenol 325mg Tab) 650 mg PO Q6H PRN PRN Reason: Fever >100.4 F Last Admin: 07/24/18 07:00 Dose: 650 mg Cholecalciferol (Vitamin D) 2,000 intlu PO DAILY [facility] Last Admin: 07/27/18 10:24 Dose: 2,000 intlu Dextrose (Dextrose 50% Inj) 0 ml IV STAT PRN; Protocol PRN Reason: Hypoglycemia Protocol Dextrose (Dextrose 5% In Water 1000 Ml) 1,000 mls @ 0 mls/hr IV .Q0M PRN; Protocol PRN Reason: Hypoglycemia Protocol Meropenem (Merrem Iv 1 Gm Premix) 1 gm in 50 mls @ 100 mls/hr IVPB Q8 [facility]; Protocol Stop: 08/01/18 16:02 Last Admin: 07/27/18 05:28 Dose: 100 mls/hr Insulin Detemir (Levemir) 24 unit SC HS [facility] Last Admin: 07/26/18 22:09 Dose: 24 u Insulin Human Lispro (Humalog Low) 0 units SC ACHS [facility]; Protocol Last Admin: 07/27/18 07:30 Dose: Not Given Insulin Human Lispro (Humalog) 6 units SC AC [facility] Last Admin: 07/27/18 08:00 Dose: Not Given Morphine Sulfate (Morphine) 1 mg IVP Q6H PRN PRN Reason: Pain, severe (8-10) Last Admin: 07/27/18 10:49 Dose: 1 mg Nystatin (Mycostatin Cream) 0 ea TOP TID [facility] Last Admin: 07/27/18 10:25 Dose: 1 appl Pantoprazole Sodium (Protonix Ec Tab) 40 mg PO 0600 [facility] Last Admin: 07/27/18 05:28 Dose: 40 mg - Labs Labs: 07/27/18 06:10 07/27/18 06:10 PT 11.6 SECONDS (9.4-12.5) 07/22/18 20:10 INR 1.02 07/22/18 20:10 APTT 22.5 Seconds (25.1-36.5) L 07/22/18 20:10 - Additional Findings Additional findings: - Constitutional Appears: No Acute Distress - Head Exam Head Exam: ATRAUMATIC, NORMOCEPHALIC - Eye Exam Eye Exam: EOMI (artificial right eye) - ENT Exam ENT Exam: Mucous Membranes Moist - Respiratory Exam Respiratory Exam: NORMAL BREATHING PATTERN. absent: Respiratory Distress - Cardiovascular Exam Cardiovascular Exam: REGULAR RHYTHM - GI/Abdominal Exam GI & Abdominal Exam: Soft. absent: Tenderness - Rectal Exam Rectal Exam: absent: NORMAL INSPECTION Additional comments: 4 penroses, soiled - Extremities Exam Extremities Exam: Full ROM - Neurological Exam Neurological Exam: Alert, Awake, Oriented x3 - Psychiatric Exam Psychiatric exam: Normal Affect, Normal Mood - Skin Skin Exam: Erythema, Warm. absent: Dry, Intact, Normal Color Assessment and Plan - Assessment and Plan (Free Text) Assessment: 62 year old female with past medical history HIV, HCV, DM with resolving HHS POD#4 s/p necrotic abscess debridement. Plan: - dressing changed this AM - Tmax overnight 100.4, no leukocytosis - wound culture and urine culture shows E.Coli, GBS - Merrem 1 gm IV Q8H - rectal tube placement - further management as per primary team Mehreen Schwartz PGY-1
--- NOTE | 2018-07-27 14:02 | PN ---
DATE: 07/27/2018 LOCATION: Room 570. SUBJECTIVE: This is a 62-year-old female with recent uncontrolled type 2 insulin-requiring diabetes now being followed closely for recent supervening hyperglycemic accelerations as noted thereof. Her oral intake, however, remains quite variable as per the nursing staff with supervening low normal glycemic levels overnight and glucose levels have ranged from 59-101 mg/dL. It was 138 at bedtime last night. LABORATORY DATA: Her chemistry showed a BUN of 7, sodium 137, potassium 3.2, chloride 107, CO2 of 26, glucose 70 and creatinine 0.5. PLAN: So at this time, we will modify once again her basal and bolus insulin regimen and lower the Levemir to 14 units subcu at bedtime daily to start tonight. We will continue the low-dose correction scale using Humalog insulin as ordered to obviate hypoglycemia. We will also lower her prandial insulin with the variability of her oral intake to Humalog given as 4 units subcu 3 times a day before meals as ordered. We will continue the IV hydration as given and obtain serial chemistries accordingly. We will follow and advise accordingly. Kassi Savage MD
[2018-07-27] MEDS: Insulin Lispro 1 UNITS/0.01 ML SC SCH (17:22)
--- NOTE | 2018-07-27 19:21 | CP.PCM.PN ---
Subjective - Date & Time of Evaluation Date of Evaluation: 07/27/18 Time of Evaluation: 08:45 - Subjective Subjective: Comfortable, less pain in the perineal area, no fevers, no nausea or diarrhea. Objective - Vital Signs/Intake and Output Vital Signs (last 24 hours): Temp Pulse Resp BP Pulse Ox 100.4 F H 103 H 20 161/97 H 95 07/26/18 14:00 07/26/18 14:00 07/26/18 14:00 07/26/18 14:00 07/26/18 14:00 Intake and Output: 07/26/18 07/26/18 06:59 18:59 Output Total 1000 Balance -1000 - Medications Medications: Current Medications Acetaminophen (Tylenol 325mg Tab) 650 mg PO Q6H PRN PRN Reason: Fever >100.4 F Last Admin: 07/24/18 07:00 Dose: 650 mg Cholecalciferol (Vitamin D) 2,000 intlu PO DAILY [facility] Last Admin: 07/26/18 09:29 Dose: 2,000 intlu Dextrose (Dextrose 50% Inj) 0 ml IV STAT PRN; Protocol PRN Reason: Hypoglycemia Protocol Dextrose (Dextrose 5% In Water 1000 Ml) 1,000 mls @ 0 mls/hr IV .Q0M PRN; Protocol PRN Reason: Hypoglycemia Protocol Meropenem (Merrem Iv 1 Gm Premix) 1 gm in 50 mls @ 100 mls/hr IVPB Q8 [facility]; Protocol Stop: 08/01/18 16:02 Last Admin: 07/26/18 14:04 Dose: Not Given Insulin Detemir (Levemir) 24 unit SC HS [facility] Last Admin: 07/25/18 21:41 Dose: 24 u Insulin Human Lispro (Humalog) 8 units SC AC [facility] Last Admin: 07/26/18 12:03 Dose: Not Given Insulin Human Lispro (Humalog Low) 0 units SC ACHS [facility]; Protocol Last Admin: 07/26/18 12:04 Dose: Not Given Morphine Sulfate (Morphine) 1 mg IVP Q6H PRN PRN Reason: Pain, severe (8-10) Last Admin: 07/25/18 21:31 Dose: 1 mg Nystatin (Mycostatin Cream) 0 ea TOP TID [facility] Last Admin: 07/25/18 17:50 Dose: 1 g Pantoprazole Sodium (Protonix Ec Tab) 40 mg PO 0600 [facility] Last Admin: 07/26/18 05:13 Dose: 40 mg - Labs Labs: 07/26/18 07:45 07/26/18 07:45 PT 11.6 SECONDS (9.4-12.5) 07/22/18 20:10 INR 1.02 07/22/18 20:10 APTT 22.5 Seconds (25.1-36.5) L 07/22/18 20:10 - Constitutional Appears: Chronically Ill - Head Exam Head Exam: NORMAL INSPECTION - Respiratory Exam Respiratory Exam: Decreased Breath Sounds - Cardiovascular Exam Cardiovascular Exam: +S1, +S2 - GI/Abdominal Exam GI & Abdominal Exam: Soft. 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 coli and group B Strep Thrombocytopenia, R/O ITP chronic HIV infection (unknown CD4 count) hepatitis insulin-dependent diabetese mellitus history of heroin abuse Plan will change antibiotics to Rocephin blood cx are negative so far follow up further plans of surgery follow up CD4 count and HIV virus load taken on this admission follow up Heme-Onc evaluation of thrombocytopenia - discussed with Dr. Manning
[2018-07-27] MEDS ORDERED: Insulin Detemir 100 units/ml Vial (Levemir) SC SCH (22:00)
--- NOTE | 2018-07-27 23:18 | CP.PCM.PN ---
<Jose Manuel Silver - Last Filed: 07/27/18 23:14> Subjective - Date & Time of Evaluation Date of Evaluation: 07/27/18 Time of Evaluation: 13:00 - Subjective Subjective: INTERNAL MEDICINE PROGRESS NOTE FOR DR. MIKE Silver PGY1 Pt seen and examined at bedside this am. No acute nursing events overnight. Pt reports some bruising along L arm. She otherwise denies 12 point ROS Objective - Vital Signs/Intake and Output Vital Signs (last 24 hours): Temp Pulse Resp BP Pulse Ox 98 F 90 18 156/81 H 97 07/27/18 22:00 07/27/18 22:00 07/27/18 22:00 07/27/18 22:00 07/27/18 22:00 - Medications Medications: Current Medications Acetaminophen (Tylenol 325mg Tab) 650 mg PO Q6H PRN PRN Reason: Fever >100.4 F Last Admin: 07/24/18 07:00 Dose: 650 mg Cholecalciferol (Vitamin D) 2,000 intlu PO DAILY [facility] Last Admin: 07/27/18 10:24 Dose: 2,000 intlu Dextrose (Dextrose 50% Inj) 0 ml IV STAT PRN; Protocol PRN Reason: Hypoglycemia Protocol Famotidine (Pepcid) 20 mg IVP DAILY [facility] Last Admin: 07/27/18 14:32 Dose: 20 mg Dextrose (Dextrose 5% In Water 1000 Ml) 1,000 mls @ 0 mls/hr IV .Q0M PRN; Protocol PRN Reason: Hypoglycemia Protocol Ceftriaxone Sodium (Rocephin 1 Gram Ivpb) 1 gm in 100 mls @ 100 mls/hr IVPB DAILY [facility]; Protocol Insulin Detemir (Levemir) 14 unit SC HS [facility] Last Admin: 07/27/18 22:15 Dose: 14 u Insulin Human Lispro (Humalog Low) 0 units SC ACHS [facility]; Protocol Last Admin: 07/27/18 22:14 Dose: Not Given Insulin Human Lispro (Humalog) 4 units SC AC [facility] Last Admin: 07/27/18 17:22 Dose: Not Given Morphine Sulfate (Morphine) 1 mg IVP Q6H PRN PRN Reason: Pain, severe (8-10) Last Admin: 07/27/18 10:49 Dose: 1 mg Nystatin (Mycostatin Cream) 0 ea TOP TID [facility] Last Admin: 07/27/18 18:08 Dose: Not Given - Labs Labs: 07/27/18 06:10 07/27/18 06:10 PT 11.6 SECONDS (9.4-12.5) 07/22/18 20:10 INR 1.02 07/22/18 20:10 APTT 22.5 Seconds (25.1-36.5) L 07/22/18 20:10 - Constitutional Appears: Well, Non-toxic, No Acute Distress - Head Exam Head Exam: NORMAL INSPECTION, NORMOCEPHALIC - Eye Exam Eye Exam: EOMI, Normal appearance - ENT Exam ENT Exam: Mucous Membranes Moist, Normal Exam - Neck Exam Neck Exam: Normal Inspection. absent: Meningismus - Respiratory Exam Respiratory Exam: Clear to Ausculation Bilateral, NORMAL BREATHING PATTERN - Cardiovascular Exam Cardiovascular Exam: REGULAR RHYTHM, +S1, +S2 - GI/Abdominal Exam GI & Abdominal Exam: Soft, Normal Bowel Sounds. absent: Tenderness - Extremities Exam Extremities Exam: Normal Inspection. absent: Calf Tenderness Additional comments: LUE redness/swelling - Back Exam Back Exam: NORMAL INSPECTION - Neurological Exam Neurological Exam: Alert, Awake, Oriented x3 - Psychiatric Exam Psychiatric exam: Normal Affect, Normal Mood - Skin Skin Exam: Dry, Intact, Warm Assessment and Plan - Assessment and Plan (Free Text) Assessment: 62-year-old Female with past medical history of HIV, on compliance with medication, IDDM, hepatitis C is admitted for altered mental status and hyperosmolar state. She is s/p debridement of necrotic gluteal abscess Plan: DKA/hyperosmolar state; treated with insulin. Currently fingerstick is stable. Patient is noncompliant with taking insulin at home. Continue Levemir 24uSC and Lispro 8u AC per endo recs. Continue SS Endocrinology is on consult Discontinue NS Dietary education given. Diabetic nurse education evaluation requested Large necrotic gluteal abscess; status post debridement in the OR. Wound culture growing E. Coli, GBS Hold vancomycin, trough is high. Start rocephin ID evaluation appreciated. Surgery evaluation appreciated. Continue dressing for surgery. Pain Management with IV morphine when necessary. Thrombocytopenia Per ID, may be secondary to Meropenem. d/c meropenem and start rocephin Enteritis/Ileitis Abdominal pain has resolved Has received flagyl History of HIV noncompliance with medication. CD4 count is not known. f/u cd4/cd8 count. ID evaluation appreciated. History of hep C Not treated. Needs close outpatient follow-up Hypovitaminosis D Start vitamin d 3000 IU daily DVT/GI: SCD/Famotidine Dispo: PT recs subacute rehab Patient is visiting from [place]. Currently staying with her daughter. Will discuss with manager of case management for discharge planning. Upon discharge the patient will follow-up with PMD in [place]. Case seen, examined and discussed with attending physician, Dr. Manning <Alejandra Manning R - Last Filed: 07/28/18 09:22> Objective - Vital Signs/Intake and Output Vital Signs (last 24 hours): Temp Pulse Resp BP Pulse Ox 98.9 F 77 18 133/69 98 07/28/18 06:00 07/28/18 06:00 07/28/18 06:00 07/28/18 06:00 07/28/18 06:00 - Medications Medications: Current Medications Acetaminophen (Tylenol 325mg Tab) 650 mg PO Q6H PRN PRN Reason: Fever >100.4 F Last Admin: 07/24/18 07:00 Dose: 650 mg Cholecalciferol (Vitamin D) 2,000 intlu PO DAILY [facility] Last Admin: 07/28/18 09:00 Dose: 2,000 intlu Dextrose (Dextrose 50% Inj) 0 ml IV STAT PRN; Protocol PRN Reason: Hypoglycemia Protocol Famotidine (Pepcid) 20 mg IVP DAILY [facility] Last Admin: 07/28/18 09:00 Dose: 20 mg Dextrose (Dextrose 5% In Water 1000 Ml) 1,000 mls @ 0 mls/hr IV .Q0M PRN; Protocol PRN Reason: Hypoglycemia Protocol Ceftriaxone Sodium (Rocephin 1 Gram Ivpb) 1 gm in 100 mls @ 100 mls/hr IVPB DAILY [facility]; Protocol Last Admin: 07/28/18 09:01 Dose: 100 mls/hr Insulin Detemir (Levemir) 14 unit SC HS [facility] Last Admin: 07/27/18 22:15 Dose: 14 u Insulin Human Lispro (Humalog Low) 0 units SC ACHS [facility]; Protocol Last Admin: 07/28/18 08:57 Dose: Not Given Insulin Human Lispro (Humalog) 4 units SC AC [facility] Last Admin: 07/28/18 08:56 Dose: 4 units Nystatin (Mycostatin Cream) 0 ea TOP TID [facility] Last Admin: 07/27/18 18:08 Dose: Not Given - Labs Labs: 07/28/18 05:30 07/28/18 05:30 PT 11.6 SECONDS (9.4-12.5) 07/22/18 20:10 INR 1.02 07/22/18 20:10 APTT 22.5 Seconds (25.1-36.5) L 07/22/18 20:10 Attending/Attestation - Attestation I have personally seen and examined this patient.: Yes I have fully participated in the care of the patient.: Yes I have reviewed all pertinent clinical information, including history, physical exam and plan: Yes Notes (Text): Patient seen and examined by me with resident at 11:45AM on 07/27/18. Case including HPI, physical exam, and assessment and plan discussed with resident. Agree with above with following additions/corrections. Patient is a 62-year-old female with past medical history significant for HIV, hepatitis, insulin-dependent type 2 diabetes, and drug abuse that presented to the emergency room with slurred speech and weakness. Patient states that she feels ok. Complains of pain at right lower abdominal area, right groin, and sacral area. Pain worsened with movement. Patient is tolerating diet. Patient denies any pain in her arms. States she had and ultrasound done of her left upper extremity. Patient denies chest pain and palpitations. No shortness of breath. No headaches or dizziness. No fevers or chills. No nausea, vomiting, or abdominal pain. Leiva catheter in place secondary to site of abscess/ulcer. Physical exam: General: Awake and alert sitting up in bed in no acute distress HEENT: Normocephalic, atraumatic. Extraocular muscles intact, pupils equal and reactive, no scleral icterus. Oropharynx is pink and moist. No pharyngeal erythema or exudate appreciated. Neck is supple. Cardiovascular: Regular rhythm. Normal S1 and S2. No murmurs, rubs, or gallops appreciated Pulmonary: Normal respiratory effort. No rhonchi, rales, or wheezing appreciated. Gastrointestinal: Soft, nondistended. Nontender. Positive bowel sounds all 4 quadrants. No guarding. Musculoskeletal: Moves all extremities. No calf tenderness. No edema appreciated. Central nervous system: AAOx3, CN 2-12 grossly intact. : Leiva catheter in place with dark yellow urine output. Dermatologic: Skin warm and dry. Gluteal dressing clean, dry, and intact. Assessment and plan: Patient is a 62-year-old female with past medical history significant for HIV, hepatitis, insulin-dependent type 2 diabetes, and drug abuse that presented to the emergency room with slurred speech and weakness. 1. Large necrotic gluteal abscess. S/P debridement 07/23/18. Surgery following, recommendations appreciated. ID following, recommendations appreciated. Afebril e. Leukocytosis resolved. Procalcitonin 1.15. Patient placed on Rocephin as per discussion with ID Dr. Booker secondary to thrombocytopenia. Blood culture with no growth. Wound culture positive for Escherichia coli and beta hemolytic strep group B. CT abdomen and pelvis per radiology showed evidence of enteritis/ileitis without mechanical obstruction; severe edematous and inflammatory changes extending from the external genitalia anteriorly to the introitus; more posteriorly air identified within perineal tissues; marked edema of the area and visible right lower extremity; no discrete drainable collection; there does not appear to be entry into the peritoneum. 2. Toxic metabolic encephalopathy. Resolved. Patient is AAO x3. Likely secondary to HHS and infection. Continue supportive care. Head CT per radiologist showed no acute intracranial abnormalities, no significant findings to account for the clinical presentation. 3. HHS. Resolved. Likely secondary to noncompliance of medications at home. Per patient, she stopped taking her insulin. Hgb A1C 12.2. Continue insulin per technical designer. Continue to monitor accuchecks. Endocrinology following, recommendations appreciated. Patient counseled at length on compliance with medications at home. 4. UTI. Urine culture positive for E. Coli and Beta hemolytic Strep Group B. Continue Rocephin. 5. Enteritis/ileitis. S/P treatment with Flagyl. 6. Thrombocytopenia. May be secondary to antibiotics vs infection. Merrem stopped per ID. Electric[employer] Office consulted. Follow up repeat labs in AM. 7. Left upper extremity edema. Bilateral upper extremity venous Dopplers. Radiology showed no sonographic evidence for deep vein thrombosis in the visualized segments of both upper extremities, segmental superficial thrombophlebitis in the left basilic vein above the elbow. Continue warm compresses. 8. History of HIV. Pending CD4 count. Noncompliant with medications. ID following, recommendations appreciated 9. History of Hepatitis C. Not treated. Patient will need to follow up outpatient for treatment. 10. Vitamin D Deficiency. Continue Vitamin D 2000IU daily. 11. GI/DVT prophylaxis. Protonix/SCDs 12. Patient with POLST and is DNR/DNI. Palliative care recommendations appreciated. Case was discussed in detail with the patient regarding current diagnosis and treatment plan. All questions answered.
[2018-07-28 06:50] LABS: EOS # 0.1 (0.0-0.7); EOS % 1.1 % (1.5-5.0); GRAN # 3.21 (1.4-6.5); GRAN % 69.5 % (50.0-68.0); HEMOGLOBIN 11.2 g/dL (12.0-16.0); LYMPH # 0.8 (1.2-3.4); LYMPH % 17.3 % (22.0-35.0); MEAN CORPUSCULAR HEMOGLOBIN 29.4 pg (25.0-35.0); MEAN CORPUSCULAR HGB CONC 32.7 g/dl (31.0-37.0); MEAN PLATELET VOLUME 13.7 fl (7.0-11.0); MONO # 0.6 (0.1-0.6); MONO % 12.1 % (1.0-6.0); RBC 3.81 10^6/uL (3.5-6.1); RED CELL DISTRIBUTION WIDTH 12.7 % (11.5-14.5); WHITE BLOOD COUNT 4.6 10^3/uL (4.5-11.0)
[2018-07-28 07:19] LABS: ALB/GLOB RATIO 0.7 (1.1-1.8); ALBUMIN 2.1 g/dL (3.0-4.8); ALT/SGPT 33 U/L (7-56); AST/SGOT 44 U/L (14-36); BLOOD UREA NITROGEN 6 mg/dL (7-21); CALCIUM 7.8 mg/dL (8.4-10.5); GFR NON-AFRICAN AMERICAN > 60
--- NOTE | 2018-07-28 07:30 | CP.PCM.PN ---
Subjective - Date & Time of Evaluation Date of Evaluation: 07/28/18 Time of Evaluation: 07:28 - Subjective Subjective: Resident Progress Note for Surgery: Dr. Schwab Patient examined at bedside. No acute events overnight. Patient resting comfortably in bed. Offers no complaints. Objective - Vital Signs/Intake and Output Vital Signs (last 24 hours): Temp Pulse Resp BP Pulse Ox 98 F 90 18 156/81 H 97 07/27/18 22:00 07/27/18 22:00 07/27/18 22:00 07/27/18 22:00 07/27/18 22:00 - Medications Medications: Current Medications Acetaminophen (Tylenol 325mg Tab) 650 mg PO Q6H PRN PRN Reason: Fever >100.4 F Last Admin: 07/24/18 07:00 Dose: 650 mg Cholecalciferol (Vitamin D) 2,000 intlu PO DAILY [facility] Last Admin: 07/27/18 10:24 Dose: 2,000 intlu Dextrose (Dextrose 50% Inj) 0 ml IV STAT PRN; Protocol PRN Reason: Hypoglycemia Protocol Famotidine (Pepcid) 20 mg IVP DAILY [facility] Last Admin: 07/27/18 14:32 Dose: 20 mg Dextrose (Dextrose 5% In Water 1000 Ml) 1,000 mls @ 0 mls/hr IV .Q0M PRN; Protocol PRN Reason: Hypoglycemia Protocol Ceftriaxone Sodium (Rocephin 1 Gram Ivpb) 1 gm in 100 mls @ 100 mls/hr IVPB DAILY [facility]; Protocol Insulin Detemir (Levemir) 14 unit SC HS [facility] Last Admin: 07/27/18 22:15 Dose: 14 u Insulin Human Lispro (Humalog Low) 0 units SC ACHS [facility]; Protocol Last Admin: 07/27/18 22:14 Dose: Not Given Insulin Human Lispro (Humalog) 4 units SC AC [facility] Last Admin: 07/27/18 17:22 Dose: Not Given Morphine Sulfate (Morphine) 1 mg IVP Q6H PRN PRN Reason: Pain, severe (8-10) Last Admin: 07/27/18 10:49 Dose: 1 mg Nystatin (Mycostatin Cream) 0 ea TOP TID [facility] Last Admin: 07/27/18 18:08 Dose: Not Given - Labs Labs: 07/28/18 05:30 01/17/19 05:30 PT 11.6 SECONDS (9.4-12.5) 07/22/18 20:10 INR 1.02 07/22/18 20:10 APTT 22.5 Seconds (25.1-36.5) L 07/22/18 20:10 - Additional Findings Additional findings: - Constitutional Appears: No Acute Distress - Head Exam Head Exam: ATRAUMATIC, NORMOCEPHALIC - Eye Exam Eye Exam: EOMI (artificial right eye) - ENT Exam ENT Exam: Mucous Membranes Moist - Respiratory Exam Respiratory Exam: NORMAL BREATHING PATTERN. absent: Respiratory Distress - Cardiovascular Exam Cardiovascular Exam: REGULAR RHYTHM - GI/Abdominal Exam GI & Abdominal Exam: Soft. absent: Tenderness - Rectal Exam Rectal Exam: absent: NORMAL INSPECTION Additional comments: 4 penroses - Extremities Exam Extremities Exam: Full ROM - Neurological Exam Neurological Exam: Alert, Awake, Oriented x3 - Skin Skin Exam: Erythema, Warm. absent: Dry, Intact, Normal Color Assessment and Plan - Assessment and Plan (Free Text) Assessment: 62 year old female with past medical history HIV, HCV, DM with resolving HHS POD#5 s/p necrotic abscess debridement. Plan: - daily dressing changes - afebrile overnight, no leukocytosis - wound culture and urine culture shows E.Coli, GBS - Rocephin 1 gm IV daily - Flexiseal placement - further management as per primary team Mehreen Schwartz PGY-1
[2018-07-28] MEDS: Insulin Lispro 1 UNITS/0.01 ML SC SCH ×3 (08:56→17:38)
[2018-07-28] MEDS: Insulin Lispro (humaLOG) LOW Coverage SC SCH ×4 (08:57→22:00)
[2018-07-28] MEDS: Cholecalciferol 1,000 INTLU TAB PO SCH (09:00)
[2018-07-28] MEDS: cefTRIAXone 1 gm 1 GM/100 ML BAG IVPB SCH (09:01)
--- NOTE | 2018-07-28 13:12 | CP.PCM.CON ---
History of Present Illness - History of Present Illness History of Present Illness: 62 year old female with a history of HIV, HCV, DM with noncompliance with insulin, admitted with AMS secondary to HHS, gluteal abscess s/p debridement, on antibiotics, DVT of the RUE is association with heparin/Lovenox in 2010 s/p coum sahil, with anemia, past medical history HIV, HCV, DM with resolving HHS POD#4 s/p necrotic abscess debridement, with anemia and thrombocytopenia. The patient is unaware of having blood problems in the past. She denies abnormal bleeding but notes to bruising easily. 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 - RENAL Hx Chronic Kidney Disease: No - ENDOCRINE/METABOLIC Hx Diabetes Mellitus Type 1: Yes - HEMATOLOGICAL/ONCOLOGICAL Hx Blood Disorders: Yes Hx Hepatitis C: Yes Other/Comment: HIV Dx'ed 1997 - INTEGUMENTARY Hx Dermatological Problems: No - MUSCULOSKELETAL/RHEUMATOLOGICAL Hx Musculoskeletal Disorders: No Hx Unsteady Gait: Yes - GASTROINTESTINAL Hx Gastrointestinal Disorders: No - GENITOURINARY/GYNECOLOGICAL Hx Genitourinary Disorders: No - PSYCHIATRIC Hx Psychophysiologic Disorder: No Hx Substance Use: No - SURGICAL HISTORY Hx Cholecystectomy: Yes Hx Eye Surgery: Yes (right prosthetic eye) Hx Tubal Ligation: Yes - ANESTHESIA Hx Anesthesia: Yes Hx Anesthesia Reactions: No Hx Malignant Hyperthermia: No Meds Allergies/Adverse Reactions: Allergies Allergy/AdvReac Type Severity Reaction Status Date / Time enoxaparin sodium Allergy unknown Verified 07/22/18 19:29 [From Lovenox] heparin Allergy unknown Verified 07/22/18 19:29 - Medications Medications: Current Medications Acetaminophen (Tylenol 325mg Tab) 650 mg PO Q6H PRN PRN Reason: Fever >100.4 F Last Admin: 07/24/18 07:00 Dose: 650 mg Cholecalciferol (Vitamin D) 2,000 intlu PO DAILY [facility] Last Admin: 07/28/18 09:00 Dose: 2,000 intlu Dextrose (Dextrose 50% Inj) 0 ml IV STAT PRN; Protocol PRN Reason: Hypoglycemia Protocol Famotidine (Pepcid) 20 mg IVP DAILY [facility] Last Admin: 07/28/18 09:00 Dose: 20 mg Dextrose (Dextrose 5% In Water 1000 Ml) 1,000 mls @ 0 mls/hr IV .Q0M PRN; Protocol PRN Reason: Hypoglycemia Protocol Ceftriaxone Sodium (Rocephin 1 Gram Ivpb) 1 gm in 100 mls @ 100 mls/hr IVPB DAILY [facility]; Protocol Last Admin: 07/28/18 09:01 Dose: 100 mls/hr Insulin Detemir (Levemir) 8 unit SC HS [facility] Insulin Human Lispro (Humalog Low) 0 units SC ACHS [facility]; Protocol Last Admin: 07/28/18 11:50 Dose: Not Given Insulin Human Lispro (Humalog) 4 units SC AC [facility] Last Admin: 07/28/18 11:50 Dose: 4 units Nystatin (Mycostatin Cream) 0 ea TOP TID [facility] Last Admin: 07/27/18 18:08 Dose: Not Given Physical Exam - Head Exam Head Exam: ATRAUMATIC - Eye Exam Eye Exam: Normal appearance - ENT Exam ENT Exam: Mucous Membranes Dry - Respiratory Exam Respiratory Exam: NORMAL BREATHING PATTERN - Cardiovascular Exam Cardiovascular Exam: +S1, +S2 - GI/Abdominal Exam GI & Abdominal Exam: Normal Bowel Sounds - Neurological Exam Neurological exam: Oriented x3 - Psychiatric Exam Psychiatric exam: Normal Affect, Normal Mood - Skin Skin Exam: Warm Results - Vital Signs Recent Vital Signs: Last Vital Signs Temp 98.9 F 07/28/18 06:00 Pulse 77 07/28/18 06:00 Resp 18 07/28/18 06:00 BP 133/69 07/28/18 06:00 Pulse Ox 98 07/28/18 06:00 - Labs Result Diagrams: 07/28/18 05:30 07/28/18 05:30 Labs: Laboratory Results - last 24 hr 07/27/18 07/27/18 07/27/18 13:15 16:06 21:40 WBC RBC Hgb Hct MCV MCH MCHC RDW Plt Count MPV Gran % Lymph % (Auto) [place] % (Auto) Eos % (Auto) Baso % (Auto) Gran # Lymph # (Auto) [place] # (Auto) Eos # (Auto) Baso # (Auto) Sodium Potassium Chloride Carbon Dioxide Anion Gap BUN Creatinine Est GFR ( Amer) Est GFR (Non-Af Amer) POC Glucose (mg/dL) 123 H 77 132 H Random Glucose Calcium Phosphorus Magnesium Total Bilirubin AST ALT Alkaline Phosphatase Total Protein Albumin Globulin Albumin/Globulin Ratio 07/28/18 07/28/18 07/28/18 05:30 05:30 06:48 WBC 4.6 D RBC 3.81 Hgb 11.2 L Hct 34.3 L MCV 90.0 MCH 29.4 MCHC 32.7 RDW 12.7 Plt Count 91 L MPV 13.7 H Gran % 69.5 H Lymph % (Auto) 17.3 L [place] % (Auto) 12.1 H Eos % (Auto) 1.1 L Baso % (Auto) 0.0 Gran # 3.21 Lymph # (Auto) 0.8 L [place] # (Auto) 0.6 Eos # (Auto) 0.1 Baso # (Auto) 0.00 Sodium 138 Potassium 3.5 L Chloride 105 Carbon Dioxide 32 Anion Gap 5 L BUN 6 L Creatinine 0.5 L Est GFR ( Amer) > 60 Est GFR (Non-Af Amer) > 60 POC Glucose (mg/dL) 222 H Random Glucose 56 L Calcium 7.8 L Phosphorus 3.0 Magnesium 1.9 Total Bilirubin 0.4 AST 44 H D ALT 33 Alkaline Phosphatase 133 H D Total Protein 5.3 L Albumin 2.1 L Globulin 3.2 Albumin/Globulin Ratio 0.7 L 07/28/18 11:14 WBC RBC Hgb Hct MCV MCH MCHC RDW Plt Count MPV Gran % Lymph % (Auto) [place] % (Auto) Eos % (Auto) Baso % (Auto) Gran # Lymph # (Auto) [place] # (Auto) Eos # (Auto) Baso # (Auto) Sodium Potassium Chloride Carbon Dioxide Anion Gap BUN Creatinine Est GFR ( Amer) Est GFR (Non-Af Amer) POC Glucose (mg/dL) 189 H Random Glucose Calcium Phosphorus Magnesium Total Bilirubin AST ALT Alkaline Phosphatase Total Protein Albumin Globulin Albumin/Globulin Ratio Assessment & Plan - Assessment and Plan (Free Text) Assessment: 1. Thrombocytopenia - improving - suspect infection and acute illness related - patient has not received heparin/lovenox 2. Anemia - retic, b12, folate, ferritin to further characterize Thank you for this interesting consult.
--- NOTE | 2018-07-28 13:39 | PN ---
DATE: 07/28/2018 LOCATION: Room 570. SUBJECTIVE: This is a 62-year-old female with recent uncontrolled type 2 insulin-requiring diabetes, now with extremes of glycemic fluctuation because of intake and is now being followed closely for metabolic management. Her glycemic levels overnight have ranged from 77 to 132 and 222 mg/dL. LABORATORY DATA: Her latest chemistry showed a BUN of 6, sodium 138, potassium 3.5, chloride 105, CO2 of 32, glucose 56 and creatinine 0.5. PLAN: So, at this time, we will modify once again her basal and bolus insulin regimen and lower the basal insulin with Levemir down to 8 units subcu at bedtime daily to start tonight. We will continue the low-dose Humalog given as 4 units t.i.d. before meals as ordered. We will obtain serial chemistries and supplement accordingly. We will follow. Kassi Savage MD
--- NOTE | 2018-07-28 16:03 | CP.PCM.PN ---
Subjective - Date & Time of Evaluation Date of Evaluation: 07/28/18 Time of Evaluation: 09:25 - Subjective Subjective: Less pain the perineal area, no fevers, no diarrhea, no abdominal pain. Objective - Vital Signs/Intake and Output Vital Signs (last 24 hours): Temp Pulse Resp BP Pulse Ox 99.6 F 92 H 18 128/84 98 07/27/18 14:00 07/27/18 14:00 07/27/18 14:00 07/27/18 14:00 07/27/18 14:00 - Medications Medications: Current Medications Acetaminophen (Tylenol 325mg Tab) 650 mg PO Q6H PRN PRN Reason: Fever >100.4 F Last Admin: 07/24/18 07:00 Dose: 650 mg Cholecalciferol (Vitamin D) 2,000 intlu PO DAILY [facility] Last Admin: 07/27/18 10:24 Dose: 2,000 intlu Dextrose (Dextrose 50% Inj) 0 ml IV STAT PRN; Protocol PRN Reason: Hypoglycemia Protocol Famotidine (Pepcid) 20 mg IVP DAILY [facility] Last Admin: 07/27/18 14:32 Dose: 20 mg Dextrose (Dextrose 5% In Water 1000 Ml) 1,000 mls @ 0 mls/hr IV .Q0M PRN; Protocol PRN Reason: Hypoglycemia Protocol Ceftriaxone Sodium (Rocephin 1 Gram Ivpb) 1 gm in 100 mls @ 100 mls/hr IVPB DAILY [facility]; Protocol Insulin Detemir (Levemir) 14 unit SC HS [facility] Insulin Human Lispro (Humalog Low) 0 units SC ACHS [facility]; Protocol Last Admin: 07/27/18 17:22 Dose: Not Given Insulin Human Lispro (Humalog) 4 units SC AC [facility] Last Admin: 07/27/18 17:22 Dose: Not Given Morphine Sulfate (Morphine) 1 mg IVP Q6H PRN PRN Reason: Pain, severe (8-10) Last Admin: 07/27/18 10:49 Dose: 1 mg Nystatin (Mycostatin Cream) 0 ea TOP TID [facility] Last Admin: 07/27/18 18:08 Dose: Not Given - Labs Labs: 07/27/18 06:10 07/27/18 06:10 PT 11.6 SECONDS (9.4-12.5) 07/22/18 20:10 INR 1.02 07/22/18 20:10 APTT 22.5 Seconds (25.1-36.5) L 07/22/18 20:10 - Constitutional Appears: Chronically Ill - Head Exam Head Exam: NORMAL INSPECTION - Neck Exam Neck Exam: absent: Meningismus - Respiratory Exam Respiratory Exam: Decreased Breath Sounds - Cardiovascular Exam Cardiovascular Exam: +S1, +S2 - GI/Abdominal Exam GI & Abdominal Exam: Soft. 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 coli and group B Strep Thrombocytopenia, R/O ITP chronic HIV infection (unknown CD4 count) hepatitis insulin-dependent diabetese mellitus history of heroin abuse Plan continue Rocephin blood cx are negative so far follow up further plans of surgery follow up CD4 count and HIV virus load taken on this admission follow up Heme-Onc evaluation of thrombocytopenia - discussed with Dr. Manning
--- NOTE | 2018-07-28 17:15 | CP.PCM.PN ---
<Jose Manuel Silver - Last Filed: 07/28/18 17:12> Subjective - Date & Time of Evaluation Date of Evaluation: 07/28/18 Time of Evaluation: 12:00 - Subjective Subjective: INTERNAL MEDICINE PROGRESS NOTE FOR DR. MIKE Silver PGY1 Pt seen and examined at bedside this am. No acute nursing events overnight. She has been tolerating her diet. She denies 12 point ROS Objective - Vital Signs/Intake and Output Vital Signs (last 24 hours): Temp Pulse Resp BP Pulse Ox 98.9 F 77 18 133/69 98 07/28/18 06:00 07/28/18 06:00 07/28/18 06:00 07/28/18 06:00 07/28/18 06:00 - Medications Medications: Current Medications Acetaminophen (Tylenol 325mg Tab) 650 mg PO Q6H PRN PRN Reason: Fever >100.4 F Last Admin: 07/28/18 16:43 Dose: 650 mg Cholecalciferol (Vitamin D) 2,000 intlu PO DAILY [facility] Last Admin: 07/28/18 09:00 Dose: 2,000 intlu Dextrose (Dextrose 50% Inj) 0 ml IV STAT PRN; Protocol PRN Reason: Hypoglycemia Protocol Famotidine (Pepcid) 20 mg IVP DAILY [facility] Last Admin: 07/28/18 09:00 Dose: 20 mg Dextrose (Dextrose 5% In Water 1000 Ml) 1,000 mls @ 0 mls/hr IV .Q0M PRN; Protocol PRN Reason: Hypoglycemia Protocol Ceftriaxone Sodium (Rocephin 1 Gram Ivpb) 1 gm in 100 mls @ 100 mls/hr IVPB DAILY [facility]; Protocol Last Admin: 07/28/18 09:01 Dose: 100 mls/hr Insulin Detemir (Levemir) 8 unit SC HS [facility] Insulin Human Lispro (Humalog Low) 0 units SC ACHS [facility]; Protocol Last Admin: 07/28/18 11:50 Dose: Not Given Insulin Human Lispro (Humalog) 4 units SC AC [facility] Last Admin: 07/28/18 11:50 Dose: 4 units Nystatin (Mycostatin Cream) 0 ea TOP TID [facility] Last Admin: 07/27/18 18:08 Dose: Not Given - Labs Labs: 07/28/18 05:30 07/28/18 05:30 PT 11.6 SECONDS (9.4-12.5) 07/22/18 20:10 INR 1.02 07/22/18 20:10 APTT 22.5 Seconds (25.1-36.5) L 07/22/18 20:10 - Constitutional Appears: Well, Non-toxic, No Acute Distress - Head Exam Head Exam: NORMAL INSPECTION, NORMOCEPHALIC - Eye Exam Eye Exam: EOMI, Normal appearance - ENT Exam ENT Exam: Mucous Membranes Moist, Normal Exam - Neck Exam Neck Exam: Normal Inspection. absent: Meningismus - Respiratory Exam Respiratory Exam: Clear to Ausculation Bilateral, NORMAL BREATHING PATTERN - Cardiovascular Exam Cardiovascular Exam: REGULAR RHYTHM, +S1, +S2 - GI/Abdominal Exam GI & Abdominal Exam: Soft, Normal Bowel Sounds. absent: Tenderness - Extremities Exam Extremities Exam: Normal Inspection. absent: Calf Tenderness - Back Exam Back Exam: NORMAL INSPECTION - Neurological Exam Neurological Exam: Alert, Awake, Oriented x3 - Psychiatric Exam Psychiatric exam: Normal Affect, Normal Mood - Skin Skin Exam: Dry, Intact, Warm Assessment and Plan - Assessment and Plan (Free Text) Assessment: 62 y/o F with PMHx of HIV, non compliance with medication, IDDM, hepatitis C admitted for altered mental status and hyperosmolar state. She is s/p debridement of necrotic gluteal abscess. Plan: DKA/hyperosmolar state; treated with insulin. Currently fingersticks have been stable. Patient is noncompliant with taking insulin at home. Continue Levemir 8uSC and Lispro 4u AC per endo recs. Continue SS Endocrinology is on consult Discontinue NS Dietary education given. Diabetic nurse education evaluation requested Large necrotic gluteal abscess; status post debridement in the OR. Urine/Wound culture growing E. Coli, GBS Continue rocephin ID recs appreciated. Surgery evaluation appreciated. Continue dressing for surgery. Pain management with IV morphine when necessary. Thrombocytopenia uptrending Hematology consulted: suspect infection/acute illness related d/c meropenem and continue rocephin Anemia f/u retic, B12, folate, ferritin Enteritis/Ileitis Abdominal pain has resolved Has received flagyl HIV noncompliance with medication. CD4 count is not known. cd4/cd8 count re-ordered ID evaluation appreciated Hepatitis C Not treated. Needs close outpatient follow-up Hypovitaminosis D continue vitamin d 3000 IU daily DVT/GI: SCD/Famotidine Dispo: PT recs subacute rehab Case seen, examined and discussed with attending physician, Dr. Manning <Alejandra Manning R - Last Filed: 07/30/18 12:07> Objective - Vital Signs/Intake and Output Vital Signs (last 24 hours): Temp Pulse Resp BP Pulse Ox 100.4 F H 101 H 18 130/84 96 07/30/18 06:26 07/30/18 06:00 07/30/18 06:00 07/30/18 06:00 07/30/18 06:00 - Medications Medications: Current Medications Acetaminophen (Tylenol 325mg Tab) 650 mg PO Q6H PRN PRN Reason: Fever >100.4 F Last Admin: 07/30/18 06:26 Dose: 650 mg Cholecalciferol (Vitamin D) 2,000 intlu PO DAILY [facility] Last Admin: 07/30/18 08:27 Dose: 2,000 intlu Dextrose (Dextrose 50% Inj) 0 ml IV STAT PRN; Protocol PRN Reason: Hypoglycemia Protocol Famotidine (Pepcid) 20 mg PO HS [facility] Last Admin: 07/29/18 21:01 Dose: 20 mg Dextrose (Dextrose 5% In Water 1000 Ml) 1,000 mls @ 0 mls/hr IV .Q0M PRN; Protocol PRN Reason: Hypoglycemia Protocol Ceftriaxone Sodium (Rocephin 1 Gram Ivpb) 1 gm in 100 mls @ 100 mls/hr IVPB DAILY [facility]; Protocol Last Admin: 07/30/18 08:28 Dose: 100 mls/hr Insulin Detemir (Levemir) 8 unit SC HS [facility] Last Admin: 07/29/18 21:02 Dose: 8 u Insulin Human Lispro (Humalog Low) 0 units SC ACHS [facility]; Protocol Last Admin: 07/30/18 08:27 Dose: Not Given Insulin Human Lispro (Humalog) 4 units SC AC [facility] Last Admin: 07/30/18 08:26 Dose: 4 units Nystatin (Mycostatin Cream) 0 ea TOP TID [facility] Last Admin: 07/29/18 12:25 Dose: 1 appl - Labs Labs: 07/30/18 05:00 07/30/18 05:00 PT 11.6 SECONDS (9.4-12.5) 07/22/18 20:10 INR 1.02 07/22/18 20:10 APTT 22.5 Seconds (25.1-36.5) L 07/22/18 20:10 Attending/Attestation - Attestation I have personally seen and examined this patient.: Yes I have fully participated in the care of the patient.: Yes I have reviewed all pertinent clinical information, including history, physical exam and plan: Yes Notes (Text): Patient seen and examined by me with resident at 11:50AM on 07/28/18. Case inc luding HPI, physical exam, and assessment and plan discussed with resident. Agree with above with following additions/corrections. Patient is a 62-year-old female with past medical history significant for HIV, hepatitis, insulin-dependent type 2 diabetes, and drug abuse that presented to the emergency room with slurred speech and weakness. Patient states she is doing ok. States she has some pain/discomfort at rectal tube site. Also with some pain/discomfort at right lower abdominal area, right g roin, and sacral area. Pain worsened with movement and palpation. No pain in her arms. Patient denies chest pain and palpitations. No shortness of breath. No headaches or dizziness. No fevers or chills. No nausea or vomiting. Leiva catheter in place secondary to site of abscess/ulcer. Physical exam: General: Awake and alert sitting up in bed in no acute distress HEENT: Normocephalic, atraumatic. Extraocular muscles intact, pupils equal and reactive, no scleral icterus. Oropharynx is pink and moist. No pharyngeal erythema or exudate appreciated. Neck is supple. Cardiovascular: Regular rhythm. Normal S1 and S2. No murmurs, rubs, or gallops appreciated Pulmonary: Normal respiratory effort. No rhonchi, rales, or wheezing appreciated. Gastrointestinal: Soft, nondistended. Mild right lower side tenderness. Positive bowel sounds all 4 quadrants. No guarding. Musculoskeletal: Moves all extremities. No calf tenderness. No edema appreciated. Central nervous system: AAOx3, CN 2-12 grossly intact. : Leiva catheter in place with dark yellow urine output. Rectal tube in place Dermatologic: Skin warm and dry. Gluteal dressing clean, dry, and intact. Assessment and plan: Patient is a 62-year-old female with past medical history significant for HIV, hepatitis, insulin-dependent type 2 diabetes, and drug abuse that presented to the emergency room with slurred speech and weakness. 1. Large necrotic gluteal abscess. S/P debridement 07/23/18. Surgery following, recommendations appreciated. ID following, recommendations appreciated. Afebrile. Leukocytosis resolved. Procalcitonin 1.15. Continue Rocephin. Blood culture with no growth. Wound culture positive for Escherichia coli and beta hemolytic strep group B. CT abdomen and pelvis per radiology showed evidence of enteritis/ileitis without mechanical obstruction; severe edematous and inflammatory changes extending from the external genitalia anteriorly to the introitus; more posteriorly air identified within perineal tissues; marked edema of the area and visible right lower extremity; no discrete drainable collection; there does not appear to be entry into the peritoneum. 2. Toxic metabolic encephalopathy. Resolved. Patient is AAO x3. Likely secondary to HHS and infection. Continue supportive care. Head CT per radiologist showed no acute intracranial abnormalities, no significant findings to account for the clinical presentation. 3. HHS. Resolved. Likely secondary to noncompliance of medications at home. Per patient, she stopped taking her insulin. Hgb A1C 12.2. 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 Continue to monitor accuchecks. Endocrinology following, recommendations appreciated. Patient counseled at length on compliance with medications at home. 4. UTI. Urine culture positive for E. Coli and Beta hemolytic Strep Group B. Continue Rocephin. 5. Enteritis/ileitis. S/P treatment with Flagyl. 6. Thrombocytopenia. May be secondary to antibiotics. Improving. Continue to monitor. 7. Left upper extremity edema. Improved. Bilateral upper extremity venous Dopplers. Radiology showed no sonographic evidence for deep vein thrombosis in the visualized segments of both upper extremities, segmental superficial thrombophlebitis in the left basilic vein above the elbow. Continue warm compresses. 8. History of HIV. Pending CD4 count. Noncompliant with medications. ID following, recommendations appreciated 9. History of Hepatitis C. Not treated. Patient will need to follow up outpatient for treatment. 10. Vitamin D Deficiency. Continue Vitamin D 2000IU daily. 11. GI/DVT prophylaxis. Protonix/SCDs 12. Patient with POLST and is DNR/DNI. Palliative care recommendations appreciated. Case was discussed in detail with the patient regarding current diagnosis and treatment plan. All questions answered.
[2018-07-28] MEDS: Insulin Detemir 100 units/ml Vial (Levemir) SC SCH (22:00)
[2018-07-29 07:59] LABS: BASO # 0.01 K/mm3 (0.0-2.0); BASO % 0.2 % (0.0-3.0); EOS # 0.1 (0.0-0.7); EOS % 1.1 % (1.5-5.0); GRAN # 2.89 (1.4-6.5); GRAN % 66.5 % (50.0-68.0); HEMOGLOBIN 10.7 g/dL (12.0-16.0); LYMPH # 0.7 (1.2-3.4); LYMPH % 16.8 % (22.0-35.0); MEAN CELL VOLUME 88.4 fl (80.0-105.0); MEAN CORPUSCULAR HEMOGLOBIN 29.6 pg (25.0-35.0); MEAN CORPUSCULAR HGB CONC 33.4 g/dl (31.0-37.0); MONO # 0.7 (0.1-0.6); MONO % 15.4 % (1.0-6.0); RBC 3.62 10^6/uL (3.5-6.1); RED CELL DISTRIBUTION WIDTH 12.7 % (11.5-14.5); WHITE BLOOD COUNT 4.4 10^3/uL (4.5-11.0)
--- NOTE | 2018-07-29 08:09 | CP.PCM.PN ---
Subjective - Date & Time of Evaluation Date of Evaluation: 07/29/18 Time of Evaluation: 08:06 - Subjective Subjective: Resident Progress Note for Surgery: Dr. cShwab Patient examined at bedside. No acute events overnight. Patient is resting comfortably in bed. Wound dressings changed. Flexiseal removed. Objective - Vital Signs/Intake and Output Vital Signs (last 24 hours): Temp Pulse Resp BP Pulse Ox 97.8 F 82 18 121/77 98 07/29/18 06:00 07/29/18 06:00 07/29/18 06:00 07/29/18 06:00 07/29/18 06:00 Intake and Output: 07/29/18 07/29/18 06:59 18:59 Intake Total 240 Output Total 1700 Balance -1460 - Medications Medications: Current Medications Acetaminophen (Tylenol 325mg Tab) 650 mg PO Q6H PRN PRN Reason: Fever >100.4 F Last Admin: 07/28/18 16:43 Dose: 650 mg Cholecalciferol (Vitamin D) 2,000 intlu PO DAILY [facility] Last Admin: 07/28/18 09:00 Dose: 2,000 intlu Dextrose (Dextrose 50% Inj) 0 ml IV STAT PRN; Protocol PRN Reason: Hypoglycemia Protocol Famotidine (Pepcid) 20 mg PO HS [facility] Dextrose (Dextrose 5% In Water 1000 Ml) 1,000 mls @ 0 mls/hr IV .Q0M PRN; Protocol PRN Reason: Hypoglycemia Protocol Ceftriaxone Sodium (Rocephin 1 Gram Ivpb) 1 gm in 100 mls @ 100 mls/hr IVPB DAILY [facility]; Protocol Last Admin: 07/28/18 09:01 Dose: 100 mls/hr Insulin Detemir (Levemir) 8 unit SC HS [facility] Last Admin: 07/28/18 22:00 Dose: Not Given Insulin Human Lispro (Humalog Low) 0 units SC ACHS [facility]; Protocol Last Admin: 07/28/18 22:00 Dose: Not Given Insulin Human Lispro (Humalog) 4 units SC AC [facility] Last Admin: 07/28/18 17:38 Dose: Not Given Nystatin (Mycostatin Cream) 0 ea TOP TID [facility] Last Admin: 07/27/18 18:08 Dose: Not Given - Labs Labs: 07/29/18 07:45 01/17/19 05:30 PT 11.6 SECONDS (9.4-12.5) 07/22/18 20:10 INR 1.02 07/22/18 20:10 APTT 22.5 Seconds (25.1-36.5) L 07/22/18 20:10 - Additional Findings Additional findings: - Constitutional Appears: No Acute Distress - Head Exam Head Exam: ATRAUMATIC, NORMOCEPHALIC - Eye Exam Eye Exam: EOMI (artificial right eye) - ENT Exam ENT Exam: Mucous Membranes Moist - Respiratory Exam Respiratory Exam: NORMAL BREATHING PATTERN. absent: Respiratory Distress - Cardiovascular Exam Cardiovascular Exam: REGULAR RHYTHM - GI/Abdominal Exam GI & Abdominal Exam: Soft. absent: Tenderness - Rectal Exam Rectal Exam: absent: NORMAL INSPECTION Additional comments: micheal drains intact - Extremities Exam Extremities Exam: Full ROM - Neurological Exam Neurological Exam: Alert, Awake, Oriented x3 - Skin Skin Exam: Erythema, Warm. absent: Dry, Intact, Normal Color Assessment and Plan - Assessment and Plan (Free Text) Assessment: Patient is a 62 year old female with past medical history HIV, HCV, DM with resolving HHS POD#6 s/p necrotic abscess debridement. Plan: - daily dressing changes - afebrile overnight, no leukocytosis - wound culture and urine culture shows E.Coli, GBS - Rocephin 1 gm IV daily - further management as per primary team - follow up in wound clinic after discharge Mehreen Schwartz PGY-1
[2018-07-29 08:12] LABS: ALB/GLOB RATIO 0.7 (1.1-1.8); ALBUMIN 2.1 g/dL (3.0-4.8); ALT/SGPT 35 U/L (7-56); AST/SGOT 50 U/L (14-36); BLOOD UREA NITROGEN 7 mg/dL (7-21); CALCIUM 7.3 mg/dL (8.4-10.5); GFR NON-AFRICAN AMERICAN > 60
[2018-07-29] MEDS: Insulin Lispro (humaLOG) LOW Coverage SC SCH ×3 (08:42→21:03)
[2018-07-29] MEDS: Insulin Lispro 1 UNITS/0.01 ML SC SCH ×3 (08:42→17:12)
[2018-07-29] MEDS: cefTRIAXone 1 gm 1 GM/100 ML BAG IVPB SCH (09:24)
[2018-07-29] MEDS: Cholecalciferol 1,000 INTLU TAB PO SCH (09:24)
[2018-07-29] MEDS: Nystatin 100,000 Units/gm Cream(15 gm) TOP SCH ×2 (09:32→12:25)
--- NOTE | 2018-07-29 15:40 | PN ---
DATE: 07/29/2018 ENDOCRINOLOGY FOLLOWUP NOTE LOCATION: Room 570. SUBJECTIVE: This is a 62-year-old female with recent uncontrolled type 2 insulin-requiring diabetes now being followed closely for metabolic management. Her glycemic levels are fluctuating but improved and the glucose values have ranged from 235-237 mg/dL. LABORATORY DATA: Her chemistry showed a BUN of 11, sodium 141, potassium 3.7, chloride 113, CO2 of 24, glucose 255 and creatinine 0.5. Her hemoglobin A1c is extremely elevated at 12.2% indicative of suboptimal metabolic control of her diabetic condition even prior to this admission. ASSESSMENT AND PLAN: So at this time, we will continue the same basal and bolus insulin regimen to allow for dose equilibration and keep her on the Humalog given as 4 units t.i.d. before meals as ordered. We will continue the basal insulin given as Levemir at 8 units subcutaneous at bedtime daily as given. We will titrate incrementally as indicated to optimize metabolic control. We will follow. Kassi Savage MD
--- NOTE | 2018-07-29 16:46 | CP.PCM.PN ---
Subjective - Date & Time of Evaluation Date of Evaluation: 07/29/18 Time of Evaluation: 15:10 - Subjective Subjective: Not in distress, no fevers. Objective - Vital Signs/Intake and Output Vital Signs (last 24 hours): Temp Pulse Resp BP Pulse Ox 98.9 F 77 18 133/69 98 07/28/18 06:00 07/28/18 06:00 07/28/18 06:00 07/28/18 06:00 07/28/18 06:00 - Medications Medications: Current Medications Acetaminophen (Tylenol 325mg Tab) 650 mg PO Q6H PRN PRN Reason: Fever >100.4 F Last Admin: 07/24/18 07:00 Dose: 650 mg Cholecalciferol (Vitamin D) 2,000 intlu PO DAILY [facility] Last Admin: 07/28/18 09:00 Dose: 2,000 intlu Dextrose (Dextrose 50% Inj) 0 ml IV STAT PRN; Protocol PRN Reason: Hypoglycemia Protocol Famotidine (Pepcid) 20 mg IVP DAILY [facility] Last Admin: 07/28/18 09:00 Dose: 20 mg Dextrose (Dextrose 5% In Water 1000 Ml) 1,000 mls @ 0 mls/hr IV .Q0M PRN; Protocol PRN Reason: Hypoglycemia Protocol Ceftriaxone Sodium (Rocephin 1 Gram Ivpb) 1 gm in 100 mls @ 100 mls/hr IVPB [facility]ILY [facility]; Protocol Last Admin: 07/28/18 09:01 Dose: 100 mls/hr Insulin Detemir (Levemir) 8 unit SC HS [facility] Insulin Human Lispro (Humalog Low) 0 units SC ACHS [facility]; Protocol Last Admin: 07/28/18 11:50 Dose: Not Given Insulin Human Lispro (Humalog) 4 units SC AC [facility] Last Admin: 07/28/18 11:50 Dose: 4 units Nystatin (Mycostatin Cream) 0 ea TOP TID [facility] Last Admin: 07/27/18 18:08 Dose: Not Given - Labs Labs: 07/28/18 05:30 07/28/18 05:30 PT 11.6 SECONDS (9.4-12.5) 07/22/18 20:10 INR 1.02 07/22/18 20:10 APTT 22.5 Seconds (25.1-36.5) L 07/22/18 20:10 - Constitutional Appears: No Acute Distress, Chronically Ill - Head Exam Head Exam: NORMAL INSPECTION - Respiratory Exam Respiratory Exam: Decreased Breath Sounds - Cardiovascular Exam Cardiovascular Exam: +S1, +S2 - GI/Abdominal Exam GI & Abdominal Exam: Soft. 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 coli and group B Strep Thrombocytopenia, R/O ITP chronic HIV infection (unknown CD4 count) hepatitis insulin-dependent diabetese mellitus history of heroin abuse Plan continue Rocephin blood cx are negative so far follow up further plans of surgery follow up CD4 count and HIV virus load taken on this admission follow up Heme-Onc evaluation of thrombocytopenia - discussed with Dr. Manning
--- NOTE | 2018-07-29 20:49 | CP.PCM.PN ---
<Jose Manuel Silver - Last Filed: 07/29/18 20:40> Subjective - Date & Time of Evaluation Date of Evaluation: 07/29/18 Time of Evaluation: 11:00 - Subjective Subjective: INTERNAL MEDICINE PROGRESS NOTE FOR DR. MIKE Silver PGY1 Pt seen and examined at bedside this am. No acute nursing events overnight. Pt tolerating diet well. 12 point ROS is negative Objective - Vital Signs/Intake and Output Vital Signs (last 24 hours): Temp Pulse Resp BP Pulse Ox 97.8 F 82 18 121/77 98 07/29/18 06:00 07/29/18 06:00 07/29/18 06:00 07/29/18 06:00 07/29/18 06:00 - Medications Medications: Current Medications Acetaminophen (Tylenol 325mg Tab) 650 mg PO Q6H PRN PRN Reason: Fever >100.4 F Last Admin: 07/28/18 16:43 Dose: 650 mg Cholecalciferol (Vitamin D) 2,000 intlu PO DAILY [facility] Last Admin: 07/29/18 09:24 Dose: 2,000 intlu Dextrose (Dextrose 50% Inj) 0 ml IV STAT PRN; Protocol PRN Reason: Hypoglycemia Protocol Famotidine (Pepcid) 20 mg PO HS JOHN Dextrose (Dextrose 5% In Water 1000 Ml) 1,000 mls @ 0 mls/hr IV .Q0M PRN; Protocol PRN Reason: Hypoglycemia Protocol Ceftriaxone Sodium (Rocephin 1 Gram Ivpb) 1 gm in 100 mls @ 100 mls/hr IVPB DAILY [facility]; Protocol Last Admin: 07/29/18 09:24 Dose: 100 mls/hr Insulin Detemir (Levemir) 8 unit SC HS [facility] Last Admin: 07/28/18 22:00 Dose: Not Given Insulin Human Lispro (Humalog Low) 0 units SC ACHS [facility]; Protocol Last Admin: 07/29/18 12:24 Dose: Not Given Insulin Human Lispro (Humalog) 4 units SC AC [facility] Last Admin: 07/29/18 17:12 Dose: 4 units Nystatin (Mycostatin Cream) 0 ea TOP TID [facility] Last Admin: 07/29/18 12:25 Dose: 1 appl - Labs Labs: 07/29/18 07:45 07/29/18 07:45 PT 11.6 SECONDS (9.4-12.5) 07/22/18 20:10 INR 1.02 07/22/18 20:10 APTT 22.5 Seconds (25.1-36.5) L 07/22/18 20:10 - Constitutional Appears: Well, Non-toxic, No Acute Distress - Head Exam Head Exam: NORMAL INSPECTION, NORMOCEPHALIC - Eye Exam Eye Exam: EOMI, Normal appearance - ENT Exam ENT Exam: Mucous Membranes Moist, Normal Exam - Neck Exam Neck Exam: Normal Inspection. absent: Tenderness - Respiratory Exam Respiratory Exam: Clear to Ausculation Bilateral, NORMAL BREATHING PATTERN - Cardiovascular Exam Cardiovascular Exam: REGULAR RHYTHM, +S1, +S2 - GI/Abdominal Exam GI & Abdominal Exam: Soft, Normal Bowel Sounds. absent: Tenderness - Rectal Exam Additional comments: rectal tube in place - Exam Additional comments: timmons in place - Extremities Exam Extremities Exam: Normal Inspection. absent: Calf Tenderness - Back Exam Back Exam: NORMAL INSPECTION - Neurological Exam Neurological Exam: Alert, Awake, Oriented x3 - Psychiatric Exam Psychiatric exam: Normal Affect, Normal Mood - Skin Skin Exam: Dry, Intact, Warm Assessment and Plan - Assessment and Plan (Free Text) Assessment: 62 y/o F with PMHx of HIV, non compliance with medication, IDDM, hepatitis C admitted for altered mental status and hyperosmolar state. She is s/p debridement of necrotic gluteal abscess. Plan: DKA/hyperosmolar state; treated with insulin. Currently fingersticks have been stable. Patient is noncompliant with taking insulin at home. Continue Levemir 8uSC and Lispro 4u AC per endo recs. Continue SS Endocrinology is on consult Discontinue NS Dietary education given. Endocrinology is following Large necrotic gluteal abscess; status post debridement in the OR. Urine/Wound culture growing E. Coli, GBS Continue rocephin. ID recs appreciated. Surgery evaluation appreciated. Daily dressing changes by surgery Pain management with IV morphine when necessary. Thrombocytopenia uptrended into normal range. Likely secondary to meropenem which has been discontinued Hematology consulted: suspect infection/acute illness related continue rocephin Anemia f/u retic, B12, folate, ferritin Enteritis/Ileitis Abdominal pain has resolved Has received flagyl HIV Qnt is 5.49 noncompliant with medication. CD4 count is not known. cd4/cd8 count re-ordered ID evaluation appreciated Hepatitis C Not treated. Needs close outpatient follow-up Hypovitaminosis D continue vitamin d 3000 IU daily DVT/GI: SCD/Famotidine Dispo: PT recs subacute rehab Case seen, examined and discussed with attending physician, Dr. Manning <Alejandra Manning R - Last Filed: 07/30/18 12:19> Objective - Vital Signs/Intake and Output Vital Signs (last 24 hours): Temp Pulse Resp BP Pulse Ox 100.4 F H 101 H 18 130/84 96 07/30/18 06:26 07/30/18 06:00 07/30/18 06:00 07/30/18 06:00 07/30/18 06:00 - Medications Medications: Current Medications Acetaminophen (Tylenol 325mg Tab) 650 mg PO Q6H PRN PRN Reason: Fever >100.4 F Last Admin: 07/30/18 06:26 Dose: 650 mg Cholecalciferol (Vitamin D) 2,000 intlu PO DAILY [facility] Last Admin: 07/30/18 08:27 Dose: 2,000 intlu Dextrose (Dextrose 50% Inj) 0 ml IV STAT PRN; Protocol PRN Reason: Hypoglycemia Protocol Famotidine (Pepcid) 20 mg PO HS [facility] Last Admin: 07/29/18 21:01 Dose: 20 mg Dextrose (Dextrose 5% In Water 1000 Ml) 1,000 mls @ 0 mls/hr IV .Q0M PRN; Protocol PRN Reason: Hypoglycemia Protocol Ceftriaxone Sodium (Rocephin 1 Gram Ivpb) 1 gm in 100 mls @ 100 mls/hr IVPB DAILY [facility]; Protocol Last Admin: 07/30/18 08:28 Dose: 100 mls/hr Insulin Detemir (Levemir) 8 unit SC HS [facility] Last Admin: 07/29/18 21:02 Dose: 8 u Insulin Human Lispro (Humalog Low) 0 units SC ACHS [facility]; Protocol Last Admin: 07/30/18 08:27 Dose: Not Given Insulin Human Lispro (Humalog) 4 units SC AC [facility] Last Admin: 07/30/18 08:26 Dose: 4 units Nystatin (Mycostatin Cream) 0 ea TOP TID [facility] Last Admin: 07/29/18 12:25 Dose: 1 appl - Labs Labs: 07/30/18 05:00 07/30/18 05:00 PT 11.6 SECONDS (9.4-12.5) 07/22/18 20:10 INR 1.02 07/22/18 20:10 APTT 22.5 Seconds (25.1-36.5) L 07/22/18 20:10 Attending/Attestation - Attestation I have personally seen and examined this patient.: Yes I have fully participated in the care of the patient.: Yes I have reviewed all pertinent clinical information, including history, physical exam and plan: Yes Notes (Text): Patient seen and examined by me with resident at 11:20AM on 07/29/18. Case including HPI, physical exam, and assessment and plan discussed with resident. Agree with above with following additions/corrections. Patient is a 62-year-old female with past medical history significant for HIV, hepatitis, insulin-dependent type 2 diabetes, and drug abuse that presented to the emergency room with slurred speech and weakness. Patient states she is feels ok. Understands that physical therapy is recommending [facility]. Patient at time of exam agreeing to [facility]. Still has has some pain/discomfort at rectal tube site and at right lower abdominal area, right groin, and sacral area. Patient denies chest pain and palpitations. No shortness of breath. No headaches or dizziness. No fevers or chills. No nauseaor vomiting. Timmons catheter in place secondary to site of abscess/ulcer. Physical exam: General: Awake and alert sitting up in bed in no acute distress HEENT: Normocephalic, atraumatic. Extraocular muscles intact, pupils equal and reactive, no scleral icterus. Oropharynx is pink and moist. No pharyngeal erythema or exudate appreciated. Neck is supple. Cardiovascular: Regular rhythm. Normal S1 and S2. No murmurs, rubs, or gallops appreciated Pulmonary: Normal respiratory effort. No rhonchi, rales, or wheezing appreciated. Gastrointestinal: Soft, nondistended. Mild right lower side tenderness. Positive bowel sounds all 4 quadrants. No guarding. Musculoskeletal: Moves all extremities. No calf tenderness. No edema appreciated. Central nervous system: AAOx3, CN 2-12 grossly intact. : Timmons catheter in place with dark yellow urine output. Rectal tube in place Dermatologic: Skin warm and dry. Gluteal dressing clean, dry, and intact. Assessment and plan: Patient is a 62-year-old female with past medical history significant for HIV, hepatitis, insulin-dependent type 2 diabetes, and drug abuse that presented to the emergency room with slurred speech and weakness. 1. Large necrotic gluteal abscess. S/P debridement 07/23/18. Surgery following, recommendations appreciated. Wound culture positive for Escherichia coli and beta hemolytic strep group B. ID following, recommendations appreciated. Continue Rocephin. Patient afebrile. Leukocytosis resolved. Procalcitonin 1.15. Blood culture with no growth. CT abdomen and pelvis per radiology showed evidence of enteritis/ileitis without mechanical obstruction; severe edematous and inflammatory changes extending from the external genitalia anteriorly to the introitus; more posteriorly air identified within perineal tissues; marked edema of the area and visible right lower extremity; no discrete drainable collection; there does not appear to be entry into the peritoneum. 2. Toxic metabolic encephalopathy. Resolved. Patient is AAO x3. Likely secondary to HHS and infection. Continue supportive care. Head CT per radiologist showed no acute intracranial abnormalities, no significant findings to account for the clinical presentation. 3. HHS. Resolved. Likely secondary to noncompliance of medications at home. Continue insulin per slubber hand. Continue to monitor accuchecks. Per pat iesigrid, she stopped taking her insulin. Hgb A1C 12.2. Endocrinology following, recommendations appreciated. Patient counseled at length on compliance with medications at home. 4. UTI. Urine culture positive for E. Coli and Beta hemolytic Strep Group B. Continue Rocephin. 5. Enteritis/ileitis. S/P treatment with Flagyl. 6. Thrombocytopenia. May be secondary to antibiotics vs infection. Resolved. Continue to monitor. 7. Left upper extremity edema. Thromboplebitis of LUE. Resolving. Bilateral upp er extremity venous Dopplers. Radiology showed no sonographic evidence for deep vein thrombosis in the visualized segments of both upper extremities, segmental superficial thrombophlebitis in the left basilic vein above the elbow. Continue warm compresses. 8. History of HIV. Pending CD4 count. Noncompliant with medications. ID following, recommendations appreciated 9. History of Hepatitis C. Not treated. Patient will need to follow up outpatient for treatment. 10. Vitamin D Deficiency. Continue Vitamin D 2000IU daily. 11. GI/DVT prophylaxis. Protonix/SCDs 12. Patient with POLST and is DNR/DNI. Palliative care recommendations appreciated. Case was discussed in detail with the patient regarding current diagnosis and treatment plan. All questions answered.
[2018-07-29] MEDS: Insulin Detemir 100 units/ml Vial (Levemir) SC SCH (21:02)
[2018-07-30 06:23] LABS: BASO # 0.02 K/mm3 (0.0-2.0); BASO % 0.5 % (0.0-3.0); EOS # 0.1 (0.0-0.7); EOS % 1.6 % (1.5-5.0); GRAN # 2.49 (1.4-6.5); HEMOGLOBIN 10.7 g/dL (12.0-16.0); LYMPH # 0.7 (1.2-3.4); LYMPH % 18.8 % (22.0-35.0); MEAN CELL VOLUME 89.1 fl (80.0-105.0); MEAN CORPUSCULAR HEMOGLOBIN 29.2 pg (25.0-35.0); MEAN CORPUSCULAR HGB CONC 32.7 g/dl (31.0-37.0); MEAN PLATELET VOLUME 12.9 fl (7.0-11.0); MONO # 0.5 (0.1-0.6); MONO % 14.1 % (1.0-6.0); RBC 3.67 10^6/uL (3.5-6.1); WHITE BLOOD COUNT 3.8 10^3/uL (4.5-11.0)
[2018-07-30 06:46] LABS: ALB/GLOB RATIO 0.7 (1.1-1.8); ALBUMIN 2.3 g/dL (3.0-4.8); ALT/SGPT 31 U/L (7-56); AST/SGOT 35 U/L (14-36); BLOOD UREA NITROGEN 9 mg/dL (7-21); CALCIUM 7.8 mg/dL (8.4-10.5); GFR NON-AFRICAN AMERICAN > 60
--- NOTE | 2018-07-30 08:08 | CP.PCM.PN ---
Subjective - Date & Time of Evaluation Date of Evaluation: 07/30/18 Time of Evaluation: 08:05 - Subjective Subjective: Surgery Progress note- Dr. Schwab Patient seen and examined at bedside. No acute events overnight. Nursing notes reviewed. Removed 1 micheal, 2 micheal remains. Area cleaned w/ peroxide, dry dressings were applied. No new complaints. Timmons removed and freely voiding. Still having loose bowel movements. +OOB w/ Physical therapy Objective - Vital Signs/Intake and Output Vital Signs (last 24 hours): Temp Pulse Resp BP Pulse Ox 100.4 F H 107 H 18 114/67 95 07/30/18 06:26 07/29/18 22:25 07/29/18 22:25 07/29/18 22:25 07/29/18 22:25 - Medications Medications: Current Medications Acetaminophen (Tylenol 325mg Tab) 650 mg PO Q6H PRN PRN Reason: Fever >100.4 F Last Admin: 07/30/18 06:26 Dose: 650 mg Cholecalciferol (Vitamin D) 2,000 intlu PO DAILY [facility] Last Admin: 07/29/18 09:24 Dose: 2,000 intlu Dextrose (Dextrose 50% Inj) 0 ml IV STAT PRN; Protocol PRN Reason: Hypoglycemia Protocol Famotidine (Pepcid) 20 mg PO HS [facility] Last Admin: 07/29/18 21:01 Dose: 20 mg Dextrose (Dextrose 5% In Water 1000 Ml) 1,000 mls @ 0 mls/hr IV .Q0M PRN; Protocol PRN Reason: Hypoglycemia Protocol Ceftriaxone Sodium (Rocephin 1 Gram Ivpb) 1 gm in 100 mls @ 100 mls/hr IVPB DAILY [facility]; Protocol Last Admin: 07/29/18 09:24 Dose: 100 mls/hr Insulin Detemir (Levemir) 8 unit SC HS [facility] Last Admin: 07/29/18 21:02 Dose: 8 u Insulin Human Lispro (Humalog Low) 0 units SC ACHS [facility]; Protocol Last Admin: 07/29/18 21:03 Dose: 2 units Insulin Human Lispro (Humalog) 4 units SC AC [facility] Last Admin: 07/29/18 17:12 Dose: 4 units Nystatin (Mycostatin Cream) 0 ea TOP TID [facility] Last Admin: 07/29/18 12:25 Dose: 1 appl - Labs Labs: 07/30/18 05:00 07/30/18 05:00 PT 11.6 SECONDS (9.4-12.5) 07/22/18 20:10 INR 1.02 07/22/18 20:10 APTT 22.5 Seconds (25.1-36.5) L 07/22/18 20:10 - Constitutional Appears: Non-toxic, No Acute Distress - Head Exam Head Exam: ATRAUMATIC - Eye Exam Eye Exam: EOMI. absent: Scleral icterus - ENT Exam ENT Exam: Mucous Membranes Moist - Respiratory Exam Respiratory Exam: NORMAL BREATHING PATTERN. absent: Accessory Muscle Use, Respiratory Distress - Cardiovascular Exam Cardiovascular Exam: REGULAR RHYTHM. absent: Bradycardia, Tachycardia - GI/Abdominal Exam GI & Abdominal Exam: Soft. absent: Distended, Firm, Guarding, Rigid, Tenderness - Extremities Exam Extremities Exam: absent: Calf Tenderness - Neurological Exam Neurological Exam: Alert, Awake, Oriented x3 - Skin Skin Exam: Intact, Warm Assessment and Plan - Assessment and Plan (Free Text) Assessment: 62F initially admitted for HHS s/p Sacral debridement; cultures shows GBS on ABx. timmons removed and now has occasional loose BM. Plan: - C.Diff still pending - daily dressing changes - keep area clean - cleared to shower - ambulation as tolerated - will continue to remove micheal drains as infection continues to clear - further recs per Dr. Schwab surgical attending PGY2
[2018-07-30] MEDS: Insulin Lispro 1 UNITS/0.01 ML SC SCH ×3 (08:26→17:22)
[2018-07-30] MEDS: Insulin Lispro (humaLOG) LOW Coverage SC SCH ×4 (08:27→22:17)
[2018-07-30] MEDS: Cholecalciferol 1,000 INTLU TAB PO SCH (08:27)
[2018-07-30] MEDS: cefTRIAXone 1 gm 1 GM/100 ML BAG IVPB SCH (08:28)
[2018-07-30] MEDS: Nystatin 100,000 Units/gm Cream(15 gm) TOP SCH ×2 (10:00→14:59)
--- NOTE | 2018-07-30 11:36 | CP.PCM.PN ---
Subjective - Date & Time of Evaluation Date of Evaluation: 07/30/18 Time of Evaluation: 09:30 - Subjective Subjective: Had low grade fever this morning but no chills, no nausea, no vomiting, no cough, no SOB at rest, no sore throat or rhinorrhea. Objective - Vital Signs/Intake and Output Vital Signs (last 24 hours): Temp Pulse Resp BP Pulse Ox 97.8 F 82 18 121/77 98 07/29/18 06:00 07/29/18 06:00 07/29/18 06:00 07/29/18 06:00 07/29/18 06:00 Intake and Output: 07/29/18 07/29/18 06:59 18:59 Intake Total 240 Output Total 1700 Balance -1460 - Medications Medications: Current Medications Acetaminophen (Tylenol 325mg Tab) 650 mg PO Q6H PRN PRN Reason: Fever >100.4 F Last Admin: 07/28/18 16:43 Dose: 650 mg Cholecalciferol (Vitamin D) 2,000 intlu PO DAILY [facility] Last Admin: 07/29/18 09:24 Dose: 2,000 intlu Dextrose (Dextrose 50% Inj) 0 ml IV STAT PRN; Protocol PRN Reason: Hypoglycemia Protocol Famotidine (Pepcid) 20 mg PO HS [facility] Dextrose (Dextrose 5% In Water 1000 Ml) 1,000 mls @ 0 mls/hr IV .Q0M PRN; Protocol PRN Reason: Hypoglycemia Protocol Ceftriaxone Sodium (Rocephin 1 Gram Ivpb) 1 gm in 100 mls @ 100 mls/hr IVPB DAILY [facility]; Protocol Last Admin: 07/29/18 09:24 Dose: 100 mls/hr Insulin Detemir (Levemir) 8 unit SC HS [facility] Last Admin: 07/28/18 22:00 Dose: Not Given Insulin Human Lispro (Humalog Low) 0 units SC ACHS [facility]; Protocol Last Admin: 07/29/18 12:24 Dose: Not Given Insulin Human Lispro (Humalog) 4 units SC AC [facility] Last Admin: 07/29/18 12:23 Dose: 4 units Nystatin (Mycostatin Cream) 0 ea TOP TID [facility] Last Admin: 07/29/18 12:25 Dose: 1 appl - Labs Labs: 07/29/18 07:45 07/29/18 07:45 PT 11.6 SECONDS (9.4-12.5) 07/22/18 20:10 INR 1.02 07/22/18 20:10 APTT 22.5 Seconds (25.1-36.5) L 07/22/18 20:10 - Constitutional Appears: No Acute Distress, Chronically Ill - ENT Exam ENT Exam: Mucous Membranes Moist - Neck Exam Neck Exam: absent: Meningismus - Respiratory Exam Respiratory Exam: Decreased Breath Sounds - Cardiovascular Exam Cardiovascular Exam: +S1, +S2 - GI/Abdominal Exam GI & Abdominal Exam: Soft. 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 coli and group B Strep low grade fever, etiology to be determined Thrombocytopenia, R/O ITP chronic HIV infection (unknown CD4 count) hepatitis insulin-dependent diabetese mellitus history of heroin abuse Plan continue Rocephin will repeat blood, urine cx, get PCT and CXR and will monitor for fevers follow up further plans of surgery follow up CD4 count and HIV virus load taken on this admission thrombocytopenia has resolved
--- NOTE | 2018-07-30 13:56 | PN ---
DATE: 07/30/2018 LOCATION: Room 561. SUBJECTIVE: This is a 62-year-old female with recent uncontrolled type 2 insulin-requiring diabetes, now being followed closely for metabolic management. Her glycemic levels are fluctuating as noted overnight with glucose levels ranging from 234-318 and 401 mg/dL. Her chemistry showed a BUN of 9, sodium 138, potassium 3.9, chloride 102, CO2 of 30, glucose and creatinine . PLAN: We will modify once again her basal and bolus insulin regimen and increase the Humalog to 8 units t.i.d. before meals as ordered to start today. We will also increase the Levemir to 12 units subcu at bedtime daily to start tonight. We will continue the low-dose correction scale using Humalog insulin as ordered. We will obtain serial chemistries and supplement accordingly as needed. We will follow. Kassi Savage MD
--- NOTE | 2018-07-30 14:31 | CP.PCM.PN ---
<Michele Grewal - Last Filed: 07/30/18 16:29> Subjective - Date & Time of Evaluation Date of Evaluation: 07/30/18 Time of Evaluation: 09:00 - Subjective Subjective: Pt seen and examined. Pt states she has some continued pain with her gluteal abscess. Pt experienced a fever of 103F, and a Dr Fernandez was consulted, blood cultures were ordered, and tylenol was given. Per nurse, pt voided in her diaper overnight. Denies chest pain, SOB, or abdominal pain. Objective - Vital Signs/Intake and Output Vital Signs (last 24 hours): Temp Pulse Resp BP Pulse Ox 100.4 F H 101 H 18 130/84 96 07/30/18 06:26 07/30/18 06:00 07/30/18 06:00 07/30/18 06:00 07/30/18 06:00 - Medications Medications: Current Medications Acetaminophen (Tylenol 325mg Tab) 650 mg PO Q6H PRN PRN Reason: Fever >100.4 F Last Admin: 07/30/18 06:26 Dose: 650 mg Cholecalciferol (Vitamin D) 2,000 intlu PO DAILY [facility] Last Admin: 07/30/18 08:27 Dose: 2,000 intlu Dextrose (Dextrose 50% Inj) 0 ml IV STAT PRN; Protocol PRN Reason: Hypoglycemia Protocol Famotidine (Pepcid) 20 mg PO HS [facility] Last Admin: 07/29/18 21:01 Dose: 20 mg Dextrose (Dextrose 5% In Water 1000 Ml) 1,000 mls @ 0 mls/hr IV .Q0M PRN; Protocol PRN Reason: Hypoglycemia Protocol Ceftriaxone Sodium (Rocephin 1 Gram Ivpb) 1 gm in 100 mls @ 100 mls/hr IVPB DAILY [facility]; Protocol Last Admin: 07/30/18 08:28 Dose: 100 mls/hr Insulin Detemir (Levemir) 8 unit SC HS [facility] Last Admin: 07/29/18 21:02 Dose: 8 u Insulin Human Lispro (Humalog Low) 0 units SC ACHS [facility]; Protocol Last Admin: 07/30/18 08:27 Dose: Not Given Insulin Human Lispro (Humalog) 4 units SC AC [facility] Last Admin: 07/30/18 12:18 Dose: 4 units Nystatin (Mycostatin Cream) 0 ea TOP TID [facility] Last Admin: 07/29/18 12:25 Dose: 1 appl - Labs Labs: 07/30/18 05:00 07/30/18 05:00 PT 11.6 SECONDS (9.4-12.5) 07/22/18 20:10 INR 1.02 07/22/18 20:10 APTT 22.5 Seconds (25.1-36.5) L 07/22/18 20:10 - Constitutional Appears: No Acute Distress - Head Exam Head Exam: ATRAUMATIC, NORMOCEPHALIC - Eye Exam Eye Exam: EOMI - ENT Exam ENT Exam: Mucous Membranes Moist - Neck Exam Neck Exam: Full ROM - Respiratory Exam Respiratory Exam: Clear to Ausculation Bilateral. absent: Accessory Muscle Use - Cardiovascular Exam Cardiovascular Exam: RRR, +S1, +S2. absent: Diastolic murmur - GI/Abdominal Exam GI & Abdominal Exam: Soft, Normal Bowel Sounds. absent: Tenderness - Extremities Exam Extremities Exam: Full ROM. absent: Calf Tenderness - Neurological Exam Neurological Exam: Alert, Awake, Oriented x3 - Psychiatric Exam Psychiatric exam: Normal Affect, Normal Mood - Skin Skin Exam: Dry, Intact, Normal Color Assessment and Plan - Assessment and Plan (Free Text) Assessment: Pt is a 62 yo female with PMH of HIV, IDDM, and hep C who was admitted for AMS and HHS. She is s/p debridement of necrotic gluteal abscess. Plan: DKA/hyperosmolar state; treated with insulin - non compliant with home insulin - SSI - Beta hydroxybutyrate 5.32 - HA1C 12.2 - Endo consulted, rec Levemir 12SC and Lispro 8 AC HIV - Qnt is 5.49 - noncompliant with medication - CD4/CD8 follow up - ID consulted appreciate recs Necrotic gluteal abscess - status post debridement in the OR - Urine/Wound cultured E. Coli, GBS - rocephin. ID recs appreciated. - pt febrile, 100.4F, will continue to monitor - Surgery consulted. Daily dressing changes by surgery Anemia - B12 995 - folate, retic, ferritin follow up Thrombocytopenia - 256, improving - Likely secondary to meropenem - Heme/onc consulted Hepatitis C - untreated, pt to follow up as out pt for treatment Ppx - SCD - Famotidine Dispo: PT recs subacute rehab Pt seen, examined, assessment and plan discussed with Dr Alejandra Grewal PGY1, Internal Medicine Resident <Alejandra Manning R - Last Filed: 07/31/18 06:58> Objective - Vital Signs/Intake and Output Vital Signs (last 24 hours): Temp Pulse Resp BP Pulse Ox 98.9 F 116 H 18 132/70 98 07/31/18 00:08 07/30/18 22:27 07/30/18 22:00 07/30/18 22:27 07/30/18 22:00 Intake and Output: 07/30/18 07/31/18 18:59 06:59 Intake Total 600 Output Total 500 Balance 100 - Medications Medications: Current Medications Acetaminophen (Tylenol 325mg Tab) 650 mg PO Q6H PRN PRN Reason: Fever >100.4 F Last Admin: 07/30/18 21:23 Dose: 650 mg Cholecalciferol (Vitamin D) 2,000 intlu PO DAILY [facility] Last Admin: 07/30/18 08:27 Dose: 2,000 intlu Dextrose (Dextrose 50% Inj) 0 ml IV STAT PRN; Protocol PRN Reason: Hypoglycemia Protocol Famotidine (Pepcid) 20 mg PO HS [facility] Last Admin: 07/30/18 21:23 Dose: 20 mg Dextrose (Dextrose 5% In Water 1000 Ml) 1,000 mls @ 0 mls/hr IV .Q0M PRN; Protocol PRN Reason: Hypoglycemia Protocol Ceftriaxone Sodium (Rocephin 1 Gram Ivpb) 1 gm in 100 mls @ 100 mls/hr IVPB DAILY [facility]; Protocol Last Admin: 07/30/18 08:28 Dose: 100 mls/hr Meropenem (Merrem Iv 1 Gm Premix) 1 gm in 50 mls @ 12.5 mls/hr IVPB Q8 [facility]; Protocol Last Admin: 07/30/18 20:08 Dose: 12.5 mls/hr Vancomycin HCl (Vancomycin 1gm) 1 gm in 250 mls @ 167 mls/hr IVPB Q12H [facility]; Protocol Last Admin: 07/31/18 05:07 Dose: 167 mls/hr Insulin Detemir (Levemir) 12 unit SC HS [facility] Last Admin: 07/30/18 22:16 Dose: 12 u Insulin Human Lispro (Humalog Low) 0 units SC ACHS [facility]; Protocol Last Admin: 07/30/18 22:17 Dose: Not Given Insulin Human Lispro (Humalog) 8 units SC AC [facility] Last Admin: 07/30/18 17:22 Dose: 8 u Nystatin (Mycostatin Cream) 0 ea TOP TID [facility] Last Admin: 07/30/18 14:59 Dose: 1 appl Oseltamivir Phosphate (Tamiflu Cap) 75 mg PO BID [facility]; Protocol Stop: 08/04/18 16:23 Last Admin: 07/30/18 17:22 Dose: 75 mg - Labs Labs: 07/30/18 05:00 07/30/18 05:00 PT 11.6 SECONDS (9.4-12.5) 07/22/18 20:10 INR 1.02 07/22/18 20:10 APTT 22.5 Seconds (25.1-36.5) L 07/22/18 20:10 Attending/Attestation - Attestation I have personally seen and examined this patient.: Yes I have fully participated in the care of the patient.: Yes I have reviewed all pertinent clinical information, including history, physical exam and plan: Yes Notes (Text): Patient seen and examined by me with resident at 9:35AM on 07/30/18. Case including HPI, physical exam, and assessment and plan discussed with resident. Agree with above with following additions/corrections. Patient is a 62-year-old female with past medical history significant for HIV, hepatitis, insulin-dependent type 2 diabetes, and drug abuse that presented to the emergency room with slurred speech and weakness. Patient states she feels better today. Patient feels more comfortable as rectal tube and timmons catheter removed yesterday. Patient still has pain/discomfort at right lower abdominal area, right groin, and sacral area. Patient denies chest pain and palpitations. No shortness of breath. No headaches or dizziness. No subjective fevers or chills, however, patient with low grade fevers. No nausea or vomiting. No dysuria. Paitent is now refusing NICCI. Importance of going discussed at length with patient and patient stated "I will think about it." Also discussed importance of doing physical therapy with therapist here as patient refused yesterday. Physical exam: General: Awake and alert sitting up in bed in no acute distress HEENT: Normocephalic, atraumatic. Extraocular muscles intact, pupils equal and reactive, no scleral icterus. Oropharynx is pink and moist. No pharyngeal erythema or exudate appreciated. Neck is supple. Cardiovascular: Regular rhythm. Normal S1 and S2. No murmurs, rubs, or gallops appreciated Pulmonary: Normal respiratory effort. No rhonchi, rales, or wheezing appreciated. Gastrointestinal: Soft, nondistended. Mild right lower side tenderness. Positive bowel sounds all 4 quadrants. No guarding. Musculoskeletal: Moves all extremities. No calf tenderness. No edema appreciated. Central nervous system: AAOx3, CN 2-12 grossly intact. Dermatologic: Skin warm and dry. Gluteal dressing clean, dry, and intact. Assessment and plan: Patient is a 62-year-old female with past medical history significant for HIV, hepatitis, insulin-dependent type 2 diabetes, and drug abuse that presented to the emergency room with slurred speech and weakness. 1. Large necrotic gluteal abscess. S/P debridement 07/23/18. Surgery following, recommendations appreciated. Wound culture positive for Escherichia coli and beta hemolytic strep group B. ID following, recommendations appreciated. Continue Rocephin. Patient now with low grade fevers. Pending repeat blood cultures, urine cultures and CXR. Leukocytosis resolved. Procalcitonin 1.15. Blood culture with no growth. CT abdomen and pelvis per radiology showed evidence of enteritis/ileitis without mechanical obstruction; severe edematous and inflammatory changes extending from the external genitalia anteriorly to the introitus; more posteriorly air identified within perineal tissues; marked edema of the area and visible right lower extremity; no discrete drainable collection; there does not appear to be entry into the peritoneum. 2. Toxic metabolic encephalopathy. Resolved. Patient is AAO x3. Likely secondary to HHS and infection. Continue supportive care. Head CT per radiologist showed no acute intracranial abnormalities, no significant findings to account for the clinical presentation. 3. HHS. Resolved. Likely secondary to noncompliance of medications at home. Continue insulin per medical practice administrator. Continue to monitor accuchecks. Per ananda ent, she stopped taking her insulin. Hgb A1C 12.2. Endocrinology following, recommendations appreciated. Patient counseled at length on compliance with medications at home. 4. UTI. Urine culture positive for E. Coli and Beta hemolytic Strep Group B. Continue Rocephin. Pending repeat urine culture. 5. Enteritis/ileitis. S/P treatment with Flagyl. 6. Thrombocytopenia. May be secondary to antibiotics vs infection. Resolved. Continue to monitor. 7. Left upper extremity edema. Thromboplebitis of LUE. Resolving. Bilateral upper extremity venous Dopplers. Radiology showed no sonographic evidence for deep vein thrombosis in the visualized segments of both upper extremities, segmental superficial thrombophlebitis in the left basilic vein above the elbow. Continue warm compresses. 8. History of HIV. Pending CD4 count. Noncompliant with medications. ID following, recommendations appreciated 9. History of Hepatitis C. Not treated. Patient will need to follow up outpatient for treatment. 10. Vitamin D Deficiency. Continue Vitamin D 2000IU daily. 11. GI/DVT prophylaxis. Protonix/SCDs 12. Patient with POLST and is DNR/DNI. Palliative care recommendations appreciated. Case was discussed in detail with the patient regarding current diagnosis and treatment plan. All questions answered.
[2018-07-30 16:48] LABS: % CD4 (T HELPER CELL) 21 Percent (30-61); % CD8 (SUPPRESSOR T CELL) 64 Percent (12-42); ABSOLUTE CD4 CELLS 198 Cells/mcL (490-1740); ABSOLUTE CD8 CELLS 589 Cells/mcL (180-1170); ABSOLUTE LYMPHOCYTES 923 Cells/mcL (850-3900); HELPER/SUPPRESSOR RATIO 0.34 Ratio (0.86-5.00)
[2018-07-30] MEDS: Vancomycin 1gm in NS 250ml 1 GM/250 ML BAG IVPB SCH (17:24)
[2018-07-30] MEDS: Meropenem IV 1 gm in NS 1 GM/50 ML BAG IVPB SCH ×2 (20:08→21:00)
[2018-07-30 21:04] LABS: PH,URINE 7.5 (4.7-8.0); URINE BILIRUBIN NEGATIVE (NEGATIVE); URINE BLOOD NEGATIVE (NEGATIVE); URINE GLUCOSE (UA) 100 mg/dL (NEGATIVE); URINE LEUKOCYTE ESTERASE NEGATIVE Leu/uL (NEGATIVE); URINE PROTEIN TRACE mg/dL (<30 mg/dL); URINE UROBILINOGEN 0.2 E.U./dL (<1 E.U./dL)
[2018-07-30 21:05] LABS: URINE APPEARANCE SLIGHT-CLOUDY (CLEAR); URINE COLOR YELLOW (YELLOW)
[2018-07-30 21:18] LABS: URINE WBC 0 - 2 /hpf (0-6)
[2018-07-30] MEDS: Insulin Detemir 100 units/ml Vial (Levemir) SC SCH (22:16)
[2018-07-31] MEDS: Vancomycin 1gm in NS 250ml 1 GM/250 ML BAG IVPB SCH ×2 (05:07→17:49)
[2018-07-31] MEDS: Meropenem IV 1 gm in NS 1 GM/50 ML BAG IVPB SCH ×3 (07:02→21:00)
[2018-07-31 07:35] VITALS: RESP 20
[2018-07-31] MEDS: Insulin Lispro 1 UNITS/0.01 ML SC SCH ×3 (08:18→17:14)
[2018-07-31] MEDS: Insulin Lispro (humaLOG) LOW Coverage SC SCH ×4 (08:18→22:57)
--- NOTE | 2018-07-31 09:57 | CP.PCM.PN ---
Subjective - Date & Time of Evaluation Date of Evaluation: 07/31/18 Time of Evaluation: 09:55 - Subjective Subjective: Surgery Progress note- Dr. Schwab Patient seen and examined at bedside. No acute events overnight. Nursing notes reviewed. 2 micheal remains. Area cleaned w/ peroxide, dry dressings were applied. No new complaints. +OOB w/ Physical therapy Objective - Vital Signs/Intake and Output Vital Signs (last 24 hours): Temp Pulse Resp BP Pulse Ox 98.6 F 91 H 20 116/75 99 07/31/18 06:00 07/31/18 06:00 07/31/18 06:00 07/31/18 06:00 07/31/18 06:00 Intake and Output: 07/31/18 07/31/18 06:59 18:59 Intake Total 600 Output Total 500 Balance 100 - Medications Medications: Current Medications Acetaminophen (Tylenol 325mg Tab) 650 mg PO Q6H PRN PRN Reason: Fever >100.4 F Last Admin: 07/30/18 21:23 Dose: 650 mg Cholecalciferol (Vitamin D) 2,000 intlu PO DAILY [facility] Last Admin: 07/30/18 08:27 Dose: 2,000 intlu Dextrose (Dextrose 50% Inj) 0 ml IV STAT PRN; Protocol PRN Reason: Hypoglycemia Protocol Famotidine (Pepcid) 20 mg PO HS [facility] Last Admin: 07/30/18 21:23 Dose: 20 mg Dextrose (Dextrose 5% In Water 1000 Ml) 1,000 mls @ 0 mls/hr IV .Q0M PRN; Pro tocol PRN Reason: Hypoglycemia Protocol Ceftriaxone Sodium (Rocephin 1 Gram Ivpb) 1 gm in 100 mls @ 100 mls/hr IVPB DAILY [facility]; Protocol Last Admin: 07/30/18 08:28 Dose: 100 mls/hr Meropenem (Merrem Iv 1 Gm Premix) 1 gm in 50 mls @ 12.5 mls/hr IVPB Q8 [facility]; Protocol Last Admin: 07/31/18 07:02 Dose: 12.5 mls/hr Vancomycin HCl (Vancomycin 1gm) 1 gm in 250 mls @ 167 mls/hr IVPB Q12H [facility]; Protocol Last Admin: 07/31/18 05:07 Dose: 167 mls/hr Insulin Detemir (Levemir) 12 unit SC HS [facility] Last Admin: 07/30/18 22:16 Dose: 12 u Insulin Human Lispro (Humalog Low) 0 units SC ACHS [facility]; Protocol Last Admin: 07/31/18 08:18 Dose: Not Given Insulin Human Lispro (Humalog) 8 units SC AC [facility] Last Admin: 07/31/18 08:18 Dose: 8 u Nystatin (Mycostatin Cream) 0 ea TOP TID [facility] Last Admin: 07/30/18 14:59 Dose: 1 appl Oseltamivir Phosphate (Tamiflu Cap) 75 mg PO BID [facility]; Protocol Stop: 08/04/18 16:23 Last Admin: 07/30/18 17:22 Dose: 75 mg - Labs Labs: 07/30/18 05:00 07/30/18 05:00 PT 11.6 SECONDS (9.4-12.5) 07/22/18 20:10 INR 1.02 07/22/18 20:10 APTT 22.5 Seconds (25.1-36.5) L 07/22/18 20:10 - Constitutional Appears: Non-toxic, No Acute Distress, Older Than Stated Age - Head Exam Head Exam: ATRAUMATIC - Eye Exam Eye Exam: EOMI. absent: Scleral icterus - ENT Exam ENT Exam: Mucous Membranes Moist - Respiratory Exam Respiratory Exam: NORMAL BREATHING PATTERN. absent: Accessory Muscle Use, Respiratory Distress - Cardiovascular Exam Cardiovascular Exam: REGULAR RHYTHM. absent: Bradycardia, Tachycardia - GI/Abdominal Exam GI & Abdominal Exam: Soft. absent: Distended, Firm, Guarding, Rigid, Tenderness - Neurological Exam Neurological Exam: Alert, Awake, Oriented x3 - Psychiatric Exam Psychiatric exam: Normal Affect - Skin Skin Exam: Warm Additional comments: Erythema on Right hip improving. continued mild purulent drainage Assessment and Plan - Assessment and Plan (Free Text) Assessment: 62F initially admitted for HHS s/p Sacral debridement; cultures shows GBS on ABx. timmons removed and now has occasional loose BM. Plan: - C.Diff still pending - daily dressing changes - keep area clean - cleared to shower - ambulation as tolerated - will continue to remove micheal drains as infection continues to clear - further recs [facility]
[2018-07-31] MEDS: cefTRIAXone 1 gm 1 GM/100 ML BAG IVPB SCH (10:38)
[2018-07-31] MEDS: Cholecalciferol 1,000 INTLU TAB PO SCH (10:39)
[2018-07-31] MEDS: Nystatin 100,000 Units/gm Cream(15 gm) TOP SCH ×3 (10:46→17:19)
[2018-07-31 11:09] LABS: BASO # 0.02 K/mm3 (0.0-2.0); BASO % 0.6 % (0.0-3.0); EOS % 0.9 % (1.5-5.0); GRAN # 1.79 (1.4-6.5); GRAN % 53.8 % (50.0-68.0); HEMOGLOBIN 11.8 g/dL (12.0-16.0); LYMPH # 0.7 (1.2-3.4); LYMPH % 22.2 % (22.0-35.0); MEAN CELL VOLUME 90.2 fl (80.0-105.0); MEAN CORPUSCULAR HEMOGLOBIN 29.6 pg (25.0-35.0); MEAN CORPUSCULAR HGB CONC 32.9 g/dl (31.0-37.0); MEAN PLATELET VOLUME 11.3 fl (7.0-11.0); MONO # 0.8 (0.1-0.6); MONO % 22.5 % (1.0-6.0); PLATELET COUNT 375 10^3/uL (120.0-450.0); RBC 3.98 10^6/uL (3.5-6.1); RED CELL DISTRIBUTION WIDTH 13.1 % (11.5-14.5); WHITE BLOOD COUNT 3.3 10^3/uL (4.5-11.0)
[2018-07-31 11:24] LABS: ALB/GLOB RATIO 0.7 (1.1-1.8); ALBUMIN 2.6 g/dL (3.0-4.8); ALT/SGPT 40 U/L (7-56); AST/SGOT 64 U/L (14-36); BLOOD UREA NITROGEN 7 mg/dL (7-21); CALCIUM 7.6 mg/dL (8.4-10.5); GFR NON-AFRICAN AMERICAN > 60
[2018-07-31 11:46] LABS: BAND 3 % (0-2); LYMPHOCYTE 22 % (22.0-35.0); MONOCYTE 18 % (1.0-6.0); NEUTROPHIL 57 % (50.0-70.0)
--- NOTE | 2018-07-31 12:11 | RAD ---
Date of service: 07/31/2018 HISTORY: fever COMPARISON: 07/22/2018 TECHNIQUE: Chest PA and lateral FINDINGS: LUNGS: No active pulmonary disease. PLEURA: No significant pleural effusion identified. No pneumothorax apparent. CARDIOVASCULAR: No aortic atherosclerotic calcification present. Normal cardiac size. No pulmonary vascular congestion. OSSEOUS STRUCTURES: No significant abnormalities. VISUALIZED UPPER ABDOMEN: Normal. OTHER FINDINGS: None. IMPRESSION: No active disease.
--- NOTE | 2018-07-31 13:06 | CP.PCM.PN ---
<Michele Grewal - Last Filed: 07/31/18 13:46> Subjective - Date & Time of Evaluation Date of Evaluation: 07/31/18 Time of Evaluation: 07:00 - Subjective Subjective: Pt seen and examined. Pt is currently on droplet precautions, due to positive rapid flu test. Per nursing, micheal drain in place to drain right lower buttock, purewick in place draining clear yellow urine. Productive cough. Objective - Vital Signs/Intake and Output Vital Signs (last 24 hours): Temp Pulse Resp BP Pulse Ox 102.9 F H 91 H 20 116/75 99 07/31/18 11:49 07/31/18 06:00 07/31/18 06:00 07/31/18 06:00 07/31/18 06:00 Intake and Output: 07/31/18 07/31/18 06:59 18:59 Intake Total 600 Output Total 500 Balance 100 - Medications Medications: Current Medications Acetaminophen (Tylenol 325mg Tab) 650 mg PO Q6H PRN PRN Reason: Fever >100.4 F Last Admin: 07/31/18 11:21 Dose: 650 mg Cholecalciferol (Vitamin D) 2,000 intlu PO DAILY JOHN Last Admin: 07/31/18 10:39 Dose: 2,000 intlu Dextrose (Dextrose 50% Inj) 0 ml IV STAT PRN; Protocol PRN Reason: Hypoglycemia Protocol Famotidine (Pepcid) 20 mg PO HS JOHN Last Admin: 07/30/18 21:23 Dose: 20 mg Dextrose (Dextrose 5% In Water 1000 Ml) 1,000 mls @ 0 mls/hr IV .Q0M PRN; Protocol PRN Reason: Hypoglycemia Protocol Ceftriaxone Sodium (Rocephin 1 Gram Ivpb) 1 gm in 100 mls @ 100 mls/hr IVPB DAILY JOHN; Protocol Last Admin: 07/31/18 10:38 Dose: 100 mls/hr Meropenem (Merrem Iv 1 Gm Premix) 1 gm in 50 mls @ 12.5 mls/hr IVPB Q8 JOHN; Protocol Last Admin: 07/31/18 07:02 Dose: 12.5 mls/hr Vancomycin HCl (Vancomycin 1gm) 1 gm in 250 mls @ 167 mls/hr IVPB Q12H JOHN; Protocol Last Admin: 07/31/18 05:07 Dose: 167 mls/hr Insulin Detemir (Levemir) 12 unit SC HS [facility] Last Admin: 07/30/18 22:16 Dose: 12 u Insulin Human Lispro (Humalog Low) 0 units SC ACHS [facility]; Protocol Last Admin: 07/31/18 12:21 Dose: 1 units Insulin Human Lispro (Humalog) 8 units SC AC JOHN Last Admin: 07/31/18 12:22 Dose: 8 u Nystatin (Mycostatin Cream) 0 ea TOP TID JOHN Last Admin: 07/31/18 10:46 Dose: 1 appl Oseltamivir Phosphate (Tamiflu Cap) 75 mg PO BID [facility]; Protocol Stop: 08/04/18 16:23 Last Admin: 07/31/18 10:39 Dose: 75 mg - Labs Labs: 07/31/18 11:00 07/31/18 11:00 PT 11.6 SECONDS (9.4-12.5) 07/22/18 20:10 INR 1.02 07/22/18 20:10 APTT 22.5 Seconds (25.1-36.5) L 07/22/18 20:10 - Constitutional Appears: Older Than Stated Age - Head Exam Head Exam: ATRAUMATIC, NORMOCEPHALIC - Eye Exam Eye Exam: EOMI - ENT Exam ENT Exam: Mucous Membranes Moist - Neck Exam Neck Exam: Full ROM - Respiratory Exam Respiratory Exam: Wheezes. absent: Accessory Muscle Use, Respiratory Distress - Cardiovascular Exam Cardiovascular Exam: RRR, +S1, +S2. absent: Diastolic murmur - GI/Abdominal Exam GI & Abdominal Exam: Soft, Normal Bowel Sounds. absent: Distended - Extremities Exam Extremities Exam: Full ROM. absent: Pedal Edema - Neurological Exam Neurological Exam: Alert, Awake, Oriented x3 - Psychiatric Exam Psychiatric exam: Normal Affect, Normal Mood - Skin Skin Exam: Dry, Normal Color, Warm Assessment and Plan - Assessment and Plan (Free Text) Assessment: Pt is a 62 yo female with PMH of HIV, IDDM, and hep C who was admitted for AMS and HHS. She is s/p debridement of necrotic gluteal abscess. Plan: DKA/hyperosmolar state; treated with insulin - non compliant with home insulin - SSI - Beta hydroxybutyrate 5.32 - HA1C 12.2 - Endo consulted, rec Levemir 12SC and Lispro 8 AC Flu - rapid flu POSITIVE - continue tamiflu - droplet precautions HIV/ AIDS - Qnt is 5.49 - noncompliant with medication - CD4 21%, 198 - CD8 64%, 589 - ID consulted Necrotic gluteal abscess - status post debridement in the OR - Urine/Wound cultured E. Coli, GBS - rocephin - Surgery consulted, will continue to remove micheal drains as infection continues to clear Anemia - Hgb 11.8 - B12 995 - folate, retic, ferritin follow up Thrombocytopenia - 375, improving - Likely secondary to meropenem - Heme/onc consulted Hepatitis C - untreated, pt to follow up as out pt for treatment Ppx - SCD - Famotidine Dispo: PT recs subacute rehab Pt seen, examined, assessment and plan discussed with Dr Alejandra Grewal PGY1, Internal Medicine Resident <Alejandra Manning R - Last Filed: 07/31/18 16:59> Objective - Vital Signs/Intake and Output Vital Signs (last 24 hours): Temp Pulse Resp BP Pulse Ox 99.3 F 96 H 20 117/71 97 07/31/18 14:00 07/31/18 14:00 07/31/18 14:00 07/31/18 14:00 07/31/18 14:00 Intake and Output: 07/31/18 07/31/18 06:59 18:59 Intake Total 600 Output Total 500 Balance 100 - Medications Medications: Current Medications Acetaminophen (Tylenol 325mg Tab) 650 mg PO Q6H PRN PRN Reason: Fever >100.4 F Last Admin: 07/31/18 11:21 Dose: 650 mg Cholecalciferol (Vitamin D) 2,000 intlu PO DAILY JOHN Last Admin: 07/31/18 10:39 Dose: 2,000 intlu Dextrose (Dextrose 50% Inj) 0 ml IV STAT PRN; Protocol PRN Reason: Hypoglycemia Protocol Famotidine (Pepcid) 20 mg PO HS JOHN Last Admin: 07/30/18 21:23 Dose: 20 mg Dextrose (Dextrose 5% In Water 1000 Ml) 1,000 mls @ 0 mls/hr IV .Q0M PRN; Protocol PRN Reason: Hypoglycemia Protocol Ceftriaxone Sodium (Rocephin 1 Gram Ivpb) 1 gm in 100 mls @ 100 mls/hr IVPB DAILY JOHN; Protocol Last Admin: 07/31/18 10:38 Dose: 100 mls/hr Meropenem (Merrem Iv 1 Gm Premix) 1 gm in 50 mls @ 12.5 mls/hr IVPB Q8 JOHN; Pr otocol Last Admin: 07/31/18 14:38 Dose: 12.5 mls/hr Vancomycin HCl (Vancomycin 1gm) 1 gm in 250 mls @ 167 mls/hr IVPB Q12H JOHN; Protocol Last Admin: 07/31/18 05:07 Dose: 167 mls/hr Insulin Detemir (Levemir) 12 unit SC HS JOHN Last Admin: 07/30/18 22:16 Dose: 12 u Insulin Human Lispro (Humalog Low) 0 units SC ACHS JOHN; Protocol Last Admin: 07/31/18 12:21 Dose: 1 units Insulin Human Lispro (Humalog) 8 units SC AC JOHN Last Admin: 07/31/18 12:22 Dose: 8 u Nystatin (Mycostatin Cream) 0 ea TOP TID JOHN Last Admin: 07/31/18 14:45 Dose: 1 appl Oseltamivir Phosphate (Tamiflu Cap) 75 mg PO BID JOHN; Protocol Stop: 08/04/18 16:23 Last Admin: 07/31/18 10:39 Dose: 75 mg - Labs Labs: 07/31/18 11:00 07/31/18 11:00 PT 11.6 SECONDS (9.4-12.5) 07/22/18 20:10 INR 1.02 07/22/18 20:10 APTT 22.5 Seconds (25.1-36.5) L 07/22/18 20:10 Attending/Attestation - Attestation I have personally seen and examined this patient.: Yes I have fully participated in the care of the patient.: Yes I have reviewed all pertinent clinical information, including history, physical exam and plan: Yes Notes (Text): Patient seen and examined by me with resident at 10:40 AM on 07/31/18. Case including HPI, physical exam, and assessment and plan discussed with resident. Agree with above with following additions/corrections. Patient is a 62-year-old female with past medical history significant for HIV, hepatitis, insulin-dependent type 2 diabetes, and drug abuse that presented to the emergency room with slurred speech and weakness. Patient states she is feeling ok. Complains of "mild body aches." Patient understands she has the flu. Patient has been febrile. Denies any chills. No nausea or vomiting. Patient still with pain at right lower abdomen/groin and right sacal wound area but states it feels a little better today. No dysuria. No chest pain or shortness of breath. No palpitations. No headaches or dizziness. No light headedness. Patient denies any dysuria or diarrhea. Physical exam: General: Awake and alert sitting up in bed in no acute distress HEENT: Normocephalic, atraumatic. Extraocular muscles intact, pupils equal and reactive, no scleral icterus. Oropharynx is pink and moist. No pharyngeal erythema or exudate appreciated. Neck is supple. Cardiovascular: Regular rhythm. Normal S1 and S2. No murmurs, rubs, or gallops appreciated Pulmonary: Normal respiratory effort. No rhonchi, rales, or wheezing appre ciated. Gastrointestinal: Soft, nondistended. Mild right lower side tenderness. Positive bowel sounds all 4 quadrants. No guarding. Musculoskeletal: Moves all extremities. No calf tenderness. No edema appreciated. Central nervous system: AAOx3, CN 2-12 grossly intact. Dermatologic: Skin warm and dry. Gluteal dressing clean, dry, and intact. Assessment and plan: Patient is a 62-year-old female with past medical history significant for HIV, hepatitis, insulin-dependent type 2 diabetes, and drug abuse that presented to the emergency room with slurred speech and weakness. 1. Fever. Influenza A. ID following, recommendations appreciated. Pending repeat blood and urine cultures results. Continue tamiflu. Patient restarted on Merrem and Vanco. Continue Rocephin. Chest xray per radiologist showed no active disease. Continue contact isolation. 2. Large necrotic gluteal abscess. S/P debridement 07/23/18. Surgery following, recommendations appreciated. Wound culture positive for Escherichia coli and beta hemolytic strep group B. ID following, recommendations appreciated. Continue Rocephin. Restarted on Merrem and Vancomycin. Procalcitonin 1.15. Blood culture with no growth. CT abdomen and pelvis per radiology showed evidence of enteritis/ileitis without mechanical obstruction; severe edematous and inflammatory changes extending from the external genitalia anteriorly to the introitus; more posteriorly air identified within perineal tissues; marked edema of the area and visible right lower extremity; no discrete drainable collection; there does not appear to be entry into the peritoneum. 3. Toxic metabolic encephalopathy. Resolved. Patient is AAO x3. Likely secondary to HHS and infection. Continue supportive care. Head CT per radiologist showed no acute intracranial abnormalities, no significant findings to account for the clinical presentation. 4. Dm type 2. HHS Resolved. Patient noncompliant with medications at home. Continue insulin per shoe handler. Continue to monitor accuchecks. Hgb A1C 12.2. Endocrinology following, recommendations appreciated. Patient counseled at length on compliance with medications at home. 5. UTI. Urine culture positive for E. Coli and Beta hemolytic Strep Group B. Continue Rocephin. Pending repeat urine culture. 6. Enteritis/ileitis. S/P treatment with Flagyl. 7. Thrombocytopenia. May be secondary to antibiotics vs infection. Resolved. Continue to monitor. 8. Left upper extremity edema. Thromboplebitis of LUE. Resolved. Bilateral upper extremity venous Dopplers. Radiology showed no sonographic evidence for deep vein thrombosis in the visualized segments of both upper extremities, segmental superficial thrombophlebitis in the left basilic vein above the elbow. 9. HIV positive. Pending CD4 count. Noncompliant with medications. ID following, recommendations appreciated 10. History of Hepatitis C. Not treated. Patient will need to follow up outpatient for treatment. 11. Vitamin D Deficiency. Continue Vitamin D 2000IU daily. 12. GI/DVT prophylaxis. Protonix/SCDs 13. Patient with POLST and is DNR/DNI. Palliative care recommendations appreciated. Case was discussed in detail with the patient regarding current diagnosis and treatment plan. All questions answered.
--- NOTE | 2018-07-31 14:23 | CP.PCM.PN ---
Subjective - Date & Time of Evaluation Date of Evaluation: 07/31/18 Time of Evaluation: 08:35 - Subjective Subjective: Comfortable, having some sore throat and cough, no fevers. Objective - Vital Signs/Intake and Output Vital Signs (last 24 hours): Temp Pulse Resp BP Pulse Ox 100.4 F H 101 H 18 130/84 96 07/30/18 06:26 07/30/18 06:00 07/30/18 06:00 07/30/18 06:00 07/30/18 06:00 - Medications Medications: Current Medications Acetaminophen (Tylenol 325mg Tab) 650 mg PO Q6H PRN PRN Reason: Fever >100.4 F Last Admin: 07/30/18 06:26 Dose: 650 mg Cholecalciferol (Vitamin D) 2,000 intlu PO DAILY [facility] Last Admin: 07/30/18 08:27 Dose: 2,000 intlu Dextrose (Dextrose 50% Inj) 0 ml IV STAT PRN; Protocol PRN Reason: Hypoglycemia Protocol Famotidine (Pepcid) 20 mg PO HS [facility] Last Admin: 07/29/18 21:01 Dose: 20 mg Dextrose (Dextrose 5% In Water 1000 Ml) 1,000 mls @ 0 mls/hr IV .Q0M PRN; Protocol PRN Reason: Hypoglycemia Protocol Ceftriaxone Sodium (Rocephin 1 Gram Ivpb) 1 gm in 100 mls @ 100 mls/hr IVPB DAILY [facility]; Protocol Last Admin: 07/30/18 08:28 Dose: 100 mls/hr Insulin Detemir (Levemir) 8 unit SC HS [facility] Last Admin: 07/29/18 21:02 Dose: 8 u Insulin Human Lispro (Humalog Low) 0 units SC ACHS [facility]; Protocol Last Admin: 07/30/18 08:27 Dose: Not Given Insulin Human Lispro (Humalog) 4 units SC AC [facility] Last Admin: 07/30/18 08:26 Dose: 4 units Nystatin (Mycostatin Cream) 0 ea TOP TID [facility] Last Admin: 07/29/18 12:25 Dose: 1 appl - Labs Labs: 07/30/18 05:00 07/30/18 05:00 PT 11.6 SECONDS (9.4-12.5) 07/22/18 20:10 INR 1.02 07/22/18 20:10 APTT 22.5 Seconds (25.1-36.5) L 07/22/18 20:10 - Constitutional Appears: Chronically Ill - Head Exam Head Exam: NORMAL INSPECTION - Respiratory Exam Respiratory Exam: Decreased Breath Sounds - Cardiovascular Exam Cardiovascular Exam: +S1, +S2 - GI/Abdominal Exam GI & Abdominal Exam: Soft. 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 coli and group B Strep low grade fever, etiology to be determined Thrombocytopenia, R/O ITP chronic HIV infection (unknown CD4 count) hepatitis insulin-dependent diabetese mellitus history of heroin abuse Plan on Vancomycin and Merrem - follow up repeat cx- if negative, can switch back to Rocephin we have started Tamiflu and should complete 5 days of therapy follow up further plans of surgery follow up CD4 count and HIV virus load taken on this admission thrombocytopenia has resolved
--- NOTE | 2018-07-31 20:28 | PN ---
DATE: 07/31/2018 ENDOCRINOLOGY FOLLOWUP NOTE LOCATION: Room 572 SUBJECTIVE: This is a 62-year-old female with recent uncontrolled type 2 insulin-requiring diabetes with underlying HIV disorder and is now receiving IV antibiotic management for bacteremia and also being followed closely for metabolic management because of recent hyperglycemic accelerations as noted thereof. Her glucose levels have ranged from 118 to 175 mg/dl today as noted. It was 282 to 311 at bedtime last night. Her chemistry showed a BUN of 9, sodium 136, potassium 3.9, chloride 102, CO2 30, glucose 217 and creatinine 0.5. So at this time, we will modify her basal and bolus insulin regimen and increase the Humalog to 8 units thrice daily before meals as ordered. We will also increase the basal insulin with Levemir at 12 units subcutaneous at bedtime daily as given. We will continue the low-dose correction scale using Humalog insulin as ordered. We will follow and advise accordingly. Kassi Savage MD
[2018-07-31] MEDS: Insulin Detemir 100 units/ml Vial (Levemir) SC SCH (23:10)
[2018-08-01] MEDS: Vancomycin 1gm in NS 250ml 1 GM/250 ML BAG IVPB SCH (05:08)
[2018-08-01 06:46] LABS: BASO # 0.01 K/mm3 (0.0-2.0); BASO % 0.4 % (0.0-3.0); EOS # 0.1 (0.0-0.7); EOS % 1.9 % (1.5-5.0); GRAN # 1.43 (1.4-6.5); GRAN % 53.3 % (50.0-68.0); HEMOGLOBIN 10.2 g/dL (12.0-16.0); LYMPH # 0.6 (1.2-3.4); LYMPH % 22.4 % (22.0-35.0); MEAN CORPUSCULAR HEMOGLOBIN 29.2 pg (25.0-35.0); MEAN CORPUSCULAR HGB CONC 32.5 g/dl (31.0-37.0); MEAN PLATELET VOLUME 11.1 fl (7.0-11.0); MONO # 0.6 (0.1-0.6); RBC 3.49 10^6/uL (3.5-6.1); RED CELL DISTRIBUTION WIDTH 13.3 % (11.5-14.5); WHITE BLOOD COUNT 2.7 10^3/uL (4.5-11.0)
[2018-08-01] MEDS: Meropenem IV 1 gm in NS 1 GM/50 ML BAG IVPB SCH (06:58)
[2018-08-01 07:16] LABS: ALB/GLOB RATIO 0.6 (1.1-1.8); ALBUMIN 2.1 g/dL (3.0-4.8); ALT/SGPT 43 U/L (7-56); AST/SGOT 51 U/L (14-36); BLOOD UREA NITROGEN 10 mg/dL (7-21); CALCIUM 7.6 mg/dL (8.4-10.5); GFR NON-AFRICAN AMERICAN > 60
[2018-08-01] MEDS: Insulin Lispro (humaLOG) LOW Coverage SC SCH ×4 (08:26→22:09)
[2018-08-01] MEDS: Insulin Lispro 1 UNITS/0.01 ML SC SCH ×3 (08:27→16:42)
[2018-08-01] MEDS: cefTRIAXone 1 gm 1 GM/100 ML BAG IVPB SCH (09:34)
[2018-08-01] MEDS: Cholecalciferol 1,000 INTLU TAB PO SCH (09:35)
[2018-08-01] MEDS: Nystatin 100,000 Units/gm Cream(15 gm) TOP SCH ×3 (09:36→17:29)
--- NOTE | 2018-08-01 09:37 | CP.PCM.PN ---
Subjective - Date & Time of Evaluation Date of Evaluation: 08/01/18 Time of Evaluation: 07:20 - Subjective Subjective: Surgery progress note, Dr. Schwab Patient seen and examined at bedside. Patient reports no complaints and no overnight events. Area cleaned w/ peroxide, dry dressings were applied. Objective - Vital Signs/Intake and Output Vital Signs (last 24 hours): Temp Pulse Resp BP Pulse Ox 98.2 F 78 20 136/84 98 08/01/18 06:00 08/01/18 06:00 08/01/18 06:00 08/01/18 06:00 08/01/18 06:00 Intake and Output: 08/01/18 08/01/18 06:59 18:59 Intake Total 750 Output Total 700 Balance 50 - Medications Medications: Current Medications Acetaminophen (Tylenol 325mg Tab) 650 mg PO Q6H PRN PRN Reason: Fever >100.4 F Last Admin: 07/31/18 17:50 Dose: 650 mg Cholecalciferol (Vitamin D) 2,000 intlu PO DAILY [facility] Last Admin: 07/31/18 10:39 Dose: 2,000 intlu Dextrose (Dextrose 50% Inj) 0 ml IV STAT PRN; Protocol PRN Reason: Hypoglycemia Protocol Famotidine (Pepcid) 20 mg PO HS [facility] Last Admin: 07/31/18 21:00 Dose: 20 mg Dextrose (Dextrose 5% In Water 1000 Ml) 1,000 mls @ 0 mls/hr IV .Q0M PRN; Protocol PRN Reason: Hypoglycemia Protocol Ceftriaxone Sodium (Rocephin 1 Gram Ivpb) 1 gm in 100 mls @ 100 mls/hr IVPB DAILY [facility]; Protocol Last Admin: 07/31/18 10:38 Dose: 100 mls/hr Meropenem (Merrem Iv 1 Gm Premix) 1 gm in 50 mls @ 12.5 mls/hr IVPB Q8 JOHN; P rotocol Last Admin: 08/01/18 06:58 Dose: 12.5 mls/hr Vancomycin HCl (Vancomycin 1gm) 1 gm in 250 mls @ 167 mls/hr IVPB Q12H [facility]; Protocol Last Admin: 08/01/18 05:08 Dose: 167 mls/hr Ibuprofen (Motrin Tab) 400 mg PO Q6H PRN PRN Reason: Fever >100.4 F Last Admin: 07/31/18 19:45 Dose: 400 mg Insulin Detemir (Levemir) 12 unit SC HS [facility] Last Admin: 07/31/18 23:10 Dose: 12 u Insulin Human Lispro (Humalog Low) 0 units SC ACHS [facility]; Protocol Last Admin: 08/01/18 08:26 Dose: Not Given Insulin Human Lispro (Humalog) 8 units SC AC [facility] Last Admin: 08/01/18 08:27 Dose: Not Given Nystatin (Mycostatin Cream) 0 ea TOP TID [facility] Last Admin: 07/31/18 17:19 Dose: 1 appl Oseltamivir Phosphate (Tamiflu Cap) 75 mg PO BID [facility]; Protocol Stop: 08/04/18 16:23 Last Admin: 07/31/18 17:14 Dose: 75 mg - Labs Labs: 08/01/18 06:30 08/01/18 06:30 PT 11.6 SECONDS (9.4-12.5) 07/22/18 20:10 INR 1.02 07/22/18 20:10 APTT 22.5 Seconds (25.1-36.5) L 07/22/18 20:10 - Additional Findings Additional findings: - Constitutional Appears: Non-toxic, No Acute Distress, Older Than Stated Age - Head Exam Head Exam: ATRAUMATIC - Eye Exam Eye Exam: EOMI. absent: Scleral icterus - ENT Exam ENT Exam: Mucous Membranes Moist - Respiratory Exam Respiratory Exam: NORMAL BREATHING PATTERN. absent: Accessory Muscle Use, Respiratory Distress - Cardiovascular Exam Cardiovascular Exam: REGULAR RHYTHM. absent: Bradycardia, Tachycardia - GI/Abdominal Exam GI & Abdominal Exam: Soft. absent: Distended, Firm, Guarding, Rigid, Tenderness - Neurological Exam Neurological Exam: Alert, Awake, Oriented x3 - Psychiatric Exam Psychiatric exam: Normal Affect - Skin Skin Exam: Warm Additional comments: Erythema on Right hip improving. continued mild purulent drainage Assessment and Plan - Assessment and Plan (Free Text) Assessment: 62 y/o female admitted for sepsis due to necrotizing fasciitis of the perineal area,culture positive for GBS. s/p Sacral debridement POD #9 Plan: -continue daily dressing changes -continue to remove micheal drains -wound cx positive for E coli and GBS, continue abx -ambulation as tolerated -further recs per surgical attending Dr. Zaheer Brown, DO
--- NOTE | 2018-08-01 12:40 | CP.PCM.PN ---
Subjective - Date & Time of Evaluation Date of Evaluation: 08/01/18 Time of Evaluation: 09:10 - Subjective Subjective: Patient still had fevers last night, not in distress. Objective - Vital Signs/Intake and Output Vital Signs (last 24 hours): Temp Pulse Resp BP Pulse Ox 102.9 F H 91 H 20 116/75 99 07/31/18 11:49 07/31/18 06:00 07/31/18 06:00 07/31/18 06:00 07/31/18 06:00 Intake and Output: 07/31/18 07/31/18 06:59 18:59 Intake Total 600 Output Total 500 Balance 100 - Medications Medications: Current Medications Acetaminophen (Tylenol 325mg Tab) 650 mg PO Q6H PRN PRN Reason: Fever >100.4 F Last Admin: 07/31/18 11:21 Dose: 650 mg Cholecalciferol (Vitamin D) 2,000 intlu PO DAILY [facility] Last Admin: 07/31/18 10:39 Dose: 2,000 intlu Dextrose (Dextrose 50% Inj) 0 ml IV STAT PRN; Protocol PRN Reason: Hypoglycemia Protocol Famotidine (Pepcid) 20 mg PO HS [facility] Last Admin: 07/30/18 21:23 Dose: 20 mg Dextrose (Dextrose 5% In Water 1000 Ml) 1,000 mls @ 0 mls/hr IV .Q0M PRN; Protocol PRN Reason: Hypoglycemia Protocol Ceftriaxone Sodium (Rocephin 1 Gram Ivpb) 1 gm in 100 mls @ 100 mls/hr IVPB DAILY [facility]; Protocol Last Admin: 07/31/18 10:38 Dose: 100 mls/hr Meropenem (Merrem Iv 1 Gm Premix) 1 gm in 50 mls @ 12.5 mls/hr IVPB Q8 [facility]; Protocol Last Admin: 07/31/18 07:02 Dose: 12.5 mls/hr Vancomycin HCl (Vancomycin 1gm) 1 gm in 250 mls @ 167 mls/hr IVPB Q12H [facility]; Protocol Last Admin: 07/31/18 05:07 Dose: 167 mls/hr Insulin Detemir (Levemir) 12 unit SC HS [facility] Last Admin: 07/30/18 22:16 Dose: 12 u Insulin Human Lispro (Humalog Low) 0 units SC ACHS [facility]; Protocol Last Admin: 07/31/18 12:21 Dose: 1 units Insulin Human Lispro (Humalog) 8 units SC AC [facility] Last Admin: 07/31/18 12:22 Dose: 8 u Nystatin (Mycostatin Cream) 0 ea TOP TID [facility] Last Admin: 07/31/18 10:46 Dose: 1 appl Oseltamivir Phosphate (Tamiflu Cap) 75 mg PO BID [facility]; Protocol Stop: 08/04/18 16:23 Last Admin: 07/31/18 10:39 Dose: 75 mg - Labs Labs: 07/31/18 11:00 07/31/18 11:00 PT 11.6 SECONDS (9.4-12.5) 07/22/18 20:10 INR 1.02 07/22/18 20:10 APTT 22.5 Seconds (25.1-36.5) L 07/22/18 20:10 - Constitutional Appears: Chronically Ill - Respiratory Exam Respiratory Exam: Decreased Breath Sounds - Cardiovascular Exam Cardiovascular Exam: +S1, +S2 - GI/Abdominal Exam GI & Abdominal Exam: Soft. 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 coli and group B Strep low grade fever, etiology to be determined Thrombocytopenia, R/O ITP chronic HIV infection (unknown CD4 count) hepatitis insulin-dependent diabetese mellitus history of heroin abuse Plan on Vancomycin and Merrem - repeat cx are negative - can switch back to Rocephin we have started Tamiflu and should complete 5 days of therapy (day 2 today) follow up further plans of surgery follow up CD4 count and HIV virus load taken on this admission thrombocytopenia has resolved discussed with Dr. Manning
--- NOTE | 2018-08-01 16:08 | CP.PCM.PN ---
<Jose Manuel Silver - Last Filed: 08/01/18 16:05> Subjective - Date & Time of Evaluation Date of Evaluation: 08/01/18 Time of Evaluation: 12:00 - Subjective Subjective: INTERNAL MEDICINE PROGRESS NOTE FOR DR. WILFRED Silver PGY1 Pt seen and examined at bedside this am. Pt reported subjective chills last night, but otherwise 12 point ROS. Objective - Vital Signs/Intake and Output Vital Signs (last 24 hours): Temp Pulse Resp BP Pulse Ox 98.2 F 78 20 136/84 98 08/01/18 06:00 08/01/18 06:00 08/01/18 06:00 08/01/18 06:00 08/01/18 06:00 Intake and Output: 08/01/18 08/01/18 06:59 18:59 Intake Total 750 Output Total 700 Balance 50 - Medications Medications: Current Medications Acetaminophen (Tylenol 325mg Tab) 650 mg PO Q6H PRN PRN Reason: Fever >100.4 F Last Admin: 07/31/18 17:50 Dose: 650 mg Cholecalciferol (Vitamin D) 2,000 intlu PO DAILY [facility] Last Admin: 08/01/18 09:35 Dose: 2,000 intlu Dextrose (Dextrose 50% Inj) 0 ml IV STAT PRN; Protocol PRN Reason: Hypoglycemia Protocol Famotidine (Pepcid) 20 mg PO HS [facility] Last Admin: 07/31/18 21:00 Dose: 20 mg Dextrose (Dextrose 5% In Water 1000 Ml) 1,000 mls @ 0 mls/hr IV .Q0M PRN; Protocol PRN Reason: Hypoglycemia Protocol Ceftriaxone Sodium (Rocephin 1 Gram Ivpb) 1 gm in 100 mls @ 100 mls/hr IVPB DAILY [facility]; Protocol Last Admin: 08/01/18 09:34 Dose: 100 mls/hr Ibuprofen (Motrin Tab) 400 mg PO Q6H PRN PRN Reason: Fever >100.4 F Last Admin: 07/31/18 19:45 Dose: 400 mg Insulin Detemir (Levemir) 12 unit SC HS [facility] Last Admin: 07/31/18 23:10 Dose: 12 u Insulin Human Lispro (Humalog Low) 0 units SC ACHS [facility]; Protocol Last Admin: 08/01/18 12:39 Dose: Not Given Insulin Human Lispro (Humalog) 8 units SC AC [facility] Last Admin: 08/01/18 12:07 Dose: 8 u Nystatin (Mycostatin Cream) 0 ea TOP TID [facility] Last Admin: 08/01/18 15:15 Dose: 1 appl Oseltamivir Phosphate (Tamiflu Cap) 75 mg PO BID [facility]; Protocol Stop: 08/04/18 16:23 Last Admin: 08/01/18 09:34 Dose: 75 mg - Labs Labs: 08/01/18 06:30 08/01/18 06:30 PT 11.6 SECONDS (9.4-12.5) 07/22/18 20:10 INR 1.02 07/22/18 20:10 APTT 22.5 Seconds (25.1-36.5) L 07/22/18 20:10 - Constitutional Appears: Well, Non-toxic, No Acute Distress - Head Exam Head Exam: NORMAL INSPECTION, NORMOCEPHALIC - Eye Exam Eye Exam: EOMI, Normal appearance - ENT Exam ENT Exam: Mucous Membranes Moist, Normal Exam - Neck Exam Neck Exam: Normal Inspection - Respiratory Exam Respiratory Exam: Clear to Ausculation Bilateral, NORMAL BREATHING PATTERN - Cardiovascular Exam Cardiovascular Exam: REGULAR RHYTHM, +S1, +S2 - GI/Abdominal Exam GI & Abdominal Exam: Soft, Tenderness - Extremities Exam Extremities Exam: Normal Inspection. absent: Calf Tenderness - Back Exam Back Exam: NORMAL INSPECTION - Neurological Exam Neurological Exam: Alert, Awake, Oriented x3 - Psychiatric Exam Psychiatric exam: Normal Affect, Normal Mood - Skin Skin Exam: Dry, Intact, Warm Additional comments: Gluteal dressing in place. Assessment and Plan - Assessment and Plan (Free Text) Assessment: Pt is a 62 yo female with PMH of HIV, IDDM, and hep C who was admitted for AMS and HHS. She is s/p debridement of necrotic gluteal abscess. Plan: Necrotic gluteal abscess Pt febrile yesterday s/p debridement in the OR Urine/Wound cultured E. Coli, GBS Continue rocephin Surgery consulted, will continue to remove mihceal drains as infection continues to clear Influenza rapid flu POSITIVE for influenza A continue tamiflu droplet precautions DKA/hyperosmolar state; treated with insulin HHS resolved. non compliant with home insulin Continue Levemir 12SC, Lispro 8 AC and SSI. Endo consulted HIV/ AIDS Absolute CD4 count is 198 noncompliant with medication ID consulted Normocytic Anemia Likely ACD F/u outpatient for iron studies Thrombocytopenia resolved was like 2/2 to meropenem Hepatitis C untreated, pt to follow up as out pt for treatment Ppx SCD/Famotidine Dispo: PT recs subacute rehab. Pt was febrile yesterday. Will monitor for at least 24 hours Pt seen, examined and discussed with attending physician, Dr. Vazquez. Jose Manuel Silver PGY1 <Tracy Vazquez - Last Filed: 08/02/18 17:44> Objective - Vital Signs/Intake and Output Vital Signs (last 24 hours): Temp Pulse Resp BP Pulse Ox 98 F 83 20 118/76 98 08/02/18 06:00 08/02/18 06:00 08/02/18 06:00 08/02/18 06:00 08/02/18 06:00 Intake and Output: 08/02/18 08/02/18 06:59 18:59 Intake Total 600 Output Total 500 Balance 100 - Medications Medications: Current Medications Acetaminophen (Tylenol 325mg Tab) 650 mg PO Q6H PRN PRN Reason: Fever >100.4 F Last Admin: 07/31/18 17:50 Dose: 650 mg Cholecalciferol (Vitamin D) 2,000 intlu PO DAILY [facility] Last Admin: 08/02/18 09:13 Dose: 2,000 intlu Dextrose (Dextrose 50% Inj) 0 ml IV STAT PRN; Protocol PRN Reason: Hypoglycemia Protocol Famotidine (Pepcid) 20 mg PO HS [facility] Last Admin: 08/01/18 22:13 Dose: 20 mg Home Med (Home Med) 1 unit PO DAILY [facility] Dextrose (Dextrose 5% In Water 1000 Ml) 1,000 mls @ 0 mls/hr IV .Q0M PRN; Protocol PRN Reason: Hypoglycemia Protocol Ceftriaxone Sodium (Rocephin 1 Gram Ivpb) 1 gm in 100 mls @ 100 mls/hr IVPB DA [facility]; Protocol Last Admin: 08/02/18 09:13 Dose: 100 mls/hr Ibuprofen (Motrin Tab) 400 mg PO Q6H PRN PRN Reason: Fever >100.4 F Last Admin: 07/31/18 19:45 Dose: 400 mg Insulin Detemir (Levemir) 8 unit SC HS [facility] Insulin Human Lispro (Humalog Low) 0 units SC ACHS [facility]; Protocol Last Admin: 08/02/18 12:00 Dose: Not Given Insulin Human Lispro (Humalog) 6 units SC AC [facility] Nystatin (Mycostatin Cream) 0 ea TOP TID [facility] Last Admin: 08/02/18 09:14 Dose: 1 appl Oseltamivir Phosphate (Tamiflu Cap) 75 mg PO BID [facility]; Protocol Stop: 08/04/18 16:23 Last Admin: 08/02/18 09:13 Dose: 75 mg - Labs Labs: 08/02/18 07:30 08/02/18 07:30 PT 11.6 SECONDS (9.4-12.5) 07/22/18 20:10 INR 1.02 07/22/18 20:10 APTT 22.5 Seconds (25.1-36.5) L 07/22/18 20:10 Attending/Attestation - Attestation I have personally seen and examined this patient.: Yes I have fully participated in the care of the patient.: Yes I have reviewed all pertinent clinical information, including history, physical exam and plan: Yes Notes (Text): 08/02/18 17:38 Attending note; patient seen and examined with resident. Patient is alert and awake. Patient had a MAXIMUM TEMPERATURE of 102 last night. Currently denies any fevers, chills. Tolerating diet well. Patient is a 62-year-old female with past medical history significant for HIV, hepatitis, insulin-dependent type 2 diabetes, and drug abuse that presented to the emergency room with slurred speech and weakness. 1. Fever. Influenza A. Patient still has spiking temperature . repeat blood and urine culture is negative Continue tamiflu. Patient restarted on Merrem , vancomycin and Rocephin. Chest xray showed no active disease. Continue contact isolation. 2. Large necrotic gluteal abscess. S/P debridement 07/23/18. Continue dressing change per surgery. Wound culture positive for Escherichia coli and beta hemolytic strep group. 3. Toxic metabolic encephalopathy. Resolved. Patient is AAO x3. CT head is negative. 4. Dm type 2. Patient is noncompliant with insulin therapy. Hgb A1C 12.2. Endocrinology evaluation appreciated. Patient counseled at length on compliance with medications at home. 5. HIV positive. Pending CD4 count. Noncompliant with medications. ID following, recommendations appreciated. 6. History of Hepatitis C. Not treated. Patient will need to follow up outpatient for treatment. Patient with POLST and is DNR/DNI. Palliative care recommendations appreciated. PT evaluation appreciated. Case discussed with case fitter in detail. Pending subacute rehabilitation placement. Upon discharge the patient will follow up with PMD in [place].
[2018-08-01] MEDS: Insulin Detemir 100 units/ml Vial (Levemir) SC SCH (22:12)
--- NOTE | 2018-08-01 23:49 | PN ---
DATE: 08/01/2018 ENDOCRINOLOGY FOLLOWUP NOTE LOCATION: 575. This is a 62-year-old female with known HIV and hepatitis C disorders, currently being followed closely for metabolic management with extremes of glycemic fluctuations as noted thereof. Her glucose values overnight have ranged from 146 to 203 mg/dL. Her chemistry showed a BUN of 10, sodium 139, potassium 3.6, chloride 104, CO2 of 32, glucose 144 and creatinine 0.6. So at this time, we will continue the same modified basal insulin with Levemir given as 12 units subcu at bedtime daily as ordered. We will continue the Humalog given as 8 units t.i.d. before meals as given. We will obtain serial chemistries and supplement accordingly as needed. We will follow. Kassi Savage MD
[2018-08-02 07:52] LABS: BASO # 0.01 K/mm3 (0.0-2.0); BASO % 0.3 % (0.0-3.0); EOS % 1.1 % (1.5-5.0); GRAN # 2.09 (1.4-6.5); GRAN % 56.6 % (50.0-68.0); HEMOGLOBIN 9.6 g/dL (12.0-16.0); LYMPH # 0.8 (1.2-3.4); LYMPH % 20.9 % (22.0-35.0); MEAN CELL VOLUME 88.6 fl (80.0-105.0); MEAN CORPUSCULAR HEMOGLOBIN 28.8 pg (25.0-35.0); MEAN CORPUSCULAR HGB CONC 32.5 g/dl (31.0-37.0); MEAN PLATELET VOLUME 10.4 fl (7.0-11.0); MONO # 0.8 (0.1-0.6); MONO % 21.1 % (1.0-6.0); RBC 3.33 10^6/uL (3.5-6.1); RED CELL DISTRIBUTION WIDTH 13.2 % (11.5-14.5); WHITE BLOOD COUNT 3.7 10^3/uL (4.5-11.0)
[2018-08-02 08:01] LABS: ALB/GLOB RATIO 0.6 (1.1-1.8); ALBUMIN 2.2 g/dL (3.0-4.8); ALT/SGPT 38 U/L (7-56); AST/SGOT 60 U/L (14-36); BLOOD UREA NITROGEN 10 mg/dL (7-21); CALCIUM 7.7 mg/dL (8.4-10.5); GFR NON-AFRICAN AMERICAN > 60
[2018-08-02] MEDS ORDERED: Potassium Chloride 20 mEq ER Tab PO STA (08:13)
[2018-08-02] MEDS: Insulin Lispro 1 UNITS/0.01 ML SC SCH (08:41)
[2018-08-02] MEDS: Insulin Lispro (humaLOG) LOW Coverage SC SCH ×4 (08:41→21:40)
[2018-08-02] MEDS: Cholecalciferol 1,000 INTLU TAB PO SCH (09:13)
[2018-08-02] MEDS: cefTRIAXone 1 gm 1 GM/100 ML BAG IVPB SCH (09:13)
[2018-08-02] MEDS: Nystatin 100,000 Units/gm Cream(15 gm) TOP SCH ×3 (09:14→18:54)
--- NOTE | 2018-08-02 10:23 | CP.PCM.PN ---
<Jose Manuel Silver - Last Filed: 08/02/18 10:51> Subjective - Date & Time of Evaluation Date of Evaluation: 08/02/18 Time of Evaluation: 10:20 - Subjective Subjective: INTERNAL MEDICINE PROGRESS NOTE FOR DR. WILFRED Silver PGY1 Pt seen and examined at bedside this am. She reports she is tolerating her diet. She has not been ambulating, she says she sat up in chair today and went to commode. She denies 12 point ROS Objective - Vital Signs/Intake and Output Vital Signs (last 24 hours): Temp Pulse Resp BP Pulse Ox 98 F 83 20 118/76 98 08/02/18 06:00 08/02/18 06:00 08/02/18 06:00 08/02/18 06:00 08/02/18 06:00 Intake and Output: 08/02/18 08/02/18 06:59 18:59 Intake Total 600 Output Total 500 Balance 100 - Medications Medications: Current Medications Acetaminophen (Tylenol 325mg Tab) 650 mg PO Q6H PRN PRN Reason: Fever >100.4 F Last Admin: 07/31/18 17:50 Dose: 650 mg Cholecalciferol (Vitamin D) 2,000 intlu PO DAILY [facility] Last Admin: 08/02/18 09:13 Dose: 2,000 intlu Dextrose (Dextrose 50% Inj) 0 ml IV STAT PRN; Protocol PRN Reason: Hypoglycemia Protocol Famotidine (Pepcid) 20 mg PO HS [facility] Last Admin: 08/01/18 22:13 Dose: 20 mg Dextrose (Dextrose 5% In Water 1000 Ml) 1,000 mls @ 0 mls/hr IV .Q0M PRN; Protocol PRN Reason: Hypoglycemia Protocol Ceftriaxone Sodium (Rocephin 1 Gram Ivpb) 1 gm in 100 mls @ 100 mls/hr IVPB DAILY [facility]; Protocol Last Admin: 08/02/18 09:13 Dose: 100 mls/hr Ibuprofen (Motrin Tab) 400 mg PO Q6H PRN PRN Reason: Fever >100.4 F Last Admin: 07/31/18 19:45 Dose: 400 mg Insulin Detemir (Levemir) 12 unit SC HS [facility] Last Admin: 08/01/18 22:12 Dose: 12 u Insulin Human Lispro (Humalog Low) 0 units SC ACHS [facility]; Protocol Last Admin: 08/02/18 08:41 Dose: Not Given Insulin Human Lispro (Humalog) 8 units SC AC [facility] Last Admin: 08/02/18 08:41 Dose: Not Given Nystatin (Mycostatin Cream) 0 ea TOP TID [facility] Last Admin: 08/02/18 09:14 Dose: 1 appl Oseltamivir Phosphate (Tamiflu Cap) 75 mg PO BID [facility]; Protocol Stop: 08/04/18 16:23 Last Admin: 08/02/18 09:13 Dose: 75 mg - Labs Labs: 08/02/18 07:30 08/02/18 07:30 PT 11.6 SECONDS (9.4-12.5) 07/22/18 20:10 INR 1.02 07/22/18 20:10 APTT 22.5 Seconds (25.1-36.5) L 07/22/18 20:10 - Constitutional Appears: Well, Non-toxic, No Acute Distress - Head Exam Head Exam: NORMAL INSPECTION, NORMOCEPHALIC - Eye Exam Eye Exam: EOMI, Normal appearance - ENT Exam ENT Exam: Mucous Membranes Moist, Normal Exam - Neck Exam Neck Exam: Normal Inspection. absent: Tenderness - Respiratory Exam Respiratory Exam: Clear to Ausculation Bilateral, NORMAL BREATHING PATTERN - Cardiovascular Exam Cardiovascular Exam: REGULAR RHYTHM, +S1, +S2 - GI/Abdominal Exam GI & Abdominal Exam: Soft, Normal Bowel Sounds. absent: Tenderness - Extremities Exam Extremities Exam: Normal Inspection. absent: Calf Tenderness - Back Exam Back Exam: NORMAL INSPECTION - Neurological Exam Neurological Exam: Alert, Awake, Oriented x3 - Psychiatric Exam Psychiatric exam: Normal Affect, Normal Mood Assessment and Plan - Assessment and Plan (Free Text) Assessment: Pt is a 62 yo female with PMH of HIV, IDDM, and hep C who was admitted for AMS and HHS. She is s/p debridement of necrotic gluteal abscess. Plan: Necrotic gluteal abscess Pt was febrile again overnight. s/p debridement in the OR Urine/Wound cultured E. Coli, GBS Continue rocephin Surgery has been doing regular dressing changes Influenza rapid flu POSITIVE for influenza A continue tamiflu Per ID, fever may be 2/2 influenza droplet precautions DKA/hyperosmolar state; treated with insulin HHS resolved. non compliant with home insulin Continue Levemir 12SC, Lispro 8 AC and SSI. Endo consulted HIV/ AIDS Absolute CD4 count is 198 noncompliant with medication ID consulted Will need to f/u outpatient for management Normocytic Anemia Likely ACD F/u outpatient for iron studies. Not symptomatic Thrombocytopenia resolved was like 2/2 to meropenem Hepatitis C untreated, pt to follow up as out pt for treatment Ppx Lovenox/Famotidine Dispo: PT recs subacute rehab. Pt was febrile yesterday. Will monitor for at least 24 hours. Pt is ambulating now, will d/c SCD and provide DVT ppx Pt seen, examined and discussed with attending physician, Dr. Vazquez. Jose Manuel Silver PGY1 <Tracy Vazquez - Last Filed: 08/02/18 17:48> Objective - Vital Signs/Intake and Output Vital Signs (last 24 hours): Temp Pulse Resp BP Pulse Ox 98 F 83 20 118/76 98 08/02/18 06:00 08/02/18 06:00 08/02/18 06:00 08/02/18 06:00 08/02/18 06:00 Intake and Output: 08/02/18 08/02/18 06:59 18:59 Intake Total 600 Output Total 500 Balance 100 - Medications Medications: Current Medications Acetaminophen (Tylenol 325mg Tab) 650 mg PO Q6H PRN PRN Reason: Fever >100.4 F Last Admin: 07/31/18 17:50 Dose: 650 mg Cholecalciferol (Vitamin D) 2,000 intlu PO DAILY [facility] Last Admin: 08/02/18 09:13 Dose: 2,000 intlu Dextrose (Dextrose 50% Inj) 0 ml IV STAT PRN; Protocol PRN Reason: Hypoglycemia Protocol Famotidine (Pepcid) 20 mg PO HS [facility] Last Admin: 08/01/18 22:13 Dose: 20 mg Home Med (Home Med) 1 unit PO DAILY [facility] Dextrose (Dextrose 5% In Water 1000 Ml) 1,000 mls @ 0 mls/hr IV .Q0M PRN; Protocol PRN Reason: Hypoglycemia Protocol Ceftriaxone Sodium (Rocephin 1 Gram Ivpb) 1 gm in 100 mls @ 100 mls/hr IVPB DAILY [facility]; Protocol Last Admin: 08/02/18 09:13 Dose: 100 mls/hr Ibuprofen (Motrin Tab) 400 mg PO Q6H PRN PRN Reason: Fever >100.4 F Last Admin: 07/31/18 19:45 Dose: 400 mg Insulin Detemir (Levemir) 8 unit SC HS [facility] Insulin Human Lispro (Humalog Low) 0 units SC ACHS [facility]; Protocol Last Admin: 08/02/18 12:00 Dose: Not Given Insulin Human Lispro (Humalog) 6 units SC AC [facility] Nystatin (Mycostatin Cream) 0 ea TOP TID [facility] Last Admin: 08/02/18 09:14 Dose: 1 appl Oseltamivir Phosphate (Tamiflu Cap) 75 mg PO BID [facility]; Protocol Stop: 08/04/18 16:23 Last Admin: 08/02/18 09:13 Dose: 75 mg - Labs Labs: 08/02/18 07:30 08/02/18 07:30 PT 11.6 SECONDS (9.4-12.5) 07/22/18 20:10 INR 1.02 07/22/18 20:10 APTT 22.5 Seconds (25.1-36.5) L 07/22/18 20:10 Attending/Attestation - Attestation I have personally seen and examined this patient.: Yes I have fully participated in the care of the patient.: Yes I have reviewed all pertinent clinical information, including history, physical exam and plan: Yes Notes (Text): 08/02/18 17:47 Attending note; patient seen and examined with resident. Patient is alert and awake. Patient had a MAXIMUM TEMPERATURE of 101 last night. Currently denies any fevers, chills. Tolerating diet well. Patient is a 62-year-old female with past medical history significant for HIV, hepatitis, insulin-dependent type 2 diabetes, and drug abuse that presented to the emergency room with slurred speech and weakness. 1. Fever. Influenza A. Patient still has spiking temperature . repeat blood and urine culture is negative Continue tamiflu. Patient is on IV Rocephin. Chest xray showed no active disease. Continue contact isolation. 2. Large necrotic gluteal abscess. S/P debridement 07/23/18. Continue dressing change per surgery. Wound culture positive for Escherichia coli and beta hemolytic strep group. 3. Toxic metabolic encephalopathy. Resolved. Patient is AAO x3. CT head is negative. 4. Dm type 2. Continue Levemir .Patient is noncompliant with insulin therapy. Hgb A1C 12.2. Endocrinology evaluation appreciated. Patient counseled at length on compliance with medications at home. 5. HIV positive. Pending CD4 count. Noncompliant with medications. ID following, recommendations appreciated. 6. History of Hepatitis C. Not treated. Patient will need to follow up outpatient for treatment. Patient with POLST and is DNR/DNI. Palliative care recommendations appreciated. PT evaluation appreciated. Case discussed with mental health case manager in detail. Pending subacute rehabilitation placement. Possible transfer to rehabilitation tomorrow once patient is afebrile. Upon discharge the patient will follow up with PMD in [place].
--- NOTE | 2018-08-02 10:56 | CP.PCM.PN ---
Subjective - Date & Time of Evaluation Date of Evaluation: 08/02/18 Time of Evaluation: 07:40 - Subjective Subjective: Surgery progress note, Dr. Schwab Patient seen and examined at bedside. Patient reports no complaints and no overnight events. Area cleaned w/ peroxide, dry dressing applied. Objective - Vital Signs/Intake and Output Vital Signs (last 24 hours): Temp Pulse Resp BP Pulse Ox 98 F 83 20 118/76 98 08/02/18 06:00 08/02/18 06:00 08/02/18 06:00 08/02/18 06:00 08/02/18 06:00 Intake and Output: 08/02/18 08/02/18 06:59 18:59 Intake Total 600 Output Total 500 Balance 100 - Medications Medications: Current Medications Acetaminophen (Tylenol 325mg Tab) 650 mg PO Q6H PRN PRN Reason: Fever >100.4 F Last Admin: 07/31/18 17:50 Dose: 650 mg Cholecalciferol (Vitamin D) 2,000 intlu PO DAILY [facility] Last Admin: 08/02/18 09:13 Dose: 2,000 intlu Dextrose (Dextrose 50% Inj) 0 ml IV STAT PRN; Protocol PRN Reason: Hypoglycemia Protocol Famotidine (Pepcid) 20 mg PO HS [facility] Last Admin: 08/01/18 22:13 Dose: 20 mg Dextrose (Dextrose 5% In Water 1000 Ml) 1,000 mls @ 0 mls/hr IV .Q0M PRN; Protocol PRN Reason: Hypoglycemia Protocol Ceftriaxone Sodium (Rocephin 1 Gram Ivpb) 1 gm in 100 mls @ 100 mls/hr IVPB DAILY [facility]; Protocol Last Admin: 08/02/18 09:13 Dose: 100 mls/hr Ibuprofen (Motrin Tab) 400 mg PO Q6H PRN PRN Reason: Fever >100.4 F Last Admin: 07/31/18 19:45 Dose: 400 mg Insulin Detemir (Levemir) 12 unit SC HS [facility] Last Admin: 08/01/18 22:12 Dose: 12 u Insulin Human Lispro (Humalog Low) 0 units SC ACHS [facility]; Protocol Last Admin: 08/02/18 08:41 Dose: Not Given Insulin Human Lispro (Humalog) 8 units SC AC [facility] Last Admin: 08/02/18 08:41 Dose: Not Given Nystatin (Mycostatin Cream) 0 ea TOP TID [facility] Last Admin: 08/02/18 09:14 Dose: 1 appl Oseltamivir Phosphate (Tamiflu Cap) 75 mg PO BID [facility]; Protocol Stop: 08/04/18 16:23 Last Admin: 08/02/18 09:13 Dose: 75 mg - Labs Labs: 08/02/18 07:30 08/02/18 07:30 PT 11.6 SECONDS (9.4-12.5) 07/22/18 20:10 INR 1.02 07/22/18 20:10 APTT 22.5 Seconds (25.1-36.5) L 07/22/18 20:10 - Additional Findings Additional findings: - Additional Findings Additional findings: - Constitutional Appears: Non-toxic, No Acute Distress, Older Than Stated Age - Head Exam Head Exam: ATRAUMATIC - Eye Exam Eye Exam: EOMI. absent: Scleral icterus - ENT Exam ENT Exam: Mucous Membranes Moist - Respiratory Exam Respiratory Exam: NORMAL BREATHING PATTERN. absent: Accessory Muscle Use, Respi ratory Distress - Cardiovascular Exam Cardiovascular Exam: REGULAR RHYTHM. absent: Bradycardia, Tachycardia - GI/Abdominal Exam GI & Abdominal Exam: Soft. absent: Distended, Firm, Guarding, Rigid, Tenderness - Neurological Exam Neurological Exam: Alert, Awake, Oriented x3 - Psychiatric Exam Psychiatric exam: Normal Affect - Skin Skin Exam: Warm Additional comments: open sacral wounds Assessment and Plan - Assessment and Plan (Free Text) Assessment: 62 y/o female admitted for sepsis due to necrotizing fasciitis of the perineal area,culture positive for GBS. s/p Sacral debridement POD #10 Plan: -continue daily dressing changes -wound cx positive for E coli and GBS, continue abx -encourage ambulation -further recs per surgical attending Dr. Zaheer Brown, DO
[2018-08-02] MEDS ORDERED: Enoxaparin 40 mg Syringe SC SCH (11:00)
--- NOTE | 2018-08-02 13:52 | CP.PCM.PN ---
Subjective - Date & Time of Evaluation Date of Evaluation: 08/02/18 Time of Evaluation: 10:05 - Subjective Subjective: Less cough, sore throat is improving, still had fevers yesterday afternoon but none this morning. Objective - Vital Signs/Intake and Output Vital Signs (last 24 hours): Temp Pulse Resp BP Pulse Ox 98.2 F 78 20 136/84 98 08/01/18 06:00 08/01/18 06:00 08/01/18 06:00 08/01/18 06:00 08/01/18 06:00 Intake and Output: 08/01/18 08/01/18 06:59 18:59 Intake Total 750 Output Total 700 Balance 50 - Medications Medications: Current Medications Acetaminophen (Tylenol 325mg Tab) 650 mg PO Q6H PRN PRN Reason: Fever >100.4 F Last Admin: 07/31/18 17:50 Dose: 650 mg Cholecalciferol (Vitamin D) 2,000 intlu PO DAILY [facility] Last Admin: 08/01/18 09:35 Dose: 2,000 intlu Dextrose (Dextrose 50% Inj) 0 ml IV STAT PRN; Protocol PRN Reason: Hypoglycemia Protocol Famotidine (Pepcid) 20 mg PO HS [facility] Last Admin: 07/31/18 21:00 Dose: 20 mg Dextrose (Dextrose 5% In Water 1000 Ml) 1,000 mls @ 0 mls/hr IV .Q0M PRN; Protocol PRN Reason: Hypoglycemia Protocol Ceftriaxone Sodium (Rocephin 1 Gram Ivpb) 1 gm in 100 mls @ 100 mls/hr IVPB DAILY [facility]; Protocol Last Admin: 08/01/18 09:34 Dose: 100 mls/hr Ibuprofen (Motrin Tab) 400 mg PO Q6H PRN PRN Reason: Fever >100.4 F Last Admin: 07/31/18 19:45 Dose: 400 mg Insulin Detemir (Levemir) 12 unit SC HS [facility] Last Admin: 07/31/18 23:10 Dose: 12 u Insulin Human Lispro (Humalog Low) 0 units SC ACHS [facility]; Protocol Last Admin: 08/01/18 12:39 Dose: Not Given Insulin Human Lispro (Humalog) 8 units SC AC [facility] Last Admin: 08/01/18 12:07 Dose: 8 u Nystatin (Mycostatin Cream) 0 ea TOP TID [facility] Last Admin: 08/01/18 09:36 Dose: 1 appl Oseltamivir Phosphate (Tamiflu Cap) 75 mg PO BID [facility]; Protocol Stop: 08/04/18 16:23 Last Admin: 08/01/18 09:34 Dose: 75 mg - Labs Labs: 08/01/18 06:30 08/01/18 06:30 PT 11.6 SECONDS (9.4-12.5) 07/22/18 20:10 INR 1.02 07/22/18 20:10 APTT 22.5 Seconds (25.1-36.5) L 07/22/18 20:10 - Constitutional Appears: No Acute Distress, Chronically Ill - Head Exam Head Exam: NORMAL INSPECTION - Respiratory Exam Respiratory Exam: Decreased Breath Sounds - Cardiovascular Exam Cardiovascular Exam: +S1, +S2 - GI/Abdominal Exam GI & Abdominal Exam: Soft. 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 coli and group B Strep low grade fever, etiology to be determined Thrombocytopenia, R/O ITP chronic HIV infection hepatitis insulin-dependent diabetese mellitus history of heroin abuse Plan continue Rocephin we have started Tamiflu and should complete 5 days of therapy (day 3 today) follow up further plans of surgery CD4 count is 198 but may be artificially decreased since she is acutely ill - should repeat outpatient CD4 count; HIV virus load is elevated - continue cART thrombocytopenia has resolved discussed with Dr. Manning and Dr. Vazquez
--- NOTE | 2018-08-02 20:49 | PN ---
DATE: 08/02/2018 ENDO FOLLOWUP LOCATION: Room 561. SUBJECTIVE: This is a 62-year-old female with recent uncontrolled type 2 insulin-requiring diabetes, now being followed closely for metabolic management. Her glycemic levels are fluctuating, but improved and the glucose values have ranged from 58 to 146 and 167 mg/dL. LABORATORY DATA: Her chemistry showed a BUN of 10, sodium 135, potassium 3.3, chloride 103, CO2 of 30, glucose 102 and creatinine 0.5. ASSESSMENT AND PLAN: So at this time, we modify once again her basal and bolus insulin regimen and lower the Humalog to 6 units t.i.d. before meals to start today as ordered. We will also lower the basal insulin with Levemir given as 8 units subcutaneously at bedtime daily to start tonight. We will continue the low-dose correction scale using Humalog insulin as given to obviate hypoglycemia. We will obtain serial chemistries and supplement accordingly needed. We will follow. Kassi Savage MD
[2018-08-03 06:17] LABS: BASO # 0.01 K/mm3 (0.0-2.0); BASO % 0.2 % (0.0-3.0); EOS # 0.1 (0.0-0.7); EOS % 1.1 % (1.5-5.0); GRAN # 2.52 (1.4-6.5); GRAN % 54.9 % (50.0-68.0); HEMOGLOBIN 9.3 g/dL (12.0-16.0); LYMPH # 1.3 (1.2-3.4); LYMPH % 27.9 % (22.0-35.0); MEAN CELL VOLUME 89.3 fl (80.0-105.0); MEAN CORPUSCULAR HEMOGLOBIN 29.3 pg (25.0-35.0); MEAN CORPUSCULAR HGB CONC 32.9 g/dl (31.0-37.0); MEAN PLATELET VOLUME 10.9 fl (7.0-11.0); MONO # 0.7 (0.1-0.6); MONO % 15.9 % (1.0-6.0); RBC 3.17 10^6/uL (3.5-6.1); RED CELL DISTRIBUTION WIDTH 13.1 % (11.5-14.5); WHITE BLOOD COUNT 4.6 10^3/uL (4.5-11.0)
[2018-08-03 06:55] LABS: ALB/GLOB RATIO 0.7 (1.1-1.8); ALBUMIN 2.1 g/dL (3.0-4.8); ALT/SGPT 58 U/L (7-56); AST/SGOT 105 U/L (14-36); BLOOD UREA NITROGEN 9 mg/dL (7-21); CALCIUM 7.7 mg/dL (8.4-10.5); GFR NON-AFRICAN AMERICAN > 60
[2018-08-03] MEDS: Insulin Lispro (humaLOG) LOW Coverage SC SCH ×4 (08:01→22:18)
[2018-08-03] MEDS: Insulin Lispro 1 UNITS/0.01 ML SC SCH ×3 (08:36→16:37)
[2018-08-03] MEDS: cefTRIAXone 1 gm 1 GM/100 ML BAG IVPB SCH (10:58)
[2018-08-03] MEDS: Nystatin 100,000 Units/gm Cream(15 gm) TOP SCH ×3 (10:58→18:45)
[2018-08-03] MEDS: Cholecalciferol 1,000 INTLU TAB PO SCH (10:59)
[2018-08-03] MEDS: GENVOYA PO SCH (11:12)
--- NOTE | 2018-08-03 14:18 | PN ---
DATE: 08/03/2018 LOCATION: Room 564. SUBJECTIVE: This is a 62-year-old female with recent uncontrolled type 2 insulin-requiring diabetes, now being followed closely for metabolic management. Her oral intake remains quite variable at this time with extremes of glucose fluctuations as noted thereof. Her glucose levels overnight have improved at 150 to 163 mg/dL. It was 213 at bedtime last night. Her chemistry showed a BUN of 19, sodium 137, potassium 3.6, chloride 103, CO2 of 30, glucose 154 and creatinine 0.5. So, at this time, we will continue the same basal and bolus insulin regimen as modified with Humalog at 6 units t.i.d. before meals as ordered. We will continue the Levemir given as 8 units subcu at bedtime daily as given. We will titrate incrementally as indicated to optimize metabolic control. We will follow and advise accordingly. Kassi Savage MD
--- NOTE | 2018-08-03 15:41 | CP.PCM.PN ---
<Jose Manuel Silver - Last Filed: 08/03/18 16:03> Subjective - Date & Time of Evaluation Date of Evaluation: 08/03/18 Time of Evaluation: 15:40 - Subjective Subjective: HISTORY & PHYSICAL PROGRESS NOTE FOR DR. WILFRED Silver PGY1 Pt seen and examined at bedside this am. No acute events overnight. She is tolerating her diet, and report she has been ambulating to the bathroom. She denies 12 point ROS Objective - Vital Signs/Intake and Output Vital Signs (last 24 hours): Temp Pulse Resp BP Pulse Ox 97.5 F L 91 H 20 132/73 95 08/03/18 14:00 08/03/18 14:00 08/03/18 14:00 08/03/18 14:00 08/03/18 14:00 Intake and Output: 08/03/18 08/03/18 06:59 18:59 Intake Total 700 Output Total 900 Balance -200 - Medications Medications: Current Medications Acetaminophen (Tylenol 325mg Tab) 650 mg PO Q6H PRN PRN Reason: Fever >100.4 F Last Admin: 07/31/18 17:50 Dose: 650 mg Cholecalciferol (Vitamin D) 2,000 intlu PO DAILY [facility] Last Admin: 08/03/18 10:59 Dose: 2,000 intlu Dextrose (Dextrose 50% Inj) 0 ml IV STAT PRN; Protocol PRN Reason: Hypoglycemia Protocol Famotidine (Pepcid) 20 mg PO HS [facility] Last Admin: 08/02/18 21:03 Dose: 20 mg Home Med (Home Med) 1 unit PO DAILY [facility] Last Admin: 08/03/18 11:12 Dose: Not Given Dextrose (Dextrose 5% In Water 1000 Ml) 1,000 mls @ 0 mls/hr IV .Q0M PRN; Protocol PRN Reason: Hypoglycemia Protocol Ceftriaxone Sodium (Rocephin 1 Gram Ivpb) 1 gm in 100 mls @ 100 mls/hr IVPB DAILY [facility]; Protocol Last Admin: 08/03/18 10:58 Dose: 100 mls/hr Ibuprofen (Motrin Tab) 400 mg PO Q6H PRN PRN Reason: Fever >100.4 F Last Admin: 07/31/18 19:45 Dose: 400 mg Insulin Detemir (Levemir) 8 unit SC HS [facility] Insulin Human Lispro (Humalog Low) 0 units SC ACHS [facility]; Protocol Last Admin: 08/03/18 12:11 Dose: 1 units Insulin Human Lispro (Humalog) 6 units SC AC [facility] Last Admin: 08/03/18 12:11 Dose: 6 units Nystatin (Mycostatin Cream) 0 ea TOP TID [facility] Last Admin: 08/03/18 14:22 Dose: 1 appl Oseltamivir Phosphate (Tamiflu Cap) 75 mg PO BID [facility]; Protocol Stop: 08/04/18 16:23 Last Admin: 08/03/18 10:58 Dose: 75 mg - Labs Labs: 08/03/18 05:35 08/03/18 05:35 PT 11.6 SECONDS (9.4-12.5) 07/22/18 20:10 INR 1.02 07/22/18 20:10 APTT 22.5 Seconds (25.1-36.5) L 07/22/18 20:10 - Constitutional Appears: Well, Non-toxic, No Acute Distress - Head Exam Head Exam: NORMAL INSPECTION, NORMOCEPHALIC - Eye Exam Eye Exam: EOMI, Normal appearance - ENT Exam ENT Exam: Mucous Membranes Moist, Normal Exam - Neck Exam Neck Exam: Normal Inspection. absent: Meningismus - Respiratory Exam Respiratory Exam: Clear to Ausculation Bilateral, NORMAL BREATHING PATTERN - Cardiovascular Exam Cardiovascular Exam: REGULAR RHYTHM, +S1, +S2 - GI/Abdominal Exam GI & Abdominal Exam: Soft. absent: Tenderness - Extremities Exam Extremities Exam: Normal Inspection. absent: Calf Tenderness - Back Exam Back Exam: NORMAL INSPECTION - Neurological Exam Neurological Exam: Alert, Awake, Oriented x3 - Psychiatric Exam Psychiatric exam: Normal Affect, Normal Mood - Skin Skin Exam: Dry, Intact, Warm Assessment and Plan - Assessment and Plan (Free Text) Assessment: 62 yo female with PMH of HIV, IDDM, and hep C who was admitted for AMS and HHS. She is s/p debridement of necrotic gluteal abscess. Plan: Necrotic gluteal abscess Pt was afebrile for 24 hours s/p debridement in the OR Urine/Wound cultured E. Coli, GBS Continue rocephin Surgery has been doing daily dressing changes Per ID: recommends ceftriaxone for 2 weeks. PT will need midline so she can get abx at [facility] Influenza rapid flu POSITIVE for influenza A continue tamiflu Per ID, fever may be 2/2 influenza droplet precautions DKA/hyperosmolar state; treated with insulin HHS resolved. non compliant with home insulin Continue Levemir 12SC, Lispro 8 AC and SSI. Endo consulted HIV/ AIDS Absolute CD4 count is 198 noncompliant with medication ID consulted Will need to f/u outpatient for management Normocytic Anemia Likely ACD F/u outpatient for iron studies. Not symptomatic Thrombocytopenia resolved was like 2/2 to meropenem Hepatitis C untreated, pt to follow up as out pt for treatment Ppx SCD/Famotidine Dispo: PT recs subacute rehab. Pending case management discharge to subacute rehab Pt seen, examined and discussed with attending physician, Dr. Vazquez. Jose Manuel Silver PGY1 <Tracy Vazquez - Last Filed: 08/03/18 16:42> Objective - Vital Signs/Intake and Output Vital Signs (last 24 hours): Temp Pulse Resp BP Pulse Ox 97.5 F L 91 H 20 132/73 95 08/03/18 14:00 08/03/18 14:00 08/03/18 14:00 08/03/18 14:00 08/03/18 14:00 Intake and Output: 08/03/18 08/03/18 06:59 18:59 Intake Total 700 Output Total 900 Balance -200 - Medications Medications: Current Medications Acetaminophen (Tylenol 325mg Tab) 650 mg PO Q6H PRN PRN Reason: Fever >100.4 F Last Admin: 07/31/18 17:50 Dose: 650 mg Cholecalciferol (Vitamin D) 2,000 intlu PO DAILY [facility] Last Admin: 08/03/18 10:59 Dose: 2,000 intlu Dextrose (Dextrose 50% Inj) 0 ml IV STAT PRN; Protocol PRN Reason: Hypoglycemia Protocol Famotidine (Pepcid) 20 mg PO HS [facility] Last Admin: 08/02/18 21:03 Dose: 20 mg Home Med (Home Med) 1 unit PO DAILY [facility] Last Admin: 08/03/18 11:12 Dose: Not Given Dextrose (Dextrose 5% In Water 1000 Ml) 1,000 mls @ 0 mls/hr IV .Q0M PRN; Protocol PRN Reason: Hypoglycemia Protocol Ceftriaxone Sodium (Rocephin 1 Gram Ivpb) 1 gm in 100 mls @ 100 mls/hr IVPB DAILY [facility]; Protocol Last Admin: 08/03/18 10:58 Dose: 100 mls/hr Ibuprofen (Motrin Tab) 400 mg PO Q6H PRN PRN Reason: Fever >100.4 F Last Admin: 07/31/18 19:45 Dose: 400 mg Insulin Detemir (Levemir) 8 unit SC HS [facility] Insulin Human Lispro (Humalog Low) 0 units SC ACHS [facility]; Protocol Last Admin: 08/03/18 12:11 Dose: 1 units Insulin Human Lispro (Humalog) 6 units SC AC [facility] Last Admin: 08/03/18 12:11 Dose: 6 units Nystatin (Mycostatin Cream) 0 ea TOP TID [facility] Last Admin: 08/03/18 14:22 Dose: 1 appl Oseltamivir Phosphate (Tamiflu Cap) 75 mg PO BID [facility]; Protocol Stop: 08/04/18 16:23 Last Admin: 08/03/18 10:58 Dose: 75 mg - Labs Labs: 08/03/18 05:35 08/03/18 05:35 PT 11.6 SECONDS (9.4-12.5) 07/22/18 20:10 INR 1.02 07/22/18 20:10 APTT 22.5 Seconds (25.1-36.5) L 07/22/18 20:10 Attending/Attestation - Attestation I have personally seen and examined this patient.: Yes I have fully participated in the care of the patient.: Yes I have reviewed all pertinent clinical information, including history, physical exam and plan: Yes Notes (Text): 08/03/18 16:36 Attending note; patient seen and examined with resident. Patient is alert and awake. Patient is afebrile and nontoxic. Tolerating diet well. Patient is a 62-year-old female with past medical history significant for HIV, hepatitis, insulin-dependent type 2 diabetes, and drug abuse that presented to the emergency room with slurred speech and weakness. 1. Fever. Influenza A. Fevers resolving. repeat blood and urine culture is negative. Continue tamiflu. On IV Rocephin. Chest xray showed no active disease. Continue contact isolation. Case discussed with ID in detail. To complete 2 more weeks of IV Rocephin. Midline placement ordered. 2. Large necrotic gluteal abscess. S/P debridement 07/23/18. Continue dressing change per surgery. Wound culture positive for Escherichia coli and beta hemolytic strep group. 3. Toxic metabolic encephalopathy. Resolved. Patient is AAO x3. CT head is negative. 4. Dm type 2. Continue Levemir. Patient counseled at length on compliance with medications at home. 5. HIV positive. Noncompliant with medications. ID following, recommendations appreciated. CD4 count is 198. 6. History of Hepatitis C. Not treated. Patient will need to follow up o utpatient for treatment. Patient with POLST and is DNR/DNI. Palliative care recommendations appreciated. PT evaluation appreciated. Case discussed with gearcase assembler in detail. Pending subacute rehabilitation placement. Upon discharge the patient will follow up with PMD in [place].
--- NOTE | 2018-08-03 16:39 | CP.PCM.PN ---
Subjective - Date & Time of Evaluation Date of Evaluation: 08/03/18 Time of Evaluation: 09:00 - Subjective Subjective: No fevers overnight, feeling a little better, cough is getting better, no sore throat, no more body aches, no diarrhea. Objective - Vital Signs/Intake and Output Vital Signs (last 24 hours): Temp Pulse Resp BP Pulse Ox 98 F 83 20 118/76 98 08/02/18 06:00 08/02/18 06:00 08/02/18 06:00 08/02/18 06:00 08/02/18 06:00 Intake and Output: 08/02/18 08/02/18 06:59 18:59 Intake Total 600 Output Total 500 Balance 100 - Medications Medications: Current Medications Acetaminophen (Tylenol 325mg Tab) 650 mg PO Q6H PRN PRN Reason: Fever >100.4 F Last Admin: 07/31/18 17:50 Dose: 650 mg Cholecalciferol (Vitamin D) 2,000 intlu PO DAILY [facility] Last Admin: 08/02/18 09:13 Dose: 2,000 intlu Dextrose (Dextrose 50% Inj) 0 ml IV STAT PRN; Protocol PRN Reason: Hypoglycemia Protocol Famotidine (Pepcid) 20 mg PO HS [facility] Last Admin: 08/01/18 22:13 Dose: 20 mg Home Med (Home Med) 1 unit PO DAILY [facility] Dextrose (Dextrose 5% In Water 1000 Ml) 1,000 mls @ 0 mls/hr IV .Q0M PRN; Protocol PRN Reason: Hypoglycemia Protocol Ceftriaxone Sodium (Rocephin 1 Gram Ivpb) 1 gm in 100 mls @ 100 mls/hr IVPB DAILY [facility]; Protocol Last Admin: 08/02/18 09:13 Dose: 100 mls/hr Ibuprofen (Motrin Tab) 400 mg PO Q6H PRN PRN Reason: Fever >100.4 F Last Admin: 07/31/18 19:45 Dose: 400 mg Insulin Detemir (Levemir) 8 unit SC HS [facility] Insulin Human Lispro (Humalog Low) 0 units SC ACHS [facility]; Protocol Last Admin: 08/02/18 08:41 Dose: Not Given Insulin Human Lispro (Humalog) 6 units SC AC [facility] Nystatin (Mycostatin Cream) 0 ea TOP TID [facility] Last Admin: 08/02/18 09:14 Dose: 1 appl Oseltamivir Phosphate (Tamiflu Cap) 75 mg PO BID [facility]; Protocol Stop: 08/04/18 16:23 Last Admin: 08/02/18 09:13 Dose: 75 mg - Labs Labs: 08/02/18 07:30 08/02/18 07:30 PT 11.6 SECONDS (9.4-12.5) 07/22/18 20:10 INR 1.02 07/22/18 20:10 APTT 22.5 Seconds (25.1-36.5) L 07/22/18 20:10 - Constitutional Appears: Chronically Ill - Head Exam Head Exam: NORMAL INSPECTION - Neck Exam Neck Exam: absent: Lymphadenopathy, Meningismus - Respiratory Exam Respiratory Exam: Decreased Breath Sounds - Cardiovascular Exam Cardiovascular Exam: +S1, +S2 - GI/Abdominal Exam GI & Abdominal Exam: Soft. 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 coli and group B Strep low grade fever, etiology to be determined Thrombocytopenia, R/O ITP chronic HIV infection hepatitis insulin-dependent diabetese mellitus history of heroin abuse Plan continue Rocephin we have started Tamiflu and should complete 5 days of therapy (day 4 today) follow up further plans of surgery CD4 count is 198 but may be artificially decreased since she is acutely ill - should repeat outpatient CD4 count; HIV virus load is elevated - continue cART thrombocytopenia has resolved discussed with Dr. Manning and Dr. Vazquez
[2018-08-03] MEDS: Vancomycin 1gm in NS 250ml 1 GM/250 ML BAG IVPB SCH (22:20)
[2018-08-03] MEDS: Insulin Detemir 100 units/ml Vial (Levemir) SC SCH (22:20)
[2018-08-04] MEDS: Meropenem IV 1 gm in NS 1 GM/50 ML BAG IVPB SCH ×4 (00:30→23:18)
[2018-08-04 07:28] LABS: BASO # 0.03 K/mm3 (0.0-2.0); BASO % 0.7 % (0.0-3.0); EOS # 0.1 (0.0-0.7); EOS % 2.2 % (1.5-5.0); GRAN # 2.65 (1.4-6.5); GRAN % 59.5 % (50.0-68.0); HEMOGLOBIN 9.1 g/dL (12.0-16.0); LYMPH % 22.6 % (22.0-35.0); MEAN CELL VOLUME 88.1 fl (80.0-105.0); MEAN CORPUSCULAR HEMOGLOBIN 28.5 pg (25.0-35.0); MEAN CORPUSCULAR HGB CONC 32.4 g/dl (31.0-37.0); MONO # 0.7 (0.1-0.6); RBC 3.19 10^6/uL (3.5-6.1); RED CELL DISTRIBUTION WIDTH 13.1 % (11.5-14.5); WHITE BLOOD COUNT 4.5 10^3/uL (4.5-11.0)
[2018-08-04 07:41] LABS: ALB/GLOB RATIO 0.6 (1.1-1.8); ALBUMIN 2.2 g/dL (3.0-4.8); ALT/SGPT 76 U/L (7-56); AST/SGOT 123 U/L (14-36); BLOOD UREA NITROGEN 9 mg/dL (7-21); CALCIUM 7.6 mg/dL (8.4-10.5); GFR NON-AFRICAN AMERICAN > 60
[2018-08-04] MEDS: Insulin Lispro (humaLOG) LOW Coverage SC SCH ×3 (08:00→21:36)
[2018-08-04] MEDS: Insulin Lispro 1 UNITS/0.01 ML SC SCH ×3 (08:00→18:02)
--- NOTE | 2018-08-04 08:21 | CP.PCM.PN ---
Subjective - Date & Time of Evaluation Date of Evaluation: 08/04/18 Time of Evaluation: 07:10 - Subjective Subjective: Surgery progress note, Dr. Schwab Patient seen and examined at bedside. She is resting comfortably in bed. She had a fever with Tmax 103 last night. She denied chill, diaphoresis, N/V, abdominal pain. Objective - Vital Signs/Intake and Output Vital Signs (last 24 hours): Temp Pulse Resp BP Pulse Ox 98.5 F 84 20 121/72 97 08/04/18 06:00 08/04/18 06:00 08/04/18 06:00 08/04/18 06:00 08/04/18 06:00 Intake and Output: 08/04/18 08/04/18 06:59 18:59 Intake Total 450 Output Total 600 Balance -150 - Medications Medications: Current Medications Acetaminophen (Tylenol 325mg Tab) 650 mg PO Q6H PRN PRN Reason: Fever >100.4 F Last Admin: 08/03/18 21:12 Dose: 650 mg Cholecalciferol (Vitamin D) 2,000 intlu PO DAILY [facility] Last Admin: 08/03/18 10:59 Dose: 2,000 intlu Dextrose (Dextrose 50% Inj) 0 ml IV STAT PRN; Protocol PRN Reason: Hypoglycemia Protocol Famotidine (Pepcid) 20 mg PO HS [facility] Last Admin: 08/03/18 21:12 Dose: 20 mg Home Med (Home Med) 1 unit PO DAILY [facility] Last Admin: 08/03/18 11:12 Dose: Not Given Dextrose (Dextrose 5% In Water 1000 Ml) 1,000 mls @ 0 mls/hr IV .Q0M PRN; Protocol PRN Reason: Hypoglycemia Protocol Vancomycin HCl (Vancomycin 1gm) 1 gm in 250 mls @ 167 mls/hr IVPB Q12H [facility]; Protocol Last Admin: 08/03/18 22:20 Dose: 167 mls/hr Meropenem (Merrem Iv 1 Gm Premix) 1 gm in 50 mls @ 12.5 mls/hr IVPB Q8 [facility]; Protocol Last Admin: 08/04/18 05:42 Dose: 12.5 mls/hr Ibuprofen (Motrin Tab) 400 mg PO Q6H PRN PRN Reason: Fever >100.4 F Last Admin: 07/31/18 19:45 Dose: 400 mg Insulin Detemir (Levemir) 8 unit SC HS [facility] Last Admin: 08/03/18 22:20 Dose: 8 u Insulin Human Lispro (Humalog Low) 0 units SC ACHS [facility]; Protocol Last Admin: 08/03/18 22:18 Dose: Not Given Insulin Human Lispro (Humalog) 6 units SC AC [facility] Last Admin: 08/03/18 16:37 Dose: 6 units Nystatin (Mycostatin Cream) 0 ea TOP TID [facility] Last Admin: 08/03/18 18:45 Dose: 1 appl Oseltamivir Phosphate (Tamiflu Cap) 75 mg PO BID [facility]; Protocol Stop: 08/04/18 16:23 Last Admin: 08/03/18 18:45 Dose: 75 mg - Labs Labs: 08/04/18 07:20 08/04/18 07:20 PT 11.6 SECONDS (9.4-12.5) 07/22/18 20:10 INR 1.02 07/22/18 20:10 APTT 22.5 Seconds (25.1-36.5) L 07/22/18 20:10 - Skin Additional comments: medial right upper thigh loculated abscess with pus draining out. right open buttock wounds with necrotic tissue and pus draining - Additional Findings Additional findings: - Additional Findings Additional findings: - Additional Findings Additional findings: - Constitutional Appears: Non-toxic, No Acute Distress, Older Than Stated Age - Head Exam Head Exam: ATRAUMATIC - Eye Exam Eye Exam: EOMI. absent: Scleral icterus - ENT Exam ENT Exam: Mucous Membranes Moist - Respiratory Exam Respiratory Exam: NORMAL BREATHING PATTERN. absent: Accessory Muscle Use, Respiratory Distress - Cardiovascular Exam Cardiovascular Exam: REGULAR RHYTHM. absent: Bradycardia, Tachycardia - GI/Abdominal Exam GI & Abdominal Exam: Soft. absent: Distended, Firm, Guarding, Rigid, Tenderness - Neurological Exam Neurological Exam: Alert, Awake, Oriented x3 - Psychiatric Exam Psychiatric exam: Normal Affect - Skin Skin Exam: Warm Additional comments: Assessment and Plan - Assessment and Plan (Free Text) Assessment: 62 y/o female admitted for sepsis due to necrotizing fasciitis of the perineal area,culture positive for GBS. s/p Sacral debridement POD #12 systemic viral illness with Influenza A chronic HIV infection with low CD4 count hepatitis DM2 history of heroin abuse Plan: -extensive wound debridement done at bedside with necrotic tissue removal using sharps -wound culture sent for upper medial thigh abscess -continue daily dressing changes -wound cx positive for E coli and GBS -continue tamiflu, and abx as per ID -encourage ambulation -further recs per surgical attending Dr. Zaheer Brown, DO Procedure: Blank - Time Time Performed: 11:34 - Time Out Time Out: Side verified, Site verified, Patient ID confirmed, Sterile procedures obs. - Procedure Procedure:: Bedside sharp debridment of right thigh and perineium - Consent obtained: Consent obtained: Verbal - Performed by: Performed by:: Attending physician - Indications Indications(s):: intermittent fevers, source of infection - Contraindications: Contraindications:: None - Anesthetic Technique Anesthetic Technique: Oral pain medication - Patient Position Patient Position:: Left lateral decubitus - Location Location: Right, Thigh - Result Result: Successful - Post-Procedure Post-procedure:: Hemostasis achieved - Specimens/Tests Ordered Specimens/Tests Ordered: Wound cultre - Patient Tolerated Procedure Patient Tolerated Procedure:: Well
--- NOTE | 2018-08-04 08:40 | RAD ---
Date of service: 08/03/2018 HISTORY: fever COMPARISON: 07/31/2018 FINDINGS: LUNGS: No active pulmonary disease. PLEURA: No significant pleural effusion identified, no pneumothorax apparent. CARDIOVASCULAR: No aortic atherosclerotic calcification present. Normal cardiac size. No pulmonary vascular congestion. OSSEOUS STRUCTURES: No significant abnormalities. VISUALIZED UPPER ABDOMEN: Normal. OTHER FINDINGS: None. IMPRESSION: No active disease.
--- NOTE | 2018-08-04 09:17 | CP.PCM.PN ---
<Jose Manuel Silver - Last Filed: 08/04/18 11:43> Subjective - Date & Time of Evaluation Date of Evaluation: 08/04/18 Time of Evaluation: 09:15 - Subjective Subjective: INTERNAL MEDICINE PROGRESS NOTE FOR DR. WILFRED Silver PGY1 Pt seen and examined at bedside this am. Pt spiked another 103F fever last night. She reports no acute complaints this am. Pt ambulated yesterday with physical therapy. Midline is in place. She denies 12 point ROS. Objective - Vital Signs/Intake and Output Vital Signs (last 24 hours): Temp Pulse Resp BP Pulse Ox 98.5 F 84 20 121/72 97 08/04/18 06:00 08/04/18 06:00 08/04/18 06:00 08/04/18 06:00 08/04/18 06:00 Intake and Output: 08/04/18 08/04/18 06:59 18:59 Intake Total 450 Output Total 600 Balance -150 - Medications Medications: Current Medications Acetaminophen (Tylenol 325mg Tab) 650 mg PO Q6H PRN PRN Reason: Fever >100.4 F Last Admin: 08/03/18 21:12 Dose: 650 mg Cholecalciferol (Vitamin D) 2,000 intlu PO DAILY [facility] Last Admin: 08/03/18 10:59 Dose: 2,000 intlu Dextrose (Dextrose 50% Inj) 0 ml IV STAT PRN; Protocol PRN Reason: Hypoglycemia Protocol Famotidine (Pepcid) 20 mg PO HS [facility] Last Admin: 08/03/18 21:12 Dose: 20 mg Home Med (Home Med) 1 unit PO DAILY [facility] Last Admin: 08/03/18 11:12 Dose: Not Given Dextrose (Dextrose 5% In Water 1000 Ml) 1,000 mls @ 0 mls/hr IV .Q0M PRN; Protocol PRN Reason: Hypoglycemia Protocol Vancomycin HCl (Vancomycin 1gm) 1 gm in 250 mls @ 167 mls/hr IVPB Q12H [facility]; Protocol Last Admin: 08/03/18 22:20 Dose: 167 mls/hr Meropenem (Merrem Iv 1 Gm Premix) 1 gm in 50 mls @ 12.5 mls/hr IVPB Q8 [facility]; Protocol Last Admin: 08/04/18 05:42 Dose: 12.5 mls/hr Ibuprofen (Motrin Tab) 400 mg PO Q6H PRN PRN Reason: Fever >100.4 F Last Admin: 07/31/18 19:45 Dose: 400 mg Insulin Detemir (Levemir) 8 unit SC HS [facility] Last Admin: 08/03/18 22:20 Dose: 8 u Insulin Human Lispro (Humalog Low) 0 units SC ACHS [facility]; Protocol Last Admin: 08/03/18 22:18 Dose: Not Given Insulin Human Lispro (Humalog) 6 units SC AC [facility] Last Admin: 08/03/18 16:37 Dose: 6 units Nystatin (Mycostatin Cream) 0 ea TOP TID [facility] Last Admin: 08/03/18 18:45 Dose: 1 appl Oseltamivir Phosphate (Tamiflu Cap) 75 mg PO BID [facility]; Protocol Stop: 08/04/18 16:23 Last Admin: 08/03/18 18:45 Dose: 75 mg - Labs Labs: 08/04/18 07:20 08/04/18 07:20 PT 11.6 SECONDS (9.4-12.5) 07/22/18 20:10 INR 1.02 07/22/18 20:10 APTT 22.5 Seconds (25.1-36.5) L 07/22/18 20:10 - Constitutional Appears: Well, Non-toxic, No Acute Distress - Head Exam Head Exam: NORMAL INSPECTION, NORMOCEPHALIC - Eye Exam Eye Exam: EOMI, Normal appearance - ENT Exam ENT Exam: Mucous Membranes Moist, Normal Exam - Neck Exam Neck Exam: Normal Inspection - Respiratory Exam Respiratory Exam: Clear to Ausculation Bilateral, NORMAL BREATHING PATTERN - Cardiovascular Exam Cardiovascular Exam: REGULAR RHYTHM, +S1, +S2 - GI/Abdominal Exam GI & Abdominal Exam: Soft. absent: Tenderness, Rebound - Extremities Exam Extremities Exam: Normal Inspection. absent: Calf Tenderness - Back Exam Back Exam: NORMAL INSPECTION - Neurological Exam Neurological Exam: Alert, Awake, Oriented x3 - Psychiatric Exam Psychiatric exam: Normal Affect, Normal Mood - Skin Skin Exam: Dry, Intact, Warm Assessment and Plan - Assessment and Plan (Free Text) Assessment: 62 yo female with PMH of HIV, IDDM, and hep C who was admitted for AMS and HHS. She is s/p debridement of necrotic gluteal abscess. Plan: Necrotic gluteal abscess Pt spiked 103 fever again last night s/p debridement in the OR Urine/Wound cultured E. Coli, GBS ID started merro/vanc Surgery has been doing daily dressing changes, they did bedside debridement after purulence was noted Per ID: recommends ceftriaxone for 2 weeks. Pt already had midline placed Influenza rapid flu POSITIVE for influenza A continue tamiflu, today is last day of course Per ID, may be 2/2 influenza droplet precautions DKA/hyperosmolar state; treated with insulin HHS resolved. non compliant with home insulin Continue Levemir 8u SC, Lispro 6u AC and SSI. Endo consulted Pt counselled at length on compliance of medications at home HIV/ AIDS Absolute CD4 count is 198 noncompliant with medication CD4 may be falsely decreased in an acute infection. Will hold off TMP-SMX for now Pt counselled at length on compliance of medications at home Normocytic Anemia Likely ACD F/u outpatient for iron studies. Not symptomatic Thrombocytopenia resolved was likely 2/2 to meropenem Hepatitis C untreated, pt to follow up as outpt for treatment Ppx SCD/Famotidine Dispo: PT recs subacute rehab. Pt had a fever again overnight, likely from gluteal abscess. She has been accepted to [facility], however pt needs to be afebrile for at least 24 hours. Midline is in place for senior living antibiotics Pt seen, examined and discussed with attending physician, Dr. Vazquez. Jose Manuel Silver PGY1 <Tracy Vazquez - Last Filed: 08/04/18 17:42> Objective - Vital Signs/Intake and Output Vital Signs (last 24 hours): Temp Pulse Resp BP Pulse Ox 98.5 F 84 20 121/72 97 08/04/18 06:00 08/04/18 06:00 08/04/18 06:00 08/04/18 06:00 08/04/18 06:00 Intake and Output: 08/04/18 08/04/18 06:59 18:59 Intake Total 450 Output Total 600 Balance -150 - Medications Medications: Current Medications Acetaminophen (Tylenol 325mg Tab) 650 mg PO Q6H PRN PRN Reason: Fever >100.4 F Last Admin: 08/03/18 21:12 Dose: 650 mg Cholecalciferol (Vitamin D) 2,000 intlu PO DAILY [facility] Last Admin: 08/04/18 11:07 Dose: 2,000 intlu Dextrose (Dextrose 50% Inj) 0 ml IV STAT PRN; Protocol PRN Reason: Hypoglycemia Protocol Famotidine (Pepcid) 20 mg PO HS [facility] Last Admin: 08/03/18 21:12 Dose: 20 mg Home Med (Home Med) 1 unit PO DAILY [facility] Last Admin: 08/04/18 11:06 Dose: Not Given Dextrose (Dextrose 5% In Water 1000 Ml) 1,000 mls @ 0 mls/hr IV .Q0M PRN; Protocol PRN Reason: Hypoglycemia Protocol Vancomycin HCl (Vancomycin 1gm) 1 gm in 250 mls @ 167 mls/hr IVPB Q12H [facility]; Protocol Last Admin: 08/04/18 11:04 Dose: 167 mls/hr Meropenem (Merrem Iv 1 Gm Premix) 1 gm in 50 mls @ 12.5 mls/hr IVPB Q8 [facility]; Protocol Last Admin: 08/04/18 05:42 Dose: 12.5 mls/hr Ibuprofen (Motrin Tab) 400 mg PO Q6H PRN PRN Reason: Fever >100.4 F Last Admin: 08/04/18 11:07 Dose: 400 mg Insulin Detemir (Levemir) 8 unit SC HS [facility] Last Admin: 08/03/18 22:20 Dose: 8 u Insulin Human Lispro (Humalog Low) 0 units SC ACHS [facility]; Protocol Last Admin: 08/04/18 08:00 Dose: Not Given Insulin Human Lispro (Humalog) 6 units SC AC [facility] Last Admin: 08/04/18 11:05 Dose: 6 units Nystatin (Mycostatin Cream) 0 ea TOP TID [facility] Last Admin: 08/03/18 18:45 Dose: 1 appl - Labs Labs: 08/04/18 07:20 08/04/18 07:20 PT 11.6 SECONDS (9.4-12.5) 07/22/18 20:10 INR 1.02 07/22/18 20:10 APTT 22.5 Seconds (25.1-36.5) L 07/22/18 20:10 Attending/Attestation - Attestation I have personally seen and examined this patient.: Yes I have fully participated in the care of the patient.: Yes I have reviewed all pertinent clinical information, including history, physical exam and plan: Yes Notes (Text): 08/04/18 17:37 Attending note; patient seen and examined with resident. Patient is alert and awake. had tmax of 103 again last night. Tolerating diet well. Patient is a 62-year-old female with past medical history significant for HIV, hepatitis, insulin-dependent type 2 diabetes, and drug abuse that presented to the emergency room with slurred speech and weakness. 1. Fever. Influenza A. Fevers on and off. Had MAXIMUM TEMPERATURE of 103. Started on vancomycin and meropenem by ID. repeat blood and urine culture is negative. Continue tamiflu. Repeat Chest xray showed no active disease. Continue contact isolation. 2. Large necrotic gluteal abscess. S/P debridement 07/23/18. Bedside debridement done today. Repeat cultures ordered. Case discussed with surgery in detail. Wound culture positive for Escherichia coli and beta hemolytic strep group. 3. Toxic metabolic encephalopathy. Resolved. Patient is AAO x3. CT head is negative. 4. Dm type 2. Continue Levemir. Patient counseled at length on compliance with medications at home. Blood sugar is better controlled. 5. HIV positive. Noncompliant with medications. ID following, recommendations appreciated. CD4 count is 198. Started on Genv[place] home meds. 6. History of Hepatitis C. Not treated. Patient will need to follow up outpatient for treatment. Patient with POLST and is DNR/DNI. Palliative care recommendations appreciated. PT evaluation appreciated. Case discussed with case hardener in detail. We'll transfer to [facility] once patient is afebrile. Upon discharge the patient will follow up with PMD in [place].
[2018-08-04] MEDS: Nystatin 100,000 Units/gm Cream(15 gm) TOP SCH ×3 (10:00→18:03)
[2018-08-04] MEDS: Vancomycin 1gm in NS 250ml 1 GM/250 ML BAG IVPB SCH ×2 (11:04→21:36)
[2018-08-04] MEDS: GENVOYA PO SCH (11:06)
[2018-08-04] MEDS: Cholecalciferol 1,000 INTLU TAB PO SCH (11:07)
--- NOTE | 2018-08-04 13:54 | CP.PCM.PN ---
Subjective - Date & Time of Evaluation Date of Evaluation: 08/04/18 Time of Evaluation: 09:45 - Subjective Subjective: Patient developed fevers again overnight, but patient claims she did not feel it and did not have chills. Cough and breathing are getting better, sore throat is better. Surgery re-evaluated the perineal wound and drained an area of fluid collection. Objective - Vital Signs/Intake and Output Vital Signs (last 24 hours): Temp Pulse Resp BP Pulse Ox 97.5 F L 91 H 20 132/73 95 08/03/18 14:00 08/03/18 14:00 08/03/18 14:00 08/03/18 14:00 08/03/18 14:00 Intake and Output: 08/03/18 08/03/18 06:59 18:59 Intake Total 700 Output Total 900 Balance -200 - Medications Medications: Current Medications Acetaminophen (Tylenol 325mg Tab) 650 mg PO Q6H PRN PRN Reason: Fever >100.4 F Last Admin: 07/31/18 17:50 Dose: 650 mg Cholecalciferol (Vitamin D) 2,000 intlu PO DAILY [facility] Last Admin: 08/03/18 10:59 Dose: 2,000 intlu Dextrose (Dextrose 50% Inj) 0 ml IV STAT PRN; Protocol PRN Reason: Hypoglycemia Protocol Famotidine (Pepcid) 20 mg PO HS [facility] Last Admin: 08/02/18 21:03 Dose: 20 mg Home Med (Home Med) 1 unit PO DAILY [facility] Last Admin: 08/03/18 11:12 Dose: Not Given Dextrose (Dextrose 5% In Water 1000 Ml) 1,000 mls @ 0 mls/hr IV .Q0M PRN; Protocol PRN Reason: Hypoglycemia Protocol Ceftriaxone Sodium (Rocephin 1 Gram Ivpb) 1 gm in 100 mls @ 100 mls/hr IVPB DAILY [facility]; Protocol Last Admin: 08/03/18 10:58 Dose: 100 mls/hr Ibuprofen (Motrin Tab) 400 mg PO Q6H PRN PRN Reason: Fever >100.4 F Last Admin: 07/31/18 19:45 Dose: 400 mg Insulin Detemir (Levemir) 8 unit SC [facility] Insulin Human Lispro (Humalog Low) 0 units SC [facility]; Protocol Last Admin: 08/03/18 16:35 Dose: Not Given Insulin Human Lispro (Humalog) 6 units SC AC [facility] Last Admin: 08/03/18 16:37 Dose: 6 units Nystatin (Mycostatin Cream) 0 ea TOP TID [facility] Last Admin: 08/03/18 14:22 Dose: 1 appl Oseltamivir Phosphate (Tamiflu Cap) 75 mg PO BID [facility]; Protocol Stop: 08/04/18 16:23 Last Admin: 08/03/18 10:58 Dose: 75 mg - Labs Labs: 08/03/18 05:35 08/03/18 05:35 PT 11.6 SECONDS (9.4-12.5) 07/22/18 20:10 INR 1.02 07/22/18 20:10 APTT 22.5 Seconds (25.1-36.5) L 07/22/18 20:10 - Constitutional Appears: Non-toxic, No Acute Distress, Chronically Ill - Head Exam Head Exam: NORMAL INSPECTION - ENT Exam ENT Exam: Mucous Membranes Moist - Neck Exam Neck Exam: absent: Lymphadenopathy, Meningismus - Respiratory Exam Respiratory Exam: Decreased Breath Sounds - Cardiovascular Exam Cardiovascular Exam: +S1, +S2 - GI/Abdominal Exam GI & Abdominal Exam: Soft. 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 coli and group B Strep; new area fluid collection just drained low grade fever, etiology to be determined Thrombocytopenia, R/O ITP chronic HIV infection hepatitis insulin-dependent diabetese mellitus history of heroin abuse Plan we have switched antibiotics to Vancomycin and Merrem and will follow up repeat blood cx, new wound cx from the new fluid collection in the perineal area which was drained continue Tamiflu and should complete 5 days of therapy (day 5 today) follow up further plans of surgery CD4 count is 198 but may be artificially decreased since she is acutely ill - should repeat outpatient CD4 count; HIV virus load is elevated - continue cART thrombocytopenia has resolved discussed with medical team
--- NOTE | 2018-08-04 15:20 | PN ---
DATE: 08/04/2018 SUBJECTIVE: Having spiked the temperature last night in the process of having a CAT scan, reordered, it is not been done yet. The right thigh is examined where one of the Coleman was, there is little bit that is expressed through fluctuant area and it decompressed nicely. The area on the sacrum had multiple areas of necrotic tissue, which was initially manually debrided followed by using a scissor. The multiple areas and multiple holes were cleaned to get a good granulating base. The areas to be packed cleaned with peroxide, etc, but I think we have found the source of the temperature and dealt with it accordingly, CAT scan is planned. Deven Schwab MD
[2018-08-04] MEDS: Insulin Detemir 100 units/ml Vial (Levemir) SC SCH (21:36)
--- NOTE | 2018-08-05 00:03 | PN ---
DATE: 06/04/2019 ENDOCRINOLOGY FOLLOWUP NOTE LOCATION: In room 564. SUBJECTIVE: This is a 62-year-old female with recent uncontrolled type 2 insulin-requiring diabetes, now with improved metabolic profile and the glucose values today have ranged from 152 to 153 mg/dL. Her chemistry shows a BUN of 9, sodium 137, potassium 3.6, chloride 104, CO2 of 28, glucose 146, and creatinine 0.5. So, at this time, we will continue the same basal and bolus insulin regimen to allow for dose equilibration and keep her on the Humalog at 6 units t.i.d. before meals as ordered. We will continue also the low-dose correction scale using Humalog insulin as ordered. We will continue her basal insulin with Levemir at 8 units subcutaneously at bedtime daily as given. We will titrate incrementally as indicated to optimize metabolic control. We will follow and advise accordingly. Kassi Savage MD
[2018-08-05] MEDS: Meropenem IV 1 gm in NS 1 GM/50 ML BAG IVPB SCH (05:14)
[2018-08-05 07:06] LABS: BASO # 0.02 K/mm3 (0.0-2.0); BASO % 0.3 % (0.0-3.0); EOS # 0.1 (0.0-0.7); EOS % 2.4 % (1.5-5.0); GRAN # 3.59 (1.4-6.5); GRAN % 62.2 % (50.0-68.0); HEMOGLOBIN 9.2 g/dL (12.0-16.0); LYMPH # 1.2 (1.2-3.4); LYMPH % 21.1 % (22.0-35.0); MEAN CELL VOLUME 88.2 fl (80.0-105.0); MEAN CORPUSCULAR HEMOGLOBIN 28.5 pg (25.0-35.0); MEAN CORPUSCULAR HGB CONC 32.3 g/dl (31.0-37.0); MEAN PLATELET VOLUME 10.3 fl (7.0-11.0); MONO # 0.8 (0.1-0.6); RBC 3.23 10^6/uL (3.5-6.1); RED CELL DISTRIBUTION WIDTH 13.1 % (11.5-14.5); WHITE BLOOD COUNT 5.8 10^3/uL (4.5-11.0)
[2018-08-05 07:27] LABS: ALB/GLOB RATIO 0.7 (1.1-1.8); ALBUMIN 2.2 g/dL (3.0-4.8); ALT/SGPT 78 U/L (7-56); AST/SGOT 85 U/L (14-36); BLOOD UREA NITROGEN 10 mg/dL (7-21); CALCIUM 8.1 mg/dL (8.4-10.5); GFR NON-AFRICAN AMERICAN > 60
[2018-08-05] MEDS: Insulin Lispro (humaLOG) LOW Coverage SC SCH ×2 (08:00→12:00)
--- NOTE | 2018-08-05 08:20 | CP.PCM.PN ---
Subjective - Date & Time of Evaluation Date of Evaluation: 08/05/18 Time of Evaluation: 08:10 - Subjective Subjective: Surgery progress note, Dr. Schwab Patient seen and examined at bedside. She is resting comfortably in bed and now OOB to chair. She reports no complaints. She denied fever, chill, diaphoresis, N/V, abdominal pain. Objective - Vital Signs/Intake and Output Vital Signs (last 24 hours): Temp Pulse Resp BP Pulse Ox 98.5 F 84 20 121/72 97 08/04/18 06:00 08/04/18 06:00 08/04/18 06:00 08/04/18 06:00 08/04/18 06:00 Intake and Output: 08/05/18 08/05/18 06:59 18:59 Intake Total 1070 Balance 1070 - Medications Medications: Current Medications Acetaminophen (Tylenol 325mg Tab) 650 mg PO Q6H PRN PRN Reason: Fever >100.4 F Last Admin: 08/03/18 21:12 Dose: 650 mg Cholecalciferol (Vitamin D) 2,000 intlu PO DAILY [facility] Last Admin: 08/04/18 11:07 Dose: 2,000 intlu Dextrose (Dextrose 50% Inj) 0 ml IV STAT PRN; Protocol PRN Reason: Hypoglycemia Protocol Famotidine (Pepcid) 20 mg PO HS [facility] Last Admin: 08/04/18 21:37 Dose: 20 mg Home Med (Home Med) 1 unit PO DAILY [facility] Last Admin: 08/04/18 11:06 Dose: Not Given Dextrose (Dextrose 5% In Water 1000 Ml) 1,000 mls @ 0 mls/hr IV .Q0M PRN; Protocol PRN Reason: Hypoglycemia Protocol Vancomycin HCl (Vancomycin 1gm) 1 gm in 250 mls @ 167 mls/hr IVPB Q12H [facility]; Protocol Last Admin: 08/04/18 21:36 Dose: 167 mls/hr Meropenem (Merrem Iv 1 Gm Premix) 1 gm in 50 mls @ 12.5 mls/hr IVPB Q8 [facility]; Protocol Last Admin: 08/05/18 05:14 Dose: 12.5 mls/hr Ibuprofen (Motrin Tab) 400 mg PO Q6H PRN PRN Reason: Fever >100.4 F Last Admin: 08/04/18 11:07 Dose: 400 mg Insulin Detemir (Levemir) 8 unit SC HS [facility] Last Admin: 08/04/18 21:36 Dose: 8 u Insulin Human Lispro (Humalog Low) 0 units SC ACHS [facility]; Protocol Last Admin: 08/04/18 21:36 Dose: Not Given Insulin Human Lispro (Humalog) 6 units SC AC [facility] Last Admin: 08/04/18 18:02 Dose: 6 units Nystatin (Mycostatin Cream) 0 ea TOP TID [facility] Last Admin: 08/04/18 18:03 Dose: 1 appl - Labs Labs: 08/05/18 06:30 08/05/18 06:30 PT 11.6 SECONDS (9.4-12.5) 07/22/18 20:10 INR 1.02 07/22/18 20:10 APTT 22.5 Seconds (25.1-36.5) L 07/22/18 20:10 - Constitutional Appears: Well, No Acute Distress - Head Exam Head Exam: ATRAUMATIC, NORMAL INSPECTION, NORMOCEPHALIC - Neck Exam Neck Exam: Full ROM, Normal Inspection. absent: Lymphadenopathy - Respiratory Exam Respiratory Exam: Clear to Ausculation Bilateral, NORMAL BREATHING PATTERN - GI/Abdominal Exam GI & Abdominal Exam: Soft, Normal Bowel Sounds. absent: Tenderness - Extremities Exam Extremities Exam: Full ROM, Normal Capillary Refill, Normal Inspection. absent: Joint Swelling, Pedal Edema Additional comments: medial right upper thigh loculated abscess - Neurological Exam Neurological Exam: Alert, Awake - Psychiatric Exam Psychiatric exam: Normal Affect, Normal Mood - Skin Additional comments: medial right upper thigh loculated abscess right open buttock wounds Assessment and Plan - Assessment and Plan (Free Text) Assessment: 62 y/o female admitted for sepsis due to necrotizing fasciitis of the perineal area,culture positive for GBS. s/p Sacral debridement POD #13 patient is hemodynamically stable, afebrile, no leukocytosis. Buttock wound cx positive for E coli and GBS systemic viral illness with Influenza A chronic HIV infection with low CD4 count hepatitis DM2 history of heroin abuse Plan: -upper medial thigh abscess wound culture pending -continue daily dressing changes -continue tamiflu, and abx as per ID -encourage OOB/ambulation -further recs per surgical attending Dr. Zaheer Brown DO
[2018-08-05] MEDS: Insulin Lispro 1 UNITS/0.01 ML SC SCH ×2 (08:23→11:15)
[2018-08-05 09:07] VITALS: BP 131/79; PULSE 93; TEMP 97.9; O2SAT 98
[2018-08-05] MEDS: Vancomycin 1gm in NS 250ml 1 GM/250 ML BAG IVPB SCH (10:45)
[2018-08-05] MEDS: Cholecalciferol 1,000 INTLU TAB PO SCH (10:46)
[2018-08-05] MEDS: Nystatin 100,000 Units/gm Cream(15 gm) TOP SCH (10:46)
[2018-08-05] MEDS: GENVOYA PO SCH (10:47)
--- NOTE | 2018-08-05 12:01 | CP.PCM.DIS ---
<Jose Manuel Silver - Last Filed: 08/05/18 17:49> Provider - Provider Date of Admission: 07/22/18 21:38 Attending physician: Tracy Vazquez MD Consults: 07/23/18 01:10 Diabetic Education Referral Routine Comment: Physician Instructions: Reason For Exam: DKA vs HHS 07/23/18 08:02 Consult [Physician Consult] Routine Comment: Consulting Provider: Paco Pappas Consulting Physician: Paco Pappas Reason for Consult: hiv, sepsis 07/23/18 15:17 General Surgery Consult Routine Comment: Consulting Provider: Deven Schwab Consulting Physician: Deven Schwab Reason for Consult: unstageable sacral/perineal ulcer for possible debridement 07/24/18 07:06 Palliative Care Consult Routine Comment: Consulting Provider: Renetta Vigil Physician Instructions: Reason For Exam: advance directives 07/25/18 07:35 Endocrinology Consult Routine Comment: Consulting Provider: Kassi Savage Consulting Physician: Kassi Savage Reason for Consult: uncontrolled DM2 07/27/18 07:38 Hematology Oncology Consult Routine Comment: Consulting Provider: Max Mcfarland Consulting Physician: Max Mcfarland Reason for Consult: Thrombocytopenia Time Spent in preparation of Discharge (in minutes): 45 Diagnosis - Discharge Diagnosis (1) Toxic metabolic encephalopathy Status: Resolved (2) Gluteal abscess Status: Acute (3) Uncontrolled diabetes mellitus Status: Chronic (4) Influenza Status: Resolved Hospital Course - Lab Results Lab Results: Micro Results 08/04/18 01:30 Urine,Random Urine Culture - Final No Growth (<1,000 CFU/ML) 08/03/18 22:03 Blood Blood Culture - Preliminary NO GROWTH AFTER 24 HOURS 08/03/18 22:03 Blood Blood Culture - Preliminary NO GROWTH AFTER 24 HOURS 08/04/18 11:34 Abscess - Thigh-Right Gram Stain - Final 07/30/18 12:00 Blood-Venous Blood Culture - Final NO GROWTH AFTER 5 DAYS 07/30/18 12:00 Blood-Venous Gram Stain - Final TEST NOT PERFORMED 07/30/18 12:30 Blood-Venous Blood Culture - Final NO GROWTH AFTER 5 DAYS 07/30/18 12:30 Blood-Venous Gram Stain - Final TEST NOT PERFORMED 08/03/18 13:40 Stool C. difficile Antigen & Toxins A,B - Final 07/30/18 19:22 Urine,Catheterized Urine Culture - Final No Growth (<1,000 CFU/ML) 07/22/18 20:20 Blood-Venous Blood Culture - Final NO GROWTH AFTER 5 DAYS 07/22/18 20:20 Blood-Venous Gram Stain - Final TEST NOT PERFORMED 07/22/18 20:00 Blood-Venous Blood Culture - Final NO GROWTH AFTER 5 DAYS 07/22/18 20:00 Blood-Venous Gram Stain - Final TEST NOT PERFORMED 07/24/18 20:30 Other: Please Indicate Microsporidia Stain - Final 07/23/18 21:30 Buttock Gram Stain - Final 07/23/18 21:30 Buttock Wound Culture - Final Escherichia Coli Beta Hemolytic Strep Group B 07/23/18 16:37 Stool Stool Culture - Final NO SALMONELLA, SHIGELLA OR CAMPYLOBACTER ISOLATED. 07/23/18 14:05 Stool Ova and Parasite Concentrate Exam - Final 07/22/18 21:29 Urine,Clean Catch Urine Culture - Final Escherichia Coli Beta Hemolytic Strep Group B 07/23/18 02:00 Nose MRSA Culture (Admit) - Final MRSA NOT DETECTED Most Recent Lab Values WBC 5.8 10^3/uL (4.5-11.0) D 08/05/18 06:30 RBC 3.23 10^6/uL (3.5-6.1) L 08/05/18 06:30 Hgb 9.2 g/dL (12.0-16.0) L 08/05/18 06:30 Hct 28.5 % (36.0-48.0) L 08/05/18 06:30 MCV 88.2 fl (80.0-105.0) 08/05/18 06:30 MCH 28.5 pg (25.0-35.0) 08/05/18 06:30 MCHC 32.3 g/dl (31.0-37.0) 08/05/18 06:30 RDW 13.1 % (11.5-14.5) 08/05/18 06:30 Plt Count 347 10^3/uL (120.0-450.0) 08/05/18 06:30 Manual Plt Count 81 K/mm3 (120-450) L 07/25/18 11:46 MPV 10.3 fl (7.0-11.0) 08/05/18 06:30 Gran % 62.2 % (50.0-68.0) 08/05/18 06:30 Lymph % (Auto) 21.1 % (22.0-35.0) L 08/05/18 06:30 [place] % (Auto) 14.0 % (1.0-6.0) H 08/05/18 06:30 Eos % (Auto) 2.4 % (1.5-5.0) 08/05/18 06:30 Baso % (Auto) 0.3 % (0.0-3.0) 08/05/18 06:30 Gran # 3.59 (1.4-6.5) 08/05/18 06:30 Lymph # (Auto) 1.2 (1.2-3.4) 08/05/18 06:30 [place] # (Auto) 0.8 (0.1-0.6) H 08/05/18 06:30 Eos # (Auto) 0.1 (0.0-0.7) 08/05/18 06:30 Baso # (Auto) 0.02 K/mm3 (0.0-2.0) 08/05/18 06:30 Neutrophils % (Manual) 57 % (50.0-70.0) 07/31/18 11:00 Band Neutrophils % 3 % (0-2) H 07/31/18 11:00 Lymphocytes % (Manual) 22 % (22.0-35.0) 07/31/18 11:00 Monocytes % (Manual) 18 % (1.0-6.0) H 07/31/18 11:00 Eosinophils % (Manual) 1 % (0.0-3.0) 07/22/18 20:10 Platelet Evaluation Normal (NORMAL) 07/22/18 20:10 PT 11.6 SECONDS (9.4-12.5) 07/22/18 20:10 INR 1.02 07/22/18 20:10 APTT 22.5 Seconds (25.1-36.5) L 07/22/18 20:10 Fibrinogen 595 mg/dl (200-400) H 07/25/18 10:00 pO2 58 mm/Hg (30-55) H 07/23/18 00:00 VBG pH 7.31 (7.32-7.43) L 07/23/18 00:00 VBG pCO2 50.0 (40-60) 07/23/18 00:00 VBG HCO3 25.2 mmol/l (21-28) 07/23/18 00:00 VBG Total CO2 26.7 mmol.L (22-28) 07/23/18 00:00 VBG O2 Sat (Calc) 93.2 % (40-65) H 07/23/18 00:00 VBG Base Excess -1.7 mmol/L (0.0-2.0) L 07/23/18 00:00 VBG Potassium 2.7 mmol/L (3.6-5.2) L 07/23/18 00:00 Sodium 146.0 mmol/L (132-148) 07/23/18 00:00 Chloride 107.0 mmol/L (98-107) 07/23/18 00:00 Glucose 358 mg/dl (65-105) H 07/23/18 00:00 Lactate 3.2 mmol/L (0.7-2.1) H 07/23/18 00:00 FiO2 21.0 % 07/23/18 00:00 Sodium 137 mmol/L (132-148) 08/05/18 06:30 Potassium 3.8 mmol/L (3.6-5.0) 08/05/18 06:30 Chloride 106 mmol/L (98-107) 08/05/18 06:30 Carbon Dioxide 28 mmol/L (21-33) 08/05/18 06:30 Anion Gap 7 (10-20) L 08/05/18 06:30 BUN 10 mg/dL (7-21) 08/05/18 06:30 Creatinine 0.5 mg/dl (0.7-1.2) L 08/05/18 06:30 Est GFR ( Amer) > 60 08/05/18 06:30 Est GFR (Non-Af Amer) > 60 08/05/18 06:30 POC Glucose (mg/dL) 199 mg/dL (65-110) H 08/05/18 11:42 Random Glucose 164 mg/dL (70-110) H 08/05/18 06:30 Hemoglobin A1c 12.2 % (4.2-6.5) H 07/24/18 08:00 Serum Osmolality 330 mosm/kg (272-300) H 07/23/18 02:00 Calcium 8.1 mg/dL (8.4-10.5) L 08/05/18 06:30 Phosphorus 3.4 mg/dL (2.5-4.5) 08/05/18 06:30 Magnesium 1.9 mg/dL (1.7-2.2) 08/05/18 06:30 Total Bilirubin 0.2 mg/dL (0.2-1.3) 08/05/18 06:30 AST 85 U/L (14-36) H D 08/05/18 06:30 ALT 78 U/L (7-56) H 08/05/18 06:30 Alkaline Phosphatase 150 U/L (38-126) H 08/05/18 06:30 Lactate Dehydrogenase 403 U/L (333-699) 07/22/18 20:10 Total Creatine Kinase < 20 U/L (35-230) L 07/22/18 20:10 Troponin I < 0.01 ng/mL 07/23/18 05:00 Total Protein 5.6 g/dL (5.8-8.3) L 08/05/18 06:30 Albumin 2.2 g/dL (3.0-4.8) L 08/05/18 06:30 Globulin 3.4 gm/dL 08/05/18 06:30 Albumin/Globulin Ratio 0.7 (1.1-1.8) L 08/05/18 06:30 Triglycerides 173 mg/dL (35-160) H 07/23/18 05:00 Cholesterol 86 mg/dL (130-200) L 07/23/18 05:00 LDL Cholesterol Direct 57 mg/dL (0-129) 07/23/18 05:00 HDL Cholesterol 13 mg/dL (29-60) L 07/23/18 05:00 Vitamin B12 995 pg/mL (239-931) H 07/22/18 23:34 25-OH Vitamin D Total 28.2 NG/ML (30.0-100.0) L 07/22/18 23:36 Procalcitonin 0.32 NG/ML (0.19-0.49) 08/04/18 08:20 Free T4 0.83 ng/dL (0.78-2.19) 07/26/18 07:45 TSH 3rd Generation 0.37 mIU/mL (0.46-4.68) L 07/22/18 23:35 Venous Blood Potassium 2.7 mmol/L (3.6-5.2) L 07/23/18 00:00 Urine Color Yellow (YELLOW) 07/30/18 19:22 Urine Appearance Slight-cloudy (CLEAR) 07/30/18 19:22 Urine pH 7.5 (4.7-8.0) 07/30/18 19:22 Ur Specific [place] 1.015 (1.005-1.035) 07/30/18 19:22 Urine Protein Trace mg/dL (<30 mg/dL) H 07/30/18 19:22 Urine Glucose (UA) 100 mg/dL (NEGATIVE) H 07/30/18 19: Urine Ketones Negative mg/dL (NEGATIVE) 07/30/18 19:22 Urine Blood Negative (NEGATIVE) 07/30/18 19:22 Urine Nitrate Negative (NEGATIVE) 07/30/18 19: Urine Bilirubin Negative (NEGATIVE) 07/30/18 19:22 Urine Urobilinogen 0.2 E.U./dL (<1 E.U./dL) 07/30/18 19:22 Ur Leukocyte Esterase Negative Marisa/uL (NEGATIVE) 07/30/18 19:22 Urine RBC None /hpf (0-2) 07/30/18 19:22 Urine WBC 0 - 2 /hpf (0-6) 07/30/18 19:22 Ur Epithelial Cells None /hpf (0-5) 07/30/18 19:22 Urine Bacteria Large /hpf (NONE) 07/22/18 20:44 Urine Other Uyeast /hpf 07/30/18 19:22 Vancomycin Trough 22.9 ug/mL (5.0-10.0) H* 07/27/18 06:10 Urine Opiates Screen Negative (NEGATIVE) 07/23/18 02:00 Urine Methadone Screen Negative (NEGATIVE) 07/23/18 02:00 Ur Barbiturates Screen Negative (NEGATIVE) 07/23/18 02:00 Ur Phencyclidine Scrn Negative (NEGATIVE) 07/23/18 02:00 Ur Amphetamines Screen Negative (NEGATIVE) 07/23/18 02:00 U Benzodiazepines Scrn Negative (NEGATIVE) 07/23/18 02:00 U Oth Cocaine Metabols Negative (NEGATIVE) 07/23/18 02:00 U Cannabinoids Screen Negative (NEGATIVE) 07/23/18 02:00 B-Hydroxybutyrate 5.32 mM (0.02-0.27) H 07/22/18 23:34 Absolute Lymphs (Flow) 923 Cells/mcL (850-3900) 07/28/18 12:00 % CD4 Cells 21 Percent (30-61) L 07/28/18 12:00 Absolute CD4 Count 198 Cells/mcL (490-1740) L 07/28/18 12:00 T-Help/Suppress Ratio 0.34 Ratio (0.86-5.00) L 07/28/18 12:00 % CD8 Cells 64 Percent (12-42) H 07/28/18 12:00 Absolute CD8 Count 589 Cells/mcL (180-1170) 07/28/18 12:00 HIV-1 RNA Qnt (RT-PCR) 5.49 (Not Detected) H 07/28/18 12:00 Influenza Typ A,B (EIA) Pos for influenza a (NEGATIVE) H 07/30/18 14:25 - Hospital Course Hospital Course: Upon Admission: 62 F with past medical history of HIV, hepatitis, IDDM, past heroin abuse presenting with slurred speech and weakness found to be in HHS. HPI was provided by daughter of patient. As per daughter, patient came to visit from [place] on Wednesday. Since then it was noted that patient's behavior was slightly off, however patient stated she was sick. Prior morning when the daughter was going to work she noticed patient exhibited slurred speech and generalized weakness. This was around 6 am. As per daughter she waited until 6 pm when her brother came home and re-assessed patient. As per brother patient was exhibiting the same symptoms and seemed to be altered in comparison to her baseline and as a result decided it would be best to to bring the patient to the ED. During course of interview patient became more alert and awake. Hospital Course; Pt was initially managed in ICU for HHS. She was placed on insulin and given aggressive fluids and monitored in the ICU. Pts mental status improved. Pt was also found to have a necrotic R gluteal abscess and taken to OR the next day for debridement. She was placed on empiric vancomycin/meropenem. Pt was also found on CT abdomen to have enteritis/ileitis without mechanical obstruction. She completed a course of IV flagyl. She was found to have a UTI and continued on antibiotics. Infectious disease followed the patient and recommended antibiotics throughout hospital course. Pt was found to have marked thrombocytopoenia, which was likely caused from meropenem. Hematology was consulted and agreed with assessment vs 2/2 to recent infectious insult. Meropenem was held, and platelets subsequently esteban. Endocrinology was consulted for management of uncontrolled diabetes. Pt was found to be positive for influenza and was treated with a course of tamiflu. Pt was evaluated by PT who recommended subacute rehab. Pt had intermittent fevers and was continued on empiric antibiotics. She was followed by surgery, who was doing daily dressing changes and who noted some purulence to R abscess throughout hospital course. Pt had progressed with physical therapy throughout hospital course, was tolerating her diet, and had no symptoms of confusion Upon Discharge Pt was feeling better. She had no acute complaints. She was tolerating her diet, ambulating with physical therapy. Her vital signs were stable. Pt was accepted to [facility] for HIV for subacute rehabilitation. Transportation was arranged with case management. Discharge Exam - Head Exam Head Exam: ATRAUMATIC, NORMAL INSPECTION, NORMOCEPHALIC Discharge Plan - Discharge Medications Prescriptions: Doxycycline Hyclate 100 mg PO BID #28 capsule Meropenem [Merrem] 1 gm IV Q8 #42 vial - Follow Up Plan Condition: GUARDED Disposition: HOME/ ROUTINE Instructions: Wound Care (DC), Diabetic Ketoacidosis (DC) Additional Instructions: Please follow up with your primary care doctor in [place] within 3-5 days of discharge Please follow up with your surgeon, Dr. Schwab within 3-5 days of discharge Please follow up with your process trainer, Dr. Mcfraland within 3-5 days of discharge Please resume your home medications as previously prescribed, please discuss your medications with your primary care doctor You are being sent on 2 more weeks of antibiotics, Merrem and Doxy. Take as prescribed. You will need to get a weekly CBC, CMP, ESR, and CRP for each week on are on the antibiotics. If you experience new concerning or worsening symptoms, please visit the nearest emergency room. <Tracy Vazquez - Last Filed: 08/06/18 18:59> Provider - Provider Date of Admission: 07/22/18 21:38 Attending physician: Tracy Vazquez MD Consults: 07/23/18 01:10 Diabetic Education Referral Routine Comment: Physician Instructions: Reason For Exam: DKA vs HHS 07/23/18 08:02 Consult [Physician Consult] Routine Comment: Consulting Provider: Paco Pappas Consulting Physician: Paco Pappas Reason for Consult: hiv, sepsis 07/23/18 15:17 General Surgery Consult Routine Comment: Consulting Provider: Deven Schwab Consulting Physician: Deven Schwab Reason for Consult: unstageable sacral/perineal ulcer for possible debridement 07/24/18 07:06 Palliative Care Consult Routine Comment: Consulting Provider: Renetta Vigil Physician Instructions: Reason For Exam: advance directives 07/25/18 07:35 Endocrinology Consult Routine Comment: Consulting Provider: Kassi Savage Consulting Physician: Kassi Savage Reason for Consult: uncontrolled DM2 07/27/18 07:38 Hematology Oncology Consult Routine Comment: Consulting Provider: Max Mcfarland Consulting Physician: Max Mcfarland Reason for Consult: Thrombocytopenia Hospital Course - Lab Results Lab Results: Micro Results 08/04/18 11:34 Abscess - Thigh-Right Gram Stain - Final 08/04/18 11:34 Abscess - Thigh-Right Wound Culture - Final Corynebacterium Species 08/03/18 22:03 Blood Blood Culture - Preliminary NO GROWTH AFTER 48 HOURS 08/03/18 22:03 Blood Blood Culture - Preliminary NO GROWTH AFTER 48 HOURS 08/04/18 01:30 Urine,Random Urine Culture - Final No Growth (<1,000 CFU/ML) 07/30/18 12:00 Blood-Venous Blood Culture - Final NO GROWTH AFTER 5 DAYS 07/30/18 12:00 Blood-Venous Gram Stain - Final TEST NOT PERFORMED 07/30/18 12:30 Blood-Venous Blood Culture - Final NO GROWTH AFTER 5 DAYS 07/30/18 12:30 Blood-Venous Gram Stain - Final TEST NOT PERFORMED 08/03/18 13:40 Stool C. difficile Antigen & Toxins A,B - Final 07/30/18 19:22 Urine,Catheterized Urine Culture - Final No Growth (<1,000 CFU/ML) 07/22/18 20:20 Blood-Venous Blood Culture - Final NO GROWTH AFTER 5 DAYS 07/22/18 20:20 Blood-Venous Gram Stain - Final TEST NOT PERFORMED 07/22/18 20:00 Blood-Venous Blood Culture - Final NO GROWTH AFTER 5 DAYS 07/22/18 20:00 Blood-Venous Gram Stain - Final TEST NOT PERFORMED 07/24/18 20:30 Other: Please Indicate Microsporidia Stain - Final 07/23/18 21:30 Buttock Gram Stain - Final 07/23/18 21:30 Buttock Wound Culture - Final Escherichia Coli Beta Hemolytic Strep Group B 07/23/18 16:37 Stool Stool Culture - Final NO SALMONELLA, SHIGELLA OR CAMPYLOBACTER ISOLATED. 07/23/18 14:05 Stool Ova and Parasite Concentrate Exam - Final 07/22/18 21:29 Urine,Clean Catch Urine Culture - Final Escherichia Coli Beta Hemolytic Strep Group B 07/23/18 02:00 Nose MRSA Culture (Admit) - Final MRSA NOT DETECTED Most Recent Lab Values WBC 5.8 10^3/uL (4.5-11.0) D 08/05/18 06:30 RBC 3.23 10^6/uL (3.5-6.1) L 08/05/18 06:30 Hgb 9.2 g/dL (12.0-16.0) L 08/05/18 06:30 Hct 28.5 % (36.0-48.0) L 08/05/18 06:30 MCV 88.2 fl (80.0-105.0) 08/05/18 06:30 MCH 28.5 pg (25.0-35.0) 08/05/18 06:30 MCHC 32.3 g/dl (31.0-37.0) 08/05/18 06:30 RDW 13.1 % (11.5-14.5) 08/05/18 06:30 Plt Count 347 10^3/uL (120.0-450.0) 08/05/18 06:30 Manual Plt Count 81 K/mm3 (120-450) L 07/25/18 11:46 MPV 10.3 fl (7.0-11.0) 08/05/18 06:30 Gran % 62.2 % (50.0-68.0) 08/05/18 06:30 Lymph % (Auto) 21.1 % (22.0-35.0) L 08/05/18 06:30 [place] % (Auto) 14.0 % (1.0-6.0) H 08/05/18 06:30 Eos % (Auto) 2.4 % (1.5-5.0) 08/05/18 06:30 Baso % (Auto) 0.3 % (0.0-3.0) 08/05/18 06:30 Gran # 3.59 (1.4-6.5) 08/05/18 06:30 Lymph # (Auto) 1.2 (1.2-3.4) 08/05/18 06:30 [place] # (Auto) 0.8 (0.1-0.6) H 08/05/18 06:30 Eos # (Auto) 0.1 (0.0-0.7) 08/05/18 06:30 Baso # (Auto) 0.02 K/mm3 (0.0-2.0) 08/05/18 06:30 Neutrophils % (Manual) 57 % (50.0-70.0) 07/31/18 11:00 Band Neutrophils % 3 % (0-2) H 07/31/18 11:00 Lymphocytes % (Manual) 22 % (22.0-35.0) 07/31/18 11:00 Monocytes % (Manual) 18 % (1.0-6.0) H 07/31/18 11:00 Eosinophils % (Manual) 1 % (0.0-3.0) 07/22/18 20:10 Platelet Evaluation Normal (NORMAL) 07/22/18 20:10 PT 11.6 SECONDS (9.4-12.5) 07/22/18 20:10 INR 1.02 07/22/18 20:10 APTT 22.5 Seconds (25.1-36.5) L 07/22/18 20:10 Fibrinogen 595 mg/dl (200-400) H 07/25/18 10:00 pO2 58 mm/Hg (30-55) H 07/23/18 00:00 VBG pH 7.31 (7.32-7.43) L 07/23/18 00:00 VBG pCO2 50.0 (40-60) 07/23/18 00:00 VBG HCO3 25.2 mmol/l (21-28) 07/23/18 00:00 VBG Total CO2 26.7 mmol.L (22-28) 07/23/18 00:00 VBG O2 Sat (Calc) 93.2 % (40-65) H 07/23/18 00:00 VBG Base Excess -1.7 mmol/L (0.0-2.0) L 07/23/18 00:00 VBG Potassium 2.7 mmol/L (3.6-5.2) L 07/23/18 00:00 Sodium 146.0 mmol/L (132-148) 07/23/18 00:00 Chloride 107.0 mmol/L (98-107) 07/23/18 00:00 Glucose 358 mg/dl (65-105) H 07/23/18 00:00 Lactate 3.2 mmol/L (0.7-2.1) H 07/23/18 00:00 FiO2 21.0 % 07/23/18 00:00 Sodium 137 mmol/L (132-148) 08/05/18 06:30 Potassium 3.8 mmol/L (3.6-5.0) 08/05/18 06:30 Chloride 106 mmol/L (98-107) 08/05/18 06:30 Carbon Dioxide 28 mmol/L (21-33) 08/05/18 06:30 Anion Gap 7 (10-20) L 08/05/18 06:30 BUN 10 mg/dL (7-21) 08/05/18 06:30 Creatinine 0.5 mg/dl (0.7-1.2) L 08/05/18 06:30 Est GFR ( Amer) > 60 08/05/18 06:30 Est GFR (Non-Af Amer) > 60 08/05/18 06:30 POC Glucose (mg/dL) 199 mg/dL (65-110) H 08/05/18 11:42 Random Glucose 164 mg/dL (70-110) H 08/05/18 06:30 Hemoglobin A1c 12.2 % (4.2-6.5) H 07/24/18 08:00 Serum Osmolality 330 mosm/kg (272-300) H 07/23/18 02:00 Calcium 8.1 mg/dL (8.4-10.5) L 08/05/18 06:30 Phosphorus 3.4 mg/dL (2.5-4.5) 08/05/18 06:30 Magnesium 1.9 mg/dL (1.7-2.2) 08/05/18 06:30 Total Bilirubin 0.2 mg/dL (0.2-1.3) 08/05/18 06:30 AST 85 U/L (14-36) H D 08/05/18 06:30 ALT 78 U/L (7-56) H 08/05/18 06:30 Alkaline Phosphatase 150 U/L (38-126) H 08/05/18 06:30 Lactate Dehydrogenase 403 U/L (333-699) 07/22/18 20:10 Total Creatine Kinase < 20 U/L (35-230) L 07/22/18 20:10 Troponin I < 0.01 ng/mL 07/23/18 05:00 Total Protein 5.6 g/dL (5.8-8.3) L 08/05/18 06:30 Albumin 2.2 g/dL (3.0-4.8) L 08/05/18 06:30 Globulin 3.4 gm/dL 08/05/18 06:30 Albumin/Globulin Ratio 0.7 (1.1-1.8) L 08/05/18 06:30 Triglycerides 173 mg/dL (35-160) H 07/23/18 05:00 Cholesterol 86 mg/dL (130-200) L 07/23/18 05:00 LDL Cholesterol Direct 57 mg/dL (0-129) 07/23/18 05:00 HDL Cholesterol 13 mg/dL (29-60) L 07/23/18 05:00 Vitamin B12 995 pg/mL (239-931) H 07/22/18 23:34 25-OH Vitamin D Total 28.2 NG/ML (30.0-100.0) L 07/22/18 23:36 Procalcitonin 0.32 NG/ML (0.19-0.49) 08/04/18 08:20 Free T4 0.83 ng/dL (0.78-2.19) 07/26/18 07:45 TSH 3rd Generation 0.37 mIU/mL (0.46-4.68) L 07/22/18 23:35 Venous Blood Potassium 2.7 mmol/L (3.6-5.2) L 07/23/18 00:00 Urine Color Yellow (YELLOW) 07/30/18 19:22 Urine Appearance Slight-cloudy (CLEAR) 07/30/18 19:22 Urine pH 7.5 (4.7-8.0) 07/30/18 19: Ur Specific [place] 1.015 (1.005-1.035) 07/30/18 19:22 Urine Protein Trace mg/dL (<30 mg/dL) H 07/30/18 19:22 Urine Glucose (UA) 100 mg/dL (NEGATIVE) H 07/30/18 19: Urine Ketones Negative mg/dL (NEGATIVE) 07/30/18 19: Urine Blood Negative (NEGATIVE) 07/30/18 19: Urine Nitrate Negative (NEGATIVE) 07/30/18 19: Urine Bilirubin Negative (NEGATIVE) 07/30/18 19: Urine Urobilinogen 0.2 E.U./dL (<1 E.U./dL) 07/30/18 19:22 Ur Leukocyte Esterase Negative Marisa/uL (NEGATIVE) 07/30/18 19:22 Urine RBC None /hpf (0-2) 07/30/18 19:22 Urine WBC 0 - 2 /hpf (0-6) 07/30/18 19:22 Ur Epithelial Cells None /hpf (0-5) 07/30/18 19:22 Urine Bacteria Large /hpf (NONE) 07/22/18 20:44 Urine Other Uyeast /hpf 07/30/18 19:22 Vancomycin Trough 22.9 ug/mL (5.0-10.0) H* 07/27/18 06:10 Urine Opiates Screen Negative (NEGATIVE) 07/23/18 02:00 Urine Methadone Screen Negative (NEGATIVE) 07/23/18 02:00 Ur Barbiturates Screen Negative (NEGATIVE) 07/23/18 02:00 Ur Phencyclidine Scrn Negative (NEGATIVE) 07/23/18 02:00 Ur Amphetamines Screen Negative (NEGATIVE) 07/23/18 02:00 U Benzodiazepines Scrn Negative (NEGATIVE) 07/23/18 02:00 U Oth Cocaine Metabols Negative (NEGATIVE) 07/23/18 02:00 U Cannabinoids Screen Negative (NEGATIVE) 07/23/18 02:00 B-Hydroxybutyrate 5.32 mM (0.02-0.27) H 07/22/18 23:34 Absolute Lymphs (Flow) 923 Cells/mcL (850-3900) 07/28/18 12:00 % CD4 Cells 21 Percent (30-61) L 07/28/18 12:00 Absolute CD4 Count 198 Cells/mcL (490-1740) L 07/28/18 12:00 T-Help/Suppress Ratio 0.34 Ratio (0.86-5.00) L 07/28/18 12:00 % CD8 Cells 64 Percent (12-42) H 07/28/18 12:00 Absolute CD8 Count 589 Cells/mcL (180-1170) 07/28/18 12:00 HIV-1 RNA Qnt (RT-PCR) 5.49 (Not Detected) H 07/28/18 12:00 Influenza Typ A,B (EIA) Pos for influenza a (NEGATIVE) H 07/30/18 14:25 Attending/Attestation - Attestation I have personally seen and examined this patient.: Yes I have fully participated in the care of the patient.: Yes I have reviewed all pertinent clinical information, including history, physical exam and plan: Yes Notes (Text): 08/06/18 18:57 Attending note; patient seen and examined with resident. Patient is alert and awake. Patient is afebrile and nontoxic. Case discussed with patient and daughters in detail with social insurance specialist by the bedside. Patient is a 62-year-old female with past medical history significant for HIV, hepatitis, insulin-dependent type 2 diabetes, and drug abuse that presented to the emergency room with slurred speech and weakness. 1. Fever. Influenza A. Fever resolved. Completed Tamiflu. Repeat Chest xray showed no active disease. Continue contact isolation. 2. Large necrotic gluteal abscess. S/P debridement 07/23/18. Bedside debridement done yesterday. Case discussed with surgery in detail. Wound culture positive for Escherichia coli and beta hemolytic strep group. 3. Toxic metabolic encephalopathy. Resolved. Patient is AAO x3. CT head is negative. 4. Dm type 2. Continue Levemir. Patient counseled at length on compliance with medications at home. Blood sugar is better controlled. 5. HIV positive. Noncompliant with medications. ID following, recommendations appreciated. CD4 count is 198. Started on [employer] home med. Patient needs to complete meropenem and doxycycline. 6. History of Hepatitis C. Not treated. Patient will need to follow up outpatient for treatment. Patient with POLST and is DNR/DNI. Palliative care recommendations appreciated. PT evaluation appreciated. Case discussed with therapeutic case manager in detail. Transfer to [facility] today. Patient and family agreed. Upon discharge the patient will follow up with PMD in [place].
--- NOTE | 2018-08-05 13:58 | CP.PCM.PN ---
Subjective - Date & Time of Evaluation Date of Evaluation: 08/05/18 Time of Evaluation: 10:20 - Subjective Subjective: Comfortable in bed, cough is better, no fevers overnight, no diarrhea, no abdominal pain, no nausea. Objective - Vital Signs/Intake and Output Vital Signs (last 24 hours): Temp Pulse Resp BP Pulse Ox 98.5 F 84 20 121/72 97 08/04/18 06:00 08/04/18 06:00 08/04/18 06:00 08/04/18 06:00 08/04/18 06:00 Intake and Output: 08/04/18 08/04/18 06:59 18:59 Intake Total 450 Output Total 600 Balance -150 - Medications Medications: Current Medications Acetaminophen (Tylenol 325mg Tab) 650 mg PO Q6H PRN PRN Reason: Fever >100.4 F Last Admin: 08/03/18 21:12 Dose: 650 mg Cholecalciferol (Vitamin D) 2,000 intlu PO DAILY [facility] Last Admin: 08/04/18 11:07 Dose: 2,000 intlu Dextrose (Dextrose 50% Inj) 0 ml IV STAT PRN; Protocol PRN Reason: Hypoglycemia Protocol Famotidine (Pepcid) 20 mg PO HS [facility] Last Admin: 08/03/18 21:12 Dose: 20 mg Home Med (Home Med) 1 unit PO DAILY [facility] Last Admin: 08/04/18 11:06 Dose: Not Given Dextrose (Dextrose 5% In Water 1000 Ml) 1,000 mls @ 0 mls/hr IV .Q0M PRN; Protocol PRN Reason: Hypoglycemia Protocol Vancomycin HCl (Vancomycin 1gm) 1 gm in 250 mls @ 167 mls/hr IVPB Q12H JOHN; Protocol Last Admin: 08/04/18 11:04 Dose: 167 mls/hr Meropenem (Merrem Iv 1 Gm Premix) 1 gm in 50 mls @ 12.5 mls/hr IVPB Q8 [facility]; Protocol Last Admin: 08/04/18 05:42 Dose: 12.5 mls/hr Ibuprofen (Motrin Tab) 400 mg PO Q6H PRN PRN Reason: Fever >100.4 F Last Admin: 08/04/18 11:07 Dose: 400 mg Insulin Detemir (Levemir) 8 unit SC [facility] Last Admin: 08/03/18 22:20 Dose: 8 u Insulin Human Lispro (Humalog Low) 0 units SC A[facility]S [facility]; Protocol Last Admin: 08/04/18 08:00 Dose: Not Given Insulin Human Lispro (Humalog) 6 units SC AC [facility] Last Admin: 08/04/18 11:05 Dose: 6 units Nystatin (Mycostatin Cream) 0 ea TOP TID JOHN Last Admin: 08/03/18 18:45 Dose: 1 appl Oseltamivir Phosphate (Tamiflu Cap) 75 mg PO BID [facility]; Protocol Stop: 08/04/18 16:23 Last Admin: 08/04/18 11:07 Dose: 75 mg - Labs Labs: 08/04/18 07:20 08/04/18 07:20 PT 11.6 SECONDS (9.4-12.5) 07/22/18 20:10 INR 1.02 07/22/18 20:10 APTT 22.5 Seconds (25.1-36.5) L 07/22/18 20:10 - Constitutional Appears: Chronically Ill - Head Exam Head Exam: NORMAL INSPECTION - Respiratory Exam Respiratory Exam: Decreased Breath Sounds - Cardiovascular Exam Cardiovascular Exam: +S1, +S2 - GI/Abdominal Exam GI & Abdominal Exam: Soft. 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 coli and group B Strep; new area fluid collection just drained, growing gram positive cocci low grade fever, etiology to be determined Thrombocytopenia, R/O ITP chronic HIV infection hepatitis insulin-dependent diabetese mellitus history of heroin abuse Plan continue Vancomycin and Merrem; repeat blood cx are negative, new wound cx from the new fluid collection in the perineal area showing gram positive cocci and we are awaiting identification and sensitivities - Vancomycin can be switched to Doxycycline completed 5 days of Tamiflu follow up further plans of surgery CD4 count is 198 but may be artificially decreased since she is acutely ill - should repeat outpatient CD4 count; HIV virus load is elevated - continue cART thrombocytopenia has resolved discussed with medical team
--- NOTE | 2018-08-05 18:03 | PN ---
DATE: 08/05/2018 ENDOCRINOLOGY FOLLOWUP NOTE LOCATION: Room 564. SUBJECTIVE: This is a 62-year-old female with recent uncontrolled type 2 insulin-requiring diabetes, now being followed closely for metabolic management. Her glucose values are fluctuating but improved and the levels have ranged from 144 to 223 mg/dL. LABORATORY DATA: Her chemistry showed a BUN of 9, sodium 137, potassium 3.6, chloride 104, CO2 of 28, glucose 146 and creatinine 0.5. ASSESSMENT AND PLAN: So at this time, we will continue the same basal and bolus insulin regimen as given with Humalog given as 6 units t.i.d. before meals as ordered. We will continue the Levemir given as 8 units subcutaneous at bedtime daily as given. We will obtain serial chemistries and supplement accordingly as needed. We will follow. Kassi Savage MD
--- NOTE | 2018-08-19 06:05 | OP ---
PROCEDURE DATE: 07/23/2018 PREOPERATIVE DIAGNOSIS: Large necrotic gluteal abscess. POSTOPERATIVE DIAGNOSIS: Large necrotic gluteal abscess. PROCEDURE: Debridement. SURGEON: Deven Schwab MD. MANGLE FEEDER: Ruiz Munoz DO. DESCRIPTION OF PROCEDURE: In the operating room, the patient was identified by name, name of procedure, laterality and my ivett, placed with IV sedation and the mask on the side with the right side up. The gluteal abscess was seen. This was widely debrided with a scissors and an #11 blade removing all necrotic skin. The base was then taken down with the Versajet to bleeding tissue circumferentially. Cautery was used, no stitching. Having done this, the area was very clean. Tissue was sent. We plan to place a wound VAC on it in a day or two after we see how stable this debridement is. Deven Schwab MD
== END 2018-08-05 14:19 | DRG 704 ==
LOC: ED 19:14 → ERH 21:38 → CCU 07-23 01:35 → 5RNO 07-25 08:07 → 5RSO 07-26 18:00 → 5RNO 07-29 16:47
PROVIDERS: ADMIT Internal Medicine; ATTEND Internal Medicine
PROC: 0JD90ZZ Extraction of Buttock Subcutaneous Tissue and Fascia, Open Approach (ICD-10-PCS; 2018-07-23)
PROC: 0JB90ZZ Excision of Buttock Subcutaneous Tissue and Fascia, Open Approach (ICD-10-PCS; principal; 2018-07-23 20:00)
PROC: 05HY33Z Insertion of Infusion Device into Upper Vein, Percutaneous Approach (ICD-10-PCS; 2018-08-03)
PROC: B54NZZA Ultrasonography of Left Upper Extremity Veins, Guidance (ICD-10-PCS; 2018-08-03)
DX: A41.9 Sepsis, unspecified organism (principal); B20 Human immunodeficiency virus [HIV] disease; E11.00 Type 2 diabetes mellitus with hyperosmolarity without nonketotic hyperglycemic-hyperosmolar coma (NKHHC); G92 Toxic encephalopathy; M72.6 Necrotizing fasciitis; L89.153 Pressure ulcer of sacral region, stage 3; L02.31 Cutaneous abscess of buttock; N39.0 Urinary tract infection, site not specified; E87.6 Hypokalemia; B19.20 Unspecified viral hepatitis C without hepatic coma; E11.10 Type 2 diabetes mellitus with ketoacidosis without coma; E11.622 Type 2 diabetes mellitus with other skin ulcer; L97.819 Non-pressure chronic ulcer of other part of right lower leg with unspecified severity; F11.11 Opioid abuse, in remission; I80.8 Phlebitis and thrombophlebitis of other sites; D69.59 Other secondary thrombocytopenia; T36.1X5A Adverse effect of cephalosporins and other beta-lactam antibiotics, initial encounter; R65.20 Severe sepsis without septic shock; J10.1 Influenza due to other identified influenza virus with other respiratory manifestations; B96.20 Unspecified Escherichia coli [E. coli] as the cause of diseases classified elsewhere; B95.1 Streptococcus, group B, as the cause of diseases classified elsewhere; I10 Essential (primary) hypertension; K52.9 Noninfective gastroenteritis and colitis, unspecified; E55.9 Vitamin D deficiency, unspecified; E78.00 Pure hypercholesterolemia, unspecified; F17.200 Nicotine dependence, unspecified, uncomplicated; Z66 Do not resuscitate; D63.8 Anemia in other chronic diseases classified elsewhere; Z79.4 Long term (current) use of insulin; Z91.14 Patient's other noncompliance with medication regimen; Z88.9 Allergy status to unspecified drugs, medicaments and biological substances; Z81.8 Family history of other mental and behavioral disorders